=== PATIENT | female | born 2005 | race Caucasian/White ===

== ENCOUNTER 2024-07-09 12:12 | Outpatient (OUT) | payer OTHER, SELFPAY ==
--- NOTE | 2024-07-09 12:45 | XR_ITS ---
[address] [address] Patient Name: MAGDIEL ARAUJO MRN: [id number] date: 2005 Sex: F Assigned Patient Location: [facility] Current Patient Location: [facility] Accession/Order Number: [id number] Exam Date: 07/09/2024 13:35 Report Date: 07/09/2024 23:37 At the request of: ANITA SALAMANCA Procedure: XR chest 2V EXAM: XR chest 2V CLINICAL INDICATION: Preop exam COMPARISON: None TECHNIQUE: 2 views of chest performed. FINDINGS: Lungs: No convincing focal infiltrates. No pleural effusion or pneumothorax. Heart: Cardiac and mediastinal contours are unremarkable. No overt pulmonary vascular congestion. Osseous structures: No acute abnormalities. XR/XR chest 2V IMPRESSION: No acute cardiopulmonary process. Electronically authenticated by: NANCY MONTGOMERY Date: 07/09/2024 23:37
== END 2024-07-09 12:13 | disposition home or self-care (01) ==
LOC: PST 12:21
PROVIDERS: PCP Family Medicine; Visit Provider Obstetrics & Gynecology
DX: Z01.810 Encounter for preprocedural cardiovascular examination (principal); R10.2 Pelvic and perineal pain
CPT/HCPCS: 71046

== ENCOUNTER 2024-08-07 07:18 | Day surgery (SDC) | payer OTHER, SELFPAY ==
[2024-07-09 12:39] VITALS: BP 124/98; PULSE 75; TEMP 36.8; O2SAT 99; BMI 23.7
[2024-08-07] VITALS (11 sets, daily range): BP systolic 107–141; BP diastolic 70–96; PULSE 67–131; TEMP 36.3–36.4; O2SAT 98–100; BMI 23.9
--- OUTSIDE RECORDS SUMMARY | 2024-08-07 07:21 | XMS_ITS | CCD ---
Author Organization [facility] Care Team Providers Care Dye Colorist Dyer Name Role Phone KATHERIN VALENTIN Admitting Unavailable KATHERIN VALENTIN Attending Unavailable KATHERIN VALENTIN Consulting Unavailable Denae Turner Unavailable No, Physician Primary Care Provider Unavailabl e No, Physician Primary Care Provider Unavailabl e Balbo DO, Carmenza Morales Primary Care Provider ELIZABETH HODGES Attending Unavailable BALBO, CARMENZA MORALES Primary Care Unavailable BALBO, CARMENZA MORALES Primary Care Unavailable BALBO, CARMENZA MORALES Attending Unavailable BALBO, CARMENZA MORALES Primary Care Unavailable BALBO, CARMENZA MORALES Attending Unavailable BALBO, CARMENZA MORALES Primary Care Unavailable BALBO, CARMENZA MORALES Attending Unavailable NO, PHYSICIAN Primary Care Unavailable BALBO, CARMENZA MORALES Attending Unavailable ANCILLARY UPTOWN Admitting Unavailable BALBO, CARMENZA MORALES Primary Care Unavailable VALE GRIFFITH Attending Unavailable NO, PHYSICIAN Primary Care Unavailable NO, PHYSICIAN Primary Care Unavailable ELLIE LAYTON Attending Unavailabl e BALBO, CARMENZA MORALES Primary Care Unavailable ELLIE LAYTON Attending Unavailabl e BALBO, CARMENZA MORALES Primary Care Unavailable PAZ CHRISTY JR. Attending Unavail able BALBO, CARMENZA MORALES Primary Care Unavailable JANIS GONG Attending Unavailable BALBO, CARMENZA MORALES Primary Care Unavailable SHERRILL SAUCEDO Attending Unavailable BALBO, CARMENZA MORALES Primary Care Unavailable PAZ MITCHELL Attending Unavailable BALBO, CARMENZA MORALES Primary Care Unavailable ROSLYN HENNESSY Attending Unavailable ANITHA FREITAS Attending Unavailable CYNDY GILES Primary Care Unavailable RITA SANTANA Attending Unavailable RITA SANTANA Referring Unavailable RITA SANTANA Attending Unavailable MAXWELL RIOS Attending Unavailable ANITA SALAMANCA Attending Unavailable ANITA SALAMANCA Attending Unavailable MAXWELL RIOS Attending Unavailable ABBEY BROWN Attending Unavailable CARMENZA RUELAS Primary Care Unavailable Medications Current Medications Medication Drug Class(es) Dates Sig (Normalized) Sig (Original) dextromethorphan hydrobromide 15 mg / guaiFENesin 400 mg / pseudoephedrine hydrochloride 60 mg oral tablet (1 source) alpha-Adrenergic Agonist, Uncompetitive N-koqhgx-X-aspartat e Receptor Antagonist, Sigma-1 Agonist Start: 10-02-2022 End: 10-05-2022 take 1 tablet by mouth every six hours pseudoephedrine-DM -guaiFENesin 60-15-400 mg Tab Indications: Upper respiratory tract infection, unspecified type Take 1 (one) tablet by mouth every 6 (six) hours for 3 days . 12 tablet 0 10/02/2022 10/05/2022 Active erythromycin 0.005 mg/mg ophthalmic ointment (1 source) Macrolide, Macrolide Antimicrobial Start: 10-21-2023 End: 10-28-2023 apply 3.5 g into the eye(s) four times daily erythromycin 0.5% (ROMYCIN) ophthalmic ointment Administer to both eyes 4 (four) times a day for 7 days . 3.5 g 0 10/21/2023 10/28/2023 Active levonorgestrel 0.806952 mg/hr intrauterine system (12 sources) Progestin, Progestin-containin g Intrauterine Device levonorgestreL (MIRENA) 21 mcg/24 hours (8 yrs) 52 mg IUD 1 (one) each by Intrauterine route once . 0 Active nitrofurantoin, macrocrystals 25 mg / nitrofurantoin, monohydrate 75 mg oral capsule (2 sources) Nitrofuran Antibacterial Start: 09-19-2023 End: 09-24-2023 take 1 capsule by mouth twice daily nitrofurantoin, macrocrystal-monoh ydrate, (Macrobid) 100 MG capsule Indications: Acute cystitis with hematuria Take 1 (one) capsule (100 mg total) by mouth 2 (two) times a day for 5 days . 10 capsule 0 09/19/2023 09/23/2023 Discontinued sulfamethoxazole 800 mg / trimethoprim 160 mg oral tablet (2 sources) Dihydrofolate Reductase Inhibitor Antibacterial, Sulfonamide Antimicrobial Start: 09-23-2023 End: 09-30-2023 take 1 tablet by mouth twice daily sulfamethoxazole-t rimethoprim (BACTRIM DS,SEPTRA DS) 800-160 mg per tablet Indications: Acute cystitis with hematuria Take 1 (one) tablet by mouth 2 (two) times a day for 7 days . 14 tablet 0 09/23/2023 09/30/2023 Active venlafaxine 75 mg oral tablet (17 sources) Serotonin and Norepinephrine Reuptake Inhibitor Start: 11-26-2022 take 1 tablet by mouth once daily at mealtime venlafaxine (EFFEXOR) 75 MG tablet Take 1 (one) tablet (75 mg total) by mouth daily WITH FOOD . 0 11/26/2022 Active Completed/Discontinued Medications Medication Drug Class(es) Dates Sig (Normalized) Sig (Original) amoxicillin 250 mg chewable tablet (1 source) Penicillin-class Antibacterial Amoxicillin 250 MG Oral for 10 Not-Taking azithromycin 250 mg oral tablet (1 source) Macrolide Antimicrobial Start: 01-10-2016 Zithromax Z-Hugo 250 MG 2 tablets on the first day, then 1 tablet daily for 4 days Orally Once a day for 5 day(s) Dec, Not-Taking Brompheniramine / Pseudoephedrine (1 source) alpha-Adrenergic Agonist Start: 11-17-2017 take 5 mL by mouth every six hours as needed Bromfed DM 30-2-10 MG/5ML 5 ml as needed Orally every 6 hrs Oct, Not-Taking cefdinir (1 source) Cephalosporin Antibacterial Start: 06-16-2014 take 5 mL by mouth twice daily Omnicef 250 MG/5ML 5 ml By Mouth bid for 10 day(s) May, Not-Taking cetirizine hydrochloride 10 mg oral tablet (2 sources) Histamine-1 Receptor Antagonist Start: 10-02-2022 End: 12-24-2022 take 1 tablet by mouth once daily cetirizine (ZYRTEC) 10 MG tablet Indications: Upper respiratory tract infection, unspecified type Take 1 (one) tablet (10 mg total) by mouth daily . 30 tablet 0 10/02/2022 12/24/2022 Discontinued doxycycline monohydrate 100 mg oral capsule (2 sources) Tetracycline-class Drug Start: 03-11-2024 End: 03-11-2024 doxycycline monohydrate (MONODOX) capsule 100 mg Drug or medicament (substance) (7 sources) End: 08-08-2023 fluconazole 150 mg oral tablet (2 sources) Azole Antifungal Start: 07-25-2022 End: 10-02-2022 fluconazole (DIFLUCAN) 150 MG tablet Indications: Acute vaginitis Take 1 (one) tablet (150 mg total) by mouth every 72 hours . 2 tablet 0 07/25/2022 10/02/2022 Discontinued fluticasone propionate 0.05 mg/actuat metered dose nasal spray (3 sources) Corticosteroid Start: 10-02-2022 End: 12-24-2022 take 2 spray(s) nasal route once daily fluticasone propionate (FLONASE) 50 mcg/actuation nasal spray Indications: Upper respiratory tract infection, unspecified type Instill 2 (two) sprays into each nostril daily . 16 g 0 10/02/2022 12/24/2022 Discontinued Start: 11-17-2017 take 1 spray(s) nasa l route once daily Fluticasone Propionate 50 MCG/ACT 1 spray in each nostril Nasally Once a day for 21 days Oct, Not-Taking hydrocortisone 10 mg/ml / neomycin 3.5 mg/ml / polymyxin b [id number] unt/ml otic solution (1 source) Aminoglycoside Antibacterial, Polymyxin-class Antibacterial, Corticosteroid Kmenqjol-Hjoorxjye-K C 1 % Otic for 5 Not-Taking imiquimod 50 mg/ml topical cream (7 sources) Start: 09-27-20 End: 04-23-20 imiquimod (ALDARA) 5 % cream Indications: Genital warts Apply topically Saturday, Saturday, Saturday Wash hands prior to and following application. Leave on 6-10 hours. Use until spots gone OR max of 16 weeks Start: 09/27/23. 4 each 0 09/27/2023 04/23/2024 Discontinued metroNIDAZOLE 250 mg oral tablet (4 sources) Nitroimidazole Antimicrobial Start: 03-11-20 End: 03-11-20 metroNIDAZOLE (FLAGYL) table t 500 mg Start: 01-09-2024 End: 01-16-2024 take 1 tablet by mouth twice daily at mealtime metroNIDAZOLE (FlagyL) 500 MG tablet Indications: BV (bacterial vaginosis) Take 1 (one) tablet (500 mg total) by mouth 2 (two) times a day with meals for 7 days . 14 tablet 0 01/09/2024 01/16/2024 Active Start: 04-26-2023 take 1 tablet by eleonora th twice daily at mealtime metroNIDAZOLE (FLAGYL) 500 MG tablet Take 1 (one) tablet (500 mg total) by mouth 2 (two) times a day with meals . 14 tablet 0 04/26/2023 Active ondansetron 4 mg disintegrating oral tablet (20 sources) Serotonin-3 Receptor Antagonist Start: 04-26-2023 End: 04-23-2024 take 1 tablet by mouth every six hours as needed for nausea ondansetron (ZOFRAN-ODT) 4 MG disintegrating tablet Dissolve 1 (one) tablet (4 mg total) on top of tongue every 6 (six) hours as needed for nausea . 20 tablet 0 04/26/2023 07/31/2023 Discontinued phenazopyridine hydrochloride 200 mg oral tablet (2 sources) Start: 09-19-2023 End: 09-21-2023 take 1 tablet by mouth three times daily as needed for pain phenazopyridine (Pyridium) 200 MG tablet Indications: Acute cystitis with hematuria Take 1 (one) tablet (200 mg total) by mouth 3 (three) times a day as needed for pain . 6 tablet 0 09/19/2023 09/21/2023 tobramycin 3 mg/ml ophthalmic solution (1 source) Aminoglycoside Antibacterial Start: 01-10-2016 take 1 drop(s) into the eye(s) every four hours Tobramycin 0.3 % 1 drop into affected eye Ophthalmic every 4 hrs while awake for 7 days Dec, Not-Taking Problems Active Problems Problem Classification Problem Date Documented Date Episodic/Chronic Abdominal pain (2 sources) Pain in pelvis; Translations: [Pelvic and perineal pain] 08-08-2023 Episodic Alcohol-related disorders (16 sources) Alcohol intoxication; Translations: [Alcohol dependence with intoxication, uncomplicated] Onset: 02-26-2023 02-26-2023 Chronic Anxiety disorders (20 sources) Anxiety; Translations: [Anxiety disorder, unspecified] Onset: 06-06-2023 Chronic Bacterial infection; unspecified site (1 source) Chlamydial infection; Translations: [Chlamydial infection, unspecified] 03-11-2024 Episodic Genitourinary symptoms and ill-defined conditions (6 sources) Dysuria; Translations: [Dysuria] Onset: 04-23-2024 Episodic Headache; including migraine (12 sources) Migraine with aura; Translations: [Migraine with aura, not intractable, without status migrainosus] Onset: 06-06-2023 08-08-2023 Chronic Immunizations and screening for infectious disease (17 sources) Contact with and (suspected) exposure to other viral communicable diseases; Translations: [Patient encounter status] Onset: 06-06-2020 Resolved: 01-17-2022 Episodic Inflammatory diseases of female pelvic organs (3 sources) Acute vaginitis; Translations: [Acute vaginitis] Episodic Mood disorders (12 sources) Recurrent major depressive episodes, moderate ; Translations: [Major depressive disorder, recurrent, moderate] Onset: 06-06-2023 08-08-2023 Chronic Nausea and vomiting (1 source) Vomiting; Translations: [Vomiting, unspecified] Episodic Open wounds of extremities (3 sources) Laceration without foreign body of right index finger without damage to nail, initial encounter; Translations: [Laceration of finger] Onset: 04-26-2024 Episodic Other female genital disorders (3 sources) Vaginal bleeding; Translations: [Abnormal uterine and vaginal bleeding, unspecified] 07-31-2023 Chronic Other female genital disorders (1 source) Abnormal vaginal bleeding; Translations: [Abnormal uterine and vaginal bleeding, unspecified] 08-08-2023 Chronic Other female genital disorders (2 sources) Abnormal uterine and vaginal bleeding, unspecified; Translations: [Abnormal uterine and vaginal bleeding, unspecified] Onset: 07-31-2023 Chronic Other female genital disorders (2 sources) Vaginal discharge; Translations: [Other specified noninflammatory disorders of vagina] 07-04-2023 Episodic Other female genital disorders (1 source) Leukorrhea; Translations: [Other specified noninflammatory disorders of vagina] 01-08-2024 Episodic Other lower respiratory disease (2 sources) Shortness of breath; Translations: [Shortness of breath] Onset: 08-01-2024 Episodic Residual codes; unclassified (1 source) High risk sexual behavior; Translations: [High risk heterosexual behavior] 01-08-2024 Episodic Unclassified (2 sources) Procedure Onset: 08-15-2023 Viral infection (4 sources) Genital warts; Translations: [Anogenital (venereal) warts] Onset: 09-26-2023 08-08-2023 Episodic Past or Other Problems Problem Classification Problem Date Documented Date Episodic/Chronic Other female genital disorders (2 sources) Other specified noninflammatory disorders of vagina; Translations: [Other specified noninflammatory disorders of vagina] Onset: 07-04-2023 Episodic Other upper respiratory infections (5 sources) Acute upper respiratory infection, unspecified; Translations: [Upper respiratory infection] Onset: 01-17-2022 Resolved: 01-17-2022 Episodic Residual codes; unclassified (2 sources) High risk heterosexual behavior; Translations: [High risk heterosexual behavior] Onset: 01-08-2024 Episodic Urinary tract infections (4 sources) Acute cystitis; Translations: [Acute cystitis with hematuria] Onset: 09-19-2023 09-19-2023 Episodic Results Test Name Value Interpretation Reference Range Facility BASIC METABOLIC PANELon 07-19 Anion gap [Moles/Vol] 21 mmol/L High 10-20 [facility] Comment on above: Order Comment: [facility] has implemented the eGFR calculation approach that does not have a coefficient for race that conforms to the NKF-ASN Task Force Recommendations. Performed By: #### [id number] #### [address] [place], [place] [address] Frankie Kramer D.O. [id number] Calcium [Mass/Vol] 10.0 mg/dL Normal 8.4-10.2 [facility] Comment on above: Order Comment: [facility] has implemented the eGFR calculation approach that does not have a coefficient for race that conforms to the NKF-ASN Task Force Recommendations. Performed By: #### [id number] #### [address] [place], [place] [address] Frankie Kramer D.O. [id number] Chloride [Moles/Vol] 101 mmol/L Normal 98-108 [facility] Comment on above: Order Comment: [facility] has implemented the eGFR calculation approach that does not have a coefficient for race that conforms to the NKF-ASN Task Force Recommendations. Performed By: #### [id number] #### [address] [place], [place] [address] Frankie Kramer D.O. [id number] Creatinine [Mass/Vol] 0.70 mg/dL Normal 0.40-1.10 [facility] [place] Comment on above: Order Comment: [facility] has implemented the eGFR calculation approach that does not have a coefficient for race that conforms to the NKF-ASN Task Force Recommendations. Performed By: #### [id number] #### [address] [place] [id number] Frankie Kramer D.O. [id number] EGFR 127 mL/min/1.73 m2 Normal >=60 [facility] Comment on above: Order Comment: [facility] has implemented the eGFR calculation approach that does not have a coefficient for race that conforms to the NKF-ASN Task Force Recommendations. Result Comment: Whitney mated GFR was calculated using the 2020 CKD-EPI creatinine equation. Performed By: #### [id number] #### [address] [place] [id number] Frankie Kramer D.O. [id number] Glucose [Mass/Vol] 96 mg/dL Normal 65-99 [facility] Comment on above: Order Comment: [facility] has implemented the eGFR calculation approach that does not have a coefficient for race that conforms to the NKF-ASN Task Force Recommendations. Performed By: #### 4 [id number] #### [address] [place] [address] Frankie Kramer D.O. [id number] HCO3 (Bld) [Moles/Vol] 23 mmol/L Normal 21-32 ' [facility] Comment on above: Order Comment: [facility] has implemented the eGFR calculation approach that does not have a coefficient for race that conforms to the NKF-ASN Task Force Recommendations. Performed By: #### 4 [id number] #### [address] [place] [id number] Frankie Kramer D.O. [id number] Potassium [Moles/Vol] 3.7 mmol/L Normal 3.5-5.1 '[facility] Comment on above: Order Comment: [facility] has implemented the eGFR calculation approach that does not have a coefficient for race that conforms to the NKF-ASN Task Force Recommendations. Performed By: #### 4 [id number] #### [address] [place] [address] Frankie Kramer D.O. [id number] Sodium [Moles/Vol] 141 mmol/L Normal 135-145 '[facility] Comment on above: Order Comment: [facility] has implemented the eGFR calculation approach that does not have a coefficient for race that conforms to the NKF-ASN Task Force Recommendations. Performed By: #### 4 [id number] #### [address] [place] [id number] Frankie Kramer D.O. [id number] Urea nitrogen [Mass/Vol] 6 mg/dL Low 8-25 [facility] Comment on above: Order Comment: [facility] has implemented the eGFR calculation approach that does not have a coefficient for race that conforms to the NKF-ASN Task Force Recommendations. Performed By: #### 4 [id number] #### [address] [place] [address] Frankie Kramer D.O. [id number] Urea nitrogen/Creatinine [Mass ratio] 8.6 mg/mg Low 10.0-20.0 [facility] Comment on above: Order Comment: [facility] has implemented the eGFR calculation approach that does not have a coefficient for race that conforms to the NKF-ASN Task Force Recommendations. Performed By: #### 4 [id number] #### [address] [place] [id number] Frankie Kramer D.O. [id number] CBC WITH AUTO DIFFERENTIALon 08-01-2024 AUTO NRBC 0.0 % Normal [facility] Comment on above: Performed By: #### L [id number] #### [address] [place], [place] [address] Frankie Kramer D.O. [id number] AUTO NRBC ABS COUNT 0.00 K/mcL Normal 0.00-0.00 [facility] Comment on above: Performed By: #### L [id number] #### [address] [place] [address] Yue LukeOMaddison [id number] BASOPHILS ABSOLUTE COUNT 0.04 K/mcL Normal 0.00-0.30 [facility] Comment on above: Performed By: #### L [id number] #### [address] [place] [address] Yue LukeOMaddison [id number] Basophils/100 WBC (Bld) 0.6 % Normal [facility] Comment on above: Performed By: #### L [id number] #### [address] [place] [address] Yue LukeOMaddison [id number] Eosinophils (Bld) [#/Vol] 0.01 10*3/uL Normal 0.00-0.50 [facility] Comment on above: Performed By: #### L [id number] #### [address] [place] [address] Yue LukeOMaddison [id number] Eosinophils/100 WBC (Bld) 0.2 % Normal [facility] Comment on above: Performed By: #### L [id number] #### [address] [place] [address] Yue LukeOMaddison [id number] Erythrocyte distribution width (RBC) [Ratio] 11.8 % Normal 11.6-14.8 [facility] Comment on above: Performed By: #### L [id number] #### [address] [place] [address] Yue LukeOMaddison [id number] Hematocrit (Bld) [Volume fraction] 44.3 % Normal 36.0-46.0 [facility] Comment on above: Performed By: #### L [id number] #### [address] [place] [address] Yue LukeOMaddison [id number] Hemoglobin (Bld) [Mass/Vol] 15.1 g/dL Normal 12.0-16.0 [facility] Comment on above: Performed By: #### L [id number] #### [address] [place] [address] Frankie Kraemr D.O. [id number] IG ABSOLUTE 0.02 K/mcL Normal 0.00-0.30 [facility] Comment on above: Performed By: #### L [id number] #### [address] [place] [address] Frankie Kramer D.O. [id number] IG PERCENT 0.30 % Normal [facility] Comment on above: Result Comment: The IG parameter is the percentage of metamyelocytes, myelocytes and promyelocytes. An immature granulocyte count (IG) of 1% or more suggests the possibility of infection, an IG count of 3% is very likely related to an infection. Performed By: #### L [id number] #### [address] [place] [address] Frankie Kramer D.O. [id number] Lymphocytes (Bld) [#/Vol] 2.44 10*3/uL Normal 0.90-4.00 [facility] Comment on above: Performed By: #### L [id number] #### [address] [place] [address] Frankie Kramer D.O. [id number] Lymphocytes/100 WBC (Bld) 37.7 % Normal [facility] Comment on above: Performed By: #### L [id number] #### [address] [place] [address] Frankie Kramer D.O. [id number] MCH (RBC) [Entitic mass] 29.7 pg Normal 26.0-34.0 [facility] Comment on above: Performed By: #### L [id number] #### [address] [place] [address] Frankie Kramer D.O. [id number] MCV (RBC) [Entitic vol] 87.0 fL Normal 80.0-100.0 [facility] Comment on above: Performed By: #### L [id number] #### [address] [place] [address] Frankie Kramer D.O. [id number] MEAN CORPUSCULAR HEMOGLOBIN CONC 34.1 g/dL Normal 31.0-37.0 [facility] Comment on above: Performed By: #### L [id number] #### [address] [place] [address] Frankie Kramer D.O. [id number] Monocytes (Bld) [#/Vol] 0.47 10*3/uL Normal 0.30-0.90 [facility] Comment on above: Performed By: #### L [id number] #### [address] [place] [address] Frankie Kramer D.O. [id number] Monocytes/100 WBC (Bld) 7.3 % Normal [facility] Comment on above: Performed By: #### L [id number] #### [address] [place] [address] Frankie Kramer D.O. [id number] NEUTROPHILS ABSOLUTE COUNT 3.49 K/mcL Normal 1.70-7.00 [facility] Comment on above: Performed By: #### L [id number] #### [address] [place] [address] Frankie Kramer D.O. [id number] Neutrophils/100 WBC (Bld) 53.9 % Normal [facility] Comment on above: Performed By: #### L [id number] #### [address] [place] [address] Frankie Kramer D.O. [id number] Platelet mean volume (Bld) [Entitic vol] 9.5 fL Normal 9.4-12.4 [facility] Comment on above: Performed By: #### L [id number] #### [address] [place] [address] Frankie Kramer D.O. [id number] Platelets (Bld) [#/Vol] 418 10*3/uL High 150-400 [facility] Comment on above: Performed By: #### L [id number] #### [address] [place] [address] Frankie Kramer D.O. [id number] RBC (Bld) [#/Vol] 5.09 10*6/uL Normal 4.00-5.20 [facility] Comment on above: Performed By: #### L [id number] #### [address] [place] [address] Frankie Kramer D.O. [id number] WBC (Bld) [#/Vol] 6.47 10*3/uL Normal 4.50-11.00 [facility] Comment on above: Performed By: #### L [id number] #### [address] [place] [address] Frankie Kramer D.O. [id number] DRUGS OF ABUSE SCREEN, URINE on 08-01-2024 AMPHETAMINE SCREEN, URINE Positive Abnormal None Detected [facility] Comment on above: Order Comment: Scree n results should be used for treatment purposes only. Specimen will be kept for 2 weeks, if the sample is adequate. Confirmation testing can be initiated by calling the lab within 2 weeks. Result Comment: Urin e Amphetamine Cutoff: < 1000 ng/mL = None Detected Performed By: #### [id number] #### [address] [place] [address] Frankie Kramer D.O. [id number] BARBITURATE SCREEN URINE Not detected Normal None Detected [facility] Comment on above: Order Comment: Scree n results should be used for treatment purposes only. Specimen will be kept for 2 weeks, if the sample is adequate. Confirmation testing can be initiated by calling the lab within 2 weeks. Result Comment: Urin e Barbiturates Cutoff: < 200 ng/mL = None Detected Performed By: #### 4 [id number] #### [address] [place] [address] Frankie Kramer D.O. [id number] BENZODIAZEPINE SCREEN, URINE Not detected Normal None Detected [facility] Comment on above: Order Comment: Scree n results should be used for treatment purposes only. Specimen will be kept for 2 weeks, if the sample is adequate. Confirmation testing can be initiated by calling the lab within 2 weeks. Result Comment: Urin e Benzodiazepine Cutoff: < 200 ng/mL = None Detected Performed By: #### 4 [id number] #### [address] [place] [address] Yue LukeOMaddison [id number] BUPRENORPHINE, URINE Not detected Normal None Detected [facility] Comment on above: Order Comment: Scree n results should be used for treatment purposes only. Specimen will be kept for 2 weeks, if the sample is adequate. Confirmation testing can be initiated by calling the lab within 2 weeks. Result Comment: Urin e Buprenorphine Cutoff: < 5 ng/mL = None Detected Performed By: #### 4 [id number] #### [address] [place] [address] Meek Luke.OMaddison [id number] CANNABINOID SCREEN URINE Not detected Normal None Detected [facility] Comment on above: Order Comment: Scree n results should be used for treatment purposes only. Specimen will be kept for 2 weeks, if the sample is adequate. Confirmation testing can be initiated by calling the lab within 2 weeks. Result Comment: Urin e Cannabinoids Cutoff: < 50 ng/mL = None Detected Performed By: #### 4 [id number] #### [address] [place] [address] Yue LukeOMaddison [id number] COCAINE, SCREEN URINE Not detected Normal None Detecte d [facility] Comment on above: Order Comment: Scree n results should be used for treatment purposes only. Specimen will be kept for 2 weeks, if the sample is adequate. Confirmation testing can be initiated by calling the lab within 2 weeks. Result Comment: Urin e Cocaine Cutoff: < 300 ng/mL = None Detected Performed By: #### 4 [id number] #### [address] [place] [address] Meek Luke.O. [id number] FENTANYL, URINE Not detected Normal None Detected [facility] Comment on above: Order Comment: Scree n results should be used for treatment purposes only. Specimen will be kept for 2 weeks, if the sample is adequate. Confirmation testing can be initiated by calling the lab within 2 weeks. Result Comment: Urin e Fentanyl Cutoff: < 1 ng/mL = None Detected Performed By: #### 4 [id number] #### [address] [place] [address] Meek Luke.O. [id number] METHADONE SCREEN, URINE Not detected Normal None Detected [facility] Comment on above: Order Comment: Scree n results should be used for treatment purposes only. Specimen will be kept for 2 weeks, if the sample is adequate. Confirmation testing can be initiated by calling the lab within 2 weeks. Result Comment: Urin e Methadone Cutoff: < 300 ng/mL = None Detected Performed By: #### 4 [id number] #### [place] [address] Frankie Kramer D.O. [id number] OPIATE SCREEN URINE Not detected Normal None Detected [facility] Comment on above: Order Comment: Scree n results should be used for treatment purposes only. Specimen will be kept for 2 weeks, if the sample is adequate. Confirmation testing can be initiated by calling the lab within 2 weeks. Result Comment: Urin e Opiates Cutoff: < 300 ng/mL = None Detected Performed By: #### 4 [id number] #### [place] [address] Frankie Kramer D.O. [id number] OXYCODONE SCREEN, URINE Not detected Normal None Detected [facility] Comment on above: Order Comment: Scree n results should be used for treatment purposes only. Specimen will be kept for 2 weeks, if the sample is adequate. Confirmation testing can be initiated by calling the lab within 2 weeks. Result Comment: Urin e Oxycodone Cutoff: < 100 ng/mL = None Detected Performed By: #### 4 [id number] #### [place] [address] Frankie Kramer D.O. [id number] ED Procedureon 08-01-2024 ED Procedure EKG 12-lead Date/Time: 08/01/2024 7:57 PM Performed by: Abbey Brown MD Authorized by: Sophia Bal CNP Interpreted by ED attending physician Comparison: compared with previous ECG from 03/10/2023 Comparison to previous ECG: Significant changes have occurred Rhythm: sinus tachycardia Rhythm comments: sinus tachycardia BPM: 111 MI Interval: 128 QRS Interval: 76 QT Interval: 466 Other findings: prolonged QTc interval Clinical impression: abnormal ECG and sinus tachycardia Comments: Prolongd QTc AUTHENTICATED BY ABBEY BROWN, ON 08/01/2024 22:22:14 Normal [facility] ED Prov Noteon 08-01-2024 ED Prov Note ED PROVIDER NOTE [facility] EMERGENCY DEPARTMENT NAME: Gudelia Gallardo AGE: 19 y.o. : 2005 VISIT DATE: 08/01/2024 CSN: [id number] PCP: Carmenza Ruelas DO Chief Complaint Patient presents with Shortness of Breath HPI Patient presents for evaluation of shortness of breath. She states that she had experienced shortness of breath all day. Patient reports that she had URI symptoms last week and that her roommate recently had pneumonia. Patient reports that she felt lightheaded and that her extremities including her hands felt numb and tingling. Patient states that she did not have any chest pain. She does have history of anxiety. Patient states that about a year ago she stopped taking Effexor for her history of depression and anxiety but more recently has started on Adderall for ADHD. Past Medical History: Diagnosis Date Anxiety Arthritis Depression Migraines Past Surgical History: Procedure Laterality Date ADENOIDECTOMY TONSILLECTOMY WISDOM TOOTH EXTRACTION Family History Problem Relation Age of Onset Depression Mother No Known Problems Father Arthritis Maternal Grandfather Social History Socioeconomic History Marital status: Single Tobacco Use Smoking status: Never Smokeless tobacco: Never Vaping Use Vaping status: Every Day Substances: Nicotine Substance and Sexual Activity Alcohol use: Yes Alcohol/week: 5.0 standard drinks of alcohol Types: 5 Cans of beer per week Drug use: Never Sexual activity: Not Currently Partners: Female, Male control/protection: I.U.D., Condom Social Determinants of Health Financial Resource Strain: Medium Risk (10/09/2023) Received from [facility] [place], [facility] Overall Financial Resource Strain (CARDIA) Difficulty of Paying Living Expenses: Somewhat hard Food Insecurity: Patient Declined (04/26/2024) Received from [facility] Hunger Screening Within the past 12 months we worried whether our food would run out before we got money to buy more.: Patient Declined Within the past 12 months the food we bought just didn't last and we didn't have money to get more.: Patient Declined Transportation Needs: No Transportation Needs (10/09/2023) Received from [facility], [facility] PRAPARE - Transportation Lack of Transportation (Medical): No Lack of Transportation (Non-Medical): No Physical Activity: Insufficiently Active (10/09/2023) Received from [facility] Exercise Vital Sign Days of Exercise per Week: 3 days Minutes of Exercise per Session: 20 min Stress: No Stress Concern Present (10/09/2023) Received from [facility] [place] [facility] [employer] [facility] - Occupational Stress Questionnaire Feeling of Stress : Only a little Social Connections: Socially Isolated (10/09/2023) Received from [facility] Social Connection and Isolation Panel [NHANES] Frequency of Communication with Friends and Family: More than three times a week Frequency of Social Gatherings with Friends and Family: More than three times a week Attends Zoroastrianism Services: Never Active Member of Clubs or Organizations: No Attends Club or Organization Meetings: Never Marital Status: Never Housing Stability: Low Risk (10/09/2023) Received from [facility] Housing Stability Vital Sign Unable to Pay for Housing in the Last Year: No Number of Places Lived in the Last Year: 2 Unstable Housing in the Last Year: No Previous Medications Medication Sig levonorgestreL (MIRENA) 21 mcg/24 hours (8 yrs) 52 mg IUD 1 (one) each by Intrauterine route once . venlafaxine (EFFEXOR) 75 MG tablet Take 1 (one) tablet (75 mg total) by mouth daily WITH FOOD . No Known Allergies Review of Systems Constitutional: Negative for activity change, appetite change and fever. HENT: Negative for congestion, ear pain and sore throat. Eyes: Negative for discharge and redness. Respiratory: Positive for shortness of breath. Negative for cough. Cardiovascular: Negative for chest pain and leg swelling. Gastrointestinal: Negative for abdominal pain, diarrhea, nausea and vomiting. Genitourinary: Negative for dysuria, flank pain and hematuria. Musculoskeletal: Negative for arthralgias, back pain and neck pain. Skin: Negative for rash and wound. Neurological: Positive for numbness. Negative for dizziness, weakness and headaches. Psychiatric/Behavio ral: Negative for agitation. The patient is nervous/anxious. Patient Vitals for the past 24 hrs: BP Temp Temp src Pulse Resp SpO2 Height Weight 08/01/24 2317 122/87 -- -- 91 18 100 % -- -- 08/01/241920 -- -- -- (!) 112 18 -- 5' 7 69 kg (152 lb 1.6 oz) 08/01/24 185 (!) 146/91 98.2 degrees F (36.8 degrees C) Oral (!) 160 -- 100 % -- -- Physical Exam Vitals and nursing note reviewed. Constitutional: General: She is not in acu (more content not included)... Normal [facility] HCG, SERUM, QUALITATIVEon BETA-HCG QUAL BLOOD Negative Normal Negative [facility] Comment on above: Order Comment: Negat ewelina: The result is less than or equal to 5 mIU/mL of HCG. Performed By: #### 4 [id number] #### [address] [place] [address] Frankie Kramer D.O. [id number] HEPATIC FUNCTION PANELon Albumin [Mass/Vol] 4.8 g/dL Normal 3.2-5.2 [facility] Comment on above: Performed By: #### 4 [id number] #### [address] [place] [address] Frankie Kramer D.O. [id number] ALP [Catalytic activity/Vol] 78 U/L Normal 40-140 [facility] Comment on above: Performed By: #### 4 [id number] #### [address] [place] [address] Frankie Kramer D.O. [id number] ALT [Catalytic activity/Vol] 11 U/L Normal 0-35 U/L [facility] Comment on above: Performed By: #### 4 [id number] #### [address] [place] [address] Frankie Kramer D.O. [id number] AST [Catalytic activity/Vol] 19 U/L Normal 0-35 U/L [facility] Comment on above: Performed By: #### 4 [id number] #### [address] [place] [address] Frankie Kramer D.O. [id number] Bilirubin [Mass/Vol] 0.4 mg/dL Normal 0.0-1.3 [facility] Comment on above: Performed By: #### 4 [id number] #### [address] [place] [address] Frankie Kramer D.O. [id number] BILIRUBIN, DIRECT < Normal 0.0-0.4 [facility] Comment on above: Performed By: #### 4 [id number] #### [address] [place] [address] Frankie Kramer D.O. [id number] Protein [Mass/Vol] 7.4 g/dL Normal 6.0-8.0 [facility] Comment on above: Performed By: #### 4 [id number] #### [address] [place] [address] Frankie Kramer D.O. [id number] POC VENOUS BLOOD GAS PANEL-P [facility] 08-01-2024 BASE EXCESS, VENOUS 1.1 Normal -2.0-2.0 [facility] Comment on above: Performed By: #### 4 8717 #### [address] [place] [address] Frankie Kramer D.O. [id number] FIO2 21 Normal [facility] Comment on above: Performed By: #### 4 8717 #### [address] [place] [address] Frankie Kramer D.O. [id number] HCO3 (Bld) [Moles/Vol] 25.1 mmol/L Normal 24.0-28.0 [facility] Comment on above: Performed By: #### 4 [id number] #### [address] [place] [address] Frankie Kramer D.O. [id number] Hematocrit (Bld) [Volume fraction] 46.9 % High 36.0-46.0 [facility] Comment on above: Performed By: #### 4 [id number] #### [address] [place] [address] Frankie Kramer D.O. [id number] Hemoglobin (Bld) [Mass/Vol] 15.3 g/dL Normal 12.0-16.0 [facility] Comment on above: Performed By: #### 4 [id number] #### [address] [place] [address] Frankie Kramer D.O. [id number] Oxygen saturation in Blood 57.2 % Normal 40.0-70.0 [facility] Comment on above: Performed By: #### 4 [id number] #### [address] [place] [address] Frankie Kramer D.O. [id number] PCO2 VENOUS 37.3 mm Hg Low 41.0-51.0 [facility] Comment on above: Performed By: #### 4 [id number] #### [address] [place] [address] Frankie Kramer D.O. [id number] PH VENOUS 7.44 High 7.32-7.42 [facility] Comment on above: Performed By: #### 4 [id number] #### [address] [place] [address] Frankie Kramer D.O. [id number] PO2 VENOUS < Normal 25-40 [facility] Comment on above: Result Comment: Caut ion: pO2 reference ranges for some specimen types are lower than the measuring range of the instrument. Performed By: #### 4 [id number] #### [address] [place] [address] Frankie Kramer D.O. [id number] TSH WITH REFLEX FREE T4on TSH Qn 1.07 m[IU]/L Normal 0.27-4.20 [facility] Comment on above: Performed By: #### 4 6612 #### [address] [place] [address] Frankie Kramer D.O. [id number] URINALYSISon 08-01-2024 BACTERIA, URINE Rare Abnormal None Seen [facility] Comment on above: Order Comment: Micro scopic examination is performed on all urinalysis samples and only positive findings are reported. The test for blood on the chemical analytic portion of urinalysis may also be positive due to hemoglobinuria and myoglobinuria and if red blood cells are present they are quantified by microscopic examination. Performed By: #### 4 6625 #### [address] [place] [address] Frankie Kramer D.O. [id number] BILIRUBIN, URINE Negative Normal Negative [facility] Comment on above: Order Comment: Micro scopic examination is performed on all urinalysis samples and only positive findings are reported. The test for blood on the chemical analytic portion of urinalysis may also be positive due to hemoglobinuria and myoglobinuria and if red blood cells are present they are quantified by microscopic examination. Performed By: #### 4 [id number] #### [address] [place] [address] Frankie Kramer D.O. [id number] BLOOD, URINE Small Abnormal Negative [facility] Comment on above: Order Comment: Micro scopic examination is performed on all urinalysis samples and only positive findings are reported. The test for blood on the chemical analytic portion of urinalysis may also be positive due to hemoglobinuria and myoglobinuria and if red blood cells are present they are quantified by microscopic examination. Performed By: #### 4 6625 #### [address] [place] [address] Frankie Kramer D.O. [id number] Clarity (U) Clear Normal Clear [facility] Comment on above: Order Comment: Micro scopic examination is performed on all urinalysis samples and only positive findings are reported. The test for blood on the chemical analytic portion of urinalysis may also be positive due to hemoglobinuria and myoglobinuria and if red blood cells are present they are quantified by microscopic examination. Performed By: #### 4 [id number] #### [address] [place] [address] Frankie Kramer D.O. [id number] Color (U) Yellow Normal Colorless, Yellow [facility] Comment on above: Order Comment: Micro scopic examination is performed on all urinalysis samples and only positive findings are reported. The test for blood on the chemical analytic portion of urinalysis may also be positive due to hemoglobinuria and myoglobinuria and if red blood cells are present they are quantified by microscopic examination. Performed By: #### 4 6625 #### [address] [place] [address] Frankie Kramer D.O. [id number] Glucose Ql (U) Negative Normal Negative [facility] Comment on above: Order Comment: Micro scopic examination is performed on all urinalysis samples and only positive findings are reported. The test for blood on the chemical analytic portion of urinalysis may also be positive due to hemoglobinuria and myoglobinuria and if red blood cells are present they are quantified by microscopic examination. Performed By: #### 4 6625 #### [address] [place] [address] Frankie Kramer D.O. [id number] Ketones Ql (U) Negative Normal Negative [facility] Comment on above: Order Comment: Micro scopic examination is performed on all urinalysis samples and only positive findings are reported. The test for blood on the chemical analytic portion of urinalysis may also be positive due to hemoglobinuria and myoglobinuria and if red blood cells are present they are quantified by microscopic examination. Performed By: #### 4 6625 #### [address] [place] [address] Frankie Kramer D.O. [id number] Leukocyte esterase Test strip Ql (U) Negative Normal [facility] Comment on above: Order Comment: Micro scopic examination is performed on all urinalysis samples and only positive findings are reported. The test for blood on the chemical analytic portion of urinalysis may also be positive due to hemoglobinuria and myoglobinuria and if red blood cells are present they are quantified by microscopic examination. Performed By: #### 4 6625 #### [address] [place] [address] Frankie Kramer D.O. [id number] NITRITE, URINE Negative Normal [facility] Comment on above: Order Comment: Micro scopic examination is performed on all urinalysis samples and only positive findings are reported. The test for blood on the chemical analytic portion of urinalysis may also be positive due to hemoglobinuria and myoglobinuria and if red blood cells are present they are quantified by microscopic examination. Performed By: #### 4 6625 #### [address] [place] [address] Frankie Kramer D.O. [id number] pH (U) 7.0 [pH] Normal 5.0-7.0 [facility] Comment on above: Order Comment: Micro scopic examination is performed on all urinalysis samples and only positive findings are reported. The test for blood on the chemical analytic portion of urinalysis may also be positive due to hemoglobinuria and myoglobinuria and if red blood cells are present they are quantified by microscopic examination. Performed By: #### 4 6625 #### [address] [place] [address] Frankie Kramer D.O. [id number] PROTEIN, URINE Negative Normal Negative [facility] Comment on above: Order Comment: Micro scopic examination is performed on all urinalysis samples and only positive findings are reported. The test for blood on the chemical analytic portion of urinalysis may also be positive due to hemoglobinuria and myoglobinuria and if red blood cells are present they are quantified by microscopic examination. Performed By: #### 4 6625 #### [address] [place] [address] Frankie Kramer D.O. [id number] RBC LM.HPF (Urine sed) [#/Area] 1 /[HPF] Normal 0-3 [facility] Comment on above: Order Comment: Micro scopic examination is performed on all urinalysis samples and only positive findings are reported. The test for blood on the chemical analytic portion of urinalysis may also be positive due to hemoglobinuria and myoglobinuria and if red blood cells are present they are quantified by microscopic examination. Performed By: #### 4 [id number] #### [address] [place] [address] Frankie Kramer D.O. [id number] Specific gravity (U) [Rel density] 1.011 Normal 1.005-1.025 [facility] Comment on above: Order Comment: Micro scopic examination is performed on all urinalysis samples and only positive findings are reported. The test for blood on the chemical analytic portion of urinalysis may also be positive due to hemoglobinuria and myoglobinuria and if red blood cells are present they are quantified by microscopic examination. Performed By: #### 4 [id number] #### [address] [place] [address] Frankie Kramer D.O. [id number] SQUAMOUS EPITHELIAL 7 /hpf High 0-4 [facility] Comment on above: Order Comment: Micro scopic examination is performed on all urinalysis samples and only positive findings are reported. The test for blood on the chemical analytic portion of urinalysis may also be positive due to hemoglobinuria and myoglobinuria and if red blood cells are present they are quantified by microscopic examination. Performed By: #### 4 6625 #### [address] [place] [id number] Frankie Kramer D.O. [id number] UROBILINOGEN, URINE <2.0 Normal <2.0 [facility] Comment on above: Order Comment: Micro scopic examination is performed on all urinalysis samples and only positive findings are reported. The test for blood on the chemical analytic portion of urinalysis may also be positive due to hemoglobinuria and myoglobinuria and if red blood cells are present they are quantified by microscopic examination. Performed By: #### 4 [id number] #### [address] [place] [address] Frankie Kramer D.O. [id number] WBC LM.HPF (Urine sed) [#/Area] 4 /[HPF] Normal 0-5 [facility] Comment on above: Order Comment: Micro scopic examination is performed on all urinalysis samples and only positive findings are reported. The test for blood on the chemical analytic portion of urinalysis may also be positive due to hemoglobinuria and myoglobinuria and if red blood cells are present they are quantified by microscopic examination. Performed By: #### 4 [id number] #### [address] [place] [id number] Frankie Kramer D.O. [id number] XR CHEST PA/APon 08-01-2024 XR CHEST PA/AP EXAMINATION: XR CHEST PA/AP HISTORY: sob COMPARISON: Chest radiograph 07/09/2024t [facility] FINDINGS: Cardiomediastinal silhouette is normal. The lungs are clear of any congestion or infiltrate. No pleural effusion. No acute osseous abnormality. IMPRESSION: No acute abnormality. Workstation ID: [id number] Dictated by: KARLENE MOLINA on Sat Aug 01, 2024 9:44:31 PM EDT Transcribed by: KARLENE MOLINA on Sat Aug 01, 2024 9:44:31 PM EDT Finalized by: KARLENE MOLINA on Sat Aug 01, 2024 9:44:31 PM EDT Normal [facility] Comment on above: Order Comment: Injur y/Trauma or Illness?:Illness/Other How long have you had these symptoms (acute/chronic)?:Acute Reason for exam?:Shortness of Breath History of cancer?:none Surgeries, chemotherapy, or radiation?:none Type of Exam?:Initial Additional signs and symptoms?:pt states that they are having a hard time breathing and numbness in legs and arms. she said she also feels weak CHLAMYDIA/GONORRHOEAE AMPLIF IED RNAon 04-23-2024 CHLAMYDIA/GONORRHOEAE AMPLIFIED RNA CHLAMYDIA TRACHOMATIS AMPLIFIED RNA NEGATIVE NEISSERIA GONORRHOEAE AMPLIFIED RNA NEGATIVE Normal Negative [facility] Comment on above: Performed By: #### L [id number] #### [facility] [address] [place] [address] Luis Garcia M.D. [id number] POC Urinalysis Dipstick,Auto UCon 04-23-2024 Bilirubin Ql (U) Negative Negative [facility] th Clarity, UA Cloudy Abnormal Clear [place] Color (U) Yellow Yellow, Light Yellow, Dark Yellow [place] Glucose Ql (U) Negative Normal, Negative mg/dL [place] Hemoglobin Ql (U) Trace-intact Abnormal Negative [facility] Interpretation and review of laboratory results Abnormal [place] Ketones Ql (U) Negative Negative mg/dL [place] Leukocyte esterase Test strip Ql (U) Small Abnormal Negative [place] Nitrite Ql (U) Negative Negative [place] pH (U) 7.0 [pH] 5.0 - 7.0 [place] Protein Ql (U) Negative Negative mg/dL [place] Specific gravity (U) [Rel density] 1.025 1.005 - 1.025 [place] Urobilinogen Qn (U) 0.2 mg/dL <2.0, 0. 2, Normal, Negative, 1.0, 2.0, <1.0 [facility] TRICHOMONAS VAGINALIS AMPLIF IED RNAon 04-23-2024 TRICHOMONAS VAGINALIS AMPLIFIED RNA Negative Normal Negative [facility] Comment on above: Performed By: #### [id number] #### [facility] [address], [place] [address] Luis Garcia M.D. [id number] URINE AEROBIC CULTUREon 06-0 URINE AEROBIC CULTURE URINE CULTURE No Growth (<1,000 CFU/mL) Normal [facility] Urgent [facility] [place] Comment on above: Performed By: #### [id number] #### [facility], [place] [address] Luis Garcia M.D. [id number] CT ABDOMEN PELVIS W IV CONTR Kayce 11-28-2023 CT ABDOMEN PELVIS W IV CONTRAST Examination: CT ABDOMEN PELVIS W IV CONTRAST Indication: chronic lower abdomen and pelvic pain Technique: Multiple serial axial images was performed through the abdomen and pelvis utilizing 100cc of Isovue 300 and the oral administration of 450 cc of oral contrast.. Images were reconstructed in the axial and coronal and sagittal planes. Comparison: No comparison is available. Findings: The visualized basal lungs show no focal parenchymal abnormalities. The liver shows no focal parenchymal abnormality. No intrahepatic biliary dilatation. Gallbladder, spleen, pancreas, adrenals, kidneys are unremarkable. Bladder wall is not thickened. No bladder calculi. Large and small bowel show no sign of obstruction. The appendix is not visualized. No pericecal stranding. No diverticulitis. There are several clustered lymph nodes less than 5 mm in short axis diameter located along the small bowel mesentery especially anterior to the right psoas in the right lower quadrant. these changes are suggestive of primary mesenteric adenitis which is considered a benign self limiting illness An IUD is seen within the uterus. No free air. No free fluid. The visualized abdominal aorta is of normal size and caliber. No significant retroperitoneal adenopathy. Visualized osseous structures are grossly unremarkable. IMPRESSION: Impression: UNREMARKABLE CT SCAN OF THE ABDOMEN AND PELVIS DESCRIBED ABOVE All CT scans at this facility use dose modulation, iterative reconstruction, and/or weight based dosing when appropriate to reduce radiation dose to as low as reasonably achievable. ELECTRONICALLY SIGNED BY: Wily Fox MD Normal Not Available POC Rapid Strep AOrdered By: Margot Díaz on 10-21-2023 Interpretation and review of laboratory results Normal [place] S. pyogenes Ag Ql (Throat) Negative Negative [facility] Bacteria identified Aer cx N om (Unsp spec)Ordered By: Frankie Gerber on 09-21-2023 Interpretation and review of laboratory results Abnormal [facility] Urine cultureOrdered By: Milagro Gerber on 09-21-2023 Bacteria identified Aer cx Nom (Unsp spec) >100,000 CFU/mL Proteus mirabilis Abnormal [facility] - Chemistry and C hemistry - challengeOrdered By: Margot Díaz on 09-19-2023 Bilirubin Ql (U) Negative Negative [facility] Glucose Ql (U) Negative Normal, Negative mg/dL [place] Ketones Ql (U) Negative Negative mg/dL [place] pH (U) 7.0 [pH] 5.0 - 7.0 [place] Specific gravity (U) [Rel density] 1.020 1.005 - 1.025 [place] Urobilinogen Qn (U) 0.2 mg/dL <2.0, 0. 2, Normal, Negative, 1.0, 2.0, <1.0 [facility] - Hematology and Cell countsOrdered By: Margot Díaz on 09-19-2023 Hemoglobin Ql (U) Moderate Abnormal Negative [facility] [place] [facility] - Specimen inform ationOrdered By: Margot Díaz on 09-19-2023 Color (U) Yellow Yellow, Light Yellow, Dark Yellow [facility] - UrinalysisOrder ed By: Margot Díaz on 09-19-2023 Leukocyte esterase Test strip Ql (U) Small Abnormal Negative [place] Nitrite Ql (U) Negative Negative [facility] Protein Ql (U) Negative Negative mg/dL [place] No Panel InformationOrdered By: Margot Díaz on 09-19-2023 Clarity, UA Cloudy Abnormal Clear [place] Interpretation and review of laboratory results Abnormal [facility] Destruction of lesionon - Carmenza Ruelas DO 08/15/2023 10:22 AM Destruction of lesion Timeout: Verbal Consent obtained?: Yes Written Consent obtained?: Yes Date:: 08/15/2023 Time:: 09:47 EDT Consent given by:: Patient Procedure: Performed by: Physician Bleeding: None Hemostasis Achieved: N/A Procedural Pain:: 8 Post Procedural Pain:: 0 and 5 Additional Procedure details:: Discussed risks, benefits, alternative treatments. Informed of risk of scarring, infection, and failed therapy. Patient gave consent to proceed. 18 lesion(s) on the genital/inner thigh/buttock was/were treated using liquid nitrogen. Freeze ball with 2 mm margins were formed, thawed, and refrozen for a total of three freeze cycles. After care was discussed with the patient. Response to Treatment:: Procedure was tolerated well [facility] HCG ( test) Ql (U)o n 08-08-2023 Internal Control Pass [facility] Interpretation and review of laboratory results Normal [facility] POC , Urineon 08-08 HCG ( test) Ql (U) Negative Negative [place] POC Urinalysis Dipstick, Aut oOrdered By: Celia Claire on 08-08-2023 Bilirubin Ql (U) Negative Negative [facility] Glucose Ql (U) Negative Normal, Negative mg/dL [place] Hemoglobin Ql (U) Negative Negative [facility] [place] Interpretation and review of laboratory results Abnormal [place] Ketones Ql (U) Negative Negative mg/dL [place] Leukocyte esterase Test strip Ql (U) Negative Negative [facility] Nitrite Ql (U) Negative Negative [place] pH (U) 8.5 [pH] Abnormal 5.0 - 7.0 [facility] Protein Ql (U) Trace Abnormal Negative mg/dL [place] Specific gravity (U) [Rel density] 1.015 1.005 - 1.025 [place] Urobilinogen Qn (U) 0.2 mg/dL <2.0, 0. 2, Normal, Negative, 1.0, 2.0, <1.0 [facility] POC Urinalysis Dipstick,Auto UCOrdered By: Margot Díaz on 07-25-2022 Bilirubin Ql (U) Negative Negative [facility] Clarity, UA Cloudy Abnormal Clear [place] Color (U) Yellow Yellow, Light Yellow, Dark Yellow [place] Glucose Ql (U) Negative Normal, Negative mg/dL [place] Hemoglobin Ql (U) Negative Negative [facility] [place] Interpretation and review of laboratory results Abnormal [place] Ketones Ql (U) Negative Negative mg/dL [place] Leukocyte esterase Test strip Ql (U) Large Abnormal Negative [facility] Nitrite Ql (U) Negative Negative [place] pH (U) 6.5 [pH] 5 - 7 [facility] Protein Ql (U) Negative Negative mg/dL [place] Specific gravity (U) [Rel density] 1.020 1.005 - 1.025 [place] Urobilinogen Qn (U) 0.2 mg/dL <2.0, 0. 2, Normal, Negative, 1.0, 2.0, <1.0 [facility] COVID Quick Testingon 2021 Result Negative [employer] Other Quick Fluon 01-17-2022 FLUAV Ab CF (S) [Titer] Negative [employer] Other FLUBV Ab CF (S) [Titer] Negative [employer] Other Quick Strepon 01-17-2022 S. pyogenes Org specific cx Ql (Throat) Negative [employer] Other Quick Strep [employer] Other COVID-19 PCRon 06-08-2020 SARS-CoV-2, KELSEA Not Detected Normal Not Detected [facility] Comment on above: Result Comment: This test was developed and its performance characteristics determined by [employer]. This test has not been FDA cleared or approved. This test has been authorized by FDA under an Emergency Use Authorization (EUA). This test is only authorized for the duration of time the declaration that circumstances exist justifying the authorization of the emergency use of in vitro diagnostic tests for detection of SARS-CoV-2 virus and/or diagnosis of COVID-19 infection under section 564(b)(1) of the Act, 21 U.S.C. 360bbb-3(b)(1), unless the authorization is terminated or revoked sooner. When diagnostic testing is negative, the possibility of a false negative result should be considered in the context of a patient's recent exposures and the presence of clinical signs and symptoms consistent with COVID-19. An individual without symptoms of COVID-19 and who is not shedding SARS-CoV-2 virus would expect to have a negative (not detected) result in this assay. Performed By: #### C VDPCR #### [facility] [address] [place] [address] Gena Potter Vital Signs Date Time Vital Sign Value Performing Clinician Facility 04-23-2024 18:51-0400 Body temperature 97.59 [degF] Mel Novak DO Work Phone: [place] 04-23-2024 18:51-0400 Diastolic blood pressure 79 mm[Hg] Mel Novak DO Work Phone: [place] 04-23-2024 18:51-0400 Heart rate 78 /min Mel Novak DO Work Phone: [place] 04-23-2024 18:51-0400 Respiratory rate 16 /min Mel Novak DO Work Phone: [place] 04-23-2024 18:51-0400 SaO2% (BldA) [Mass fraction] 98 % Mel Novak DO Work Phone: [place] 04-23-2024 18:51-0400 Systolic blood pressure 122 mm[Hg] Mel Novak DO Work Phone: [place] 03-10-2024 08:56-0400 Body height 170.2 cm Sherrill Spurr [employer] Work Phone: [place] 03-10-2024 08:56-0400 Body mass index (BMI) [Ratio] 22.71 kg/m2 Sherrill [employer]r [employer] Work Phone: [place] 03-10-2024 08:56-0400 Body temperature 97.7 [degF] Sherrill Spurr [employer] Work Phone: [place] 03-10-2024 08:56-0400 Body weight 65.77 kg Sherrill Spurr [employer] Work Phone: [place] 03-10-2024 08:56-0400 Diastolic blood pressure 86 mm[Hg] Sherrill Spurr [employer] Work Phone: [place] 03-10-2024 08:56-0400 Heart rate 68 /min Sherrill Spurr [employer] Work Phone: [place] 03-10-2024 08:56-0400 SaO2% (BldA) [Mass fraction] 99 % Sherrill Saucedo [employer] Work Phone: [place] 03-10-2024 08:56-0400 Systolic blood pressure 122 mm[Hg] Sherrill Blankr [employer] Work Phone: [place] 01-08-2024 12:50-0500 Body temperature 98.29 [degF] Paz Mitchell PA-C Work Phone: [place] 01-08-2024 12:50-0500 Diastolic blood pressure 82 mm[Hg] Paz Mitchell PA-C Work Phone: [facility] 01-08-2024 12:50-0500 Heart rate 94 /min Paz Mitchell PA-C Work Phone: [place] 01-08-2024 12:50-0500 SaO2% (BldA) [Mass fraction] 98 % Paz Mitchell PA-C Work Phone: [place] 01-08-2024 12:50-0500 Systolic blood pressure 113 mm[Hg] Paz Mitchell PA-C Work Phone: [place] 10-21-2023 15:10-0500 Body temperature 98.29 [degF] Janis Gong DO Work Phone: [facility] 10-21-2023 15:10-0500 Diastolic blood pressure 77 mm[Hg] Janis Gong DO Work Phone: [facility] 10-21-2023 15:10-0500 Heart rate 72 /min Janis Gong DO Work Phone: [place] 10-21-2023 15:10-0500 SaO2% (BldA) [Mass fraction] 99 % Janis Gong DO Work Phone: [place] 10-21-2023 15:10-0500 Systolic blood pressure 115 mm[Hg] Janis Gong DO Work Phone: [facility] 09-24-2023 08:52-0500 Body temperature 98.4 [degF] CHARLES Montalvo Jr.C Work Phone: [facility] 09-24-2023 08:52-0500 Diastolic blood pressure 80 mm[Hg] Paz Christy Jr., PA-C Work Phone: [place] 09-24-2023 08:52-0500 Heart rate 108 /min Paz Christy Jr., PA-C Work Phone: [facility] 09-24-2023 08:52-0500 SaO2% (BldA) [Mass fraction] 96 % Paz Christy Jr., PA-C Work Phone: [facility] 09-24-2023 08:52-0500 Systolic blood pressure 116 mm[Hg] Paz Christy Jr., PA-C Work Phone: [facility] 09-19-2023 11:37-0400 Body temperature 98.6 [degF] Ellie Layton [employer] Work Phone: [place] 09-19-2023 11:37-0400 Diastolic blood pressure 86 mm[Hg] Ellie Layton [employer] Work Phone: [place] 09-19-2023 11:37-0400 Heart rate 78 /min Ellie Layton [employer] Work Phone: [place] 09-19-2023 11:37-0400 SaO2% (BldA) [Mass fraction] 97 % Ellie Layton [employer] Work Phone: [place] 09-19-2023 11:37-0400 Systolic blood pressure 126 mm[Hg] Ellie Layton [employer] Work Phone: [place] 08-15-2023 09:32-0400 Body height 167.6 cm Carmenza Ruelas DO Work Phone: [facility] 08-15-2023 09:32-0400 Body mass index (BMI) [Ratio] 23.86 kg/m2 Carmenza Magdalenoo DO Work Phone: [place] 08-15-2023 09:32-0400 Body temperature 98.29 [degF] Carmenza Balbo DO Work Phone: [place] 08-15-2023 09:32-0400 Body weight 67.04 kg Carmenza Balbo DO Work Phone: [facility] 08-15-2023 09:32-0400 Diastolic blood pressure 86 mm[Hg] Carmenza Balbo DO Work Phone: [facility] 08-15-2023 09:32-0400 Heart rate 114 /min Carmenza G.ho.sto DO Work Phone: [facility] 08-15-2023 09:32-0400 Systolic blood pressure 123 mm[Hg] Carmenza Balbo DO Work Phone: [place] 08-08-2023 14:08-0400 Body height 167.6 cm Carmenza G.ho.sto [employer] Work Phone: [place] 08-08-2023 14:08-0400 Body mass index (BMI) [Ratio] 24.5 kg/m2 Carmenza G.ho.sto DO Work Phone: [facility] 08-08-2023 14:08-0400 Body temperature 98.6 [degF] Carmenza Balbo DO Work Phone: [facility] 08-08-2023 14:08-0400 Body weight 68.86 kg Carmenza G.ho.sto DO Work Phone: [facility] 08-08-2023 14:08-0400 Diastolic blood pressure 78 mm[Hg] Carmenza Balbo DO Work Phone: [facility] 08-08-2023 14:08-0400 Heart rate 91 /min Carmenza G.ho.sto DO Work Phone: [facility] 08-08-2023 14:08-0400 SaO2% (BldA) [Mass fraction] 98 % Carmenza G.ho.sto DO Work Phone: [facility] 08-08-2023 14:08-0400 Systolic blood pressure 111 mm[Hg] Carmenza Balbo DO Work Phone: [place] 07-31-2023 14:09-0400 Body temperature 98.71 [degF] Ellie Layton [employer] Work Phone: [facility] 07-31-2023 14:09-0400 Diastolic blood pressure 81 mm[Hg] Ellie Layton [employer] Work Phone: [facility] 07-31-2023 14:09-0400 Heart rate 84 /min Ellie Layton [employer] Work Phone: [place] 07-31-2023 14:09-0400 SaO2% (BldA) [Mass fraction] 98 % Ellie Layton [employer] Work Phone: [place] 07-31-2023 14:09-0400 Systolic blood pressure 118 mm[Hg] Ellie Layton [employer] Work Phone: [place] 07-04-2023 18:54-0400 Body mass index (BMI) [Ratio] 20.53 kg/m2 Crystal Griffith DO Work Phone: [facility] 07-04-2023 18:54-0400 Body temperature 98.6 [degF] Crystal Griffith DO Work Phone: [facility] 07-04-2023 18:54-0400 Body weight 61.24 kg Crystal Griffith DO Work Phone: [facility] 07-04-2023 18:54-0400 Diastolic blood pressure 78 mm[Hg] Crystal Griffith DO Work Phone: [place] 07-04-2023 18:54-0400 Heart rate 71 /min Crystal Griffith DO Work Phone: [facility] 07-04-2023 18:54-0400 Respiratory rate 16 /min Crystal Griffith DO Work Phone: [place] 07-04-2023 18:54-0400 SaO2% (BldA) [Mass fraction] 98 % Crystal Griffith DO Work Phone: [place] 07-04-2023 18:54-0400 Systolic blood pressure 112 mm[Hg] Crystal Griffith DO Work Phone: [place] 12-24-2022 11:40-0500 Heart rate 95 /min Ellie Layton [employer] Work Phone: [place] 12-24-2022 11:23-0500 Diastolic blood pressure 87 mm[Hg] Ellie Layton [employer] Work Phone: [place] 12-24-2022 11:23-0500 Systolic blood pressure 137 mm[Hg] Ellie Layton [employer] Work Phone: [place] 12-24-2022 11:19-0500 Body height 172.7 cm Ellie Layton [employer] Work Phone: [facility] 12-24-2022 11:19-0500 Body mass index (BMI) [Percentile] Per age and sex 26.18 % Ellie Layton [employer] Work Phone: [place] 12-24-2022 11:19-0500 Body mass index (BMI) [Ratio] 19.77 kg/m2 Ellie Layton [employer] Work Phone: [facility] 12-24-2022 11:19-0500 Body temperature 98.29 [degF] Ellie Layton [employer] Work Phone: [place] 12-24-2022 11:19-0500 Body weight 58.97 kg Ellie Layton [employer] Work Phone: [place] 12-24-2022 11:19-0500 SaO2% (BldA) [Mass fraction] 99 % Ellie Layton [employer] Work Phone: [facility] 10-02-2022 14:54-0500 Body temperature 98.71 [degF] Ellie Layton [employer] Work Phone: [facility] 10-02-2022 14:54-0500 Diastolic blood pressure 77 mm[Hg] Ellie Layton [employer] Work Phone: [place] 10-02-2022 14:54-0500 Heart rate 99 /min Ellie Layton [employer] Work Phone: [place] 10-02-2022 14:54-0500 SaO2% (BldA) [Mass fraction] 98 % Ellie Layton [employer] Work Phone: [place] 10-02-2022 14:54-0500 Systolic blood pressure 114 mm[Hg] Ellie Layton [employer] Work Phone: [facility] 07-25-2022 11:30-0400 Body height 170.2 cm Hilda Bernens PA-C Work Phone: [facility] 07-25-2022 11:30-0400 Body mass index (BMI) [Percentile] Per age and sex 47.57 % Hilda Bernens PA-C Work Phone: [facility] 07-25-2022 11:30-0400 Body mass index (BMI) [Ratio] 21.24 kg/m2 Hilda Bernens PA-C Work Phone: [facility] 07-25-2022 11:30-0400 Body temperature 98.4 [degF] Hilda Bernens PA-C Work Phone: [facility] 07-25-2022 11:30-0400 Body weight 61.5 kg Hilda Bernens PA-C Work Phone: [facility] 07-25-2022 11:30-0400 Diastolic blood pressure 78 mm[Hg] Hilda Bernens PA-C Work Phone: [facility] 07-25-2022 11:30-0400 Heart rate 94 /min Hilda Bernens PA-C Work Phone: [place] 07-25-2022 11:30-0400 SaO2% (BldA) [Mass fraction] 99 % Hilda Bernens PA-C Work Phone: [place] 07-25-2022 11:30-0400 Systolic blood pressure 121 mm[Hg] Hilda Bernens PA-C Work Phone: [place] 01-17-2022 10:30-0500 Body height 172.72 cm Denae Turner Other [employer] Other 01-17-2022 10:30-0500 Body mass index (BMI) [Ratio] 19 kg/m2 Denae Johnny Other [employer] Other 01-17-2022 10:30-0500 Body temperature 97.8 [degF] Denae Turner Other [employer] Other 01-17-2022 10:30-0500 Body weight 56.7 kg Denae Turner Other [employer] Other 01-17-2022 10:30-0500 Respiratory rate 18 /min Denae Turner Other [employer] Other 01-17-2022 10:30-0500 SaO2% (BldA) [Mass fraction] 99 % Denae Turner Other [employer] Other Encounters Encounter Date Encounter Type Care Provider Facility Start: 08-01-2024 End: 08-01-2024 Emergency department patient visit [facility] Start: 07-24-2024 End: 07-24-2024 ambulatory MAXWELL RIOS Not Available Start: 07-09-2024 End: 07-09-2024 ambulatory ANITA JADYN Not Available Start: 06-29-2024 End: 06-29-2024 ambulatory ANITA JADYN Not Available Start: 06-10-2024 End: 06-10-2024 ambulatory RITA SANTANA Not Available Start: 06-09-2024 End: 06-09-2024 ambulatory MAXWELL RIOS Not Available Start: 04-26-2024 End: 04-26-2024 Emergency department patient visit [facility] Start: 04-23-2024 End: 04-23-2024 Office outpatient visit 15 minutes Mel Y. Novak DO Work Phone: [facility] Comment on above: Dysuria (Primary Dx) ; Possible exposure to STD Start: 04-23-2024 End: 04-23-2024 ambulatory CARMENZA NIELSEN [facility] Start: 03-11-2024 End: 03-11-2024 Orders Only Ellie Layton [employer] Work Phone: [facility] Comment on above: Chlamydia (Primary D x); BV (bacterial vaginosis) Start: 03-10-2024 ambulatory ANCILLARY [facility] Start: 03-10-2024 End: 03-10-2024 Office outpatient visit 15 minutes Sherrill Saucedo [employer] Work Phone: [facility] Comment on above: Vaginal discharge (P rimary Dx); Possible exposure to STD Start: 03-10-2024 End: 03-10-2024 ambulatory CARMENZA NIELSEN [facility] Start: 01-09-2024 Orders Only Ellie Layton [employer] Work Phone: [facility] Comment on above: BV (bacterial vagino sis) (Primary Dx) Start: 01-08-2024 End: 01-08-2024 ambulatory CARMENZA NIELSEN [facility] Start: 01-08-2024 End: 01-08-2024 Office outpatient visit 25 minutes Paz Mitchell PA-C Work Phone: [facility] Comment on above: Leukorrhea (Primary Dx); High risk sexual behavior, unspecified type Start: 11-28-2023 End: 11-28-2023 ambulatory RITA G MAX Not Available Start: 11-14-2023 End: 11-14-2023 ambulatory RITA G MAX Not Available Start: 10-21-2023 End: 10-21-2023 Office outpatient visit 15 minutes Janis Gong DO Work Phone: [facility] Comment on above: Sore throat (Primary Dx) Start: 10-21-2023 End: 10-21-2023 ambulatory CARMENZA RUELAS [facility] Start: 10-09-2023 End: 10-09-2023 ambulatory RITA SANTANA Not Available Start: 10-04-2023 End: 10-04-2023 ambulatory ELIZABETH HODGES [facility] Start: 09-26-2023 End: 09-26-2023 ambulatory CARMENZARita RUELAS [facility] Start: 09-24-2023 End: 09-24-2023 ambulatory CARMENZA RUELAS [facility] Start: 09-24-2023 End: 09-24-2023 Office outpatient visit 15 minutes Paz Christy PA-C Work Phone: [facility] Comment on above: Routine screening fo r STI (sexually transmitted infection) (Primary Dx) Start: 09-19-2023 End: 09-19-2023 Office outpatient visit 15 minutes Ellie Layton CNP Work Phone: [facility] Comment on above: Acute cystitis with hematuria (Primary Dx); Dysuria Start: 09-19-2023 End: 09-19-2023 ambulatory CARMENZA RUELAS [facility] Start: 09-05-2023 End: 09-05-2023 ambulatory CARMENZA RUELAS [facility] Start: 08-15-2023 End: 08-15-2023 ambulatory CARMENZARita RUELAS [facility] Start: 08-15-2023 End: 08-15-2023 Office outpatient visit 15 minutes Carmenza Ruelas DO Work Phone: [facility] Comment on above: Pelvic pain (Primary Dx); Genital warts Start: 08-08-2023 End: 08-08-2023 ambulatory PHYSICIAN NO [facility] Start: 08-08-2023 End: 08-08-2023 Office outpatient visit 25 minutes Carmenza Morales Magdalenoo DO Work Phone: [facility] Comment on above: Pelvic pain (Primary Dx); Abnormal vaginal bleeding; Genital warts Start: 07-31-2023 End: 07-31-2023 ambulatory PHYSICIAN CINDY [facility] Start: 07-31-2023 End: 07-31-2023 Office outpatient visit 15 minutes Ellie Layton CNP Work Phone: [facility] Comment on above: Vaginal bleeding (Pr imary Dx); Routine screening for STI (sexually transmitted infection) Start: 07-04-2023 End: 07-04-2023 Office outpatient visit 15 minutes Vale Griffith DO Work Phone: [facility] [place] [facility] Comment on above: Vaginal discharge (P rimary Dx) Start: 07-04-2023 End: 07-04-2023 ambulatory VALE GRIFFITH [facility] Start: 12-24-2022 End: 12-24-2022 Office outpatient visit 15 minutes Ellie Layton CNP Work Phone: [facility] Comment on above: Vomiting, unspecifie d vomiting type, unspecified whether nausea present (Primary Dx); Anxiety Start: 10-02-2022 End: 10-02-2022 Office outpatient visit 15 minutes Ellie Layton CNP Work Phone: [facility] Comment on above: Upper respiratory tr act infection, unspecified type (Primary Dx) Start: 07-25-2022 End: 07-25-2022 Office outpatient new 30 minutes Hilda Nelson PA-C Work Phone: [facility] Comment on above: Acute vaginitis (Milagros cyndy Dx); Dysuria Start: 01-17-2022 End: 01-17-2022 ambulatory Denae Turner Other [employer] Other Start: 01-17-2022 Office outpatient vi sit 15 minutes Denae Turner [facility] Start: 06-06-2020 End: 06-07-2020 Patient encounter procedure KATHERIN VALENTIN Facility:H1 Procedures Date Procedure Procedure Detail Performing Clinician Start: 04-23-2024 Urnls dip stick/tabl et rgnt auto w/o microscopy Mel Novak DO Work Phone: Start: 03-10-2024 SCAN OTHER ORDERS Sherrill Saucedo [employer] Work Phone: Start: 10-21-2023 Iaadiadoo streptococ cus group a Janis Gong DO Work Phone: Start: 09-19-2023 Culture bacterial quanttative colony count urine Ellie Layton [employer] Work Phone: Start: 09-19-2023 Urnls dip stick/tabl et rgnt auto w/o microscopy Ellie Layton [employer] Work Phone: Start: 08-15-2023 Destruction of lesion J bob Magdalenoo DO Work Phone: Start: 08-08-2023 End: 08-08-2023 Urine test visual color cmprsn meths Carmenza Morales Balbo DO Work Phone: Start: 02-26-2023 Adult depression scr eening assessment Crystal Nacho DO Work Phone: Start: 07-25-2022 Urnls dip stick/tabl et rgnt auto w/o microscopy Hilda Nelson PA-C Work Phone: Plan of Treatment Date Care Activity Detail Author Start: 05-16-2026 Tetanus vaccination Tetanus: Every 1 0yrs [place] Start: 03-10-2025 Screening for Chlamy didi trachomatis Chlamydia Screening [place] Start: 01-08-2025 Screening for Chlamy iddi trachomatis Chlamydia Screening [place] Start: 09-24-2024 Screening for Chlamy didi trachomatis Chlamydia Screening [place] Start: 07-31-2024 Screening for Chlamy didi trachomatis Chlamydia Screening [place] Start: 07-19-2024 Influenza vaccination Influenz a Vaccine (Season Ended) [place] Start: 02-27-2024 Depression screening using PHQ-9 (Patient Health Questionnaire 9) score Depression Screening (PHQ-2/9) [place] Start: 02-02-2024 Vaccination for cheko n papillomavirus HPV Vaccines (3 - 3-dose series) [place] Start: 01-08-2024 End: 01-08-2025 Chlamydia trachomatis rRNA assay [place] Comment on above: Expected: 01/08/2024 , Expires: 01/08/2025 Start: 12-27-2023 Vaccination for cheko n papillomavirus HPV Vaccines (3 - 3-dose series) [place] Start: 09-26-2023 End: 09-26-2023 Patient encounter procedure 09/26/2023 9:00 AM EST Office Visit [facility] at [address] [id number] Carmenza Ruelas [address] [place] [address] [facility] at [facility] Start: 09-24-2023 End: 09-24-2024 Chlamydia trachomatis rRNA assay [place] Work Phone: Comment on above: Expected: 09/24/2023 , Expires: 09/24/2024 Start: 09-05-2023 End: 09-05-2023 Patient encounter procedure 09/05/2023 9:00 AM EDT Procedure visit [facility] at [address] [phone] Carmenza Ruelas [address] [place] [address] [facility] Primary [facility] [place] Start: 08-15-2023 End: 08-15-2023 Patient encounter procedure 08/15/2023 9:30 AM EDT Procedure visit [facility] at [address] [phone] Carmenza Ruelas [address] [place] [address] [facility] at [facility] Primary [facility] [place] Start: 08-08-2023 End: 08-08-2023 Patient encounter procedure 08/08/2023 2:00 PM EDT Office Visit [facility] at [address] [place] [address] Carmenza Ruelas, [address] [place] [address] [facility] at [facility] Primary [facility] [place] Start: 07-31-2023 End: 07-31-2024 Chlamydia trachomatis rRNA assay [place] Work Phone: Comment on above: Expected: 07/31/2023 , Expires: 07/31/2024 Start: 07-25-2023 Screening for Chlamy didi trachomatis Chlamydia Screening [place] Start: 07-19-2023 COVID-19 Vaccine ( season) COVID-19 Vaccine ( season) [place] Start: 07-19-2023 Influenza vaccination Sequenti al Influenza Vaccine (#1) [place] Start: 05-17-2023 Influenza vaccination Sequenti al Influenza Vaccine (#1) [place] Comment on above: Postponed from 07/19 (Patient Refused) Start: 01-01-2023 End: 01-01-2023 Patient encounter procedure 01/01/2023 Office Visit Primary [facility] Shellie Price, [address] [place] [address] [facility] Start: 03-20-2022 COVID-19 Vaccine (4 - Booster for Pfizer series) COVID-19 Vaccine (4 - Booster for Pfizer series) [place] Start: 03-20-2022 COVID-19 Vaccine (4 - Pfizer series) COVID-19 Vaccine (4 - Pfizer series) [place] Start: 2022 Hepatitis C screening Hepatitis C Sc reening [place] Start: 08-01-2021 Vaccination for cheko n papillomavirus HPV Vaccines (2 - 3-dose series) [place] Start: 2019 HIV screening HIV Screening [facility] Start: 2016 Depression screening using PHQ-9 (Patient Health Questionnaire 9) score Depression Screening (PHQ-2/9) [place] Start: 2010 Pneumococcal Vaccine : Ped or At-Risk (1 - PCV) Pneumococcal Vaccine: Ped or At-Risk (1 - PCV) [place] Start: 2010 Pneumococcal Vaccine : Ped or At-Risk (1 of 2 - PCV) Pneumococcal Vaccine: Ped or At-Risk (1 of 2 - PCV) [place] Start: 2007 History and physical examination, annual for health maintenance Wellness Visit [place] Start: 2004 Screening for Chlamy didi trachomatis Chlamydia Screening [place] Bacteria identified in Unspecified specimen by Aerobe culture Urine culture Microbiology Routine Acute cystitis with hematuria 09/19/2023 11:56 AM EDT [place] Work Phone: Bacteria identified in Unspecified specimen by Aerobe culture Urine Aerobic Culture Microbiology Routine Dysuria 04/23/2024 7:02 PM EDT [place] End: 03-10-2025 Chlamydia trachomatis rRNA assay Chlamydia/GC/Trichomon as Amplified RNA Microbiology Routine Vaginal discharge Possible exposure to STD 1 Occurrences starting 03/10/2024 until 03/10/2025 [place] Comment on above: 1 Occurrences starti ng 03/10/2024 until 03/10/2025 Chlamydia trachomati s rRNA assay Chlamydia/GC/Trichomon as Amplified RNA Microbiology Routine Vaginal discharge Possible exposure to STD 03/10/2024 9:14 AM EDT [place] End: 04-23-2025 Chlamydia trachomatis rRNA assay Chlamydia/GC/Trichomon as Amplified RNA Microbiology Routine Possible exposure to STD 1 Occurrences starting 04/23/2024 until 04/23/2025 [place] Work Phone: Comment on above: 1 Occurrences starti ng 04/23/2024 until 04/23/2025 Chlamydia trachomati s rRNA assay Chlamydia/GC/Trichomon as Amplified RNA Microbiology Routine Possible exposure to STD 04/23/2024 6:54 PM EDT [place] End: 07-25-2023 Gardnerella vaginalis rRNA assay Vaginitis DNA Probes Microbiology Routine Acute vaginitis 1 Occurrences starting 07/25/2022 until 07/25/2023 [place] Work Phone: Comment on above: 1 Occurrences starti ng 07/25/2022 until 07/25/2023 Gardnerella vaginali s rRNA assay Vaginitis DNA Probes Microbiology Routine Acute vaginitis 07/25/2022 12:05 PM EDT [place] End: 07-04-2024 Gardnerella vaginalis rRNA assay Vaginitis DNA Probes Microbiology Routine Vaginal discharge 1 Occurrences starting 07/04/2023 until 07/04/2024 [place] Work Phone: Comment on above: 1 Occurrences starti ng 07/04/2023 until 07/04/2024 End: 01-08-2025 Gardnerella vaginalis rRNA assay Vaginitis DNA Probes Microbiology Routine Leukorrhea High risk sexual behavior, unspecified type 1 Occurrences starting 01/08/2024 until 01/08/2025 [place] Work Phone: Comment on above: 1 Occurrences starti ng 01/08/2024 until 01/08/2025 Gardnerella vaginali s rRNA assay Vaginitis DNA Probes Microbiology Routine Leukorrhea High risk sexual behavior, unspecified type 01/08/2024 1:12 PM EST [place] End: 03-10-2025 Gardnerella vaginalis rRNA assay Vaginitis DNA Probes Microbiology Routine Vaginal discharge 1 Occurrences starting 03/10/2024 until 03/10/2025 [place] Work Phone: Comment on above: 1 Occurrences starti ng 03/10/2024 until 03/10/2025 Gardnerella vaginali s rRNA assay Vaginitis DNA Probes Microbiology Routine Vaginal discharge 03/10/2024 9:14 AM EDT [place] End: 07-25-2023 Neisseria gonorrhoeae nucleic acid detection Chlamydia/Gonorrhoeae Amplified RNA Microbiology Routine Dysuria Acute vaginitis 1 Occurrences starting 07/25/2022 until 07/25/2023 [place] Comment on above: 1 Occurrences starti ng 07/25/2022 until 07/25/2023 Neisseria gonorrhoea e nucleic acid detection Chlamydia/Gonorrhoeae Amplified RNA Microbiology Routine Dysuria Acute vaginitis 07/25/2022 12:05 PM EDT [place] Neisseria gonorrhoea e nucleic acid detection [place] Comment on above: Ordered: 07/31/2023 Neisseria gonorrhoea e nucleic acid detection Chlamydia/Gonorrhoeae Amplified RNA Microbiology Routine Routine screening for STI (sexually transmitted infection) 09/24/2023 9:06 AM EST [place] Neisseria gonorrhoea e nucleic acid detection Chlamydia/Gonorrhoeae Amplified RNA Microbiology Routine Leukorrhea High risk sexual behavior, unspecified type 01/08/2024 1:12 PM EST [place] Neisseria gonorrhoea e nucleic acid detection Chlamydia/Gonorrhoeae Amplified RNA Microbiology Routine Vaginal discharge Possible exposure to STD 03/10/2024 9:14 AM EDT [place] Neisseria gonorrhoea e nucleic acid detection Chlamydia/Gonorrhoeae Amplified RNA Microbiology Routine Possible exposure to STD 04/23/2024 6:54 PM EDT [place] End: 08-08-2024 Transvaginal ultrasonography of pelvis US Transvaginal Imaging Routine Pelvic pain 1 Occurrences starting 08/08/2023 until 08/08/2024 [place] Work Phone: Comment on above: 1 Occurrences starti ng 08/08/2023 until 08/08/2024 Trichomonas vaginali s Amplified RNA [place] Comment on above: Ordered: 07/31/2023 Trichomonas vaginali s Amplified RNA Trichomonas vaginalis Amplified RNA Microbiology Routine Routine screening for STI (sexually transmitted infection) 09/24/2023 9:06 AM EST [place] Trichomonas vaginali s Amplified RNA Trichomonas vaginalis Amplified RNA Microbiology Routine Leukorrhea High risk sexual behavior, unspecified type 01/08/2024 1:12 PM EST [place] Trichomonas vaginali s Amplified RNA Trichomonas vaginalis Amplified RNA Microbiology Routine Vaginal discharge Possible exposure to STD 03/10/2024 9:14 AM EDT [place] Trichomonas vaginali s Amplified RNA Trichomonas vaginalis Amplified RNA Microbiology Routine Possible exposure to STD 04/23/2024 6:54 PM EDT [place] Immunizations Immunization Date Immunization Notes Care Provider Fa [facility] 10-04-2023 Human Papillomavirus 9-valent vaccine Janis Gong DO Work Phone: [place] 10-04-2023 HPV, unspecified formulation Janis Gong DO Work Phone: [place] 11-26-2022 influenza, injectabl e, quadrivalent, preservative free Carmenza Ruelas DO Work Phone: [place] 11-26-2022 influenza virus vacc ine, unspecified formulation Sherrill Saucedo [employer] Work Phone: [place] 08-22-2021 influenza, injectabl e, quadrivalent, contains preservative [facility] [place] 07-04-2021 human papilloma viru s vaccine, quadrivalent [facility] DO Work Phone: [place] 07-04-2021 meningococcal B vacc ine, recombinant, OMV, adjuvanted [facility] DO Work Phone: [place] 07-04-2021 HPV, unspecified formulation Crystal Griffith DO Work Phone: [place] 08-10-2020 meningococcal polysa ccharide (groups A, C, Y and W-135) diphtheria toxoid conjugate vaccine (MCV4P) [facility] DO Work Phone: [place] 05-16-2016 meningococcal oligos accharide (groups A, C, Y and W-135) diphtheria toxoid conjugate vaccine (MCV4O) [facility] DO Work Phone: [place] 05-16-2016 tetanus toxoid, redu robbin diphtheria toxoid, and acellular pertussis vaccine, adsorbed [facility] DO Work Phone: [place] 04-28-2009 Diphtheria, tetanus toxoids and acellular pertussis vaccine, and poliovirus vaccine, inactivated [facility] DO Work Phone: [place] 04-28-2009 measles, mumps and r ubella virus vaccine [facility] DO Work Phone: [place] 04-28-2009 varicella virus vaccine [facility] DO Work Phone: [place] 04-23-2005 diphtheria, tetanus toxoids and acellular pertussis vaccine [facility] DO Work Phone: [place] 04-23-2005 pneumococcal conjuga te vaccine, 7 valent [facility] DO Work Phone: [place] 04-23-2005 varicella virus vaccine Carmenza Balbo DO Work Phone: [place] 01-10-2005 haemophilus influenz ae type b vaccine, PRP-T conjugate Carmenza Magdalenoo DO Work Phone: [place] 01-10-2005 measles, mumps and r ubella virus vaccine Carmenza Balbo DO Work Phone: [place] 2004 DTaP-hepatitis B and poliovirus vaccine Carmenza Sharlao DO Work Phone: [place] 2004 haemophilus influenz ae type b vaccine, PRP-T conjugate Carmenza Sharlao DO Work Phone: [place] 2004 pneumococcal conjuga te vaccine, 7 valent Carmenza Sharlao DO Work Phone: [place] 2004 DTaP-hepatitis B and poliovirus vaccine Carmenza Sharlao DO Work Phone: [place] 2004 haemophilus influenz ae type b vaccine, PRP-T conjugate Carmenza Magdalenoo DO Work Phone: [place] 2004 pneumococcal conjuga te vaccine, 7 valent Carmenza Sharlao DO Work Phone: [place] 2004 DTaP-hepatitis B and poliovirus vaccine Carmenza Sharlao DO Work Phone: [place] 2004 haemophilus influenz ae type b vaccine, PRP-T conjugate Carmenza Magdalenoo DO Work Phone: [place] 2004 pneumococcal conjuga te vaccine, 7 valent Carmenza Sharlao DO Work Phone: [place] 2004 hepatitis B vaccine, pediatric or pediatric/adolescent dosage Carmenzarita Magdalenoo DO Work Phone: [place] Payers Date Payer Category Payer Unknown [id number] 2024 Unknown [id number] 2024 Worker's Compensation [id number] 2023 Unknown [id number] 2018 Unknown [id number] 2004 Unknown [id number] 2.16. 840.1.393380.3.579.2.903 2004 Unknown [id number] 2.16. 840.1.729345.3.579.2.903 2004 Unknown [id number] 2.16. 840.1.666186.3.579.2.903 2004 Unknown [id number] 2.16. 840.1.606578.3.579.2.903 2004 Unknown [id number] 2.16. 840.1.579380.3.579.2.903 2004 Unknown [id number] 2.16.8 40.1.963801.3.579.2.516 2004 Unknown [id number] 2.16. 840.1.691019.3.579.2.903 2004 Unknown [id number] 2.16. 840.1.374080.3.579.2.903 2004 Unknown [id number] 2.16. 840.1.814872.3.579.2.903 2004 Unknown [id number] 2.16. 840.1.796094.3.579.2.903 2004 Unknown [id number] 2.16. 840.1.889704.3.579.2.903 2004 Unknown [id number] 2.16. 840.1.111198.3.579.2.903 2004 Unknown [id number] 2.16. 840.1.002134.3.579.2.903 2004 Unknown [id number] 2.16. 840.1.443050.3.579.2.903 2004 Unknown [id number] 2.16. 840.1.395452.3.579.2.903 2004 Unknown [id number] 2.16.8 40.1.553496.3.579.2.1286 2004 Unknown [id number] 2.16.84 0.1.364210.3.579.2.1259 2004 Unknown [id number] 2.16.84 0.1.944554.3.579.2.1259 2004 Unknown [id number] 2.16.84 0.1.644729.3.579.2.9 2004 Unknown [id number] 2.16.84 0.1.409809.3.579.2.1259 2004 Unknown [id number] 2.16.84 0.1.548198.3.579.2.1259 2004 Unknown [id number] 2.16.84 0.1.981910.3.579.2.9 2004 Unknown [id number] 2.16.840 .1.265495.3.579.2.1259 2004 Unknown [id number] 2.16.840 .1.163351.3.579.2.1259 2004 Unknown [id number] 2.16. 840.1.854175.3.579.2.903 1972 Unknown [id number] 2.16.84 0.1.016734.3.579.2.593 1959 Unknown [id number] Self-pay Unknown [id number] 2.1 [id number] Social History Date Type Detail Facility Unknown if ever smoked [employer] Other Start: 02-26-2023 End: 04-26-2023 Sex Assigned At [place] Start: 07-25-2022 Tobacco smoking stat [facility] Never smoked tobacco [place] Start: 07-25-2022 Tobacco use and exposure Smokeless tobacco non-user [place] Start: 07-25-2022 End: 07-31-2023 Alcohol intake Lifetime non-drinker (finding) [place] Start: 2004 Sex Assigned At Not on file [facility] Start: 09-22-2022 End: 10-02-2022 Exposure to SARS-CoV-2 (event) Not sure [place] Start: 02-26-2023 End: 04-26-2023 History of Social function [place] Adult Depression Screening Assessment 0 [place] Start: 07-25-2022 Gender identity Identifies as female gender (finding) [place] Start: 08-08-2023 End: 04-23-2024 Alcohol intake Current drinker of alcohol (finding) [place] Clinical Notes 06-18-2013 to 04-23-2024 Mel Novak, DO - 04/23/2024 8:39 PM Roslyn Sweet LPN - 03/11/2024 3:33 PM Sherrill Feldman, AMANDA - 03/10/2024 8:59 AM Paz Hammond PA-C - 01/08/2024 12:59 PM EST Note Date & Type Note Facility 04-23-2024 Note Subjective: Patient ID: Gudelia Gallardo is a 19 y.o. female. Chief Complaint: She presents for buring with urination for 2 days. She is concerned that she has STI as she was treated last month with the same symptoms - no new sexual partners. She denies any hematuria or frequency, she does have suprapubic pain which she reports having for over a year, she has IUD for contraception. No fevers or chills, no flank pain Past Medical History: Diagnosis Date Anxiety Arthritis Depression Migraines Past Surgical History: Procedure Laterality Date ADENOIDECTOMY TONSILLECTOMY WISDOM TOOTH EXTRACTION Family History Problem Relation Age of Onset Depression Mother No Known Problems Father Arthritis Maternal Grandfather Review of Systems Constitutional: Negative. Gastrointestinal: Negative. Genitourinary: Positive for dysuria and pelvic pain. Negative for decreased urine volume, difficulty urinating, dyspareunia, flank pain, frequency, hematuria, menstrual problem, urgency and vaginal discharge. Objective: BP 122/79 Pulse 78 Temp 97.6 degrees F (36.4 degrees C) (Oral) Resp 16 SpO2 98% Physical Exam Constitutional: Appearance: Normal appearance. Skin: General: Skin is warm and dry. Neurological: General: No focal deficit present. Mental Status: She is alert. Assessment: Diagnoses and all orders for this visit: Dysuria - POC Urinalysis Dipstick,Auto UC - Urine Aerobic Culture Possible exposure to STD - Chlamydia/GC/Trichomonas Amplified RNA; Future - Chlamydia/GC/Trichomonas Amplified RNA Plan: No treatment at this time - will send cultures today. Recommend probiotics and no sex until results. Recommend that she see PCP to discuss full STI panel in the near future AUTHENTICATED BY MEL NOVAK, ON 04/23/2024 20:42:34 [facility] 04-23-2024 History of Presen t illness Narrative Subjective: Patient ID: Gudelia Gallardo is a 19 y.o. female. Chief Complaint: She presents for buring with urination for 2 days. She is concerned that she has STI as she was treated last month with the same symptoms - no new sexual partners. She denies any hematuria or frequency, she does have suprapubic pain which she reports having for over a year, she has IUD for contraception. No fevers or chills, no flank pain Past Medical History: Diagnosis Date Anxiety Arthritis Depression Migraines Past Surgical History: Procedure Laterality Date ADENOIDECTOMY TONSILLECTOMY WISDOM TOOTH EXTRACTION Family History Problem Relation Age of Onset Depression Mother No Known Problems Father Arthritis Maternal Grandfather Review of Systems Constitutional: Negative. Gastrointestinal: Negative. Genitourinary: Positive for dysuria and pelvic pain. Negative for decreased urine volume, difficulty urinating, dyspareunia, flank pain, frequency, hematuria, menstrual problem, urgency and vaginal discharge. Objective: BP 122/79 Pulse 78 Temp 97.6 F (36.4 C) (Oral) Resp 16 SpO2 98% Physical Exam Constitutional: Appearance: Normal appearance. Skin: General: Skin is warm and dry. Neurological: General: No focal deficit present. Mental Status: She is alert. Assessment: Diagnoses and all orders for this visit: Dysuria - POC Urinalysis Dipstick,Auto UC - Urine Aerobic Culture Possible exposure to STD - Chlamydia/GC/Trichomonas Amplified RNA; Future - Chlamydia/GC/Trichomonas Amplified RNA Plan: No treatment at this time - will send cultures today. Recommend probiotics and no sex until results. Recommend that she see PCP to discuss full STI panel in the near future documented in this encounter [place] 03-11-2024 History of Presen t illness Narrative [facility] med given, no charge. Provider Viet Layton explained medication and sti packet with condoms given. documented in this encounter [place] 03-10-2024 History of Presen t illness Narrative PATIENT NAME: Gudelia Gallardo [facility] [address] [place] [id number] : 2005 DATE OF VISIT: 03/10/2024 #: [id number] PROVIDER: Sherrill Saucedo CNP Chief Complaint Patient presents with Vaginal Discharge Pt c/o clear vaginal discharge and odor since about 03/07. Notes she gets BV frequently. SUBJECTIVE 19 y.o. female presents Vaginal Discharge (Pt c/o clear vaginal discharge and odor since about 03/07. Notes she gets BV frequently.) Vaginal Discharge The patient's primary symptoms include a genital odor and vaginal discharge. The patient's pertinent negatives include no pelvic pain. This is a new problem. The current episode started in the past 7 days (3 days). The problem has been unchanged. The patient is experiencing no pain. She is not . Pertinent negatives include no abdominal pain, anorexia, back pain, chills, diarrhea, discolored urine, fever, flank pain, nausea, rash or vomiting. The vaginal discharge was clear. There has been no bleeding. Nothing aggravates the symptoms. She has tried nothing for the symptoms. She is sexually active. It is unknown whether or not her partner has an STD. She uses an IUD for contraception. Her menstrual history has been irregular (no periods at this time due to IUD). Her past medical history is significant for vaginosis. Does report 2 new sexual partners, 1 female, 1 male, reports mostly consistent condom use but occasionally not. Neither partner has symptoms known to patient. MEDICAL ISSUES Past Medical History: Diagnosis Date Anxiety Arthritis Depression Migraines Patient Active Problem List Diagnosis Alcohol intoxication in active alcoholic, uncomplicated (HCC) Anxiety, generalized Panic disorder Migraine with aura and without status migrainosus, not intractable Moderate episode of recurrent major depressive disorder (HCC) SOCIAL HISTORY Social History Socioeconomic History Marital status: Single Tobacco Use Smoking status: Never Smokeless tobacco: Never Vaping Use Vaping Use: Every day Substances: Nicotine Substance and Sexual Activity Alcohol use: Yes Alcohol/week: 5.0 standard drinks of alcohol Types: 5 Cans of beer per week Drug use: Never Sexual activity: Not Currently Partners: Female, Male control/protection: I.U.D., Condom FAMILY HISTORY Family History Problem Relation Age of Onset Depression Mother No Known Problems Father Arthritis Maternal Grandfather REVIEW OF SYSTEMS Review of Systems Constitutional: Negative for activity change, appetite change, chills, fatigue and fever. Cardiovascular: Negative for chest pain. Gastrointestinal: Negative for abdominal pain, anorexia, diarrhea, nausea and vomiting. Genitourinary: Positive for vaginal discharge. Negative for flank pain, genital sores, menstrual problem, pelvic pain, vaginal bleeding and vaginal pain. Musculoskeletal: Negative for back pain and myalgias. Skin: Negative for rash. Hematological: Negative for adenopathy. MEDICATIONS PRIOR TO VISIT Current Outpatient Medications on File Prior to Visit Medication Sig Dispense Refill levonorgestreL (MIRENA) 21 mcg/24 hours (8 yrs) 52 mg IUD 1 (one) each by Intrauterine route once . imiquimod (ALDARA) 5 % cream Apply topically Saturday, Saturday, Saturday Wash hands prior to and following application. Leave on 6-10 hours. Use until spots gone OR max of 16 weeks Start: 09/27/23. (Patient not taking: Reported on 03/10/2024 .) 4 each 0 ondansetron (ZOFRAN-ODT) 4 MG disintegrating tablet Dissolve 1 (one) tablet (4 mg total) on top of tongue every 6 to 8 hours as needed for nausea . venlafaxine (EFFEXOR) 75 MG tablet Take 1 (one) tablet (75 mg total) by mouth daily WITH FOOD . No current facility-administered medications on file prior to visit. ALLERGIES/INTOLERANCES No Known Allergies OBJECTIVE BP 122/86 (BP Location: Left arm, Patient Position: Sitting, BP Cuff Size: Adult) Pulse 68 Temp 97.7 F (36.5 C) (Infrared) Ht 5' 7 Wt 65.8 kg (145 lb) SpO2 99% BMI 22.71 kg/m Physical Exam Vitals reviewed. Constitutional: General: She is not in acute distress. Appearance: Normal appearance. Cardiovascular: Rate and Rhythm: Normal rate and regular rhythm. Heart sounds: Normal heart sounds. No murmur heard. No gallop. Pulmonary: Effort: Pulmonary effort is normal. No respiratory distress. Breath sounds: Normal breath sounds. Abdominal: Palpations: Abdomen is soft. Tenderness: There is no abdominal tenderness. There is no right CVA tenderness or left CVA tenderness. Genitourinary: Comments: Deferred, patient to self-swab Skin: General: Skin is warm and dry. Findings: No rash. Neurological: Mental Status: She is alert. PROCEDURE Procedures Results No results found for this or any previous visit (from the past 168 hour(s)). ASSESSMENT/PLAN (expressed as patient instructions): No diagnosis found. No follow-ups on file. MDM Section Vaginitis/STI testing-await results. If tx is indicated will be provided. Suspect BV due to history of recurrent infections. Follow up with PCP, [facility] as needed. Education provided with AVS. Patient verbalizes agreement to treatment plan with no further questions. ORDERS PLACED THIS VISIT No orders of the defined types were placed in this encounter. MEDICATION LIST AT END OF VISIT Current Outpatient Medications Medication Sig Dispense Refill levonorgestreL (MIRENA) 21 mcg/24 hours (8 yrs) 52 mg IUD 1 (one) each by Intrauterine route once . imiquimod (ALDARA) 5 % cream Apply topically Saturday, Saturday, Saturday Wash hands prior to and following application. Leave on 6-10 hours. Use until spots gone OR max of 16 weeks Start: 09/27/23. (Patient not taking: Reported on 03/10/2024 .) 4 each 0 ondansetron (ZOFRAN-ODT) 4 MG disintegrating tablet Dissolve 1 (one) tablet (4 mg total) on top of tongue every 6 to 8 hours as needed for nausea . venlafaxine (EFFEXOR) 75 MG tablet Take 1 (one) tablet (75 mg total) by mouth daily WITH FOOD . No current facility-administered medications for this visit. documented in this encounter [place] 01-08-2024 History of Presen t illness Narrative PATIENT NAME: Gudelia Gallardo [facility] [address] [place] [address] [facility] [id number] : 2005 DATE OF VISIT: 01/08/2024 #: [id number] PROVIDER: Paz Mitchell PA-C Chief Complaint Patient presents with Vaginal Discharge Pt having vaginal discharge for the last wk and wants tested for BV and sti. She has a pcp here for [facility]. SUBJECTIVE 19 y.o. female presents Vaginal Discharge (Pt having vaginal discharge for the last wk and wants tested for BV and sti. She has a pcp here for [facility].) Pt 19 year old female that presents with 7 days of vaginal discharge. Worried about BV and STIs. Had new sexual partner. Did not use protection. Male partner. IUD in place. Watery discharge. LMP - doesn't have them normally, but is spot bleeding now for the last several days. Hx of BV in the last 1.5 years. Has OBGYN, but not here. Spoke with this provider and they discussed suppositories. Denies erythema, rashes, masses in region, hematuria, back pain, n/v/d, dysuria, urinary urgency/frequency. Hx of digestive issues. Chronic abdominal pain. Vaginal Discharge The patient's primary symptoms include vaginal discharge. MEDICAL ISSUES Past Medical History: Diagnosis Date Anxiety Arthritis Depression Migraines Patient Active Problem List Diagnosis Alcohol intoxication in active alcoholic, uncomplicated (HCC) Anxiety, generalized Panic disorder Migraine with aura and without status migrainosus, not intractable Moderate episode of recurrent major depressive disorder (HCC) SOCIAL HISTORY Social History Socioeconomic History Marital status: Single Tobacco Use Smoking status: Never Smokeless tobacco: Never Vaping Use Vaping Use: Every day Substances: Nicotine Substance and Sexual Activity Alcohol use: Yes Alcohol/week: 5.0 standard drinks of alcohol Types: 5 Cans of beer per week Drug use: Never Sexual activity: Not Currently Partners: Female, Male control/protection: I.U.D. FAMILY HISTORY Family History Problem Relation Age of Onset Depression Mother No Known Problems Father Arthritis Maternal Grandfather REVIEW OF SYSTEMS Review of Systems Genitourinary: Positive for vaginal discharge. MEDICATIONS PRIOR TO VISIT Current Outpatient Medications on File Prior to Visit Medication Sig Dispense Refill levonorgestreL (MIRENA) 21 mcg/24 hours (8 yrs) 52 mg IUD 1 (one) each by Intrauterine route once . venlafaxine (EFFEXOR) 75 MG tablet Take 1 (one) tablet (75 mg total) by mouth daily WITH FOOD . imiquimod (ALDARA) 5 % cream Apply topically Saturday, Saturday, Saturday Wash hands prior to and following application. Leave on 6-10 hours. Use until spots gone OR max of 16 weeks Start: 09/27/23. 4 each 0 ondansetron (ZOFRAN-ODT) 4 MG disintegrating tablet Dissolve 1 (one) tablet (4 mg total) on top of tongue every 6 to 8 hours as needed for nausea . No current facility-administered medications on file prior to visit. ALLERGIES/INTOLERANCES No Known Allergies OBJECTIVE BP 113/82 (BP Location: Right arm, Patient Position: Sitting, BP Cuff Size: Adult) Pulse 94 Temp 98.3 F (36.8 C) (Infrared) SpO2 98% Physical Exam Constitutional: Appearance: Normal appearance. She is well-developed. HENT: Head: Normocephalic and atraumatic. Eyes: Conjunctiva/sclera: Conjunctivae normal. Cardiovascular: Rate and Rhythm: Normal rate and regular rhythm. Pulmonary: Effort: Pulmonary effort is normal. Breath sounds: Normal breath sounds. Abdominal: Tenderness: There is abdominal tenderness. There is no right CVA tenderness, left CVA tenderness or guarding. Skin: General: Skin is warm and dry. Neurological: Mental Status: She is alert. Psychiatric: Mood and Affect: Mood normal. Behavior: Behavior normal. PROCEDURE Procedures Results No results found for this or any previous visit (from the past 168 hour(s)). ASSESSMENT/PLAN (expressed as patient instructions): No diagnosis found. No follow-ups on file. MDM Section New sexual partner without protection New discharge Concern for STI -- limited concern for PID, but patient understands no examination and no concurrent treatment increases her risk for complications (spread infection, infertility) -- Patient also understands that any worsening of her symptoms means she needs further evaluation (fevers, abd pain, back pain) Gc/chlam/trich BV and yeast infection testing Defer treatment until the results return Use condoms ORDERS PLACED THIS VISIT No orders of the defined types were placed in this encounter. MEDICATION LIST AT END OF VISIT Current Outpatient Medications Medication Sig Dispense Refill levonorgestreL (MIRENA) 21 mcg/24 hours (8 yrs) 52 mg IUD 1 (one) each by Intrauterine route once . venlafaxine (EFFEXOR) 75 MG tablet Take 1 (one) tablet (75 mg total) by mouth daily WITH FOOD . imiquimod (ALDARA) 5 % cream Apply topically Saturday, Saturday, Saturday Wash hands prior to and following application. Leave on 6-10 hours. Use until spots gone OR max of 16 weeks Start: 09/27/23. 4 each 0 ondansetron (ZOFRAN-ODT) 4 MG disintegrating tablet Dissolve 1 (one) tablet (4 mg total) on top of tongue every 6 to 8 hours as needed for nausea . No current facility-administered medications for this visit. documented in this encounter [place] 10-21-2023 Instructions Janis Gong DO - 10/21/2023 3:41 PM EST Artificial tears (refresh or systane) What is a URI? An upper respiratory infection (URI) is a term used to describe an acute infection of the head and chest. Generally, it affects the nose, throat, airways, sinuses and/or ears. URIs are among the most common diagnoses seen at [facility] How long will it last? Probably longer than you d like. Symptoms usually worsen during the first 3-5 days, followed by gradual improvement. Most URIs resolve within 10-14 days, even without treatment. Treatment Antibiotics only work on bacterial infections. Because URIs usually are caused by viruses, antibiotics are not an effective treatment. Fortunately, there are many options that help alleviate symptoms when used as directed. Nasal congestion, post nasal dripping, or sinus pressure: Use an oral decongestant, such as pseudoephedrine or Mucinex D to reduce nasal and sinus congestion. Decongestants are available at pharmacies, including [facility], [facility] and [facility] . Decongestants should not be used by individuals with certain medical conditions. Nasal sprays, such as oxymetazoline (Afrin), can help relieve nasal discomfort, congestion, and/or pressure. Decongestant sprays should not be used longer than three consecutive days. Nasal rinsing with saline nasal spray or salt water (e.g., neti pot) can help relieve nasal dryness. Use a warm mist humidifier or take a steamy shower to increase moisture in the air and soothe oral and nasal tissues that become irritated with dry air. Sore throat: Use a pain reliever, such as acetaminophen (Tylenol) or ibuprofen (Advil). Gargle with salt water (1/4 tsp of salt dissolved in 8 oz of warm water). Salt water can be used as often as you like. Throat lozenges or throat sprays (Cepacol lozenges or Chloroseptic spray) may bring some relief by increasing saliva production and lubricating your throat. Drink plenty of fluids (e.g., water, diluted juice, tea) to soothe your throat and to stay well hydrated. Coughing: Coughing often occurs during the later stages of a URI. It may be dry or produce phlegm or mucus. Medications that contain dextromethorphan (e.g., Robitussin DM, Mucinex DM, Delsym) may help to suppress a cough. Tea with honey, when taken regularly, can soothe a sore throat and help suppress a cough. Take care with medications Be familiar with the individual ingredients in every medication you take, so you treat your symptoms appropriately. Watch for ingredient overlap between products (e.g., acetaminophen, ibuprofen, pseudoephedrine). Don t accidentally take too much of any ingredient. Don t take medications longer than recommended. Follow any specific instructions given by your health care provider. This is especially important if you have an underlying health condition. If you have questions or concerns, ask a pharmacist for assistance or consult with your health care provider. Note: generic medications contain the same active ingredients as name brands. Strengthen your immune system: Make sure you eat well (e.g., a healthy, balanced variety of foods). Avoid alcohol as it can directly suppress various immune responses. Stay away from cigarettes, and second hand smoke. Rest as much as possible and get plenty of sleep (at least 8 hours). When to seek help? Sometimes upper respiratory infections become worse instead of better. Secondary bacterial infections can develop that require further treatment (e.g., antibiotics). Don t delay seeking help if you experience any of the following symptoms: A fever greater than 101 F for longer than two days Breathing problems like feeling short of breath, having pain or tightness in your chest or wheezing (high pitched whistling sounds when you breath in) A cough that is painful, worsening or lasting longer than two weeks A bad sore throat that lasts longer than three days, or worsens. Very swollen glands in your neck that aren t going away Pain in your face or teeth that is not improving after a 7-10 days of decongestant use A headache that lasts longer than a few days or is very severe A rash Persistent abdominal pain Significant drowsiness or confusion Reduce risk of spreading URI to others URI infections are contagious; help reduce the spread. Wash your hands frequently and/or use a hand body rolling machine tender after touching your face. Cover your mouth when coughing or sneezing. Avoid sharing items like cups and lip balm. documented in this encounter [place] 10-21-2023 History of Presen t illness Narrative PATIENT NAME: Gudelia Gallardo [facility] [address] [place] [id number] : 2005 DATE OF VISIT: 10/23/2023 #: [id number] PROVIDER: Janis Gong DO Chief Complaint Patient presents with Nasal Congestion Congestion for about a week, then 2 days ago eyes became red and throat is sore, took cold medicine and eye drops SUBJECTIVE 18 y.o. female presents Nasal Congestion (Congestion for about a week, then 2 days ago eyes became red and throat is sore, took cold medicine and eye drops) Denies positive covid in last 90 days. Sinus Problem This is a new problem. The current episode started in the past 7 days. The problem is unchanged. There has been no fever. Associated symptoms include congestion, headaches, sinus pressure and a sore throat. Pertinent negatives include no chills, coughing, diaphoresis, ear pain, hoarse voice, neck pain, shortness of breath, sneezing or swollen glands. Conjunctivitis The current episode started 2 days ago. The onset was gradual. The problem occurs rarely. The problem has been unchanged. The problem is severe. Nothing relieves the symptoms. Nothing aggravates the symptoms. Associated symptoms include eye itching, congestion, headaches, sore throat, eye discharge and eye redness. Pertinent negatives include no decreased vision, no double vision, no photophobia, no ear discharge, no ear pain, no hearing loss, no mouth sores, no rhinorrhea, no stridor, no swollen glands, no neck pain, no cough and no eye pain. MEDICAL ISSUES Past Medical History: Diagnosis Date Anxiety Arthritis Depression Migraines Patient Active Problem List Diagnosis Alcohol intoxication in active alcoholic, uncomplicated (HCC) Anxiety, generalized Panic disorder Migraine with aura and without status migrainosus, not intractable Moderate episode of recurrent major depressive disorder (HCC) SOCIAL HISTORY Social History Socioeconomic History Marital status: Single Tobacco Use Smoking status: Never Smokeless tobacco: Never Vaping Use Vaping Use: Every day Substances: Nicotine Substance and Sexual Activity Alcohol use: Yes Alcohol/week: 5.0 standard drinks of alcohol Types: 5 Cans of beer per week Drug use: Never Sexual activity: Not Currently Partners: Female, Male control/protection: I.U.D. FAMILY HISTORY Family History Problem Relation Age of Onset Depression Mother No Known Problems Father Arthritis Maternal Grandfather REVIEW OF SYSTEMS Review of Systems Constitutional: Negative for chills and diaphoresis. HENT: Positive for congestion, sinus pressure and sore throat. Negative for ear discharge, ear pain, hearing loss, hoarse voice, mouth sores, rhinorrhea and sneezing. Eyes: Positive for discharge, redness and itching. Negative for double vision, photophobia and pain. Respiratory: Negative for cough, shortness of breath and stridor. Musculoskeletal: Negative for neck pain. Neurological: Positive for headaches. MEDICATIONS PRIOR TO VISIT Current Outpatient Medications on File Prior to Visit Medication Sig Dispense Refill imiquimod (ALDARA) 5 % cream Apply topically Saturday, Saturday, Saturday Wash hands prior to and following application. Leave on 6-10 hours. Use until spots gone OR max of 16 weeks Start: 09/27/23. 4 each 0 levonorgestreL (MIRENA) 21 mcg/24 hours (8 yrs) 52 mg IUD 1 (one) each by Intrauterine route once . ondansetron (ZOFRAN-ODT) 4 MG disintegrating tablet Dissolve 1 (one) tablet (4 mg total) on top of tongue every 6 to 8 hours as needed for nausea . venlafaxine (EFFEXOR) 75 MG tablet Take 1 (one) tablet (75 mg total) by mouth daily WITH FOOD . No current facility-administered medications on file prior to visit. ALLERGIES/INTOLERANCES No Known Allergies OBJECTIVE BP 115/77 (BP Location: Right arm, BP Cuff Size: Adult) Pulse 72 Temp 98.3 F (36.8 C) (Temporal) SpO2 99% Physical Exam Vitals reviewed. Constitutional: General: She is not in acute distress. Appearance: Normal appearance. She is not ill-appearing, toxic-appearing or diaphoretic. HENT: Right Ear: Tympanic membrane, ear canal and external ear normal. There is no impacted cerumen. Left Ear: Tympanic membrane, ear canal and external ear normal. There is no impacted cerumen. Mouth/Throat: Mouth: Mucous membranes are moist. Pharynx: Oropharynx is clear. No oropharyngeal exudate or posterior oropharyngeal erythema. Cardiovascular: Rate and Rhythm: Normal rate. Heart sounds: No murmur heard. No friction rub. No gallop. Pulmonary: Effort: Pulmonary effort is normal. No respiratory distress. Breath sounds: No stridor. No wheezing, rhonchi or rales. Neurological: Mental Status: She is alert. PROCEDURE Procedures Results Recent Results (from the past 168 hour(s)) POC Rapid Strep A Collection Time: 10/21/23 3:53 PM Result Value Ref Range Strep A Screen Negative Negative ASSESSMENT/PLAN (expressed as patient instructions): 1. Sore throat POC Rapid Strep A No follow-ups on file. MDM Section Viral illness Negative strep Declined covid Supportive care Discussed OTC medications with patient and provided AVS with OTC medications Discussed return and red flag criteria with patient who verbalized understanding. ORDERS PLACED THIS VISIT Orders Placed This Encounter Procedures POC Rapid Strep A MEDICATION LIST AT END OF VISIT Current Outpatient Medications Medication Sig Dispense Refill imiquimod (ALDARA) 5 % cream Apply topically Saturday, Saturday, Saturday Wash hands prior to and following application. Leave on 6-10 hours. Use until spots gone OR max of 16 weeks Start: 09/27/23. 4 each 0 levonorgestreL (MIRENA) 21 mcg/24 hours (8 yrs) 52 mg IUD 1 (one) each by Intrauterine route once . ondansetron (ZOFRAN-ODT) 4 MG disintegrating tablet Dissolve 1 (one) tablet (4 mg total) on top of tongue every 6 to 8 hours as needed for nausea . venlafaxine (EFFEXOR) 75 MG tablet Take 1 (one) tablet (75 mg total) by mouth daily WITH FOOD . erythromycin 0.5% (ROMYCIN) ophthalmic ointment Administer to both eyes 4 (four) times a day for 7 days . 3.5 g 0 No current facility-administered medications for this visit. documented in this encounter [place] 09-24-2023 History of Presen t illness Narrative PATIENT NAME: Gudelia Gallardo [facility] [address] [place] [id number] : 2005 DATE OF VISIT: 09/24/2023 SS#: [id number] PROVIDER: Paz Christy Jr., GEORGE Chief Complaint Patient presents with Exposure to STD Pt states a partner she had sex with 10 days ago told her he tested pos for chlamydia. She denies s/s. She is on bactrim now for a uti. SUBJECTIVE 18 y.o. female presents Exposure to STD (Pt states a partner she had sex with 10 days ago told her he tested pos for chlamydia. She denies s/s. She is on bactrim now for a uti.) Exposure to STD The patient's primary symptoms include dysuria. The patient's pertinent negatives include no discharge, genital itching or genital rash. The current episode started yesterday. The problem has been unchanged. The vaginal discharge was normal. Pertinent negatives include no abdominal pain, fever, genital odor, sore throat or urinary frequency. She has tried nothing for the symptoms. Risk factors include history of STDs. MEDICAL ISSUES Past Medical History: Diagnosis Date Anxiety Arthritis Depression Migraines Patient Active Problem List Diagnosis Alcohol intoxication in active alcoholic, uncomplicated (HCC) Anxiety, generalized Panic disorder Migraine with aura and without status migrainosus, not intractable Moderate episode of recurrent major depressive disorder (HCC) SOCIAL HISTORY Social History Socioeconomic History Marital status: Single Tobacco Use Smoking status: Never Smokeless tobacco: Never Vaping Use Vaping Use: Every day Substances: Nicotine Substance and Sexual Activity Alcohol use: Yes Alcohol/week: 5.0 standard drinks of alcohol Types: 5 Cans of beer per week Drug use: Never Sexual activity: Not Currently Partners: Female, Male control/protection: I.U.D. FAMILY HISTORY Family History Problem Relation Age of Onset Depression Mother No Known Problems Father Arthritis Maternal Grandfather REVIEW OF SYSTEMS Review of Systems Constitutional: Negative for fever. HENT: Negative for sore throat. Gastrointestinal: Negative for abdominal pain. Genitourinary: Positive for dysuria. Negative for frequency. MEDICATIONS PRIOR TO VISIT Current Outpatient Medications on File Prior to Visit Medication Sig Dispense Refill levonorgestreL (MIRENA) 21 mcg/24 hours (8 yrs) 52 mg IUD 1 (one) each by Intrauterine route once . sulfamethoxazole-trimethoprim (BACTRIM DS,SEPTRA DS) 800-160 mg per tablet Take 1 (one) tablet by mouth 2 (two) times a day for 7 days . 14 tablet 0 venlafaxine (EFFEXOR) 75 MG tablet Take 1 (one) tablet (75 mg total) by mouth daily WITH FOOD . ondansetron (ZOFRAN-ODT) 4 MG disintegrating tablet Dissolve 1 (one) tablet (4 mg total) on top of tongue every 6 to 8 hours as needed for nausea . No current facility-administered medications on file prior to visit. ALLERGIES/INTOLERANCES No Known Allergies OBJECTIVE BP 116/80 (BP Location: Left arm, Patient Position: Sitting, BP Cuff Size: Adult) Pulse (!) 108 Temp 98.4 F (36.9 C) (Infrared) SpO2 96% Physical Exam Vitals and nursing note reviewed. Constitutional: General: She is not in acute distress. Appearance: Normal appearance. She is not ill-appearing. HENT: Head: Normocephalic and atraumatic. Right Ear: Tympanic membrane, ear canal and external ear normal. There is no impacted cerumen. Left Ear: Tympanic membrane, ear canal and external ear normal. There is no impacted cerumen. Nose: Nose normal. Mouth/Throat: Mouth: Mucous membranes are moist. Pharynx: Oropharynx is clear. No oropharyngeal exudate or posterior oropharyngeal erythema. Eyes: General: No scleral icterus. Right eye: No discharge. Left eye: No discharge. Extraocular Movements: Extraocular movements intact. Conjunctiva/sclera: Conjunctivae normal. Pupils: Pupils are equal, round, and reactive to light. Cardiovascular: Rate and Rhythm: Normal rate and regular rhythm. Heart sounds: Normal heart sounds. No murmur heard. No friction rub. No gallop. Pulmonary: Effort: Pulmonary effort is normal. No respiratory distress. Breath sounds: Normal breath sounds. No stridor. No wheezing, rhonchi or rales. Musculoskeletal: Cervical back: Normal range of motion. No rigidity. Lymphadenopathy: Cervical: No cervical adenopathy. Skin: General: Skin is warm and dry. Findings: No rash. Neurological: Mental Status: She is alert and oriented to person, place, and time. Psychiatric: Mood and Affect: Mood normal. PROCEDURE Procedures Results Recent Results (from the past 168 hour(s)) POC Urinalysis Dipstick,Auto UC Collection Time: 09/19/23 11:52 AM Result Value Ref Range POC Color, Urine Yellow Yellow, Light Yellow, Dark Yellow Clarity, UA Cloudy (A) Clear Glucose, UA Negative Normal, Negative mg/dL Bilirubin, UA Negative Negative Ketones, UA Negative Negative mg/dL Spec Grav, UA 1.020 1.005 - 1.025 Blood, UA Moderate (A) Negative pH, UA 7.0 5.0 - 7.0 Protein, UA Negative Negative mg/dL Urobilinogen, UA 0.2 <2.0, 0.2, Normal, Negative, 1.0, 2.0, <1.0 mg/dL Nitrite, UA Negative Negative Leukocyte Esterase, UA Small (A) Negative Urine culture Collection Time: 09/19/23 11:56 AM Specimen: Urine, Clean Catch Result Value Ref Range Culture >100,000 CFU/mL Proteus mirabilis (A) Susceptibility Proteus mirabilis - ASHOK Amikacin <=2 Susceptible mcg/mL Ampicillin + Sulbactam <=2 Susceptible mcg/mL Ampicillin <=2 Susceptible mcg/mL Aztreonam <=1 Susceptible mcg/mL Cefazolin* <=4 Susceptible mcg/mL * Breakpoints for cefazolin interpretations are based on treatment of uncomplicated UTI. If cefazolin is considered for other infections please contact the Microbiology laboratory for further testing. Cefepime <=1 Susceptible mcg/mL Ciprofloxacin* <=0.25 Susceptible mcg/mL * AVOID fluoroquinolone treatment whenever possible. Risk of serious side effects may outweigh benefit. Gentamicin <=1 Susceptible mcg/mL Nitrofurantoin 128 Resistant mcg/mL Piperacillin + Tazobactam <=4 Susceptible mcg/mL Tobramycin <=1 Susceptible mcg/mL Trimethoprim + Sulfamethoxazole <=20 Susceptible mcg/mL ASSESSMENT/PLAN (expressed as patient instructions): 1. Routine screening for STI (sexually transmitted infection) Chlamydia/GC/Trichomonas Amplified RNA Chlamydia/GC/Trichomonas Amplified RNA No follow-ups on file. MDM Section Is a 18-year-old female presents with urinary symptoms that she is being treated for at this time states that she had sex with a partner a couple days ago and he told her that he tested positive for chlamydia. Patient wishes to have an STD D panel completed and we will send this out and treat as needed. ORDERS PLACED THIS VISIT Orders Placed This Encounter Procedures Chlamydia/GC/Trichomonas Amplified RNA Chlamydia/Gonorrhoeae Amplified RNA Trichomonas vaginalis Amplified RNA MEDICATION LIST AT END OF VISIT Current Outpatient Medications Medication Sig Dispense Refill levonorgestreL (MIRENA) 21 mcg/24 hours (8 yrs) 52 mg IUD 1 (one) each by Intrauterine route once . sulfamethoxazole-trimethoprim (BACTRIM DS,SEPTRA DS) 800-160 mg per tablet Take 1 (one) tablet by mouth 2 (two) times a day for 7 days . 14 tablet 0 venlafaxine (EFFEXOR) 75 MG tablet Take 1 (one) tablet (75 mg total) by mouth daily WITH FOOD . ondansetron (ZOFRAN-ODT) 4 MG disintegrating tablet Dissolve 1 (one) tablet (4 mg total) on top of tongue every 6 to 8 hours as needed for nausea . No current facility-administered medications for this visit. documented in this encounter [facility] 09-23-2023 Note Addended by: RADHA LAYTON on: 09/23/2023 08:03 AM Modules accepted: Orders [facility] 09-23-2023 Miscellaneous Notes Addended by: RADHA LAYTON on: 09/23/2023 08:03 AM Modules accepted: Orders documented in this encounter [facility] 09-19-2023 Instructions Ellie Layton CNP - 09/19/2023 11:59 AM EDT Images from the original note were not included. Urinary Tract Infection (UTI) in Women: Care Instructions Overview A urinary tract infection, or UTI, is a general term for an infection anywhere between the kidneys and the urethra (where urine comes out). Most UTIs are bladder infections. They often cause pain or burning when you urinate. UTIs are caused by bacteria and can be cured with antibiotics. Be sure to complete your treatment so that the infection does not get worse. Follow-up care is a bishop part of your treatment and safety. Be sure to make and go to all appointments, and call your doctor if you are having problems. It's also a good idea to know your test results and keep a list of the medicines you take. How can you care for yourself at home? Take your antibiotics as directed. Do not stop taking them just because you feel better. You need to take the full course of antibiotics. Drink extra water and other fluids for the next day or two. This will help make the urine less concentrated and help wash out the bacteria that are causing the infection. (If you have kidney, heart, or liver disease and have to limit fluids, talk with your doctor before you increase the amount of fluids you drink.) Avoid drinks that are carbonated or have caffeine. They can irritate the bladder. Urinate often. Try to empty your bladder each time. To relieve pain, take a hot bath or lay a heating pad set on low over your lower belly or genital area. Never go to sleep with a heating pad in place. To prevent UTIs Drink plenty of water each day. This helps you urinate often, which clears bacteria from your system. (If you have kidney, heart, or liver disease and have to limit fluids, talk with your doctor before you increase the amount of fluids you drink.) Urinate when you need to. If you are sexually active, urinate right after you have sex. Change sanitary pads often. Avoid douches, bubble baths, feminine hygiene sprays, and other feminine hygiene products that have deodorants. After going to the bathroom, wipe from front to back. When should you call for help? Call your doctor now or seek immediate medical care if: Symptoms such as fever, chills, nausea, or vomiting get worse or appear for the first time. You have new pain in your back just below your rib cage. This is called flank pain. There is new blood or pus in your urine. You have any problems with your antibiotic medicine. Watch closely for changes in your health, and be sure to contact your doctor if: You are not getting better after taking an antibiotic for 2 days. Your symptoms go away but then come back. Where can you learn more? Log into your personal health record on [email or web address]://[email or web address] and enter K848 in the Education box to learn more about Urinary Tract Infection (UTI) in Women: Care Instructions. Current as of: January 15, 2023 Content Version: 13.8 [employer]. Care instructions adapted under license by your healthcare professional. If you have questions about a medical condition or this instruction, always ask your healthcare professional. [employer] disclaims any warranty or liability for your use of this information. documented in this encounter [facility] 09-19-2023 Instructions Ellie Layton CNP - 09/19/2023 11:59 AM EDT Images from the original note were not included. Urinary Tract Infection (UTI) in Women: Care Instructions Overview A urinary tract infection, or UTI, is a general term for an infection anywhere between the kidneys and the urethra (where urine comes out). Most UTIs are bladder infections. They often cause pain or burning when you urinate. UTIs are caused by bacteria and can be cured with antibiotics. Be sure to complete your treatment so that the infection does not get worse. Follow-up care is a bishop part of your treatment and safety. Be sure to make and go to all appointments, and call your doctor if you are having problems. It's also a good idea to know your test results and keep a list of the medicines you take. How can you care for yourself at home? Take your antibiotics as directed. Do not stop taking them just because you feel better. You need to take the full course of antibiotics. Drink extra water and other fluids for the next day or two. This will help make the urine less concentrated and help wash out the bacteria that are causing the infection. (If you have kidney, heart, or liver disease and have to limit fluids, talk with your doctor before you increase the amount of fluids you drink.) Avoid drinks that are carbonated or have caffeine. They can irritate the bladder. Urinate often. Try to empty your bladder each time. To relieve pain, take a hot bath or lay a heating pad set on low over your lower belly or genital area. Never go to sleep with a heating pad in place. To prevent UTIs Drink plenty of water each day. This helps you urinate often, which clears bacteria from your system. (If you have kidney, heart, or liver disease and have to limit fluids, talk with your doctor before you increase the amount of fluids you drink.) Urinate when you need to. If you are sexually active, urinate right after you have sex. Change sanitary pads often. Avoid douches, bubble baths, feminine hygiene sprays, and other feminine hygiene products that have deodorants. After going to the bathroom, wipe from front to back. When should you call for help? Call your doctor now or seek immediate medical care if: Symptoms such as fever, chills, nausea, or vomiting get worse or appear for the first time. You have new pain in your back just below your rib cage. This is called flank pain. There is new blood or pus in your urine. You have any problems with your antibiotic medicine. Watch closely for changes in your health, and be sure to contact your doctor if: You are not getting better after taking an antibiotic for 2 days. Your symptoms go away but then come back. Where can you learn more? Log into your personal health record on [email or web address]://[employer] and enter K848 in the Education box to learn more about Urinary Tract Infection (UTI) in Women: Care Instructions. Current as of: January 15, 2023 Content Version: 13.8 [employer]. Care instructions adapted under license by your healthcare professional. If you have questions about a medical condition or this instruction, always ask your healthcare professional. [employer] disclaims any warranty or liability for your use of this information. documented in this encounter [facility] 09-19-2023 History of Presen t illness Narrative PATIENT NAME: Gudelia Gallardo [facility] [address] [place] [id number] : 2005 DATE OF VISIT: 09/19/2023 #: [id number] PROVIDER: Ellie Layton CNP Chief Complaint Patient presents with Urinary Urgency Painful urination, lower back pain, urinary urgency for 2 days, has not taken anything for it SUBJECTIVE 18 y.o. female presents Urinary Urgency (Painful urination, lower back pain, urinary urgency for 2 days, has not taken anything for it) Has IUD- no menses Feels similar to previous uti Denies concern for sti Denies diarrhea/constipation Denies carbonated/caffeine drinks Dysuria This is a new problem. The current episode started in the past 7 days. The problem occurs every urination. The problem has been unchanged. The quality of the pain is described as burning. The pain is at a severity of 8/10. There has been no fever. She is Not sexually active. There is No history of pyelonephritis. Associated symptoms include flank pain, frequency and urgency. Pertinent negatives include no chills, discharge, hematuria, hesitancy, nausea, possible , sweats or vomiting. She has tried nothing for the symptoms. There is no history of catheterization, kidney stones, recurrent UTIs, a single kidney, urinary stasis or a urological procedure. MEDICAL ISSUES Past Medical History: Diagnosis Date Anxiety Arthritis Depression Migraines Patient Active Problem List Diagnosis Alcohol intoxication in active alcoholic, uncomplicated (HCC) Anxiety, generalized Panic disorder Migraine with aura and without status migrainosus, not intractable Moderate episode of recurrent major depressive disorder (HCC) SOCIAL HISTORY Social History Socioeconomic History Marital status: Single Tobacco Use Smoking status: Never Smokeless tobacco: Never Vaping Use Vaping Use: Every day Substances: Nicotine Substance and Sexual Activity Alcohol use: Yes Alcohol/week: 5.0 standard drinks of alcohol Types: 5 Cans of beer per week Drug use: Never Sexual activity: Not Currently Partners: Female, Male control/protection: I.U.D. FAMILY HISTORY Family History Problem Relation Age of Onset Depression Mother No Known Problems Father Arthritis Maternal Grandfather REVIEW OF SYSTEMS Review of Systems Constitutional: Negative for chills, fatigue and fever. HENT: Negative for congestion and sinus pain. Respiratory: Negative for cough and shortness of breath. Cardiovascular: Negative for chest pain and palpitations. Gastrointestinal: Negative for abdominal pain, constipation, diarrhea, nausea and vomiting. Genitourinary: Positive for dysuria, flank pain, frequency and urgency. Negative for decreased urine volume, difficulty urinating, dyspareunia, enuresis, genital sores, hematuria, hesitancy, menstrual problem, pelvic pain, vaginal bleeding, vaginal discharge and vaginal pain. Musculoskeletal: Negative for arthralgias and myalgias. Skin: Negative for rash. Neurological: Negative for dizziness and headaches. Psychiatric/Behavioral: Negative for confusion. MEDICATIONS PRIOR TO VISIT Current Outpatient Medications on File Prior to Visit Medication Sig Dispense Refill levonorgestreL (MIRENA) 21 mcg/24 hours (8 yrs) 52 mg IUD 1 (one) each by Intrauterine route once . ondansetron (ZOFRAN-ODT) 4 MG disintegrating tablet Dissolve 1 (one) tablet (4 mg total) on top of tongue every 6 to 8 hours as needed for nausea . venlafaxine (EFFEXOR) 75 MG tablet Take 1 (one) tablet (75 mg total) by mouth daily WITH FOOD . No current facility-administered medications on file prior to visit. ALLERGIES/INTOLERANCES No Known Allergies OBJECTIVE BP 126/86 (BP Location: Left arm, BP Cuff Size: Adult) Pulse 78 Temp 98.6 F (37 C) (Temporal) SpO2 97% Physical Exam Vitals and nursing note reviewed. Constitutional: Appearance: She is well-developed. HENT: Head: Normocephalic and atraumatic. Cardiovascular: Rate and Rhythm: Normal rate and regular rhythm. Pulses: Normal pulses. Heart sounds: Normal heart sounds. Pulmonary: Effort: Pulmonary effort is normal. Breath sounds: Normal breath sounds. Abdominal: General: Bowel sounds are normal. Palpations: Abdomen is soft. Tenderness: There is generalized abdominal tenderness. There is right CVA tenderness. There is no left CVA tenderness. Musculoskeletal: General: Normal range of motion. Cervical back: Normal range of motion. Skin: General: Skin is warm. Capillary Refill: Capillary refill takes less than 2 seconds. Findings: No rash. Neurological: Mental Status: She is alert and oriented to person, place, and time. Psychiatric: Mood and Affect: Mood normal. PROCEDURE Procedures Results Recent Results (from the past 168 hour(s)) POC Urinalysis Dipstick,Auto UC Collection Time: 09/19/23 11:52 AM Result Value Ref Range POC Color, Urine Yellow Yellow, Light Yellow, Dark Yellow Clarity, UA Cloudy (A) Clear Glucose, UA Negative Normal, Negative mg/dL Bilirubin, UA Negative Negative Ketones, UA Negative Negative mg/dL Spec Grav, UA 1.020 1.005 - 1.025 Blood, UA Moderate (A) Negative pH, UA 7.0 5.0 - 7.0 Protein, UA Negative Negative mg/dL Urobilinogen, UA 0.2 <2.0, 0.2, Normal, Negative, 1.0, 2.0, <1.0 mg/dL Nitrite, UA Negative Negative Leukocyte Esterase, UA Small (A) Negative ASSESSMENT/PLAN (expressed as patient instructions): 1. Acute cystitis with hematuria Urine culture nitrofurantoin, macrocrystal-monohydrate, (Macrobid) 100 MG capsule phenazopyridine (Pyridium) 200 MG tablet 2. Dysuria POC Urinalysis Dipstick,Auto UC Return if symptoms worsen or fail to improve. MDM Section Declined sti testing Will call with culture results Mychart active Instructed to drink plenty of water, limiting sugary drinks, finish full course of antibiotics and take probiotics with antibiotics. Always wipe front to back, wear cotton underwear, avoid thongs, always urinate after intercourse. RTC if symptoms worsen. ORDERS PLACED THIS VISIT Orders Placed This Encounter Procedures Urine culture POC Urinalysis Dipstick,Auto UC MEDICATION LIST AT END OF VISIT Current Outpatient Medications Medication Sig Dispense Refill levonorgestreL (MIRENA) 21 mcg/24 hours (8 yrs) 52 mg IUD 1 (one) each by Intrauterine route once . ondansetron (ZOFRAN-ODT) 4 MG disintegrating tablet Dissolve 1 (one) tablet (4 mg total) on top of tongue every 6 to 8 hours as needed for nausea . venlafaxine (EFFEXOR) 75 MG tablet Take 1 (one) tablet (75 mg total) by mouth daily WITH FOOD . nitrofurantoin, macrocrystal-monohydrate, (Macrobid) 100 MG capsule Take 1 (one) capsule (100 mg total) by mouth 2 (two) times a day for 5 days . 10 capsule 0 phenazopyridine (Pyridium) 200 MG tablet Take 1 (one) tablet (200 mg total) by mouth 3 (three) times a day as needed for pain . 6 tablet 0 No current facility-administered medications for this visit. documented in this encounter [facility] 09-19-2023 History of Presen t illness Narrative PATIENT NAME: Gudelia Gallardo [facility] [address] [place] [id number] : 2005 DATE OF VISIT: 09/19/2023 #: [id number] PROVIDER: Ellie Layton CNP Chief Complaint Patient presents with Urinary Urgency Painful urination, lower back pain, urinary urgency for 2 days, has not taken anything for it SUBJECTIVE 18 y.o. female presents Urinary Urgency (Painful urination, lower back pain, urinary urgency for 2 days, has not taken anything for it) Has IUD- no menses Feels similar to previous uti Denies concern for sti Denies diarrhea/constipation Denies carbonated/caffeine drinks Dysuria This is a new problem. The current episode started in the past 7 days. The problem occurs every urination. The problem has been unchanged. The quality of the pain is described as burning. The pain is at a severity of 8/10. There has been no fever. She is Not sexually active. There is No history of pyelonephritis. Associated symptoms include flank pain, frequency and urgency. Pertinent negatives include no chills, discharge, hematuria, hesitancy, nausea, possible , sweats or vomiting. She has tried nothing for the symptoms. There is no history of catheterization, kidney stones, recurrent UTIs, a single kidney, urinary stasis or a urological procedure. MEDICAL ISSUES Past Medical History: Diagnosis Date Anxiety Arthritis Depression Migraines Patient Active Problem List Diagnosis Alcohol intoxication in active alcoholic, uncomplicated (HCC) Anxiety, generalized Panic disorder Migraine with aura and without status migrainosus, not intractable Moderate episode of recurrent major depressive disorder (HCC) SOCIAL HISTORY Social History Socioeconomic History Marital status: Single Tobacco Use Smoking status: Never Smokeless tobacco: Never Vaping Use Vaping Use: Every day Substances: Nicotine Substance and Sexual Activity Alcohol use: Yes Alcohol/week: 5.0 standard drinks of alcohol Types: 5 Cans of beer per week Drug use: Never Sexual activity: Not Currently Partners: Female, Male control/protection: I.U.D. FAMILY HISTORY Family History Problem Relation Age of Onset Depression Mother No Known Problems Father Arthritis Maternal Grandfather REVIEW OF SYSTEMS Review of Systems Constitutional: Negative for chills, fatigue and fever. HENT: Negative for congestion and sinus pain. Respiratory: Negative for cough and shortness of breath. Cardiovascular: Negative for chest pain and palpitations. Gastrointestinal: Negative for abdominal pain, constipation, diarrhea, nausea and vomiting. Genitourinary: Positive for dysuria, flank pain, frequency and urgency. Negative for decreased urine volume, difficulty urinating, dyspareunia, enuresis, genital sores, hematuria, hesitancy, menstrual problem, pelvic pain, vaginal bleeding, vaginal discharge and vaginal pain. Musculoskeletal: Negative for arthralgias and myalgias. Skin: Negative for rash. Neurological: Negative for dizziness and headaches. Psychiatric/Behavioral: Negative for confusion. MEDICATIONS PRIOR TO VISIT Current Outpatient Medications on File Prior to Visit Medication Sig Dispense Refill levonorgestreL (MIRENA) 21 mcg/24 hours (8 yrs) 52 mg IUD 1 (one) each by Intrauterine route once . ondansetron (ZOFRAN-ODT) 4 MG disintegrating tablet Dissolve 1 (one) tablet (4 mg total) on top of tongue every 6 to 8 hours as needed for nausea . venlafaxine (EFFEXOR) 75 MG tablet Take 1 (one) tablet (75 mg total) by mouth daily WITH FOOD . No current facility-administered medications on file prior to visit. ALLERGIES/INTOLERANCES No Known Allergies OBJECTIVE BP 126/86 (BP Location: Left arm, BP Cuff Size: Adult) Pulse 78 Temp 98.6 F (37 C) (Temporal) SpO2 97% Physical Exam Vitals and nursing note reviewed. Constitutional: Appearance: She is well-developed. HENT: Head: Normocephalic and atraumatic. Cardiovascular: Rate and Rhythm: Normal rate and regular rhythm. Pulses: Normal pulses. Heart sounds: Normal heart sounds. Pulmonary: Effort: Pulmonary effort is normal. Breath sounds: Normal breath sounds. Abdominal: General: Bowel sounds are normal. Palpations: Abdomen is soft. Tenderness: There is generalized abdominal tenderness. There is right CVA tenderness. There is no left CVA tenderness. Musculoskeletal: General: Normal range of motion. Cervical back: Normal range of motion. Skin: General: Skin is warm. Capillary Refill: Capillary refill takes less than 2 seconds. Findings: No rash. Neurological: Mental Status: She is alert and oriented to person, place, and time. Psychiatric: Mood and Affect: Mood normal. PROCEDURE Procedures Results Recent Results (from the past 168 hour(s)) POC Urinalysis Dipstick,Auto UC Collection Time: 09/19/23 11:52 AM Result Value Ref Range POC Color, Urine Yellow Yellow, Light Yellow, Dark Yellow Clarity, UA Cloudy (A) Clear Glucose, UA Negative Normal, Negative mg/dL Bilirubin, UA Negative Negative Ketones, UA Negative Negative mg/dL Spec Grav, UA 1.020 1.005 - 1.025 Blood, UA Moderate (A) Negative pH, UA 7.0 5.0 - 7.0 Protein, UA Negative Negative mg/dL Urobilinogen, UA 0.2 <2.0, 0.2, Normal, Negative, 1.0, 2.0, <1.0 mg/dL Nitrite, UA Negative Negative Leukocyte Esterase, UA Small (A) Negative ASSESSMENT/PLAN (expressed as patient instructions): 1. Acute cystitis with hematuria Urine culture nitrofurantoin, macrocrystal-monohydrate, (Macrobid) 100 MG capsule phenazopyridine (Pyridium) 200 MG tablet 2. Dysuria POC Urinalysis Dipstick,Auto UC Return if symptoms worsen or fail to improve. MDM Section Declined sti testing Will call with culture results Mychart active Instructed to drink plenty of water, limiting sugary drinks, finish full course of antibiotics and take probiotics with antibiotics. Always wipe front to back, wear cotton underwear, avoid thongs, always urinate after intercourse. RTC if symptoms worsen. ORDERS PLACED THIS VISIT Orders Placed This Encounter Procedures Urine culture POC Urinalysis Dipstick,Auto UC MEDICATION LIST AT END OF VISIT Current Outpatient Medications Medication Sig Dispense Refill levonorgestreL (MIRENA) 21 mcg/24 hours (8 yrs) 52 mg IUD 1 (one) each by Intrauterine route once . ondansetron (ZOFRAN-ODT) 4 MG disintegrating tablet Dissolve 1 (one) tablet (4 mg total) on top of tongue every 6 to 8 hours as needed for nausea . venlafaxine (EFFEXOR) 75 MG tablet Take 1 (one) tablet (75 mg total) by mouth daily WITH FOOD . nitrofurantoin, macrocrystal-monohydrate, (Macrobid) 100 MG capsule Take 1 (one) capsule (100 mg total) by mouth 2 (two) times a day for 5 days . 10 capsule 0 phenazopyridine (Pyridium) 200 MG tablet Take 1 (one) tablet (200 mg total) by mouth 3 (three) times a day as needed for pain . 6 tablet 0 No current facility-administered medications for this visit. documented in this encounter [facility] 08-15-2023 History of Presen t illness Narrative Associated Order(s): Destruction of lesion Post-Procedure Diagnose(s): Genital warts Destruction of lesion Timeout: Verbal Consent obtained?: Yes Written Consent obtained?: Yes Date:: 08/15/2023 Time:: 09:47 EDT Consent given by:: Patient Procedure: Performed by: Physician Bleeding: None Hemostasis Achieved: N/A Procedural Pain:: 8 Post Procedural Pain:: 0 and 5 Additional Procedure details:: Discussed risks, benefits, alternative treatments. Informed of risk of scarring, infection, and failed therapy. Patient gave consent to proceed. 18 lesion(s) on the genital/inner thigh/buttock was/were treated using liquid nitrogen. Freeze ball with 2 mm margins were formed, thawed, and refrozen for a total of three freeze cycles. After care was discussed with the patient. Response to Treatment:: Procedure was tolerated well [address] [facility] AT [address] [id number] Date: 08/15/23 Patient ID: Gudelia Gallardo is a 18 y.o.. Chief Complaint: The patient presents for Procedure (Here for cyrotherapy for genital warts, today is pt's first treatment.) HPI: Patient presents for cryo tx of genital warts. Also her insurance isn't accepted at [facility] and she continues to have the pelvic pain so she is seeing her golf club head inspector at home in 2 weeks. Reviewed and updated/reconciled meds, allergies, past medical history, surgical history, social history and family history. ROS: As in HPI. Objective: BP 123/86 (BP Location: Right arm, Patient Position: Sitting, BP Cuff Size: Adult) Pulse (!) 114 Temp 98.3 F (36.8 C) (Infrared) Ht 5' 6 Wt 67 kg (147 lb 12.8 oz) LMP (LMP Unknown) BMI 23.86 kg/m Physical Exam Exam conducted with a examiner rating clerk present (Aleida West DO, PGY3). Constitutional: Appearance: Normal appearance. Comments: Alert and in no distress HENT: Head: Normocephalic and atraumatic. Right Ear: External ear normal. Left Ear: External ear normal. Eyes: General: No scleral icterus. Right eye: No discharge. Left eye: No discharge. Conjunctiva/sclera: Conjunctivae normal. Pulmonary: Effort: Pulmonary effort is normal. No accessory muscle usage. Genitourinary: Pubic Area: Rash present. Comments: Left inner thigh/buttock crease/labia majora 6 fleshy verrucuous lesions ranging from 1-2mm each; right inner thigh/buttock crease/labia majora 12 fleshy verrucuous lesions ranging from 1-3mm each Skin: General: Skin is warm and dry. Neurological: Motor: No tremor. Gait: Gait normal. Psychiatric: Attention and Perception: Attention and perception normal. Mood and Affect: Mood and affect normal. Speech: Speech normal. Behavior: Behavior normal. Behavior is cooperative. Thought Content: Thought content normal. Judgment: Judgment normal. Assessment/Plan: 1. Pelvic pain 2. Genital warts Patient Instructions Return every 3 weeks for cryo treatment. Also offered Aldara 3x/week until cleared OR for max of 16 weeks. Patient to have US ordered by home ROAD SUPERVISOR and f/u with me as needed. Return in about 3 weeks (around 09/05/2023) for Re-check. Carmenza Ruelas DO documented in this encounter [facility] 08-15-2023 Instructions Carmenza Ruelas DO - 08/15/2023 10:12 AM EDT Return every 3 weeks for cryo treatment. Also offered Aldara 3x/week until cleared OR for max of 16 weeks. Patient to have US ordered by home ROAD SUPERVISOR and f/u with me as needed. documented in this encounter [facility] 08-08-2023 Instructions Carmenza Ruelas DO - 08/08/2023 3:23 PM EDT Will get US to check for IUD position and rule out perforation. Discussed nature of genital warts, options for treating with cryo vs topical at home and patient opts for cryo. Will schedule q 3 weeks x 3 sessions. Discussed quitting vaping and increasing fruit/veg intake of dark yellow, dark orange and green f/v to help iimmune clearance of virus. Discussed using latex barriers to cover area to reduce transmission. Discussed importance of STOPPING shaving during recovery/treatment until warts have resolved. documented in this encounter [facility] 08-08-2023 History of Presen t illness Narrative [address] [facility] AT [address] [id number] Date: 08/08/23 Patient ID: Gudelia Gallardo is a 18 y.o.. Chief Complaint: The patient presents for Establish Care (New patient. Reports lower abdominal cramping daily x 1 month or more. Irregular bleeding x 1 month. Has a mirena IUD that was placed 11/07 and does not typically have periods. ) HPI: Gudelia presents with lower abd pain/cramping for past 1+ month. Before getting IUD, she had really bad pain with periods. On OCP first, also tried DMPA. Flow was not heavy, just really painful. This pain is a couple of hours after waking that it begins, gets worse and worse throughout the day, pretty constant. It is present right now. Can't take pain medication right now b/c she is getting prolotherapy in her jaw starting 4 weeks ago. She is getting the injections every 2 weeks and her last one is in 2 weeks. Discharge has been clear. Hasn't used tampons in ~2 years. The bleeding over the past month is occasional, not daily. For few days heavy, then spotting, then hasn't bled in about a week. Last had sex July 17 and was not painful. Denies vaginal odors or sores. Denies fever/chills. When asked about genital warts seen on exam, patient says she was told they were skin tags when at ER in March. Reviewed and updated/reconciled meds, allergies, past medical history, surgical history, social history and family history. ROS: As in HPI. Objective: BP 111/78 (BP Location: Right arm, Patient Position: Sitting, BP Cuff Size: Adult) Pulse 91 Temp 98.6 F (37 C) (Infrared) Ht 5' 6 Wt 68.9 kg (151 lb 12.8 oz) SpO2 98% BMI 24.50 kg/m Physical Exam Exam conducted with a examiner rating clerk present (KT Uribe). Constitutional: Appearance: Normal appearance. Comments: Alert and in no distress HENT: Head: Normocephalic and atraumatic. Chest: Breasts: Breasts are symmetrical. Genitourinary: River stage (genital): 5. Labia: Right: No rash, tenderness or lesion. Left: No rash or lesion. Urethra: No prolapse or urethral lesion. Vagina: No foreign body. No vaginal discharge, bleeding or lesions. Cervix: No cervical motion tenderness, discharge, friability, lesion or erythema. Uterus: Normal. Not deviated, not enlarged, not fixed and not tender. Adnexa: Right adnexa normal and left adnexa normal. Right: No mass, tenderness or fullness. Left: No mass, tenderness or fullness. Comments: IUD strings noted coming from os, strings are 1cm and 2cm long respectively, no device visible Multiple papillary/verrucuous papules on inner thighs and labia majora bilaterally Musculoskeletal: General: No swelling. Lymphadenopathy: Lower Body: No right inguinal adenopathy. No left inguinal adenopathy. Skin: General: Skin is warm and dry. Capillary Refill: Capillary refill takes less than 2 seconds. Coloration: Skin is not jaundiced. Neurological: Gait: Gait normal. Psychiatric: Mood and Affect: Mood normal. Thought Content: Thought content normal. Assessment/Plan: 1. Pelvic pain - POC , Urine - POC Urinalysis Dipstick, Auto - US Transvaginal; Future 2. Abnormal vaginal bleeding - POC , Urine 3. Genital warts Patient Instructions Will get US to check for IUD position and rule out perforation. Discussed nature of genital warts, options for treating with cryo vs topical at home and patient opts for cryo. Will schedule q 3 weeks x 3 sessions. Discussed quitting vaping and increasing fruit/veg intake of dark yellow, dark orange and green f/v to help iimmune clearance of virus. Discussed using latex barriers to cover area to reduce transmission. Discussed importance of STOPPING shaving during recovery/treatment until warts have resolved. Return in about 1 week (around 08/15/2023) for Follow Up. Carmenza Ruelas DO documented in this encounter [facility] 07-31-2023 Instructions Ellie Layton CNP - 07/31/2023 2:49 PM EDT Safer Sex: Care Instructions Overview Safer sex is a way to reduce your risk of getting a sexually transmitted infection (STI). It can also help prevent . Several products can help you practice safer sex and reduce your chance of STIs. One of the best is a condom. There are internal and external condoms. You can use a special rubber sheet (dental dam) for protection during oral sex. Disposable gloves can keep your hands from touching blood, semen, or other body fluids that can carry infections. Remember that control methods such as diaphragms, IUDs, foams, and control pills do not stop you from getting STIs. Follow-up care is a bishop part of your treatment and safety. Be sure to make and go to all appointments, and call your doctor if you are having problems. It's also a good idea to know your test results and keep a list of the medicines you take. How can you care for yourself at home? Think about getting vaccinated to help prevent hepatitis A, hepatitis B, and human papillomavirus (HPV). They can be spread through sex. Use a condom every time you have sex. Use an external condom, which goes on the penis. Or use an internal condom, which goes into the vagina or anus. Make sure you use the right size external condom. A condom that's too small can break easily. A condom that's too big can slip off during sex. Use a new condom each time you have sex. Be careful not to poke a hole in the condom when you open the wrapper. Don't use an internal condom and an external condom at the same time. Never use petroleum jelly (such as Vaseline), grease, hand lotion, baby oil, or anything with oil in it. These products can make holes in the condom. After intercourse, hold the edge of the condom as you remove it. This will help keep semen from spilling out of the condom. Do not have sex with anyone who has symptoms of an STI, such as sores on the genitals or mouth. Do not drink a lot of alcohol or use drugs before sex. Limit your sex partners. Sex with one partner who has sex only with you can reduce your risk of getting an STI. Don't share sex toys. But if you do share them, use a condom and clean the sex toys between each use. Talk to your partner(s) before you have sex. Talk about what you feel comfortable with and whether you have any boundaries with sex. And find out if your partner(s) may be at risk for any STI. Keep in mind that a person may be able to spread an STI even if they do not have symptoms. You and your partner(s) may want to get tested for STIs. Where can you learn more? Log into your personal health record on https://[employer] and enter B608 in the Education box to learn more about Safer Sex: Care Instructions. Current as of: March 06, 2023 Content Version: 13.8 [employer]. Care instructions adapted under license by your healthcare professional. If you have questions about a medical condition or this instruction, always ask your healthcare professional. [employer] disclaims any warranty or liability for your use of this information. documented in this encounter [facility] 07-31-2023 History of Presen t illness Narrative PATIENT NAME: Gudelia Gallardo [facility] [address] [place] [id number] : 2005 DATE OF VISIT: 07/31/2023 SS#: [id number] PROVIDER: Ellie Layton CNP Chief Complaint Patient presents with Vaginal Bleeding Pt having a lot of vaginal bleeding for the last month and she has an IUD. 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 SUBJECTIVE 18 y.o. female presents Vaginal Bleeding (Pt having a lot of vaginal bleeding for the last month and she has an IUD. 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 The patient's pertinent negatives include no genital itching, genital lesions, genital odor, genital rash, missed menses, pelvic pain or vaginal discharge. This is a new problem. The current episode started 1 to 4 weeks ago. The problem occurs intermittently. The problem has been waxing and waning. She is not . Pertinent negatives include no abdominal pain, anorexia, back pain, chills, constipation, diarrhea, discolored urine, dysuria, fever, flank pain, frequency, headaches, hematuria, joint pain, joint swelling, nausea, painful intercourse, rash, sore throat, urgency or vomiting. The vaginal discharge was normal. 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 She has not been passing clots. She has not been passing tissue. Nothing aggravates the symptoms. She has tried nothing for the symptoms. She is sexually active. She uses an IUD for contraception. Her menstrual history has been irregular. Her past medical history is significant for vaginosis. There is no history of an abdominal surgery, a section, an ectopic , endometriosis, a gynecological surgery, herpes simplex, menorrhagia, metrorrhagia, miscarriage, ovarian cysts, perineal abscess, PID, an STD or a terminated . MEDICAL ISSUES Past Medical History: Diagnosis Date Anxiety Depression Patient Active Problem List Diagnosis Alcohol intoxication in active alcoholic, uncomplicated (HCC) SOCIAL HISTORY Social History Socioeconomic History Marital status: Single Tobacco Use Smoking status: Never Smokeless tobacco: Never Vaping Use Vaping Use: Never used Substance and Sexual Activity Alcohol use: Never Drug use: Never Sexual activity: Not Currently Partners: Female, Male control/protection: I.U.D. FAMILY HISTORY Family History Problem Relation Age of Onset No Known Problems Mother No Known Problems Father REVIEW OF SYSTEMS Review of Systems Constitutional: Negative for chills, fatigue and fever. HENT: Negative for congestion, sinus pain and sore throat. Respiratory: Negative for cough and shortness of breath. Cardiovascular: Negative for chest pain and palpitations. Gastrointestinal: Negative for abdominal pain, anorexia, constipation, diarrhea, nausea and vomiting. Genitourinary: Positive for vaginal bleeding. Negative for decreased urine volume, difficulty urinating, dyspareunia, dysuria, enuresis, flank pain, frequency, genital sores, hematuria, menorrhagia, menstrual problem, missed menses, pelvic pain, urgency, vaginal discharge and vaginal pain. Musculoskeletal: Negative for arthralgias, back pain, joint pain and myalgias. Skin: Negative for rash. Neurological: Negative for dizziness and headaches. Psychiatric/Behavioral: Negative for confusion. MEDICATIONS PRIOR TO VISIT Current Outpatient Medications on File Prior to Visit Medication Sig Dispense Refill UNKNOWN IUD- is unsure of the name . venlafaxine (EFFEXOR) 75 MG tablet Take 1 (one) tablet (75 mg total) by mouth daily WITH FOOD . [DISCONTINUED] ondansetron (ZOFRAN-ODT) 4 MG disintegrating tablet Dissolve 1 (one) tablet (4 mg total) on top of tongue every 6 (six) hours as needed for nausea . 20 tablet 0 [DISCONTINUED] ondansetron (ZOFRAN-ODT) 4 MG disintegrating tablet Dissolve 1 (one) tablet (4 mg total) on top of tongue every 6 (six) hours as needed for nausea . 20 tablet 0 [DISCONTINUED] ondansetron (ZOFRAN-ODT) 4 MG disintegrating tablet Dissolve 1 (one) tablet (4 mg total) on top of tongue every 6 (six) hours as needed for nausea . 12 tablet 0 No current facility-administered medications on file prior to visit. ALLERGIES/INTOLERANCES No Known Allergies OBJECTIVE BP 118/81 Pulse 84 Temp 98.7 F (37.1 C) (Infrared) SpO2 98% Physical Exam Vitals and nursing note reviewed. Constitutional: Appearance: She is well-developed. HENT: Head: Normocephalic and atraumatic. Cardiovascular: Rate and Rhythm: Normal rate and regular rhythm. Pulses: Normal pulses. Heart sounds: Normal heart sounds. Pulmonary: Effort: Pulmonary effort is normal. Breath sounds: Normal breath sounds. Abdominal: General: Bowel sounds are normal. Palpations: Abdomen is soft. Tenderness: There is generalized abdominal tenderness. Genitourinary: Comments: Deferred by patient Musculoskeletal: General: Normal range of motion. Cervical back: Normal range of motion. Skin: General: Skin is warm. Capillary Refill: Capillary refill takes less than 2 seconds. Findings: No rash. Neurological: Mental Status: She is alert and oriented to person, place, and time. Psychiatric: Mood and Affect: Mood normal. PROCEDURE Procedures Results No results found for this or any previous visit (from the past 168 hour(s)). ASSESSMENT/PLAN (expressed as patient instructions): 1. Vaginal bleeding Chlamydia/GC/Trichomonas Amplified RNA 2. Routine screening for STI (sexually transmitted infection) Chlamydia/GC/Trichomonas Amplified RNA Return if symptoms worsen or fail to improve. MDM Section Offered additional sti testing, declined at this time Educated on safer sex practices Declined vaginal exam at this time Reports no local PCP will establish here for follow-up next week Educated on use of heating pads to help with discomfort as she reports unable to take NSAIDs as she gets injections in her jaw RTC criteria and red flag symptoms reviewed, voiced understanding. ORDERS PLACED THIS VISIT Orders Placed This Encounter Procedures Chlamydia/GC/Trichomonas Amplified RNA MEDICATION LIST AT END OF VISIT Current Outpatient Medications Medication Sig Dispense Refill UNKNOWN IUD- is unsure of the name . venlafaxine (EFFEXOR) 75 MG tablet Take 1 (one) tablet (75 mg total) by mouth daily WITH FOOD . No current facility-administered medications for this visit. documented in this encounter [facility] 07-04-2023 History of Presen t illness Narrative Gudelia Gallardo 2005 Chief Complaint: Chief Complaint Patient presents with Vaginitis HPI: Here for vaginal discharge and odor x 1 week. Denies any dysuria, hematuria, urinary frequency, urgency, fever, chills, flank pain, abdominal pain, n/v, diarrhea. Denies any concern for STI. Denies any vaginal itching, enlarged inguinal lymph nodes, genital lesions, rash, oral lesions. Denies any chance of . Denies any PMH of kidney stone, pyelo, solo kidney, urological procedure or recent catheterization. ROS: Pertinent Items noted in HPI. PACU Vitals 07/04/23 1854 BP: 112/78 Pulse: 71 Resp: 16 Temp: 98.6 F (37 C) SpO2: 98% Physical Exam: Physical Exam Vitals reviewed. Constitutional: General: She is awake. She is not in acute distress. Appearance: Normal appearance. She is well-developed. She is not ill-appearing, toxic-appearing or diaphoretic. HENT: Head: Normocephalic and atraumatic. Comments: No difficulty with hearing or comprehending conversation during the encounter. Eyes: General: Lids are normal. No scleral icterus. Extraocular Movements: Extraocular movements intact. Conjunctiva/sclera: Conjunctivae normal. Pulmonary: Effort: Pulmonary effort is normal. No accessory muscle usage or respiratory distress. Musculoskeletal: General: Normal range of motion. Comments: Motor functions grossly intact. No paralysis. Skin: General: Skin is warm and dry. Coloration: Skin is not pale. Findings: No erythema or rash. Neurological: Mental Status: She is alert and oriented to person, place, and time. Gait: Gait is intact. Psychiatric: Mood and Affect: Mood and affect normal. Speech: Speech normal. Assessment & Plan: 1. Vaginal discharge Vaginitis DNA Probes Vaginitis DNA Probes Gudelia was seen today for vaginitis. Diagnoses and all orders for this visit: Vaginal discharge - Vaginitis DNA Probes; Future - Vaginitis DNA Probes Vaginal Discharge Vaginal self-swab obtained and sent for BV+vaginitis panel. Patient to be notified of results. Pt has used metronidazole pill in the past for BV and it resolved her symptoms at that time. Pt requests metronidazole pill if positive for BV. Pt states she gets BV frequently, advised her to f/u with her golf club head inspector about it, may be candidate for boric acid suppositories. Return to office, FU with PCP, or report to ED for concerning symptoms, including symptoms refractory to above management in 48hr or worsening symptoms such as fever, mental status change, feeling unwell, gross hematuria, intractable nausea/vomiting/diarrhea, unable to tolerate PO intake fluids, intractable pain, worsening flank or abdominal pain, etc. Patient verbalized understanding. RTC or F/u with PCP/ROAD SUPERVISOR in 3-4 days if still symptomatic. Patient verbalized understanding of assessment and plan and denies any concerns stating all questions were answered at this time. There are no Patient Instructions on file for this visit. No follow-ups on file. Vale Griffith DO documented in this encounter [facility] 12-24-2022 History of Presen t illness Narrative PATIENT NAME: Gudelia Gallardo [facility] [address] [place] [id number] : 2005 DATE OF VISIT: 12/24/2022 #: [id number] PROVIDER: Ellie Layton CNP Chief Complaint Patient presents with Emesis States woke up this AM vomiting. States missed anatomy exam and had a panic attack and now cannot calm down. States roommate is sick as well, both ate dinner at the same place ([employer], hibachi bowl). SUBJECTIVE 17 y.o. female presents Emesis (States woke up this AM vomiting. States missed anatomy exam and had a panic attack and now cannot calm down. States roommate is sick as well, both ate dinner at the same place ([employer], [employer]ibachi bowl). ) Reports history of anxiety Has been taking effexor for anxiety for the past 2 months PCP in [place]- has not followed up with since starting effexor Thinks effexor is helping some Reports 1 episode of emesis this morning, stomach contents Has been drinking water this morning and is able to keep it down Emesis This is a new problem. The current episode started today. The problem occurs less than 2 times per day. The problem has been resolved. The emesis has an appearance of stomach contents. There has been no fever. Pertinent negatives include no abdominal pain, arthralgias, chest pain, chills, coughing, diarrhea, dizziness, fever, headaches, myalgias, sweats, URI or weight loss. Risk factors include suspect food intake and ill contacts. She has tried nothing for the symptoms. MEDICAL ISSUES Past Medical History: Diagnosis Date Anxiety Depression There is no problem list on file for this patient. SOCIAL HISTORY Social History Socioeconomic History Marital status: Single Tobacco Use Smoking status: Never Smokeless tobacco: Never Vaping Use Vaping Use: Never used Substance and Sexual Activity Alcohol use: Never Drug use: Never FAMILY HISTORY Family History Problem Relation Age of Onset No Known Problems Mother No Known Problems Father REVIEW OF SYSTEMS Review of Systems Constitutional: Negative for chills, fatigue, fever and weight loss. HENT: Negative for congestion and sinus pain. Respiratory: Negative for cough and shortness of breath. Cardiovascular: Negative for chest pain and palpitations. Gastrointestinal: Positive for vomiting. Negative for abdominal pain, constipation, diarrhea and nausea. Musculoskeletal: Negative for arthralgias and myalgias. Skin: Negative for rash. Neurological: Negative for dizziness and headaches. Psychiatric/Behavioral: Negative for confusion. The patient is nervous/anxious. MEDICATIONS PRIOR TO VISIT Current Outpatient Medications on File Prior to Visit Medication Sig Dispense Refill UNKNOWN IUD- is unsure of the name . venlafaxine (EFFEXOR) 75 MG tablet Take 1 (one) tablet (75 mg total) by mouth daily WITH FOOD . [DISCONTINUED] cetirizine (ZYRTEC) 10 MG tablet Take 1 (one) tablet (10 mg total) by mouth daily . 30 tablet 0 [DISCONTINUED] fluticasone propionate (FLONASE) 50 mcg/actuation nasal spray Instill 2 (two) sprays into each nostril daily . 16 g 0 No current facility-administered medications on file prior to visit. ALLERGIES/INTOLERANCES No Known Allergies OBJECTIVE BP 137/87 (BP Location: Right arm, Patient Position: Sitting, BP Cuff Size: Adult) Pulse 95 Temp 98.3 F (36.8 C) (Infrared) Ht 5' 8 Wt 59 kg (130 lb) SpO2 99% BMI 19.77 kg/m Physical Exam Vitals and nursing note reviewed. Constitutional: Appearance: She is well-developed. HENT: Head: Normocephalic and atraumatic. Cardiovascular: Rate and Rhythm: Normal rate and regular rhythm. Pulses: Normal pulses. Heart sounds: Normal heart sounds. Pulmonary: Effort: Pulmonary effort is normal. Breath sounds: Normal breath sounds. Abdominal: General: Bowel sounds are normal. Palpations: Abdomen is soft. Musculoskeletal: General: Normal range of motion. Cervical back: Normal range of motion. Skin: General: Skin is warm. Capillary Refill: Capillary refill takes less than 2 seconds. Findings: No rash. Neurological: Mental Status: She is alert and oriented to person, place, and time. Psychiatric: Mood and Affect: Mood is anxious. PROCEDURE Procedures Results No results found for this or any previous visit (from the past 168 hour(s)). ASSESSMENT/PLAN (expressed as patient instructions): 1. Vomiting, unspecified vomiting type, unspecified whether nausea present 2. Anxiety Return if symptoms worsen or fail to improve. MDM Section Declined flu/covid testing School note provided Declined need or want for anti nausea medication Will schedule PCP follow-up [facility] at [facility]- needs local pcp for anxiety Educated on stress relieving activities RTC criteria and red flag symptoms reviewed, voiced understanding. ORDERS PLACED THIS VISIT No orders of the defined types were placed in this encounter. MEDICATION LIST AT END OF VISIT Current Outpatient Medications Medication Sig Dispense Refill UNKNOWN IUD- is unsure of the name . venlafaxine (EFFEXOR) 75 MG tablet Take 1 (one) tablet (75 mg total) by mouth daily WITH FOOD . No current facility-administered medications for this visit. documented in this encounter [facility] 10-02-2022 Instructions Ellie Layton CNP - 10/02/2022 3:28 PM EST Images from the original note were not included. Viral Respiratory Infection: Care Instructions Overview A viral respiratory infection is an infection of the nose, sinuses, or throat caused by a virus. Colds and the flu are common types of viral respiratory infections. The symptoms of a viral respiratory infection often start quickly. They include a fever, sore throat, and runny nose. You may also just not feel well. Or you may not want to eat much. Most viral infections can be treated with home care. This may include drinking lots of fluids and taking [id number] pain medicine. You will probably feel better in 4 to 10 days. Antibiotics are not used to treat a viral infection. Antibiotics don't kill viruses, so they won't help cure a viral illness. In some cases, a doctor may prescribe antiviral medicine to help your body fight a serious viral infection. Follow-up care is a bishop part of your treatment and safety. Be sure to make and go to all appointments, and call your doctor if you are having problems. It's also a good idea to know your test results and keep a list of the medicines you take. How can you care for yourself at home? To prevent dehydration, drink plenty of fluids. Choose water and other clear liquids until you feel better. If you have kidney, heart, or liver disease and have to limit fluids, talk with your doctor before you increase the amount of fluids you drink. Ask your doctor if you can take an sqze-xsa-gpxjpmy pain medicine, such as acetaminophen (Tylenol), ibuprofen (Advil, Motrin), or naproxen (Aleve). Be safe with medicines. Read and follow all instructions on the label. No one younger than 20 should take aspirin. It has been linked to Zechariah syndrome, a serious illness. Be careful when taking gvyn-hoj-hoonduo cold or flu medicines and Tylenol at the same time. Many of these medicines have acetaminophen, which is Tylenol. Read the labels to make sure that you are not taking more than the recommended dose. Too much acetaminophen (Tylenol) can be harmful. Get plenty of rest. Use saline (saltwater) nasal washes to help keep your nasal passages open and wash out mucus and allergens. You can buy saline nose sprays at a grocery store or drugstore. Follow the instructions on the package. Or you can make your own at home. Add 1 teaspoon of non-iodized salt and 1 teaspoon of baking soda to 2 cups of distilled or boiled and cooled water. Fill a squeeze bottle or neti pot with the nasal wash. Then put the tip into your nostril, and lean over the sink. With your mouth open, gently squirt the liquid. Repeat on the other side. Use a vaporizer or humidifier to add moisture to your bedroom. Follow the instructions for cleaning the machine. Do not smoke or allow others to smoke around you. If you need help quitting, talk to your doctor about stop-smoking programs and medicines. These can increase your chances of quitting for good. When should you call for help? Call 911 anytime you think you may need emergency care. For example, call if: You have severe trouble breathing. Call your doctor now or seek immediate medical care if: You have a new or higher fever. Your fever lasts more than 48 hours. You have trouble breathing. You have a fever with a stiff neck or a severe headache. You are sensitive to light. You feel very sleepy or confused. Watch closely for changes in your health, and be sure to contact your doctor if: You do not get better as expected. Where can you learn more? Log into your personal health record on [email or web address] and enter Q795 in the Education box to learn more about Viral Respiratory Infection: Care Instructions. Current as of: December 27, 2021 Content Version: 13.4 Leeo. Care instructions adapted under license by your healthcare professional. If you have questions about a medical condition or this instruction, always ask your healthcare professional. [employer] disclaims any warranty or liability for your use of this information. documented in this encounter [facility] 10-02-2022 History of Presen t illness Narrative PATIENT NAME: Gudelia Gallardo [facility] [address] [place] [id number] : 2005 DATE OF VISIT: 10/02/2022 #: [id number] PROVIDER: Ellie Layton CNP Chief Complaint Patient presents with Fever States fever yesterday, 101.0. Took tylenol last night and fever did subside. Has not taken any medication today. Headache Nasal Congestion Fatigue Generalized Body Aches Chills SUBJECTIVE 17 y.o. female presents Fever (States fever yesterday, 101.0. Took tylenol last night and fever did subside. Has not taken any medication today.), Headache, Nasal Congestion, Fatigue, Generalized Body Aches, and Chills Denies any known covid exposures Did not obtain flu vaccination Fully vaccination for covid with booster Denies history of covid in the past 90 days Lives in [facility] Home covid test last night was negative URI This is a new problem. The current episode started yesterday. The problem has been gradually improving. The maximum temperature recorded prior to her arrival was 101 - 101.9 F. The fever has been present for Less than 1 day. Associated symptoms include congestion, headaches and rhinorrhea. Pertinent negatives include no abdominal pain, chest pain, coughing, diarrhea, dysuria, ear pain, joint pain, joint swelling, nausea, neck pain, plugged ear sensation, rash, sinus pain, sneezing, sore throat, swollen glands, vomiting or wheezing. She has tried acetaminophen and decongestant for the symptoms. The treatment provided mild relief. MEDICAL ISSUES Past Medical History: Diagnosis Date Depression There is no problem list on file for this patient. SOCIAL HISTORY Social History Socioeconomic History Marital status: Single Tobacco Use Smoking status: Never Smokeless tobacco: Never Vaping Use Vaping Use: Never used Substance and Sexual Activity Alcohol use: Never Drug use: Never FAMILY HISTORY Family History Problem Relation Age of Onset No Known Problems Mother No Known Problems Father REVIEW OF SYSTEMS Review of Systems Constitutional: Negative for chills, fatigue and fever. HENT: Positive for congestion and rhinorrhea. Negative for ear pain, sinus pain, sneezing and sore throat. Respiratory: Negative for cough, shortness of breath and wheezing. Cardiovascular: Negative for chest pain and palpitations. Gastrointestinal: Negative for abdominal pain, constipation, diarrhea, nausea and vomiting. Genitourinary: Negative for dysuria. Musculoskeletal: Negative for arthralgias, joint pain, myalgias and neck pain. Skin: Negative for rash. Neurological: Positive for headaches. Negative for dizziness. Psychiatric/Behavioral: Negative for confusion. MEDICATIONS PRIOR TO VISIT Current Outpatient Medications on File Prior to Visit Medication Sig Dispense Refill UNKNOWN IUD- is unsure of the name . [DISCONTINUED] fluconazole (DIFLUCAN) 150 MG tablet Take 1 (one) tablet (150 mg total) by mouth every 72 hours . (Patient not taking: Reported on 10/02/2022 .) 2 tablet 0 No current facility-administered medications on file prior to visit. ALLERGIES/INTOLERANCES No Known Allergies OBJECTIVE BP 114/77 (BP Location: Left arm, Patient Position: Sitting, BP Cuff Size: Adult) Pulse 99 Temp 98.7 F (37.1 C) (Infrared) LMP (LMP Unknown) Comment: IUD SpO2 98% Physical Exam Constitutional: Appearance: She is well-developed. HENT: Head: Normocephalic and atraumatic. Right Ear: Tympanic membrane normal. Left Ear: Tympanic membrane normal. Nose: Congestion present. Mouth/Throat: Mouth: Mucous membranes are moist. Pharynx: Oropharynx is clear. Comments: Clear PND Eyes: Conjunctiva/sclera: Conjunctivae normal. Pupils: Pupils are equal, round, and reactive to light. Cardiovascular: Rate and Rhythm: Normal rate and regular rhythm. Pulses: Normal pulses. Heart sounds: Normal heart sounds. Pulmonary: Effort: Pulmonary effort is normal. Breath sounds: Normal breath sounds. Musculoskeletal: General: Normal range of motion. Cervical back: Normal range of motion. Skin: General: Skin is warm. Capillary Refill: Capillary refill takes less than 2 seconds. Findings: No rash. Neurological: Mental Status: She is alert and oriented to person, place, and time. Psychiatric: Mood and Affect: Mood normal. PROCEDURE Procedures Results No results found for this or any previous visit (from the past 168 hour(s)). ASSESSMENT/PLAN (expressed as patient instructions): 1. Upper respiratory tract infection, unspecified type fposulftmvxdgqo-QE-dgfcUAAfydd 60-15-400 mg Tab fluticasone propionate (FLONASE) 50 mcg/actuation nasal spray cetirizine (ZYRTEC) 10 MG tablet Return if symptoms worsen or fail to improve. MDM Section Declined covid/flu testing Viruses are very small organisms. They grow in number after they enter your body. There are many types that cause different illnesses, such as colds and the mumps. The symptoms of a viral respiratory infection often start quickly. They include a fever, sore throat, and runny nose. You may also just not feel well. Or you may not want to eat much. Most viral respiratory infections are not serious. They usually get better with time and self-care. Antibiotics are not used to treat a viral infection. That's because antibiotics will not help cure a viral illness. In some cases, antiviral medicine can help your body fight a serious viral infection. Rest as much as possible until you feel better. Be safe with medicines. Take your medicine exactly as prescribed. Call your doctor if you think you are having a problem with your medicine. You will get more details on the specific medicine your doctor prescribes. Take an gkbx-wvv-pgrbgbt pain medicine, such as acetaminophen (Tylenol), ibuprofen (Advil, Motrin), or naproxen (Aleve), as needed for pain and fever. Read and follow all instructions on the label. Do not give aspirin to anyone younger than 20. It has been linked to Zechariah syndrome, a serious illness. Drink plenty of fluids. Hot fluids, such as tea or soup, may help relieve congestion in your nose and throat. If you have kidney, heart, or liver disease and have to limit fluids, talk with your doctor before you increase the amount of fluids you drink. Try to clear mucus from your lungs by breathing deeply and coughing. Gargle with warm salt water once an hour. This can help reduce swelling and throat pain. Use 1 teaspoon of salt mixed in 1 cup of warm water. Do not smoke or allow others to smoke around you. If you need help quitting, talk to your doctor about stop-smoking programs and medicines. These can increase your chances of quitting for good. RTC criteria and red flag symptoms reviewed, voiced understanding. ORDERS PLACED THIS VISIT No orders of the defined types were placed in this encounter. MEDICATION LIST AT END OF VISIT Current Outpatient Medications Medication Sig Dispense Refill UNKNOWN IUD- is unsure of the name . cetirizine (ZYRTEC) 10 MG tablet Take 1 (one) tablet (10 mg total) by mouth daily . 30 tablet 0 fluticasone propionate (FLONASE) 50 mcg/actuation nasal spray Instill 2 (two) sprays into each nostril daily . 16 g 0 owkeiqydvgwnwou-SL-spsgROCivit 60-15-400 mg Tab Take 1 (one) tablet by mouth every 6 (six) hours for 3 days . 12 tablet 0 No current facility-administered medications for this visit. documented in this encounter [facility] 07-25-2022 Instructions Hilda Nelson PA-C - 07/25/2022 12:42 PM EDT Images from the original note were not included. Vaginal Yeast Infection: Care Instructions Overview A vaginal yeast infection is the growth of too many yeast cells in the vagina. This is a common problem. Itching, vaginal discharge and irritation, and other symptoms can bother you. But yeast infections don't often cause other health problems. Some medicines can increase your risk of getting a yeast infection. These include antibiotics, hormones, and steroids. You may also be more likely to get a yeast infection if you are , have diabetes, douche, or wear tight clothes. With treatment, most yeast infections get better in a few days. Follow-up care is a bishop part of your treatment and safety. Be sure to make and go to all appointments, and call your doctor if you are having problems. It's also a good idea to know your test results and keep a list of the medicines you take. How can you care for yourself at home? Take your medicines exactly as prescribed. Call your doctor if you think you are having a problem with your medicine. Ask your doctor about gibw-flt-irxyiec (OTC) medicines for yeast infections. If you use an OTC treatment, read and follow all instructions on the label. Don't use tampons while using a vaginal cream or suppository. The tampons can absorb the medicine. Use pads instead. Wear loose cotton clothing. Don't wear nylon or other fabric that holds body heat and moisture close to the skin. Try sleeping without underwear. Don't scratch. Relieve itching with a cold pack or a cool bath. Don't wash your vulva more than once a day. Use plain water or a mild, unscented soap. Air-dry the vulva. Change out of wet or damp clothes as soon as possible. If you are using a vaginal medicine, don't have sex until you have finished your treatment. But if you do have sex, don't depend on a condom or diaphragm for control. The oil in some vaginal medicines weakens latex. Don't douche or use powders, sprays, or perfumes in your vagina or on your vulva. These items can change the normal balance of organisms in your vagina. When should you call for help? Call your doctor now or seek immediate medical care if: You have new or increased pain in your vagina or pelvis. Watch closely for changes in your health, and be sure to contact your doctor if: You have unexpected vaginal bleeding. You have a fever. You are not getting better after 2 days. Your symptoms come back after you finish your medicines. Where can you learn more? Log into your personal health record on [email or web address] and enter F639 in the Education box to learn more about Vaginal Yeast Infection: Care Instructions. Current as of: October 09, 2021 Content Version: 13.4 Leeo. Care instructions adapted under license by your healthcare professional. If you have questions about a medical condition or this instruction, always ask your healthcare professional. [employer] disclaims any warranty or liability for your use of this information. documented in this encounter [facility] 07-25-2022 History of Presen t illness Narrative PATIENT NAME: Gudelia Gallardo [facility] [address] [place] [id number] : 2005 DATE OF VISIT: 07/25/2022 #: [id number] PROVIDER: Hilda Nelson PA-C Chief Complaint Patient presents with Vaginal Discharge Burning with urination. States took Azo and then started to have vaginal discharge, itching, and odor. States no longer having burning with urination SUBJECTIVE 17 y.o. female presents Vaginal Discharge (Burning with urination. States took Azo and then started to have vaginal discharge, itching, and odor. States no longer having burning with urination ) Vaginal Discharge The patient's primary symptoms include vaginal discharge. Pertinent negatives include no abdominal pain, chills, dysuria, fever, flank pain, frequency, hematuria, nausea, rash, urgency or vomiting. Vaginal itching started last week. Reports cloudy, copious and foul smelling discharge. Denies abd pain, back pain, fever, chills or malaise. Denies OTC meds. MEDICAL ISSUES History reviewed. No pertinent past medical history. There is no problem list on file for this patient. SOCIAL HISTORY Social History Socioeconomic History Marital status: Single Tobacco Use Smoking status: Never Smokeless tobacco: Never Vaping Use Vaping Use: Never used Substance and Sexual Activity Alcohol use: Never Drug use: Never FAMILY HISTORY Family History Problem Relation Age of Onset No Known Problems Mother No Known Problems Father REVIEW OF SYSTEMS Review of Systems Constitutional: Negative for chills and fever. Respiratory: Negative for shortness of breath. Cardiovascular: Negative for chest pain. Gastrointestinal: Negative for abdominal pain, nausea and vomiting. Genitourinary: Positive for vaginal discharge. Negative for dysuria, flank pain, frequency, hematuria and urgency. Skin: Negative for rash. MEDICATIONS PRIOR TO VISIT No current outpatient medications on file prior to visit. No current facility-administered medications on file prior to visit. ALLERGIES/INTOLERANCES No Known Allergies OBJECTIVE BP 121/78 (BP Location: Right arm, Patient Position: Sitting, BP Cuff Size: Adult) Pulse 94 Temp 98.4 F (36.9 C) (Infrared) Ht 5' 7 Wt 61.5 kg (135 lb 9.3 oz) SpO2 99% BMI 21.24 kg/m Physical Exam Vitals and nursing note reviewed. Constitutional: Appearance: She is well-developed. HENT: Head: Normocephalic and atraumatic. Eyes: Conjunctiva/sclera: Conjunctivae normal. Pupils: Pupils are equal, round, and reactive to light. Cardiovascular: Rate and Rhythm: Normal rate and regular rhythm. Pulmonary: Effort: Pulmonary effort is normal. Breath sounds: Normal breath sounds. Abdominal: Palpations: Abdomen is soft. Musculoskeletal: General: Normal range of motion. Cervical back: Normal range of motion. Skin: General: Skin is warm and dry. Neurological: Mental Status: She is alert and oriented to person, place, and time. Psychiatric: Behavior: Behavior normal. PROCEDURE Procedures Results Recent Results (from the past 168 hour(s)) POC Urinalysis Dipstick,Auto UC Collection Time: 07/25/22 11:52 AM Result Value Ref Range POC Color, Urine Yellow Yellow, Light Yellow, Dark Yellow Clarity, UA Cloudy (A) Clear Glucose, UA Negative Normal, Negative mg/dL Bilirubin, UA Negative Negative Ketones, UA Negative Negative mg/dL Spec Grav, UA 1.020 1.005 - 1.025 Blood, UA Negative Negative pH, UA 6.5 5.0 - 7.0 Protein, UA Negative Negative mg/dL Urobilinogen, UA 0.2 <2.0, 0.2, Normal, Negative, 1.0, 2.0, <1.0 mg/dL Nitrite, UA Negative Negative Leukocyte Esterase, UA Large (A) Negative ASSESSMENT/PLAN (expressed as patient instructions): 1. Acute vaginitis Vaginitis DNA Probes Chlamydia/Gonorrhoeae Amplified RNA fluconazole (DIFLUCAN) 150 MG tablet Chlamydia/Gonorrhoeae Amplified RNA Vaginitis DNA Probes 2. Dysuria POC Urinalysis Dipstick,Auto UC Chlamydia/Gonorrhoeae Amplified RNA Chlamydia/Gonorrhoeae Amplified RNA No follow-ups on file. MDM Section ORDERS PLACED THIS VISIT Orders Placed This Encounter Procedures Vaginitis DNA Probes Chlamydia/Gonorrhoeae Amplified RNA POC Urinalysis Dipstick,Auto UC MEDICATION LIST AT END OF VISIT Current Outpatient Medications Medication Sig Dispense Refill fluconazole (DIFLUCAN) 150 MG tablet Take 1 (one) tablet (150 mg total) by mouth every 72 hours . 2 tablet 0 No current facility-administered medications for this visit. documented in this encounter [facility] 01-17-2022 Evaluation note Encounter Date Diagnosis Assessment Notes Jan, Contact with and (suspected) exposure to other viral communicable diseases (ICD-10 - Z20.828) Jan, Viral URI (ICD-10 - J06.9) Advised patient and mother that rapid COVID antigen test, Strep test, and Influenza A/B test was negative today in office. Advised patient that we will treat as viral URI. Rx of Bromfed as directed. Supportive care as directed, increase fluids and rest, Tylenol/Motrin as directed, cool mist humidifier, throat lozenges. Discussed infection control practices such as good hand washing and mask wearing. Patient to follow up with PCP if sx persist or worsen despite treatment. Immediate eval for SOB, difficulty, chest pain, fevers that do not break with antipyretic or any other concerning symptoms as reviewed on patient education handout. Patient and mother verbalizes understanding and is agreeable to treatment plan. Patient left in stable condition Jan, Other Additional time spent conducting pre-visit phone call, screening for symptoms, instructions on social distancing, application and removal of PPE, and cleaning of examination room, equipment and supplies was preformed. Patient education given for testing methodology and results. Patient care instructions given in writting by [facility] Care At Home document [employer] Other 08-01-2013 History general Narrative - Reported* Type Description Date Medical History Migraines Medical History Passing out when in pain Surgical History tonsillectomy and adenoidectomy Jun 2013 [employer] Other Evaluation note* Diagnosis Acute vaginitis- Primary Unspecified vaginitis and vulvovaginitis Dys[facility] Upper respiratory tract infection, unspecified type- Primary [facility] Diagnosis Vomiting, unspecified vomiting type, unspecified whether nausea present- Primary Anxiety Anxiety state, unspecified [facility] Diagnosis Vaginal discharge- Primary Leukorrhea, not specified as infective [facility] Diagnosis Vaginal bleeding- Primary Other specified noninflammatory disorder of vagina Routine screening for STI (sexually transmitted infection) Screening examination for venereal disease [facility] Diagnosis Vaginal bleeding- Primary Other specified noninflammatory disorder of vagina Routine screening for STI (sexually transmitted infection) Screening examination for venereal disease [facility] Diagnosis Vaginal bleeding- Primary Other specified noninflammatory disorder of vagina Routine screening for STI (sexually transmitted infection) Screening examination for venereal disease [facility] Diagnosis Pelvic pain- Primary Abnormal vaginal bleeding Other specified noninflammatory disorder of vagina Genital warts Condyloma acuminatum [facility] Diagnosis Pelvic pain- Primary Genital warts Condyloma acuminatum [facility]* Diagnosis Acute cystitis with hematuria- Primary Dysuria [facility]* Diagnosis Acute cystitis with hematuria- Primary Dysuria [facility] Diagnosis Routine screening for STI (sexually transmitted infection)- Primary Screening examination for venereal disease [facility]* Diagnosis Sore throat- Primary Acute pharyngitis [facility]* Diagnosis Leukorrhea- Primary Leukorrhea, not specified as infective High risk sexual behavior, unspecified type [facility]* Diagnosis BV (bacterial vaginosis)- Primary Unspecified vaginitis and vulvovaginitis [facility]* Diagnosis Vaginal discharge- Primary Leukorrhea, not specified as infective Possible exposure to STD [facility]* Diagnosis Chlamydia- Primary Other specified chlamydial infection, in conditions classified elsewhere and of unspecified site BV (bacterial vaginosis) Unspecified vaginitis and vulvovaginitis [facility] Dysuria- Primary Possible exposure to STD [facility] Attachments The following attachments cannot be sent through Care Everywhere. * Stress: Progressive Muscle Relaxation: General Info (Wolof) [facility]* Attachments The following attachments cannot be sent through Care Everywhere. * STI (Wolof) [facility] Purpose Family History No Family History Records FoundNo Family History Records FoundNo Family History Records FoundNo Family History Records FoundNo Family History Records FoundNo Family History Records FoundNo Family History Records Found Advance Directives No Advanced Directives Records FoundLatest Code Status on File Code Status Date Activated Date Inactivated Comments Full Code - Unverified 02/26/2023 2:20 AM 02/26/2023 2:3 0 PM Latest Code Status on File Code Status Date Activated Date Inactivated Comments Full Code - Unverified 02/26/2023 2:20 AM 02/26/2023 2:3 0 PM Date Activated Date Inactivated Comments 02/26/2023 2:20 AM 02/26/2023 2:30 PM Reason for Referral Specialty Diagnoses / Procedures Referred By Reshma barrera Referred To Contact Obstetrics and Gynecology Diagnoses Pelvic pain Procedures US Transvaginal Carmenza Ruelas, [facility] [facility] [address] Referral ID Status Reason Start Date Expiration Date V isits Requested Visits Authorized [id number] Authorized 08/08/2023 08/07/2024 1 1 Additional Source Comments INFORMATION SOURCE (unrecogn ized section and content) DATE CREATED AUTHOR 06/11/2020 [facility] DATE CREATED AUTHOR AUTHOR'S ORGANIZ ATION 10/06/2023 [facility] DATE CREATED AUTHOR AUTHOR'S ORGANIZ ATION 03/11/2024 [facility] ([place]) DATE CREATED AUTHOR AUTHOR'S ORGANIZ ATION 04/25/2024 [facility] Urge nt Care DATE CREATED AUTHOR AUTHOR'S ORGANIZ ATION 04/26/2024 [facility] DATE CREATED AUTHOR AUTHOR'S ORGANIZ ATION 07/26/2024 [facility] EPIC DATE CREATED AUTHOR AUTHOR'S ORGANIZ ATION 08/03/2024 [facility] REASON FOR VISIT (unrecogniz ed section and content) Reason Comments Vaginal Discharge Burning with urinati on. States took Azo and then started to have vaginal discharge, itching, and odor. States no longer having burning with urination Reason Comments Fever States fever yesterd ay, 101.0. Took tylenol last night and fever did subside. Has not taken any medication today. Headache Nasal Congestion Fatigue Generalized Body Aches Chills Reason Comments Emesis States woke up this AM vomiting. States missed anatomy exam and had a panic attack and now cannot calm down. States roommate is sick as well, both ate dinner at the same place ([facility] kitchen, [facility]). Reason Comments Vaginitis Reason Comments Vaginal Bleeding Pt having a lot of v aginal bleeding for the last month and she has an IUD. 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 Reason Comments Establish Care New patient. Reports lower abdominal cramping daily x 1 month or more. Irregular bleeding x 1 month. Has a mirena IUD that was placed 11/07 and does not typically have periods. Reason Comments Procedure Here for cyrotherapy for genital warts, today is pt's first treatment. Reason Comments Urinary Urgency Painful urination, l ower back pain, urinary urgency for 2 days, has not taken anything for it Reason Comments Exposure to STD Pt states a partner she had sex with 10 days ago told her he tested pos for chlamydia. She denies s/s. She is on bactrim now for a uti. Reason Comments Nasal Congestion Congestion for about a week, then 2 days ago eyes became red and throat is sore, took cold medicine and eye drops Reason Comments Vaginal Discharge Pt having vaginal di scharge for the last wk and wants tested for BV and sti. She has a pcp here for womens [facility]. Reason Comments Vaginal Discharge Pt c/o clear vaginal discharge and odor since about 03/07. Notes she gets BV frequently. Reason Comments Urinary Tract Infection Exposure to STD Care Teams (unrecognized sec tion and content) Dye Colorist Dyer Relationship Specialty Start Date End Date No, Physician [place] PCP - General 07/25/22 Dye Colorist Dyer Relationship Specialty Start Date End Date No, Physician [place] PCP - General 07/25/22 Dye Colorist Dyer Relationship Specialty Start Date End Date No, Physician [place] PCP - General 07/25/22 Dye Colorist Dyer Relationship Specialty Start Date End Date No, Physician [place] PCP - General 07/25/22 Dye Colorist Dyer Relationship Specialty Start Date End Date No, Physician [place] PCP - General 07/25/22 Dye Colorist Dyer Relationship Specialty Start Date End Date No, Physician [place] PCP - General 07/25/22 Dye Colorist Dyer Relationship Specialty Start Date End Date No, Physician [place] PCP - General 07/25/22 Dye Colorist Dyer Relationship Specialty Start Date End Date Carmenza Ruelas DO [address] [place] [address] [place] [address] PCP - General Family Medicine 08/08/23 Dye Colorist Dyer Relationship Specialty Start Date End Date Carmenza Ruelas DO [address] [place] [address] [place] [address] PCP - General Family Medicine 08/08/23 Dye Colorist Dyer Relationship Specialty Start Date End Date Carmenza Ruelas DO [address] [place] [address] [place] [address] PCP - General Family Medicine 08/08/23 Dye Colorist Dyer Relationship Specialty Start Date End Date Carmenza Ruelas DO [address] [place] [address] [place] [address] PCP - General Family Medicine 08/08/23 Dye Colorist Dyer Relationship Specialty Start Date End Date Carmenza Ruelasse [address] [place] [address] [place] [address] PCP - General Family Medicine 08/08/23 Dye Colorist Dyer Relationship Specialty Start Date End Date Carmenza RuelasDO summer [address] [place] [address] [place] [address] PCP - General Family Medicine 08/08/23 Dye Colorist Dyer Relationship Specialty Start Date End Date Carmenza RuelasDO summer [address] [place] [address] [place] [address] PCP - General Family Medicine 08/08/23 Dye Colorist Dyer Relationship Specialty Start Date End Date Carmenza RuelasDO summer [address] [place] [address] [place] [address] PCP - General Family Medicine 08/08/23 Dye Colorist Dyer Relationship Specialty Start Date End Date Carmenza RuelasDO [address] [place] [address] [place] [address] PCP - General Family Medicine 08/08/23 Dye Colorist Dyer Relationship Specialty Start Date End Date Carmenza RuelasDO summer [address] [place] [address] [place] [address] PCP - General Family Medicine 08/08/23 FOR RECORDS PERTAINING TO PATIENTS WHO ARE OR HAVE BEEN ENROLLED IN A CHEMICAL DEPENDENCY/SUBSTANCEABUSE PROGRAM, SOME INFORMATION MAY BE OMITTED. This clinical summary was aggregated from multiple sources. Caution should be exercised in using it in the provision of clinical care. This summary normalizes information from multiple sources, and as a consequence, information in this document may materially change the coding, format and clinical context of patient data. In addition, data may be omitted in some cases. CLINICAL DECISIONS SHOULD BE BASED ON THE PRIMARY CLINICAL RECORDS. [facility]. provides no warranty or guarantee of the accuracy or completeness of information in this document.
[2024-08-07 07:27] LABS: Basophils Percent Auto 0.4 % (0.2-2.0); Eosinophils Absolute Auto 0.1 10^3/uL (0.0-0.7); Eosinophils Percent Auto 1.5 % (0.9-7.0); Hematocrit 41.7 % (36.0-48.0); Hemoglobin 14.1 g/dL (12.0-16.0); Immature Granulocytes Abs Auto 0.01 10^3/uL (0.00-0.03); Immature Granulocytes Pct Auto 0.1 % (0.0-0.5); Lymphocytes Absolute Auto 2.4 10^3/uL (1.2-3.8); Lymphocytes Percent Auto 35.6 % (20.5-60.0); Mean Corpuscular HGB Conc 33.8 g/dL (29.9-35.2); Mean Corpuscular Volume 88.7 fL (81.0-99.0); Monocytes Absolute Auto 0.6 10^3/uL (0.3-0.8); Monocytes Percent Auto 8.2 % (1.7-12.0); Neutrophils Absolute Auto 3.7 10^3/uL (1.4-6.5); Neutrophils Percent Auto 54.2 % (43.0-75.0); Platelet Count 257 10^3/uL (150-450); Red Cell Distribution Width 11.6 % (11.0-15.0); White Blood Count 6.9 10^3/uL (4.0-11.0)
[2024-08-07] MEDS: LACTATED RINGER'S SOLUTION 1,000 ML 50 ML IV (07:42)
[2024-08-07 08:01] LABS: HCG Quantitative <1 mIU/mL
--- NOTE | 2024-08-07 10:25 | PM.ONB ---
Brief Operative Note Date of procedure: 08/07/24 Pre-op diagnosis general: pelvic pain Post-op diagnosis: same as pre-op Procedure: NAME OF PROCEDURE: [diagnostic laparoscopy ] PROCEDURE: The patient was taken back to the Operating Room where she was placed in dorsal lithotomy position after given general anesthesia. The patient was prepped and draped in normal sterile fashion. A sponge stick was placed into the patient's vagina. Attention was turned to the patient's abdomen, where a small umbilical incision was made. The fascia was tented using Annabelle clamps and the fascia was entered sharply. Confirmation of intraabdominal placement of the 10 mm port was confirmed under direct visualization using a laparoscope. The patient's abdomen was then insufflated using CO2 gas with approximately 4 liters. A second port was placed left laterally, this was done under direct visualization with a 5 mm port. Survey of the patient's abdomen demonstrated normal liver and gallbladder. Survey of the patient's pelvic anatomy demonstrated normal appearing rt and lt ovary and tubes as well as normal appearing uterus. No endometrial implants could be noted, no evidence of any pelvic disease was seen, normal appearing pelvic cavity. All instruments were removed from the patient's abdomen. The patient's abdomen was deinsufflated of CO2 gas. The patient tolerated the procedure well. Sponge stick was removed from the patient's vagina. The patient's infraumbilical fascia was closed using #0 Vicryl on a GI needle. The patient's skin was closed laterally and infraumbilically using 4-0 Vicryl. The patient tolerated the procedure well. Sponge, lap and needle counts were correct x 2. The patient was taken to Recovery Room in stable condition. Anesthesia: EJ Surgeon: Garfield Johnson [employer] Account[employer] Supervisor: Domonique Nails Estimated blood loss (mL): 5 Pathology: none sent Condition: stable Disposition: PACU
[2024-08-07] MEDS: HYDROMORPHONE HCL 0.5 MG/0.5 ML SYRINGE IV (10:54)
== END 2024-08-07 12:00 | disposition home or self-care (01) ==
PROVIDERS: PCP Family Medicine; Visit Provider Obstetrics & Gynecology
PROC: (CPT 840; principal; 2024-08-07 08:40)
DX: R10.2 Pelvic and perineal pain (principal); F17.290 Nicotine dependence, other tobacco product, uncomplicated; F41.9 Anxiety disorder, unspecified
CPT/HCPCS: 49320; 36415; 84702; 85025; J1100; J1170; J1885; J2250; J2405; J2704; J3010

== ENCOUNTER 2025-06-30 12:23 | Outpatient (REF) | payer BC, SELFPAY ==
--- OUTSIDE RECORDS SUMMARY | 2025-06-30 11:00 | XMS_ITS | Encounter Summary ---
Author Organization [facility] Address [address] [place] [address] Care Team Providers Care Felling Bucking Supervisor Name Role Phone Lana Green MD Primary Care Provider [phone] Brionna Galindo LOCOMOTIVE DRIVER Unavailable [phone] Brionna Galindo LOCOMOTIVE DRIVER Unavailable [phone] Reason for Visit * Reason Comments Gynecologic Exam Encounter Details Date Type Department Care Team (Late st Contact Info) Description 06/30/2025 11:00 AM EDT Office Visit [facility] [address] [place] [address] Pam Swanson PA [address] [place], [place] [id number] Well woman exam with routine gynecological exam; Exposure to STD Social History Tobacco Use Types Packs/Day Years Used Date Smoking Tobacco: Never Smokeless Tobacco: Never Alcohol Use Standard Drinks/Week Comments Yes 0 (1 standard drink = 0.6 oz pure alcohol) caffeine: occasional energy drink B1300 Health Literacy Answer Date Recor ded How often do you need to hav e someone help you when you read instructions, pamphlets, or other written material from your doctor or pharmacy? Never 12/18/2024 Humiliation, Afraid, Rape, and Kick questionnair e Answer Date Recorded Within the last year, have y ou been afraid of your partner or ex-partner? No 10/09/2023 Within the last year, have y ou been humiliated or emotionally abused in other ways by your partner or ex-partner? No Within the last year, have y ou been kicked, hit, slapped, or otherwise physically hurt by your partner or ex-partner? No 10/09/2023 Within the last year, have y ou been raped or forced to have any kind of sexual activity by your partner or ex-partner? No 10/09/2023 Social Connection and Isolat ion Panel [NHANES] Answer Date Recorded In a typical week, how many times do you talk on the phone with family, friends, or neighbors? More than three times a week 12/18/2024 How often do you get togethe r with friends or relatives? More than three times a week 12/18/2024 How often do you attend chur ch or mormonism services? 1 to 4 times per year 12/18/2024 Do you belong to any clubs o r organizations such as restorationist groups, unions, fraternal or athletic groups, or school groups? No 12/18/2024 How often do you attend meet ings of the clubs or organizations you belong to? Patient declined 12/18/2024 Are you , , di vorced, , never , or living with a partner? Never 12/18/2024 AUDIT-C Answer Date Recorded Q1: How often do you have a drink containing alc ohol? 2-3 times a week 05/19/2025 Q2: How many drinks containi ng alcohol do you have on a typical day when you are drinking? 3 or 4 05/19/2025 Q3: How often do you have si x or more drinks on one occasion? Less than monthly 05/19/2025 Overall Financial Resource Strain (CARDIA) Answe r Date Recorded How hard is it for you to pa y for the very basics like food, housing, medical care, and heating? Somewhat hard 12/18/2024 PHQ-2 Answer Date Recorded Patient Health Questionnaire-2 Score 3 06/09/2024 [facility] [place] of Occupat ional Health - Occupational Stress Questionnaire Answer Date Recorded Do you feel stress - tense, restless, nervous, or anxious, or unable to sleep at night because your mind is troubled all the time - these days? Rather much 12/18/2024 Exercise Vital Sign Answer Date Recorde d On average, how many days pe r week do you engage in moderate to strenuous exercise (like a brisk walk)? 6 days 12/18/2024 On average, how many minutes do you engage in exercise at this level? 30 min 12/18/2024 Hunger Vital Sign Answer Date Recorded Within the past 12 months, y ou worried that your food would run out before you got the money to buy more. Never true 12/18/19 25 Within the past 12 months, t he food you bought just didn't last and you didn't have money to get more. Never true 12/18/2024 PRAPARE - Transportation Answer Date Re corded In the past 12 months, has l ack of transportation kept you from medical appointments or from getting medications? No 11/20 In the past 12 months, has l ack of transportation kept you from meetings, work, or from getting things needed for daily living? No 12/18/2024 Housing Stability Vital Sign Answer [place] e Recorded In the last 12 months, was t here a time when you were not able to pay the mortgage or rent on time? No 10/09/2023 In the last 12 months, how many places have you lived? 2 10/09/2023 In the last 12 months, was t here a time when you did not have a steady place to sleep or slept in a intermediate (including now)? No 10/09/2023 Housing Stability Vital Sign Answer [place] Recorded In the last 12 months, was t here a time when you were not able to pay the mortgage or rent on time? No 12/18/2024 In the past 12 months, how m any times have you moved where you were living? 1 12/18/2024 At any time in the past 12 m [facility], were you homeless or living in a intermediate (including now)? No 12/18/2024 Comments No Sex and Gender Information Value Date Recorded Sex Assigned at Not on file Legal Sex Female 7:03 PM EDT Gender Identity Not on file Sexual Orientation Not on file documented as of this encounter Last Filed Vital Signs Vital Sign Reading Time Taken Comments Blood Pressure 110/68 06/30/2025 11:18 AM EDT Pulse - - Temperature - - Respiratory Rate - - Oxygen Saturation - - Inhaled Oxygen Concentration - - Weight 59.9 kg (132 lb) 06/30/2025 11:18 AM EDT Height 172.7 cm (5' 8 ) 06/30/2025 11:18 AM EDT Body Mass Index 20.07 06/30/2025 11:18 AM EDT documented in this encounter Progress Notes * ELIO Monreal - 06/30/2025 11:00 AM EDT Reason for Appointment: Patient ID: Gudelia Gallardo is a 20 y.o. female who presents for Gynecologic Exam Patient presents today for Annual Exam. and STD Check. MEDICATIONS Current Outpatient Medications Medication Instructions amphetamine-dextroamphetamine XR (Adderall XR) 20 MG 24 hr capsule 20 mg, Oral, Every morning, Do not crush or chew. hydrOXYzine HCl (ATARAX) 25 mg, Oral, Every 6 hours PRN Levonorgestrel (Liletta, 52 MG,) 20.1 MCG/DAY intrauterine device by Intrauterine route. ALLERGIES No Known Allergies PROBLEMS Active Ambulatory Problems Diagnosis Date Noted Anxiety, generalized 06/06/2023 Panic disorder 06/06/2023 Breakthrough bleeding 06/06/2023 Migraine with aura and without status migrainosus, not intractable 06/06/2023 Moderate episode of recurrent major depressive disorder (HCC) 06/06/2023 Uterine cramping 06/06/2023 BRBPR (bright red blood per rectum) 06/09/2024 Chronic UTI 06/09/2024 Passage of loose stools 06/09/2024 Unspecified temporomandibular joint disorder, unspecified side 06/09/2024 Attention deficit hyperactivity disorder (ADHD), predominantly inattentive type 07/24/2024 Dysuria 12/01/2024 Screen for STD (sexually transmitted disease) 12/01/2024 Resolved Ambulatory Problems Diagnosis Date Noted Acne vulgaris 06/06/2023 Alcohol intoxication in active alcoholic, uncomplicated (HCC) 02/26/2023 Heavy periods 06/06/2023 Abnormal findings on diagnostic imaging of other abdominal regions, including retroperitoneum 06/09/2024 Candidiasis, unspecified 06/09/2024 Other specified diseases of intestine 04/29/2024 Past Medical History: Diagnosis Date Acute left otitis media Anxiety Arthritis Bacterial vaginosis Depression Epigastric abdominal pain History of migraine with aura Irregular menses MPDS (myofascial pain dysfunction syndrome) Periumbilical abdominal pain Pharyngitis Strep throat Swimmer's ear Syncope Tonsillitis HISTORY PAST MEDICAL HISTORY SOCIAL HISTORY Past Medical History: Diagnosis Date Acute left otitis media Anxiety Arthritis Bacterial vaginosis Depression Epigastric abdominal pain History of migraine with aura Irregular menses MPDS (myofascial pain dysfunction syndrome) violin posture Panic disorder Periumbilical abdominal pain Pharyngitis recurrent Strep throat recurrent Swimmer's ear recurrent Syncope Tonsillitis Social History Tobacco Use Smoking status: Never Smokeless tobacco: Never Vaping Use Vaping status: Every Day Substances: Nicotine, Flavoring Devices: RefFinsphereble tank Substance Use Topics Alcohol use: Yes Comment: caffeine: occasional energy drink Drug use: Never FAMILY HISTORY Family History Problem Relation Name Age of Onset Anxiety disorder Mother mom Fibromyalgia Mother mom CATINA disease Mother mom Scoliosis Mother mom Depression Mother mom Panic attack Mother mom Alcohol abuse Mother mom maternal side of family Diabetes Father dad Depression Maternal Grandmother enrique Diabetes Maternal Grandfather papa Stroke Maternal Grandfather papa Depression Paternal Grandmother grandma Other (phlebitis) Other grandparent Coronary artery disease Other grandparent Other (knee OA) Other grandparent Migraines Mother's Sister pam Anxiety disorder Mother's Sister pam Depression Mother's Sister pam SURGICAL HISTORY Past Surgical History: Procedure Laterality Date ADENOIDECTOMY LAPAROSCOPY DIAGNOSTIC / BIOPSY / ASPIRATION / LYSIS 08/07/2024 LYMPH NODE DISSECTION 02/02/2025 groin TONSILLECTOMY 06/30/2013 WISDOM TOOTH EXTRACTION 04/2022 REVIEW OF SYSTEMS Review of Systems: Review of Systems Constitutional: Negative. HENT: Negative. Eyes: Negative. Respiratory: Negative. Cardiovascular: Negative. Gastrointestinal: Negative. Genitourinary: Negative. Musculoskeletal: Negative. Skin: Negative. Neurological: Negative. All other systems reviewed and are negative. Hematological: Negative. Endocrine: Negative. Allergic/Immunologic: Negative. OBJECTIVE Objective: Physical Exam Constitutional: Appearance: Normal appearance. She is well-developed. Genitourinary: Vulva normal. Right Adnexa: not tender and no mass present. Left Adnexa: not tender and no mass present. No cervical discharge. IUD strings visualized. Breasts: Breasts are soft. Right: Normal. Left: Normal. HENT: Head: Normocephalic. Nose: Nose normal. Mouth/Throat: Mouth: Mucous membranes are moist. Cardiovascular: Rate and Rhythm: Normal rate and regular rhythm. Pulmonary: Effort: Pulmonary effort is normal. Breath sounds: Normal breath sounds. Abdominal: General: Bowel sounds are normal. There is no distension. Palpations: Abdomen is soft. Tenderness: There is no abdominal tenderness. There is no guarding or rebound. Musculoskeletal: General: No swelling. Normal range of motion. Cervical back: Normal range of motion. Right lower leg: No edema. Left lower leg: No edema. Neurological: General: No focal deficit present. Mental Status: She is alert and oriented to person, place, and time. Skin: General: Skin is warm and dry. Psychiatric: Mood and Affect: Mood normal. Behavior: Behavior normal. Vitals and nursing note reviewed. Exam conducted with a vice president of talent acquisition present. Vitals: Estimated body mass index is 19.98 kg/m?? as calculated from the following: Height as of 07/09/24: 5' 8 . Weight as of 05/19/25: 131 lb 6.4 oz. BP: No LMP recorded. Patient has had an implant. ASSESSMENT & PLAN ICD-10-CM 1. Well woman exam with routine gynecological exam Z01.419 2. Exposure to STD Z20.2 Annual Exam: Patient presents today for an annual exam/STD. Patient states she is doing well and has no complaints. Pap was obtained without difficulty. No orders of the defined types were placed in this encounter. Follow Up: Patient is to return in one year for annual unless needed otherwise. Documented by Mela Smith MA on behalf of: ELIO Monreal documented in this encounter Miscellaneous Notes * Addendum Note - Mela Smith MA - 06/30/2025 11:00 AM EDTAddended by: MELA SMITH on: 06/30/2025 11:31 AM Modules accepted: Orders documented in this encounter Plan of Treatment Scheduled Orders Name Type Priority Associated Diagnoses Orde r Schedule SURESWAB(R) ADVANCED VAGINITIS PLUS, TMA Pathology and Cytology Routine Exposure to STD Ordered: 06/30/2025 CHLAMYDIA TRACHOMATIS (GENITO/STI) Lab Routine Exposure to STD Ordered: 06/30/2025 Neisseria gonorrhea DNA probe, direct Lab Routine Exposure to STD Ordered: 06/30/2025 Pap Smear Pathology and Cytology Routine Well woman exam with routine gynecological exam Ordered: 06/30/2025 documented as of this encounter Visit Diagnoses Diagnosis Well woman exam with routine gynecological exam Routine gynecological examination Exposure to STD documented in this encounter Additional Health Concerns Assessment Noted Time PHQ-9 Depression Total Score: 7 06/09/20 24 10:00 AM EDT documented as of this encounter Care Teams Felling Bucking Supervisor Relationship Specialty Start Date End Date Lana Green MD PCP - General Family Medicine 06/17/24 Brionna Galindo NP [address] [facility] [place] [address] PCP - [facility] 04/18/25 Brionna Galindo NP [address] [place] [address] Nurse Practitioner Family Medicine 06/17/24 documented as of this encounter
--- OUTSIDE RECORDS SUMMARY | 2025-06-30 12:27 | XMS_ITS | Encounter Summary ---
Author Organization [facility] Address [address] [place] [address] Care Team Providers Care Grain Operator Name Role Phone Lana Green MD Primary Care Provider [phone] Brionna Galindo COATING TECHNICIAN Unavailable [phone] Brionna Galindo COATING TECHNICIAN Unavailable [phone] Encounter Details Date Type Department Care Team (Late st Contact Info) Description 06/30/2025 Bamboo flowsheet [facility] [address] [address] Pam Swanson PA [address] [place], [facility] Social History Tobacco Use Types Packs/Day Years [...] 12/18/2024 How often do you attend chur or orthodox services? 1 to 4 times per year 12/18/2024 Do you belong to any clubs o r organizations such as baptism groups, unions, fraternal or athletic groups, or [...] Recorded Patient Health Questionnaire-2 Score 3 06/09/2024 [facility] of Occupat ional Health - Occupational Stress [...] place to sleep or slept in a residential (including now)? No 10/09/2023 Housing Stability Vital [...] time in the past 12 m [facility], were you homeless or living in a residential (including now)? No 12/18/2024 Comments No Sex and Gender Information Value Date Recorded Sex Assigned at Not on file Legal Sex Female 7:03 PM EDT Gender Identity Not on file Sexual Orientation Not on file documented as of this encounter Plan of Treatment Not on file documented as of this encounter Visit Diagnoses Not on filedocumented in this encounter Additional Health Concerns Assessment Noted Time PHQ-9 Depression Total Score: 7 06/09/20 24 10:00 AM EDT documented as of this encounter Care Teams Grain Operator Relationship Specialty Start Date End Date Wonderly, Lana Griffin MD PCP - General Family Medicine 06/17/24 Brionna Galindo NP [address] [place], [place] [id number] PCP - [facility] 04/18/25 Brionna Galindo NP [address] [place], [place] [id number] Nurse Practitioner Family Medicine 06/17/24 documented as of this encounter
--- OUTSIDE RECORDS SUMMARY | 2025-06-30 12:28 | XMS_ITS | Encounter Summary ---
Author Organization [facility] Address [address] [place] [address] Care Team Providers Care Aerospace Manager Name Role Phone Lana Green MD Primary Care Provider [phone] Brionna Galindo NP Unavailable [phone] Brionna Galindo NP Unavailable [phone] Encounter Details Date Type Department Care Team (Late st Contact Info) Description 06/17/2024 Telephone [facility] [address] [place] [address] Brionna Galindo NP [address] [place], [place] [id number] Social History Tobacco Use Types Packs/Day Years Used Date Smoking Tobacco: Never Smokeless Tobacco: Never Alcohol Use Standard Drinks/Week Comments Yes 0 (1 standard drink = 0.6 oz pure alcohol) caffeine: occasional energy drink Humiliation, Afraid, Rape, and Kick questionnair e [...] neighbors? More than three times a week 10/09/2023 How often do you get togethe r with friends or relatives? More than three times a week 10/09/2023 How often do you attend chur or taoist services? Never 10/09/2023 Do you belong to any clubs o r organizations such as caodaism groups, unions, fraternal or athletic groups, or school groups? No 10/09/2023 How often do you attend meet ings of the clubs or organizations you belong to? Never 10/09/2023 Are you , , di vorced, , never , or living with a partner? Never 10/09/2023 AUDIT-C Answer Date Recorded Q1: How often do you have a drink containing alc ohol? 2-3 times a week 10/09/2023 Q2: How many drinks containi ng alcohol do you have on a typical day when you are drinking? 3 or 4 10/09/2023 Q3: How often do you have si x or more drinks on one occasion? Monthly 10/09/2023 Overall Financial Resource Strain (CARDIA) Answe r Date Recorded How hard is it for you to pa y for the very basics like food, housing, medical care, and heating? Somewhat hard 10/09/2023 PHQ-2 Answer Date Recorded Patient Health Questionnaire-2 Score 3 06/09/2024 [facility] - Occupational Stress Questionnaire Answer Date Recorded Do you feel stress - tense, restless, nervous, or anxious, or unable to sleep at night because your mind is troubled all the time - these days? Only a little 10/09/2023 Exercise Vital Sign Answer Date Recorde d On average, how many days pe r week do you engage in moderate to strenuous exercise (like a brisk walk)? 3 days 10/09/2023 On average, how many minutes do you engage in exercise at this level? 20 min 10/09/2023 Hunger Vital Sign Answer Date Recorded Within the past 12 months, y ou worried that your food would run out before you got the money to buy more. Never true 10/09/20 23 Within the past 12 months, t he food you bought just didn't last and you didn't have money to get more. Never true 10/09/2023 PRAPARE - Transportation Answer Date Re corded In the past 12 months, has l ack of transportation kept you from medical appointments or from getting medications? No 09/19 In the past 12 months, has l ack of transportation kept you from meetings, work, or from getting things needed for daily living? No 10/09/2023 Housing Stability Vital Sign Answer [...] place to sleep or slept in a half-way (including now)? No 10/09/2023 Comments No Sex and Gender Information Value Date Recorded Sex Assigned at Not on file Legal Sex Female 7:03 PM EDT Gender Identity Not on file Sexual Orientation Not on file documented as of this encounter Miscellaneous Notes * Telephone Encounter - MIKY LUCIO - 06/17/2024 11:39 AM EDT I placed call to patient earlier and l/m notifying her the physical form was ready to be picked. I placed call to patient again and spoke with patient and notified her of above. * Telephone Encounter - Flora Melendez - 06/17/2024 10:09 AM EDT Did anyone call pt? She said she had a missed call from us and thought it could possibly be about paperwork she dropped off last week for Damon. I didn't see any notes in here to give her. documented in this encounter Plan of Treatment Not on file documented as of this encounter Visit Diagnoses Not on filedocumented in this encounter Additional Health Concerns Assessment Noted Time PHQ-9 Depression Total Score: 7 06/09/20 24 10:00 AM EDT documented as of this encounter Care Teams Aerospace Manager Relationship Specialty Start Date End Date Lana Green MD PCP - General Family Medicine 06/17/24 Brionna Galindo NP [address], [place] [id number] PCP - [facility] 04/18/25 Brionna Galindo NP [address], [place] [id number] Nurse Practitioner Family Medicine 06/17/24 documented as of this encounter
--- OUTSIDE RECORDS SUMMARY | 2025-06-30 12:28 | XMS_ITS | Encounter Summary ---
Author Organization [facility] Address [address] [place] [address] Care Team Providers Care Lead Generation Specialist Name Role Phone Lana Green MD Primary Care Provider [phone] Brionna Galindo TRANSFER STATION ATTENDANT Unavailable [phone] Brionna Galindo TRANSFER STATION ATTENDANT Unavailable [phone] Encounter Details Date Type Department Care Team (Late st Contact Info) Description 08/06/2024 [facility] [address] [place] [address] Unallocated, Nomvanessa ProviderMD [address] [place] [address] Social History Tobacco Use Types Packs/Day Years [...] How often do you attend chur or pentecostal services? Never 10/09/2023 Do you belong to any clubs o r organizations such as hoahaoism groups, unions, fraternal or athletic groups, or [...] Recorded Patient Health Questionnaire-2 Score 3 06/09/2024 [facility] - Occupational Stress [...] money to buy more. Never true 10/09/20 Within the past 12 months, t he [...] place to sleep or slept in a snf (including now)? No 10/09/2023 Comments No Sex and Gender Information Value Date Recorded Sex Assigned at Not on file Legal Sex Female 7:03 PM EDT Gender Identity Not on file Sexual Orientation Not on file documented as of this encounter Plan of Treatment Not on file documented as of this encounter Procedures Procedure Name Priority Date/Time Associated Diagnosis Comments ECG 12-LEAD Routine 08/01/2024 12:27 PM EDT documented in this encounter Results * ECG 12 lead (08/01/2024 12:27 PM EDT) us [facility] Provider Unallocated ECG ORDERABLES Fin al Result documented in this encounter Visit Diagnoses Not on filedocumented in this encounter Additional Health Concerns Assessment Noted Time PHQ-9 Depression Total Score: 7 06/09/20 24 10:00 AM EDT documented as of this encounter Care Teams Lead Generation Specialist Relationship Specialty Start Date End Date Lana Green MD PCP - General Family Medicine 06/17/24 Brionna Galindo NP [address], [place] [id number] PCP - [facility] 04/18/25 Brionna Galindo NP [address] [place] [address] Nurse Practitioner Family Medicine 06/17/24 documented as of this encounter
--- OUTSIDE RECORDS SUMMARY | 2025-06-30 12:28 | XMS_ITS | Clinical Summary ---
Author Organization [facility] Address [facility] [place] [address] Care Team Providers Care Forming Fixer Name Role Phone Unavailable Primary Care Provider Unavailabl e Allergies No known active allergies Medications venlafaxine (EFFEXOR) 75 MG tablet Take 1 (one) tablet (75 mg total) by mouth daily WITH FOOD . 3 Active levonorgestreL (MIRENA) 21 mcg/24 hours (8 yrs) 52 mg IUD 1 (one) each by Intrauterine route once . Active dextroamphetami ne-amphetamine (ADDERALL XR) 20 MG 24 hr capsule Take 1 (one) capsule (20 mg total) by mouth every morning . 5 Active predniSONE (DELTASONE) 20 MG tabletIndicatio ns:Upper respiratory tract infection, unspecified type 2 po daily for 3 days then 1 po daily for 3 days then 0.5 po daily for 3 days . 11 tablet 5 Active Active Problems Problem Noted Date Diagnosed Date Dysuria 12/01/2024 Assessment & Plan (12/01/2024 5:56 PM EST): -POC UA in the UC identified blood and leukocyte esterase -Ruled out pyelonephritis -Counseled on appropriate NSAID use -Provided information on urinary tract infection -Will plan to send bactrim as treatment Screen for STD (sexually transmitted disease) Assessment & Plan (12/01/2024 5:56 PM EST): -Patient currently declines all symptoms but would like screening -Obtained GCCT and vaginitis probe per patients request in the office today, will send out -Will message patient based on results of testing -Counseled on protection -Provided information Anxiety, generalized 06/06/2023 08/08/2023 Panic disorder 06/06/2023 08/08/2023 Migraine with aura and witho ut status migrainosus, not intractable 06/06/2023 08/08/2023 Moderate episode of recurrent major depressive d isorder 06/06/2023 08/08/2023 Alcohol intoxication in active alcoholic, uncomp licated 02/26/2023 Immunizations Immunization Administration Dates Next Due DTaP 04/23/2005 DTaP / Hep B / IPV 2004,2004, 004 DTaP / IPV 04/28/2009 HPV 9 Valent (GARDASIL 9) 10/04/2023 HPV Quadrivalent (Gardasil) 07/04/2021 Hepatitis B 2004 Hib (PRP-T) 01/10/2005, 4,2004,03/27 Influenza, Injectable, Quadrivalent 08/22/2021 Influenza, Injectable, Quadr ivalent, Preservative Free 11/26/2022 MMR 04/28/2009,01/10/2005 Meningococcal B (Bexsero) 07/04/2021 Meningococcal C Conjugate (MENVEO) 05/16/2016 Meningococcal Conjugate (MENACTRA) 08/10/2020 Pneumococcal Conjugate (Prevnar 7) 04/23,2004,2004,03/27 Tdap 05/16/2016 Varicella (Varivax) 04/28/2009,04/23/2005 Family History Medical History Relation Comments No Known Problems Father Arthritis Maternal Grandfather Depression Mother Relation Status Comments Father Maternal Grandfather Mother Social History Tobacco Use Types Packs/Day Years Used Date Smoking Tobacco: Never Smokeless Tobacco: Never Tobacco Cessation:Counseling Given: Not Answered Alcohol Use Standard Drinks/Week Comments Yes 5 (1 standard drink = 0.6 oz pur e alcohol) PHQ-2 Answer Date Recorded PHQ-2 Total Score 0 02/26/2023 Comments Unknown Sex and Gender Information Value Date Recorded Sex Assigned at Not on file Legal Sex Female 8:58 AM EDT Gender Identity Female 07/25/2022 11:01 AM EDT Sexual Orientation Not on file Last Filed Vital Signs Vital Sign Reading Time Taken Comments Blood Pressure 114/76 03/02/2025 12:05 PM EDT Pulse 96 03/02/2025 12:05 PM EDT Temperature 37 C (98.6 F) 03/02/2025 12:05 PM EDT Respiratory Rate 18 03/02/2025 12:05 PM EDT Oxygen Saturation 96% 03/02/2025 12:05 PM EDT Inhaled Oxygen Concentration - - Weight 63.6 kg (140 lb 3.2 oz) 02/08/2025 7:02 P M EDT Height 172.7 cm (5' 8 ) 02/08/2025 7:02 PM EDT Body Mass Index 21.32 02/08/2025 7:02 PM EDT Plan of Treatment Health Maintenance Due Date Last Done Comments HIV Screening 2019 Hepatitis C Screening 2022 Pneumococcal Vaccine: Ped or At-Risk (1 of 2 - PCV) 2023 04/23/2005, 2004, 2004, Additional history exists HPV Vaccines (3 - Risk 3-dos e series) 02/02/2024 10/04/2023, 07/04/2021 Depression Screening/Follow- Up (PHQ-2/9) 02/27/2024 02/26/2023 COVID-19 Vaccine ( - 2023-2 5 season) 2024 01/23/2022, 01/02/2021, 12/12/2020 Pap Smear 2025 Chlamydia Screening 04/23/2025 04/23/2024, 03/10/2024, 01/08/2024, Additional history exists Wellness Visit 06/09/2025 06/09/2024, 06/09/2024 Influenza Vaccine (#1) 2025 , 11/26/2022, 08/22/2021 Tetanus: Every 10yrs 05/16/2026 05/16/2016 Procedures Procedure Name Priority Date/Time Associated Diagnosis Comments CHLAMYDIA/GONORRHOE AE AMPLIFIED RNA Routine 04/23/2024 6:54 PM EDT Possible exposure to STD from Last 3 Months or Most Recently Relevant to Health Maintenance Results * Chlamydia/Gonorrhoeae Amplified RNA (04/23/2024 6:54 PM EDT) Chlamydia trachomatis Amplified RNA NEGATIVE Negative 04/24/2024 1:03 PM EDT [facility] Neisseria gonorrhoeae Amplfied RNA NEGATIVE Negative 04/24/2024 1:03 PM EDT [facility] Urine URINE SPECIMEN / Unknown Collection / Unknown 04/23/2024 6:54 PM EDT 04/23/2024 7:57 PM EDT Mel Landry DO MICROBIOLOGY - GENERAL ORDERABLE S Final Result [facility] [address] [place] [address] from Last 3 Months or Most Recently Relevant to Health Maintenance [place] [facility] [place] For more information, please contact: [phone] * Full Code - Unverified (Latest Code Status on File) Date Activated Date Inactivated Comments 02/26/2023 2:20 AM 02/26/2023 2:30 PM
--- OUTSIDE RECORDS SUMMARY | 2025-06-30 12:28 | XMS_ITS | Encounter Summary ---
Author Organization [facility] Address [address] [place] [address] Care Team Providers Care Burn Out Tender Lace Name Role Phone Africa Giles MD Primary Care Provider [phone] Brionna Galindo OPERATIONS TEAM LEADER Unavailable [phone] Brionna Galindo OPERATIONS TEAM LEADER Unavailable [phone] Encounter Details Date Type Department Care Team (Late st Contact Info) Description 07/09/2024 Clinisync Result Encounter [facility] External Department Unsolicited Garfield Johnson, DO [address] [place] [address] Social History Tobacco Use Types Packs/Day Years [...] How often do you attend chur or jewish services? Never 10/09/2023 Do you belong to any clubs o r organizations such as worship groups, unions, fraternal or athletic groups, or [...] Recorded Patient Health Questionnaire-2 Score 3 06/09/2024 [facility] Questionnaire Answer Date [...] place to sleep or slept in a care home (including now)? No 10/09/2023 Comments No Sex and Gender Information Value Date Recorded Sex Assigned at Not on file Legal Sex Female 7:03 PM EDT Gender Identity Not on file Sexual Orientation Not on file documented as of this encounter Plan of Treatment Not on file documented as of this encounter Procedures Procedure Name Priority Date/Time Associated Diagnosis Comments XR CHEST 2V 07/09/2024 11:37 PM EDT documented in this encounter Results * XR CHEST 2V (07/09/2024 11:37 PM EDT) Anatomical Region Laterality Modality Other 07/09/2024 11:3 7 PM EDT Narrative 07/09/2024 11:40 [place] [address] XRay Report Signed Patient: GUDELIA ARAUJO MR#: [id number] : 2005 Acct:[id number] Age/Sex: 19 / F ADM Date: 07/09/24 Loc: PST Attending Dr: Garfield Johnson D.O. Ordering Physician: Garfield Johnson D.O. Date of Service: 07/09/24 Procedure(s): XR chest 2V Accession Number(s): [id number] cc: Garfield Johnson D.O.; AFRICA GILES [address] [address] Patient Name: GUDELIA ARAUJO MRN: [id number] date: 2005 Sex: F [facility] Accession/Order Number: [id number] Exam Date: 07/09/2024 13:35 Report Date: 07/09/2024 23:37 At the request of: GARFIELD JOHNSON Procedure: XR chest 2V EXAM: XR chest 2V CLINICAL INDICATION: Preop exam COMPARISON: None TECHNIQUE: 2 views of chest performed. FINDINGS: Lungs: No convincing focal infiltrates. No pleural effusion or pneumothorax. Heart: Cardiac and mediastinal contours are unremarkable. No overt pulmonary vascular congestion. Osseous structures: No acute abnormalities. XR/XR chest 2V IMPRESSION: No acute cardiopulmonary process. Electronically authenticated by: TANNER MONTGOMERY Date: 07/09/2024 23:37 Dictated By: Tanner Montgomery M.D. Signed By: 07/09/24 2340 DD/ [id number] TD/TT: District Manager Postal Service: Procedure Note Radiology, Radiologist, MD - 07/09/2024 [place] [address] XRay Report Signed Patient: GUDELIA ARAUJOMR#: [id number] : 2005Acct:[id number] Age/Sex: 19 / FADM Date: 07/09/24 [facility] Attending Dr: Garfield Johnson D.O. Ordering Physician: Garfield Johnson D.O. Date of Service: 07/09/24 Procedure(s): XR chest 2V Accession Number(s): [id number] cc: Garfield Johnson D.O.; AFRICA GILES [address] [address] Patient Name: GUDELIA ARAUJO MRN: [id number] date: 2005 Sex: F Assigned [facility] Accession/Order Number: [id number] Exam Date: 07/09/2024 13:35 Report Date: 07/09/2024 23:37 At the request of: GARFIELD JOHNSON Procedure: XR chest 2V EXAM: XR chest 2V CLINICAL INDICATION: Preop exam COMPARISON: None TECHNIQUE: 2 views of chest performed. FINDINGS: Lungs: No convincing focal infiltrates. No pleural effusion orpneumothorax. Heart: Cardiac and mediastinal contours are unremarkable. No overtpulmonary vascular congestion. Osseous structures: No acute abnormalities. XR/XR chest 2V IMPRESSION: No acute cardiopulmonary process. Electronically authenticated by: TANNER MONTGOMERY Date: 07/09/2024 23:37 Dictated By: Tanner Montgomery M.D. Signed By:07/09/24 2340 DD/ 706 TD/TT: District Manager Postal Service: us Garfield Johnson DO [facility] Final Result documented in this encounter Visit Diagnoses Not on filedocumented in this encounter Additional Health Concerns Assessment Noted Time PHQ-9 Depression Total Score: 7 06/09/20 24 10:00 AM EDT documented as of this encounter Care Teams Burn Out Tender Lace Relationship Specialty Start Date End Date Africa Giles MD PCP - General Family Medicine 06/17/24 Brionna Galindo NP [address] [place] [address] [facility] Brionna Galindo NP [address] [place] [address] Nurse Practitioner Family Medicine 06/17/24 documented as of this encounter
--- OUTSIDE RECORDS SUMMARY | 2025-06-30 12:28 | XMS_ITS | Clinical Summary ---
Author Organization [facility] [facility] Address [id number] [address] [place] [address] Care Team Providers Care Freight Breaker Name Role Phone Lana Green MD Primary Care Provider [phone] Allergies No known active allergies Medications hydrOXYzine (ATARAX) 25 mg tablet Take 1 tablet (25 mg total) by mouth every 6 (six) hours as needed. 4 Active levonorgestreL (LILETTA) 20.4 mcg/24 hr (8 yrs) 52 mg intrauterine device IUD 1 each by intrauterine route. Active amphetamine-dext roamphetamine XR (ADDERALL XR) 20 mg 24 hr capsule Take 1 capsule (20 mg total) by mouth every morning. Active ibuprofen (MOTRIN) 800 mg tablet Take 1 tablet (800 mg total) by mouth every 8 (eight) hours as needed for pain. 30 tablet 5 Active Active Problems No known active problems Family History Medical History Relation Name Comments Diabetes Father Dad No Known Problems Mother Relation Name Status Comments Father Dad Alive Mother Alive Social History Tobacco Use Types Packs/Day Years Used Date Smoking Tobacco: Never Smokeless Tobacco: Never Tobacco Cessation:Counseling Given: Not Answered Alcohol Use Standard Drinks/Week Comments Yes 4 (1 standard drink = 0.6 oz pur e alcohol) ocassional AUDIT-C Answer Date Recorded Q1: How often do you have a drink containing alc ohol? Never 05/13/2020 Average Number of Drinks Not on file 020 Frequency of Binge Drinking Not on file 04/19 Childcare Answer Date Recorded Childcare Unknown 04/29/2019 Employment Answer Date Recorded Employment Unknown 04/29/2019 Hunger Screening Answer Date Recorded Within the past 12 months we worried whether our food would run out before we got money to buy more. Never True 01/13/2025 Within the past 12 months th e food we bought just didn't last and we didn't have money to get more. Never True 01/13/2025 Purpose - Life Answer Date Recorded Purpose and direction in life Unknown Comments No Sex and Gender Information Value Date Recorded Sex Assigned at Not on file Legal Sex Female 12:01 PM EDT Gender Identity Not on file Sexual Orientation Not on file Last Filed Vital Signs Vital Sign Reading Time Taken Comments Blood Pressure 119/78 02/02/2025 9:56 AM EDT Pulse 83 02/02/2025 9:56 AM EDT Temperature 36.7 C (98 F) 02/02/2025 7:40 AM EDT Respiratory Rate 14 02/02/2025 9:56 AM EDT Oxygen Saturation 100% 02/02/2025 9:56 AM EDT Inhaled Oxygen Concentration - - Weight 63.5 kg (140 lb) 02/02/2025 7:40 AM EDT Height 172.7 cm (5' 8 ) 02/02/2025 7:40 AM EDT Body Mass Index 21.29 02/02/2025 7:40 AM EDT Plan of Treatment Health Maintenance Due Date Last Done Comments Depression Screening 2016 COVID-19 Vaccine (2023-2 5 season) 2024 01/23/2022, 01/02/2021, 12/12/2020 Pap Smear 2025 Chlamydia Screening 04/23/2025 04/23/2024, Influenza Vaccine 07/19/2025 09/16/2024, , 08/22/2021 Adult BMI Screening 02/02/2026 02/02/2025 Tobacco Screening 02/19/2026 02/19/2025 DTaP,Tdap and Td Vaccines (7 - Td or Tdap) 05/16/2026 05/16/2016, 04/28/2009, 04/23/2005, Additional history exists Medical Devices Not on file Insurance [employer] COMPENSATION [facility] [place] [address] Care Teams Freight Breaker Relationship Specialty Start Date End Date Lana Green MD [address] [place] [address] PCP - General Family Medicine 04/26/24
--- OUTSIDE RECORDS SUMMARY | 2025-06-30 12:28 | XMS_ITS | Clinical Summary ---
Author Organization [facility] Address [address] [place] [address] Care Team Providers Care Phys Assistant Name Role Phone Lana Green MD Primary Care Provider [phone] Brionna Galindo INSTRUCTIONAL PARAPROFESSIONAL Unavailable [phone] Brionna Galindo INSTRUCTIONAL PARAPROFESSIONAL Unavailable [phone] Allergies No known active allergies Medications Levonorgestrel (Liletta, 52 MG,) 20.1 MCG/DAY intrauterine device by Intrauterine route. Active hydrOXYzine HCl (Atarax) 25 MG tabletIndications :Anxiety, generalized,Panic disorder Take 1 tablet (25 mg) by mouth every 6 (six) hours if needed for anxiety (panic) 30 tablet 1 11/10/20 24 Active amphetamine-dextr oamphetamine XR (Adderall XR) 20 MG 24 hr capsuleIndication s:Attention deficit hyperactivity disorder (ADHD), predominantly inattentive type Take 1 capsule (20 mg) by mouth in the morning. Do not crush or chew. 30 capsule 06/08/20 25 025 Active amphetamine-dextr oamphetamine XR (Adderall XR) 20 MG 24 hr capsuleIndication s:Attention deficit hyperactivity disorder (ADHD), predominantly inattentive type Take 1 capsule (20 mg) by mouth in the morning. Do not crush or chew. 30 capsule 04/26/20 25 025 Discontin ued(Reord er) Active Problems Problem Noted Date Diagnosed Date Dysuria 12/01/2024 Screen for STD (sexually transmitted disease) Attention deficit hyperactiv ity disorder (ADHD), predominantly inattentive type 07/24/2024 BRBPR (bright red blood per rectum) 06/09/2024 Chronic UTI 06/09/2024 Passage of loose stools 06/09/2024 Unspecified temporomandibula r joint disorder, unspecified side 06/09/2024 Anxiety, generalized 06/06/2023 Panic disorder 06/06/2023 Breakthrough bleeding 06/06/2023 Migraine with aura and witho ut status migrainosus, not intractable 06/06/2023 Moderate episode of recurrent major depressive d isorder 06/06/2023 Uterine cramping 06/06/2023 Resolved Problems Problem Noted Date Diagnosed Date Resolved Date Abnormal findings on diagnos tic imaging of other abdominal regions, including retroperitoneum 06/09/2024 06/09/2024 Candidiasis, unspecified 06/09/2024 Other specified diseases of intestine 04/29/2024 06/09/2024 Acne vulgaris 06/06/2023 06/09/2024 Heavy periods 06/06/2023 06/09/2024 Alcohol intoxication in acti ve alcoholic, uncomplicated 02/26/2023 06/09/2024 Encounters Date Type Department Care Team Description 06/30/2025 11:00 AM EDT Office Visit [facility] [address] [place] [address] [place] [address] Pam Swanson PA Well woman exam with routine gynecological exam; Exposure to STD 06/30/2025 Bamboo flowsheet [facility] [address] [place] [address] [place] [phone] Pam Swanson PA 06/10/2025 1:00 PM EDT Clinical Support [facility] [place] [phone] Screening-pulmonary TB 06/10/2025 Travel 06/09/2025 Travel 06/08/2025 9:15 AM EDT Clinical Support [facility] [place] [phone] Screening-pulmonary TB 06/08/2025 Refill [facility] [address] [place] [phone] Lana Green MD Attention deficit hyperactivity disorder (ADHD), predominantly inattentive type 06/08/2025 Travel 05/19/2025 11:00 AM EDT Office Visit [facility] [address] [facility] [place] [phone] [employer], INSTRUCTIONAL PARAPROFESSIONAL Attention deficit hyperactivity disorder (ADHD), predominantly inattentive type (Primary Dx); Moderate episode of recurrent major depressive disorder (HCC); Anxiety, generalized ; Panic disorder 05/19/2025 Bamboo flowsheet [facility] [address] [facility] [place] [facility] [place] [phone] [employer], INSTRUCTIONAL PARAPROFESSIONAL 05/19/2025 Travel 04/26/2025 Refill [facility] [address] [place] [phone] Lana Green MD Attention deficit hyperactivity disorder (ADHD), predominantly inattentive type from Last 3 Months Immunizations Immunization Administration Dates Next Due DTaP 04/23/2005 DTaP / Hep B / IPV 2004,2004, 004 DTaP / IPV 04/28/2009 HPV 9-Valent 10/04/2023 HPV, Quadrivalent 07/04/2021 Hep B, Adolescent or Pediatric 2004 Hib (PRP-T) 01/10/2005, 4,2004,03/27 Influenza, injectable, quadrivalent 08/22/2021 Influenza, injectable, quadr ivalent, preservative free 11/26/2022 Influenza, seasonal, injecta ble, preservative free 09/16/2024 MMR 04/28/2009,01/10/2005 Meningococcal B, Omv 07/04/2021 Meningococcal MCV4O 05/16/2016 Meningococcal MCV4P 08/10/2020 PPD Test 06/08/2025,06/10/2024 Pneumococcal Conjugate PCV 7 04/23/2005, 2004,2004,03/27 Tdap 05/16/2016 Varicella 04/28/2009,04/23/2005 Family History Medical History Relation Name Comments Diabetes Father dad Diabetes Maternal Grandfather papa Stroke Maternal Grandfather papa Depression Maternal Grandmother enrique Alcohol abuse Mother mom maternal side of family Anxiety disorder Mother mom Depression Mother mom Fibromyalgia Mother mom CATINA disease Mother mom Panic attack Mother mom Scoliosis Mother mom Anxiety disorder Mother's Sister pam Depression Mother's Sister pam Migraines Mother's Sister pam Coronary artery disease Other grandparent knee OA Other grandparent phlebitis Other grandparent Depression Paternal Grandmother grandma Relation Name Status Comments Father dad Alive Maternal Grandfather papa Alive Maternal Grandmother enrique Alive Mother mom Alive Mother's Sister pam Other grandparent Paternal Grandfather Paternal Grandmother grandma Social History Tobacco Use Types Packs/Day Years Used Date Smoking Tobacco: Never Smokeless Tobacco: Never Tobacco Cessation:Counseling Given: Not Answered Alcohol Use Standard Drinks/Week Comments Yes 0 [...] often do you attend chur ch or voodoo services? 1 to 4 times per year 12/18/2024 Do you belong to any clubs o r organizations such as congregation groups, unions, fraternal or athletic groups, or [...] Recorded Patient Health Questionnaire-2 Score 3 06/09/2024 [facility] - Occupational Stress [...] place to sleep or slept in a skilled nursing (including now)? No 10/09/2023 Housing Stability Vital [...] time in the past 12 m [facility], were you homeless or living in a skilled nursing (including now)? No 12/18/2024 Comments No Sex and Gender Information Value Date Recorded Sex Assigned at Not on file Legal Sex Female 7:03 PM EDT Gender Identity Not on file Sexual Orientation Not on file Last Filed Vital Signs Vital Sign Reading Time Taken Comments Blood Pressure 110/68 06/30/2025 11:18 AM EDT Pulse 76 05/19/2025 11:13 AM EDT Temperature 35.8 C (96.4 F) 10/09/2023 10:07 AM EST Respiratory Rate 20 06/09/2024 9:59 AM EDT Oxygen Saturation 99% 06/09/2024 9:59 AM EDT Inhaled Oxygen Concentration - - Weight 59.9 kg (132 lb) 06/30/2025 11:18 AM EDT Height 172.7 cm (5' 8 ) 06/30/2025 11:18 AM EDT Body Mass Index 20.07 06/30/2025 11:18 AM EDT Plan of Treatment Health Maintenance Due Date Last Done Comments Influenza Vaccine (#1) 2025 09/16/2024, 2022, 08/22/2021 Procedures Procedure Name Priority Date/Time Associated Diagnosis Comments TB SKIN TEST Routine 06/10/2025 11:43 AM EDT Screening-pulmonary TB from Last 3 Months Results * TB Skin Test (06/10/2025 11:43 AM EDT) TB Skin Test Negative Negative Induration 0 mm Other 06/10/2025 11:4 3 AM EDT Twyla Daniel MD POINT OF CARE TEST ENTER/EDIT ORDERABLES Final Result from Last 3 Months Insurance [employer] Care Teams Phys Assistant Relationship Specialty Start Date End Date Lana Green MD PCP - General Family Medicine 06/17/24 Brionna Galindo INSTRUCTIONAL PARAPROFESSIONAL [address] [place] [address] PCP - [place] [employer] 04/18/25 Brionna Galindo NP [address] [place] [address] Nurse Practitioner Family Medicine 06/17/24
--- OUTSIDE RECORDS SUMMARY | 2025-06-30 12:31 | XMS_ITS | CCD ---
Author Organization [facility] Care Team Providers Care Publication Manager Name Role Phone KATHERIN VALENTIN Admitting Unavailable [...] Care Unavailable BALBO, CARMENZA MORALES Attending Unavailable Cyndy Giles MD Primary Care Provider Brionna Rios NP Unavailable [phone] Cyndy Giles MD Primary Care Provider Balbo DO, Carmenza Morales Primary Care Provider Cyndy Giles MD Primary Care Provider ANITHA FREITAS Attending Unavailable WONDERLY, CYNDY B Primary Care Unavailable WONDERLY, CYNDY B Referring Unavailable WONDERLY, CYNDY B Primary Care Unavailable JANIS MORRISON Referring Unavailable WONDERLY, CYNDY B Primary Care Unavailable JANIS MORRISON Admitting Unavailable YAELSJANIS Attending Unavailable YAELSJANIS Referring Unavailable WONDERLY, CYNDY B Primary Care Unavailable PAZ HILL Attending Unavailable WONDERLY, CYNDY B Primary Care Unavailable JANIS MORRISON Attending Unavailable WONDERLY, CYNDY B Referring Unavailable WONDERLY, CYNDY B Primary Care Unavailable JANIS MORRISON Attending Unavailable CYNDY GILES B Referring Unavailable CYNDY GILES B Primary Care Unavailable FLORESITA PEREZ Attending Unavailable CYNDY GILES Referring Unavailable CYNDY GILES Primary Care Unavailable ABBEY HANNAH Attending Unavailable BALBO, CARMENZA MORALES Primary Care Unavailable ABBEY HANNAH Attending Unavailable BALBO, CARMENZA MORALES Primary Care Unavailable TARAN AGUILLON Attending Unavailabl e BALBO, CARMENZA MORALES Primary Care Unavailable RANDELL MCKENNA Attending Unavailable BALBO, CARMENZA MORALES Primary Care Unavailable BALBO, CARMENZA MORALES Primary Care Unavailable ROSLYN HENNESSY Attending Unavailable BALBO, CARMENZA MORALES Primary Care Unavailable SHERRILL SAUCEDO Attending Unavailable BALBO, CARMENZA MORALES Primary Care Unavailable BALBO, CARMENZA MORALES Primary Care Unavailable TARAN AGUILLON Attending Unavailabl e BALBO, CARMENZA MORALES Primary Care Unavailable TARAN AGUILLON Attending Unavailabl e ANCILLARY UPTOWN Admitting Unavailable Cyndy Giles MD Primary Care Provider Brionna Rios NP Unavailable Jeane Jang APRN Attending Provider Cyndy Giles MD Primary Care Provider BRIONNA RIOS Attending Unavailable BRIONNA RIOS Attending Unavailable BRIONNA RIOS Referring Unavailable PUMP, DENAE Attending Unavailable GARFIELD JOHNSON Attending Unavailable GARFIELD JOHNSON Attending Unavailable BRIONNA RIOS Attending Unavailable CYNDY GILES Attending Unavailable TARAN SWANSON Attending Unavailable BRIONNA RIOS Attending Unavailable BRIONNA RIOS Attending Unavailable Jeane Jang Admitting Unavailable Jeane Jang Attending Unavailable NON STAFF Primary Care Unavailable Medications Current Medications Medication Drug Class(es) Dates Sig (Normalized) Sig (Original) amoxicillin 875 mg / clavulanate 125 mg oral tablet (1 source) Penicillin-class Antibacterial Start: 12-30-2024 End: 01-09-2025 take 1 tablet by mouth once in the morning amoxicillin-pot clavulanate (AUGMENTIN) 875-125 mg per tablet Take 1 tablet by mouth in the morning and 1 tablet before bedtime. Do all this for 10 days. 20 tablet 12/30/2024 01/09/2025 Active 24 hr amphetamine aspartate 5 mg / amphetamine sulfate 5 mg / dextroamphetamine saccharate 5 mg / dextroamphetamine sulfate 5 mg extended release oral capsule (20 sources) Central Nervous System Stimulant Start: 06-10-2025 Start: 02-16-2025 End: 03-18-2025 take 1 capsule by mouth once daily in the morning dextroamphetamine-amphetamine (ADDERALL XR) 20 MG 24 hr capsule Take 1 (one) capsule (20 mg total) by mouth every morning . 02/16/2025 03/18/2025 Active Start: 12-18-2024 End: 07-08-2025 take 1 capsule by mouth every twenty-four hours in the morning amphetamine-dextroamphetamine XR (Addera ll XR) 20 MG 24 hr capsule Indications: Attention deficit hyperactivity disorder (ADHD), predominantly inattentive type Take 1 capsule (20 mg) by mouth in the morning. Do not crush or chew. 30 capsule 06/08/2025 07/08/2025 Active Start: 12-18-2024 End: 01-17-2025 take 1 capsule by mouth once daily in the morning amphetamine-dextroamphetamine XR (ADDERA LL XR) 20 mg 24 hr capsule Take 1 capsule (20 mg total) by mouth every morning. 12/18/2024 01/17/2025 Active Start: 11-16-2024 End: 12-18-2024 take 1 capsule by mouth once daily amphetamine-dextroamphetamine XR (Addera ll XR) 15 MG 24 hr capsule Indications: Attention deficit hyperactivity disorder (ADHD), predominantly inattentive type (CMS/HCC) Take 1 capsule (15 mg) by mouth Daily Do not crush or chew. 30 capsule 11/16/2024 12/18/2024 Discontinued (Ineffective) Start: 08-20-2024 End: 11-12-2024 take 1 capsule by mouth once daily amphetamine-dextroamphetamine XR (Addera ll XR) 15 MG 24 hr capsule Indications: Attention deficit hyperactivity disorder (ADHD), predominantly inattentive type (CMS/HCC) Take 1 capsule (15 mg) by mouth Daily Do not crush or chew. 30 capsule 09/22/2024 11/12/2024 Discontinued (Reorder) Start: 07-24-2024 End: 08-23-2024 take 1 capsule by mouth once daily amphetamine-dextroamphetamine XR (Addera ll XR) 10 MG 24 hr capsule Indications: Fidgeting , Unable to concentrate , Attention deficit hyperactivity disorder (ADHD), predominantly inattentive type (CMS/HCC) Take 1 capsule (10 mg) by mouth Daily Do not crush or chew. 30 capsule 07/24/2024 08/23/2024 Active azithromycin 500 mg oral tablet (4 sources) Macrolide Antimicrobial Start: 07-09-2024 take 1 tablet by mouth once daily azithromycin (Zithromax) 500 MG tablet Indications: Bacterial infection due to mycoplasma Day 1: Take 2 tablets PO onetime dose; Day 2,3,4: Take 1 tablet daily 5 tablet 07/09/2024 Active Start: 01-10-2016 Zithromax Z-Pa k 250 MG 2 tablets on the first day, then 1 tablet daily for 4 days Orally Once a day for 5 day(s) Dec, Not-Taking dextromethorphan hydrobromide 15 mg / guaiFENesin 400 mg / pseudoephedrine hydrochloride 60 mg oral tablet (1 source) alpha-Adrenergic Agonist, Uncompetitive Z-mjazig-E-aspartate Receptor Antagonist, Sigma-1 Agonist Start: 10-02-2022 End: 10-05-2022 take 1 tablet by mouth every six hours midjmtdcmayxzyv-KM-gdjxAQRsypr 60-15-400 mg Tab Indications: Upper respiratory tract infection, unspecified type Take 1 (one) tablet by mouth every 6 (six) hours for 3 days . 12 tablet 0 10/02/2022 10/05/2022 Active doxycycline hyclate 100 mg oral capsule (7 sources) Tetracycline-class Drug Start: 06-29-2024 End: 07-29-2024 doxycycline (Vibramycin) 100 MG capsule Indications: Pelvic pain in female , Pain in female genitalia on intercourse Take 1 capsule (100 mg) by mouth in the morning and 1 capsule (100 mg) before bedtime. Take with at least 8 ounces (large glass) of water, do not lie down for 30 minutes after. 60 capsule 06/29/2024 07/29/2024 Active Start: 03-11-2024 End: 03-11-2024 doxycycline monohydrate (MON ODOX) capsule 100 mg erythromycin 0.005 mg/mg ophthalmic ointment (1 source) Macrolide, Macrolide Antimicrobial Start: 10-21-2023 End: 10-28-2023 apply 3.5 g into the eye(s) four times daily erythromycin 0.5% (ROMYCIN) ophthalmic ointment Administer to both eyes 4 (four) times a day for 7 days . 3.5 g 0 10/21/2023 10/28/2023 Active hydrOXYzine hydrochloride 25 mg oral tablet (20 sources) Antihistamine Start: 08-05-2024 take 1 tablet by mouth every six hours for anxiety hydrOXYzine HCl (Atarax) 25 MG tablet Indications: Anxiety, generalized , Panic disorder Take 1 tablet (25 mg) by mouth every 6 (six) hours if needed for anxiety (panic) 30 tablet 1 11/10/2024 Active ibuprofen 600 mg oral tablet (20 sources) Nonsteroidal Anti-inflammatory Drug Start: 02-08-2025 End: 02-18-2025 take 1 tablet by mouth every eight hours as needed for pain ibuprofen (ADVIL,MOTRIN) 600 MG tablet Indications: Back pain Take 1 (one) tablet (600 mg total) by mouth every 8 (eight) hours as needed for pain . 30 tablet 02/08/2025 02/18/2025 Active Start: 08-07-2024 End: 05-19-2025 ibuprofen 800 MG tablet 07/2005/19/2025 Discontinued (Therapy completed) levonorgestrel 0.953119 mg/hr intrauterine system (20 sources) Progestin, Progestin-containing Intrauterine Device Levonorgestrel (Wade tta, 52 MG,) 20.1 MCG/DAY intrauterine device by Intrauterine route. Active levonorgestreL ( MIRENA) 21 mcg/24 hours (8 yrs) 52 mg IUD 1 (one) each by Intrauterine route once . Active levonorgestreL ( LILETTA) 20.4 mcg/24 hr (8 yrs) 52 mg intrauterine device IUD 1 each by intrauterine route. Active metroNIDAZOLE 500 mg oral tablet (11 sources) Nitroimidazole Antimicrobial Start: 06-10-2025 take 1 tablet by mouth every twelve hours Start: 01-11-2025 End: 01-18-2025 take 1 tablet by mouth at bedtime metroNIDAZOLE (FLAGYL) 500 mg tablet Take 1 tablet (500 mg total) by mouth in the morning and at bedtime. 01/11/2025 01/18/2025 Active Start: 12-03-2024 End: 12-10-2024 take 1 tablet by mouth twice daily at mealtime metroNIDAZOLE (FLAGYL) 500 MG tablet Indications: BV (bacterial vaginosis) Take 1 (one) tablet (500 mg total) by mouth 2 (two) times a day with meals for 7 days . 14 tablet 12/03/2024 12/10/2024 Active Start: 07-02-2024 End: 07-09-2024 take 1 tablet by mouth in the morning metroNIDAZOLE (Flagyl) 500 MG tablet Indications: BV (bacterial vaginosis) Take 1 tablet (500 mg) by mouth in the morning and 1 tablet (500 mg) before bedtime. Do all this for 7 days. Do not drink alcohol while taking this medication. 14 tablet 07/02/2024 07/09/2024 Start: 03-11-2024 End: 03-11-2024 metroNIDAZOLE (FLAGYL) table t 500 mg Start: [...] meals . 14 tablet 0 04/26/2023 Active moxifloxacin 400 mg oral tablet (1 source) Quinolone Antimicrobial Start: 07-09-2024 End: 07-16-2024 take 1 tablet by mouth once daily moxifloxacin (Avelox) 400 MG tablet Indications: Bacterial infection due to mycoplasma Take 1 tablet (400 mg) by mouth Daily for 7 days start medication AFTER completing course of Doxycycline & Azithromycin. 7 tablet 07/09/2024 07/16/2024 Active nitrofurantoin, macrocrystals 25 mg / nitrofurantoin, monohydrate 75 mg oral capsule (2 sources) Nitrofuran Antibacterial Start: 09-19-2023 End: 09-24-2023 take 1 capsule by mouth twice daily nitrofurantoin, macrocrystal-monohy drate, (Macrobid) 100 MG capsule Indications: Acute cystitis with hematuria Take 1 (one) capsule (100 mg total) by mouth 2 (two) times a day for 5 days . 10 capsule 0 09/19/2023 09/23/2023 Discontinued polymyxin b 89415 unt/ml / trimethoprim 1 mg/ml ophthalmic solution (1 source) Dihydrofolate Reductase Inhibitor Antibacterial, Polymyxin-class Antibacterial Start: 03-02-2025 End: 03-09-2025 take 1 drop(s) into the eye(s) every four hours trimethoprim-polymy mekhi b (POLYTRIM) 10,000 unit- 1 mg/mL Drop ophthalmic solution Indications: Acute bacterial conjunctivitis of left eye Administer 1 (one) drop to both eyes every 4 (four) hours for 7 days . 10 mL 03/02/2025 03/09/2025 Active predniSONE 20 mg oral tablet (1 source) Start: 03-02-2025 take 2 tablets by mouth once daily, then take 1 tablet by mouth once daily, then take 0.5 tablet by mouth once daily predniSONE (DELTASONE) 20 MG tablet Indications: Upper respiratory tract infection, unspecified type 2 po daily for 3 days then 1 po daily for 3 days then 0.5 po daily for 3 days . 11 tablet 03/02/2025 Active sertraline 50 mg oral tablet (1 source) Serotonin Reuptake Inhibitor End: 12-30-2024 take 1 tablet by mouth once daily sertraline (ZOLOFT) 50 mg tablet Take 50 mg by mouth daily. 12/30/2024 Discontinued tiZANidine 4 mg oral capsule (1 source) Central alpha-2 Adrenergic Agonist Start: 02-08-2025 End: 02-23-2025 take 1 capsule by mouth three times daily tiZANidine (ZANAFLEX) 4 MG capsule Indications: Back pain Take 1 (one) capsule (4 mg total) by mouth 3 (three) times a day for 15 days . 45 capsule 02/08/2025 02/23/2025 Active venlafaxine 75 mg oral tablet (20 sources) Serotonin and Norepinephrine Reuptake Inhibitor Start: 11-26-2022 take 1 tablet by mouth once daily at mealtime venlafaxine (EFFEXOR) 75 MG tablet Take 1 (one) tablet (75 mg total) by mouth daily WITH FOOD . 11/26/2022 Active Completed/Discontinued Medications Medication Drug Class(es) Dates Sig (Normalized) Sig (Original) amoxicillin 250 mg chewable tablet (1 source) Penicillin-class Antibacterial Amoxicillin 250 MG Oral for 10 Not-Taking Brompheniramine / Pseudoephedrine (1 source) alpha-Adrenergic [...] . 30 tablet 0 10/02/2022 12/24/2022 Discontinued Drug or medicament (substance) (7 sources) End: [...] / neomycin 3.5 mg/ml / polymyxin b 86178 unt/ml otic solution (1 source) Aminoglycoside Antibacterial, Polymyxin-class Antibacterial, Corticosteroid Hbhhdgjj-Sccsumfzy-P C 1 % Otic for 5 Not-Taking imiquimod 50 mg/ml topical cream (7 sources) Start : 09-27 End: 04-23 imiquimod (ALDARA) 5 % cream Indications: Genital warts Apply topically Saturday, Saturday, Saturday Wash hands prior to and following application. Leave on 6-10 hours. Use until spots gone OR max of 16 weeks Start: 09/27/23. 4 each 0 09/27/2023 04/23/2024 Discontinued ondansetron 4 mg disintegrating oral tablet (20 sources) Serotonin-3 Receptor Antagonist Start : 04-26 End: 04-23 take 1 tablet by mouth every six hours as needed for nausea ondansetron (ZOFRAN-ODT) 4 MG disintegrating tablet Dissolve 1 (one) tablet (4 mg total) on top of tongue every 6 (six) hours as needed for nausea . 20 tablet 0 04/26/2023 07/31/2023 Discontinued phenazopyridine hydrochloride 200 mg oral tablet (2 sources) Start : 09-19 End: 09-21 take 1 tablet by mouth three times daily as needed for pain phenazopyridine (Pyridium) 200 MG tablet Indications: Acute cystitis with hematuria Take 1 (one) tablet (200 mg total) by mouth 3 (three) times a day as needed for pain . 6 tablet 0 09/19/2023 09/21/2023 sulfamethoxazole 800 mg / trimethoprim 160 mg oral tablet (5 sources) Dihydrofolate Reductase Inhibitor Antibacterial, Sulfonamide Antimicrobial Start : 12-01 End: 12-06 take 1 tablet by mouth twice daily sulfamethoxazole-trimethop rim (BACTRIM DS,SEPTRA DS) 800-160 mg per tablet Indications: Dysuria Take 1 (one) tablet by mouth 2 (two) times a day for 5 days . 10 tablet 12/01/2024 12/06/2024 Start: 09-23-2023 End: 09-30-2023 take 1 tablet by mouth twice daily sulfamethoxazole-trimethoprim (BACTRIM DS,SEPTRA DS) 800-160 mg per tablet Indications: Acute cystitis with hematuria Take 1 (one) tablet by mouth 2 (two) times a day for 7 days . 14 tablet 0 09/23/2023 09/30/2023 Active tobramycin 3 mg/ml ophthalmic solution (1 source) Aminoglycoside Antibacterial Start: 01-10-2016 take 1 drop(s) into the eye(s) every four hours Tobramycin 0.3 % 1 drop into affected eye Ophthalmic every 4 hrs while awake for 7 days Dec, Not-Taking Problems Active Problems Problem Classification Problem Date Documented Da te Episodic/Chronic Anxiety disorders (20 sources) Anxiety; Translations: [Anxiety disorder, unspecified] Onset: 06-06-2023 Chronic Attention-deficit, conduct, and disruptive behavior disorders (20 sources) Attention deficit hyperactivity disorder, predominantly inattentive type; Translations: [Attention-deficit hyperactivity disorder, predominantly inattentive type] Onset: 07-24-2024 07-24-2024 Chronic Attention-deficit, conduct, and disruptive behavior disorders (2 sources) Attention deficit hyperactivity disorder; Translations: [Attention-deficit hyperactivity disorder, unspecified type] 06-10-2025 Chronic Bacterial infection; unspecified site (4 sources) Chlamydial infection; Translations: [Chlamydial infection, unspecified] Onset: 01-11-2025 03-11-2024 Episodic Headache; including migraine (20 sources) Migraine with aura; Translations: [Migraine with aura, not intractable, without status migrainosus] Onset: 06-06-2023 08-08-2023 Chronic Immunizations and screening for infectious disease (20 sources) Contact with and (suspected) exposure to other viral communicable diseases; Translations: [Patient encounter status] Onset: 06-06-2020 Resolved: 01-17-2022 Episodic Inflammation; infection of eye (except that caused by tuberculosis or sexually transmitteddisease) (3 sources) Acute infectious conjunctivitis; Translations: [Unspecified acute conjunctivitis, left eye] Onset: 03-02-2025 03-02-2025 Episodic Inflammatory diseases of female pelvic organs (7 sources) Acute vaginitis; Translations: [Acute vaginitis] Onset: 01-11-2025 Episodic Lymphadenitis (8 sources) Lymphadenopathy; Translations: [Enlarged lymph nodes, unspecified] Onset: 12-30-2024 12-25-2024 Episodic Menstrual disorders (20 sources) Break-through bleeding; Translations: [Excessive and frequent menstruation with irregular cycle] Onset: 06-06-2023 Resolved: 06-09-2024 06-06-2023 Chronic Mood disorders (20 sources) Recurrent major depressive episodes, moderate ; Translations: [Major depressive disorder, recurrent, moderate] Onset: 06-06-2023 08-08-2023 Chronic Nausea and vomiting (1 source) Vomiting; Translations: [Vomiting, unspecified] Episodic Other aftercare (2 sources) Postoperative visit; Translations: [Encounter for other specified surgical aftercare] 08-20-2024 Episodic Other female genital disorders (3 sources) Vaginal bleeding; Translations: [Abnormal uterine and vaginal bleeding, unspecified] 07-31-2023 Chronic Other female genital disorders (1 source) Abnormal vaginal bleeding; Translations: [Abnormal uterine and vaginal bleeding, unspecified] 08-08-2023 Chronic Other female genital disorders (5 sources) Vaginal discharge; Translations: [Other specified noninflammatory disorders of vagina] 07-04-2023 Episodic Other female genital disorders (1 source) Leukorrhea; Translations: [Other specified noninflammatory disorders of vagina] 01-08-2024 Episodic Other female genital disorders (2 sources) Other specified noninflammatory disorders of vagina; Translations: [Other specified noninflammatory disorders of vagina] Onset: 01-11-2025 Episodic Other gastrointestinal disorders (2 sources) Groin mass; Translations: [Other intra-abdominal and pelvic swelling, mass and lump] 12-25-2024 Episodic Other upper respiratory infections (6 sources) Acute upper respiratory infection, unspecified; Translations: [Upper respiratory infection] Onset: 01-17-2022 Resolved: 01-17-2022 Episodic Residual codes; unclassified (1 source) High risk sexual behavior; Translations: [High risk heterosexual behavior] 01-08-2024 Episodic Residual codes; unclassified (2 sources) History of laparoscopy; Translations: [Other specified postprocedural states] 08-20-2024 Episodic Residual codes; unclassified (1 source) High risk heterosexual behavior; Translations: [High risk heterosexual behavior] Onset: 06-10-2025 Episodic Spondylosis; intervertebral disc disorders; other back problems (3 sources) Backache; Translations: [Dorsalgia, unspecified] Onset: 02-08-2025 02-08-2025 Episodic Unclassified (2 sources) Procedure Onset: 08-15-2023 Unclassified (1 source) Enlarged Lymph Node Onset: 12-30-2024 Unclassified (1 source) Low back pain, unspecified; Translations: [Low back pain, unspecified] Onset: 02-08-2025 Viral infection (4 sources) Genital warts; Translations: [Anogenital (venereal) warts] Onset: 09-26-2023 08-08-2023 Episodic Past or Other Problems Problem Classification Problem Date Documented Da te Episodic/Chronic Abdominal pain (3 sources) Pain in pelvis; Translations: [Pelvic and perineal pain] 08-08-2023 Episodic Alcohol-related disorders (20 sources) Alcohol intoxication; Translations: [Alcohol dependence with intoxication, uncomplicated] Onset: 3 Resolved: 4 02-26-2023 Chronic Disorders of teeth and jaw (20 sources) Temporomandibular joint disorder; Translations: [Unspecified temporomandibular joint disorder, unspecified side] Onset: 4 06-09-2024 Episodic Gastrointestinal hemorrhage (20 sources) Gastrointestinal hemorrhage; Translations: [Hemorrhage of anus and rectum] Onset: 4 06-09-2024 Episodic Genitourinary symptoms and ill-defined conditions (20 sources) Dysuria; Translations: [Dysuria] Onset: 5 Episodic Mood disorders (20 sources) Mood disorders Onset: 3 Resolved: 4 06-09-2024 Mycoses (20 sources) Candidiasis; Translations: [Candidiasis, unspecified] Onset: 4 Resolved: 4 06-09-2024 Episodic Open wounds of extremities (3 sources) Laceration without foreign body of right index finger without damage to nail, initial encounter; Translations: [Laceration of finger] Onset: 4 Episodic Other female genital disorders (20 sources) Uterine contractions present; Translations: [Other specified conditions associated with female genital organs and menstrual cycle] Onset: 3 06-06-2023 Episodic Other gastrointestinal disorders (20 sources) Loose stool; Translations: [Other fecal abnormalities] Onset: 4 06-09-2024 Episodic Other gastrointestinal disorders (20 sources) Disorder of intestine; Translations: [Other specified diseases of intestine] Onset: 4 Resolved: 4 06-09-2024 Episodic Other lower respiratory disease (2 sources) Shortness of breath; Translations: [Shortness of breath] Onset: 4 Episodic Other screening for suspected conditions (not mental disorders or infectious disease) (20 sources) Radiology result abnormal; Translations: [Abnormal findings on diagnostic imaging of other abdominal regions, including retroperitoneum] Onset: 4 Resolved: 4 06-09-2024 Episodic Other skin disorders (20 sources) Acne vulgaris; Translations: [Acne vulgaris] Onset: 3 Resolved: 4 06-09-2024 Episodic Unclassified (1 source) Low back pain, unspecified; Translations: [Low back pain, unspecified] Onset: 5 Urinary tract infections (20 sources) Acute cystitis; Translations: [Acute cystitis with hematuria] Onset: 4 09-19-2023 Episodic Results Test Name Value Interpretation Reference Range Facility Vaginitis Plus (VG+)on 06-10 Atopobium Vaginae High - 2 Critically abnormal . [facility] Comment on above: Result Comment: This test was developed and its performance characteristics determined by [facility]. It has not been cleared or approved by the Food and Drug Administration. Performed By: #### V AGINITIS+ #### [facility] , BVAB2 High - 2 Critically abnormal . [facility] Comment on above: Result Comment: This test was developed and its performance characteristics determined by [facility]. It has not been cleared or approved by the Food and Drug Administration. Performed By: #### V AGINITIS+ #### [facility] , Savanna Albicans, KELSEA Negative Normal Negative [facility] Comment on above: Result Comment: This test was developed and its performance characteristics determined by [facility]. It has not been cleared or approved by the Food and Drug Administration. Performed By: #### V AGINITIS+ #### [facility] , Savanna Glabrata, KELSEA Negative Normal Negative [facility] Comment on above: Result Comment: This test was developed and its performance characteristics determined by [facility]. It has not been cleared or approved by the Food and Drug Administration. PERFORMED BY: [place] [id number] [place] [address] PATHOLOGIST WEB [employer] PROJECT MANAGER COURTNEY PITT M.D. Performed By: #### V AGINITIS+ #### [facility] , Chlamydia Trachomotis, KELSEA Positive Critically abnormal Negative [facility] Comment on above: Performed By: #### V AGINITIS+ #### [facility] , Megasphaera High - 2 Critically abnormal . [facility] Comment on above: Result Comment: This test was developed and its performance characteristics determined by [facility]. It has not been cleared or approved by the Food and Drug Administration. Calculate total score by adding the 3 individual bacterial vaginosis (BV) marker scores together. Total score is interpreted as follows: Total score 0-1: Indicates the absence of BV. Total score 2: Indeterminate for BV. Additional clinical data should be evaluated to establish a diagnosis. Total score 3-6: Indicates the presence of BV. Performed By: #### V AGINITIS+ #### [facility] , Neisseria Gonorrhoeae, KELSEA Negative Normal Negative [facility] Comment on above: Result Comment: Perf ormed at: =G - [facility] [address] [id number] Core Loader: Barbara Alvarez MD, Phone: [phone] Performed By: #### V AGINITIS+ #### [facility] , Tric Vag KELSEA Negative Normal Negative [facility] Comment on above: Performed By: #### V AGINITIS+ #### [facility] , CULTURE, URINE, ROUTINEon CULTURE, URINE, ROUTINE SEE NOTE Normal [facility] Comment on above: Result Comment: CULTURE, URINE, ROUTINE Micro Number: [id number] Test Status: Final Specimen Source: Urine Specimen Quality: Adequate Result: Mixed genital wil isolated. These superficial bacteria are not indicative of a urinary tract infection. No further organism identification is warranted on this specimen. If clinically indicated, recollect clean-catch, mid-stream urine and transfer immediately to Urine Culture Transport Tube. Performed By: #### 3 95 #### [facility] [address], [address] [place] [address] Glass Mechanic: Evan Romero MD BASIC METABOLIC PANELon 01-17 Anion gap [Moles/Vol] 13 mmol/L Normal 10-20 [facility] Comment on above: Order Comment: Negat ewelina: The result is less than or equal to 5 mIU/mL of HCG. Performed By: #### 4 5826 #### [address] [place] [address] Frankie Kramer D.O. [id number] Calcium [Mass/Vol] 9.7 mg/dL Normal 8.4-10.2 [facility] Comment on above: Order Comment: Negat ewelina: The result is less than or equal to 5 mIU/mL of HCG. Performed By: #### 4 5826 #### [address] [place] [address] Frankie Kramer D.O. [id number] Chloride [Moles/Vol] 104 mmol/L Normal 98-108 [facility] Comment on above: Order Comment: Negat ewelina: The result is less than or equal to 5 mIU/mL of HCG. Performed By: #### 4 5826 #### [address] [place] [address] Frankie Kramer D.O. [id number] Creatinine [Mass/Vol] 0.62 mg/dL Normal 0.40-1.10 [facility] Comment on above: Order Comment: Negat ewelina: The result is less than or equal to 5 mIU/mL of HCG. Performed By: #### 4 5826 #### [address] [place] [address] Frankie Kramer D.O. [id number] EGFR 130 mL/min/1.73 m2 Normal >=60 [facility] Comment on above: Order Comment: Negat ewelina: The result is less than or equal to 5 mIU/mL of HCG. Result Comment: Hwitney mated GFR was calculated using the 2020 CKD-EPI creatinine equation. Performed By: #### 4 5826 #### [address] [place] [address] Frankie Kramer D.O. [id number] Glucose [Mass/Vol] 103 mg/dL High 65-99 [facility] Comment on above: Order Comment: Negat ewelina: The result is less than or equal to 5 mIU/mL of HCG. Performed By: #### 4 5826 #### [address] [place] [address] Frankie Kramer D.O. [id number] HCO3 (Bld) [Moles/Vol] 23 mmol/L Normal 21-32 [facility] Comment on above: Order Comment: Negat ewelina: The result is less than or equal to 5 mIU/mL of HCG. Performed By: #### 4 5826 #### [address] [place] [address] Frankie Kramer D.O. [id number] Potassium [Moles/Vol] 3.4 mmol/L Low 3.5-5.1 [facility] Comment on above: Order Comment: Negat ewelina: The result is less than or equal to 5 mIU/mL of HCG. Performed By: #### 4 5826 #### [address] [place] [address] Frankie Kramer D.O. [id number] Sodium [Moles/Vol] 137 mmol/L Normal 135-145 [facility] Comment on above: Order Comment: Negat ewelina: The result is less than or equal to 5 mIU/mL of HCG. Performed By: #### 4 5826 #### [address] [place] [address] Frankie Kramer D.O. [id number] Urea nitrogen [Mass/Vol] 9 mg/dL Normal 8-25 [facility] Comment on above: Order Comment: Negat ewelina: The result is less than or equal to 5 mIU/mL of HCG. Performed By: #### 4 5826 #### [address] [place] [address] Meek Luke.OMaddison [id number] Urea nitrogen/Creatinine [Mass ratio] 14.5 mg/mg Normal 10.0-20.0 [facility] Comment on above: Order Comment: Negat ewelina: The result is less than or equal to 5 mIU/mL of HCG. Performed By: #### 4 5826 #### [address] [place] [address] Meek Luke.OMaddison [id number] CBC WITH AUTO DIFFERENTIALon 02-08-2025 AUTO NRBC 0.0 % [facility] Comment on above: Performed By: #### L [id number] #### [address] [place] [address] Meek Luke.OMaddison [id number] AUTO NRBC ABS COUNT 0.00 K/mcL Normal 0.00-0.00 [facility] Comment on above: Performed By: #### L [id number] #### [address] [place] [address] Meek Luke.O. [id number] BASOPHILS ABSOLUTE COUNT 0.03 K/mcL Normal 0.00-0.30 [facility] Comment on above: Performed By: #### L [id number] #### [address] [place] [address] Meek Luke.OMaddison [id number] Basophils/100 WBC (Bld) 0.3 % [facility] Comment on above: Performed By: #### L [id number] #### [address] [place] [address] Meek Luke.OMaddison [id number] Eosinophils (Bld) [#/Vol] 0.06 10*3/uL Normal 0.00-0.50 [facility] Comment on above: Performed By: #### L [id number] #### [address] [place] [address] Yue LukeOMaddison [id number] Eosinophils/100 WBC (Bld) 0.7 % Normal [facility] Comment on above: Performed By: #### L [id number] #### [address] [place] [address] Yue LukeOMaddison [id number] Erythrocyte distribution width (RBC) [Ratio] 12.4 % Normal 11.6-14.8 [facility] Comment on above: Performed By: #### L [id number] #### [address] [place] [address] Frankie Kramer D.O. [id number] Hematocrit (Bld) [Volume fraction] 43.3 % Normal 36.0-46.0 [facility] Comment on above: Performed By: #### L [id number] #### [address] [place] [address] Yue LukeOMaddison [id number] Hemoglobin (Bld) [Mass/Vol] 14.6 g/dL Normal 12.0-16.0 [facility] Comment on above: Performed By: #### L [id number] #### [address] [place] [address] Yue LukeOMaddison [id number] IG ABSOLUTE 0.03 K/mcL Normal 0.00-0.30 [facility] Comment on above: Performed By: #### L [id number] #### [address] [place] [address] Frankie Kramer D.O. [id number] IG PERCENT 0.30 % Normal [facility] Comment on above: Result Comment: The IG parameter is the percentage of metamyelocytes, myelocytes and promyelocytes. An immature granulocyte count (IG) of 1% or more suggests the possibility of infection, an IG count of 3% is very likely related to an infection. Performed By: #### L [id number] #### [address] [place] [address] Yue LukeOMaddison [id number] Lymphocytes (Bld) [#/Vol] 2.07 10*3/uL Normal 0.90-4.00 [facility] Comment on above: Performed By: #### L [id number] #### [address] [place] [address] Frankie Kramer D.O. [id number] Lymphocytes/100 WBC (Bld) 23.8 % Normal [facility] Comment on above: Performed By: #### L [id number] #### [address] [place] [address] Frankie Kramer D.O. [id number] MCH (RBC) [Entitic mass] 30.5 pg Normal 26.0-34.0 [facility] Comment on above: Performed By: #### L [id number] #### [address] [place] [address] Frankie Kramer D.O. [id number] MCV (RBC) [Entitic vol] 90.4 fL Normal 80.0-100.0 [facility] Comment on above: Performed By: #### L [id number] #### [address] [place] [address] Frankie Kramer D.O. [id number] MEAN CORPUSCULAR HEMOGLOBIN CONC 33.7 g/dL Normal 31.0-37.0 [facility] Comment on above: Performed By: #### L [id number] #### [address] [place] [address] Frankie Kramer D.O. [id number] Monocytes (Bld) [#/Vol] 1.03 10*3/uL High 0.30-0.90 [facility] Comment on above: Performed By: #### L [id number] #### [address] [place] [address] Frankie Kramer D.O. [id number] Monocytes/100 WBC (Bld) 11.9 % Normal [facility] Comment on above: Performed By: #### L [id number] #### [address] [place] [address] Frankie Kramer D.O. [id number] NEUTROPHILS ABSOLUTE COUNT 5.47 K/mcL Normal 1.70-7.00 [facility] Comment on above: Performed By: #### L [id number] #### [address] [place] [address] Frankie Kramer D.O. [id number] Neutrophils/100 WBC (Bld) 63.0 % Normal [facility] Comment on above: Performed By: #### L [id number] #### [address] [place] [address] Frankie Kramer D.O. [id number] Platelet mean volume (Bld) [Entitic vol] 9.6 fL Normal 9.4-12.4 [facility] Comment on above: Performed By: #### L [id number] #### [address] [place] [address] Frankie Kramer D.O. [id number] Platelets (Bld) [#/Vol] 319 10*3/uL Normal 150-400 [facility] Comment on above: Performed By: #### L [id number] #### [address] [place] [address] Frankie Kramer D.O. [id number] RBC (Bld) [#/Vol] 4.79 10*6/uL Normal 4.00-5.20 [facility] Comment on above: Performed By: #### L [id number] #### [address] [place] [address] Frankie Kramer D.O. [id number] WBC (Bld) [#/Vol] 8.69 10*3/uL Normal 4.50-11.00 [facility] Comment on above: Performed By: #### L [id number] #### [address] [place] [address] Frankie Kramer D.O. [id number] CT KIDNEY STONEon 02-08-2025 CT KIDNEY STONE EXAMINATION: CT KIDNEY STONE HISTORY: Abdominal/flank pain, stone suspected COMPARISON: None. TECHNIQUE: CT scan of the abdomen and pelvis was performed without IV contrast. Oral contrast was not administered prior to the examination. Sagittal and coronal reformats were created and saved to PACS. Dose reduction techniques were achieved by using automated exposure control and/or adjustment of mA and/or kV according to patient size and/or use of iterative reconstruction technique. FINDINGS: Limited evaluation of the lung bases demonstrates no acute findings. Limited noncontrast evaluation of the abdomen and pelvis. The liver is normal in size and contour. Normal gallbladder. Negative for acute splenic or adrenal abnormality. Negative for acute pancreatic abnormality. Metric size of the kidneys. Negative for visualized urinary tract calculi or hydronephrosis. Decompressed urinary bladder. The uterus is present with an intrauterine device seen. Normal appendix. No bowel obstruction or bowel thickening. No free intra-abdominal air or fluid. Negative for suspicious lymphadenopathy. Some fluid seen in the left groin measuring up to 2.4 x 1.7 cm favored postprocedural. Negative for acute osseous abnormality. IMPRESSION: 1. Negative for visualized urinary tract calculi or hydronephrosis. 2. Negative for additional acute intra-abdominal or pelvic abnormality on this noncontrast exam. 3. Apparent postprocedural changes of the left groin, with an associated ill-defined gas and fluid containing region seen measuring up to 2.4 cm. Workstation ID: [id number] Dictated by: MT MUNIZ on SatFeb 08, 2025 9:27:44 PM EDT Transcribed by: MT MUNIZ on SatFeb 08, 2025 9:27:44 PM EDT Finalized by: MT MUNIZ on SatFeb 08, 2025 9:27:44 PM EDT Normal [facility] Comment on above: Order Comment: Injur y/Trauma or Illness?:Illness/Other How long have you had these symptoms (acute/chronic)?:Unknown Reason for exam?:Abdominal/flank pain, stone suspected Type of Exam?:Initial Additional signs and symptoms?:Reports today she got out of shower and bent over to pick her towel up and felt a pain in her left lower back. Pain has gotten worse through out the day. Denies any pain with urination or blood in her urine. Her PC advised to come to ER to rule out kidney stone. ED Prov Noteon 02-08-2025 ED Prov Note ED PROVIDER NOTE [facility] NAME: Gudelia Araujo AGE: 20 y.o. : 2005 VISIT DATE: 02/08/2025 CSN: [id number] PCP: Carmenza Ruelas DO Chief Complaint Patient presents with Flank Pain Back Pain This is a 20-year-old female patient that reports to the emergency department with left flank pain into her left lower back. She reports that she bent over to filler picker her towel when she developed this intense pain. She denies any numbness or tingling in her extremities. She is concerned for possible kidney stone. Patient did have a urinalysis at urgent care. Flank Pain Back Pain Past Medical History: Diagnosis Date Anxiety Arthritis Depression Migraines Past Surgical History: Procedure Laterality Date ADENOIDECTOMY TONSILLECTOMY WISDOM TOOTH EXTRACTION Family History Problem Relation Age of Onset Depression Mother No Known Problems Father Arthritis Maternal Grandfather Social History [1] Previous Medications Medication Sig ibuprofen (ADVIL,MOTRIN) 600 MG tablet Take 1 (one) tablet (600 mg total) by mouth every 8 (eight) hours as needed for pain . levonorgestreL (MIRENA) 21 mcg/24 hours (8 yrs) 52 mg IUD 1 (one) each by Intrauterine route once . tiZANidine (ZANAFLEX) 4 MG capsule Take 1 (one) capsule (4 mg total) by mouth 3 (three) times a day for 15 days . venlafaxine (EFFEXOR) 75 MG tablet Take 1 (one) tablet (75 mg total) by mouth daily WITH FOOD . Allergies[2] Review of Systems Genitourinary: Positive for flank pain. Musculoskeletal: Positive for back pain. Patient Vitals for the past 24 hrs: BP Temp Temp src Pulse Resp SpO2 Height Weight 02/08/25 2140 (!) 138/90 -- -- 62 -- 100 % -- -- 02/08/252003 136/80 -- -- 84 -- 100 % -- -- 02/08/25 1902 -- -- -- -- 16 -- 5' 8 63.6 kg (140 lb 3.2 oz) 02/08/25 1842 (!) 141/93 98 degrees F (36.7 degrees C) Oral (!) 106 -- 100 % -- -- Physical Exam Vitals reviewed. Constitutional: Appearance: Normal appearance. HENT: Head: Normocephalic. Nose: Nose normal. Mouth/Throat: Mouth: Mucous membranes are moist. Eyes: Pupils: Pupils are equal, round, and reactive to light. Musculoskeletal: General: Tenderness present. Arms: Pulmonary: Effort: Pulmonary effort is normal. Abdominal: General: Abdomen is flat. Bowel sounds are normal. Palpations: Abdomen is soft. Tenderness: There is left CVA tenderness. Skin: General: Skin is warm. Capillary Refill: Capillary refill takes less than 2 seconds. Neurological: General: No focal deficit present. Mental Status: She is alert and oriented to person, place, and time. Psychiatric: Mood and Affect: Mood normal. Behavior: Behavior normal. Laboratory & Radiographic Imaging (if done): Results for orders placed or performed during the hospital encounter of 02/08/25 BMP Result Value Ref Range Sodium 137 135 - 145 mmol/L Potassium 3.4 (L) 3.5 - 5.1 mmol/L Chloride 104 98 - 108 mmol/L Bicarbonate 23 21 - 32 mmol/L Anion Gap 13 10 - 20 mmol/L Glucose 103 (H) 65 - 99 mg/dL BUN 9 8 - 25 mg/dL Creatinine 0.62 0.40 - 1.10 mg/dL eGFR 130 >=60 mL/min/1.73 m2 BUN/Creatinine Ratio 14.5 10.0 - 20.0 Calcium 9.7 8.4 - 10.2 mg/dL Urinalysis Result Value Ref Range Color, Urine Denae (A) Colorless, Yellow Clarity, Urine Cloudy (A) Clear Specific [place] 1.021 1.005 - 1.025 pH, Urine 7.5 (H) 5.0 - 7.0 Protein, Urine Negative Negative mg/dL Glucose, Urine Negative Negative mg/dL Ketones, Urine Negative Negative mg/dL Bilirubin, Urine Negative Negative Urobilinogen, Urine <2.0 <2.0 mg/dL Blood, Urine Negative Negative Nitrite, Urine Negative Negative Leukocyte Esterase, Urine Trace (A) Negative WBCs, Urine 13 (H) 0 - 5 /hpf RBCs, Urine 2 0 - 3 /hpf Bacteria, Urine None Seen None Seen /hpf Squamous Epithelial 8 (H) 0 - 4 /hpf Amorphous Crystals Rare None Seen, Rare /hpf Mucus, Urine Rare None Seen, Rare /lpf hCG, Serum, QUALITATIVE Result Value Ref Range Beta-hCG Qual Negative Negative Light Blue Top Result Value Ref Range Extra Tube Hold for add-ons. Awan Top Result Value Ref Range Extra Tube Hold for add-ons. CBC Auto Differential Result Value Ref Range WBC 8.69 4.50 - 11.00 K/mcL RBC 4.79 4.00 - 5.20 M/mcL Hemoglobin 14.6 12.0 - 16.0 g/dL Hematocrit 43.3 36.0 - 46.0 % MCV 90.4 80.0 - 100.0 fL MCH 30.5 26.0 - 34.0 pg MCHC 33.7 31.0 - 37.0 g/dL Platelets 319 150 - 400 K/mcL RDW - CV 12.4 11.6 - 14.8 % MPV 9.6 9.4 - 12.4 fL Neutrophils 63.0 % Lymphocytes 23.8 % Monocytes 11.9 % Eosinophils 0.7 % Basophils 0.3 % IG Percent 0.30 % Neutrophils Abs 5.47 1.70 - 7.00 K/mcL Lymphocytes Abs 2.07 0.90 - 4.00 K/mcL Monocytes Abs 1.03 (H) 0.30 - 0.90 K/mcL Eosinophils Abs 0.06 0.00 - 0.50 K/mcL Basophils Abs 0.03 0.00 - 0.30 K/mcL IG Absolute 0.03 0.00 - 0.30 K/mcL Nucleated RBC 0.0 % Nucleated RBC Abs 0.00 0.00 - 0.00 K/mcL CT (more content not included)... Normal [facility] HCG, SERUM, QUALITATIVEon BETA-HCG QUAL BLOOD Negative Normal Negative [facility] Comment on above: Order Comment: Negat ewelina: The result is less than or equal to 5 mIU/mL of HCG. Performed By: #### 4 5826 #### [address] [place], [place] [address] Frankie Kramer D.O. [id number] POC Urinalysis Dipstick,Auto [place] 02-08-2025 Bilirubin Ql (U) Negative Negative [facility] Clarity, UA Slightly Cloudy Abnormal Clear [facility] Color (U) Yellow Yellow, Light Yellow, Dark Yellow [facility] Glucose Ql (U) Negative Normal, Negative mg/dL [facility] Hemoglobin Ql (U) Negative Negative [facility] Interpretation and review of laboratory results Abnormal [facility] Ketones Ql (U) Negative Negative mg/dL [facility] Leukocyte esterase Test strip Ql (U) Negative Negative [facility] Nitrite Ql (U) Negative Negative [facility] pH (U) 9 [pH] Abnormal 5.0 - 7.[address] [facility] Protein Ql (U) 30 mg/dL Abnormal Negative [facility] Specific gravity (U) [Rel density] 1.015 Abnormal 1.005 - 1.[address] [facility] Urobilinogen Qn (U) 0.2 mg/dL <2.0, 0. 2, Normal, Negative, 1.0, 2.0, <1.0 [facility] URINALYSISon 02-08-2025 AMORPHOUS CRYSTALS Rare Normal None Seen , Rare [facility] Comment on above: Order Comment: Negat ewelina: The result is less than or equal to 5 mIU/mL of HCG. Performed By: #### 4 5826 #### [address] [place] [address] Frankie Kramer D.O. [id number] BACTERIA, URINE None Seen Normal None Seen [facility] Comment on above: Order Comment: Negat ewelina: The result is less than or equal to 5 mIU/mL of HCG. Performed By: #### 4 5826 #### [address] [place] [address] Frankie Kramer D.O. [id number] BILIRUBIN, URINE Negative Normal Negative [facility] Comment on above: Order Comment: Negat ewelina: The result is less than or equal to 5 mIU/mL of HCG. Performed By: #### 4 5826 #### [address] [place] [address] Frankie Kramer D.O. [id number] BLOOD, URINE Negative Normal Negative [facility] Comment on above: Order Comment: Negat ewelina: The result is less than or equal to 5 mIU/mL of HCG. Performed By: #### 4 5826 #### [address] [place] [address] Frankie Kramer D.O. [id number] Clarity (U) Cloudy Abnormal Clear [facility] Comment on above: Order Comment: Negat ewelina: The result is less than or equal to 5 mIU/mL of HCG. Performed By: #### 4 5826 #### [address] [place] [address] Yue LukeOMaddison [id number] Color (U) Denae Abnormal Colorless, Yellow [facility] Comment on above: Order Comment: Negat ewelina: The result is less than or equal to 5 mIU/mL of HCG. Performed By: #### 4 5826 #### [address] [place] [address] Meek Luke.O. [id number] Glucose Ql (U) Negative Normal Negative [facility] Comment on above: Order Comment: Negat ewelina: The result is less than or equal to 5 mIU/mL of HCG. Performed By: #### 4 5826 #### [place] [address] Yue LukeOMaddison [id number] Ketones Ql (U) Negative Normal Negative [facility] Comment on above: Order Comment: Negat ewelina: The result is less than or equal to 5 mIU/mL of HCG. Performed By: #### 4 5826 #### [place] [address] Yue LukeOMaddison [id number] Leukocyte esterase Test strip Ql (U) Trace Abnormal Negative [facility] Comment on above: Order Comment: Negat ewelina: The result is less than or equal to 5 mIU/mL of HCG. Performed By: #### 4 5826 #### [address] [place] [address] Yue LukeOMaddison [id number] MUCUS, URINE Rare Normal None Seen, Rare [facility] Comment on above: Order Comment: Negat ewelina: The result is less than or equal to 5 mIU/mL of HCG. Performed By: #### 4 5826 #### [address] [place] [address] Yue LukeOMaddison [id number] NITRITE, URINE Negative Normal [facility] Comment on above: Order Comment: Negat ewelina: The result is less than or equal to 5 mIU/mL of HCG. Performed By: #### 4 5826 #### [address] [place] [address] Frankie Kramer D.O. [id number] pH (U) 7.5 [pH] High 5.0-7.0 [facility] Comment on above: Order Comment: Negat ewelina: The result is less than or equal to 5 mIU/mL of HCG. Performed By: #### 4 5826 #### [address] [place] [address] Frankie Kramer D.O. [id number] PROTEIN, URINE Negative Normal Negative [facility] Comment on above: Order Comment: Negat ewelina: The result is less than or equal to 5 mIU/mL of HCG. Performed By: #### 4 5826 #### [address] [place] [address] Frankie Kramer D.O. [id number] RBC LM.HPF (Urine sed) [#/Area] 2 /[HPF] Normal 0-3 [facility] Comment on above: Order Comment: Negat ewelina: The result is less than or equal to 5 mIU/mL of HCG. Performed By: #### 4 5826 #### [address] [place] [address] Frankie Kramer D.O. [id number] Specific gravity (U) [Rel density] 1.021 Normal 1.005-1.025 [facility] Comment on above: Order Comment: Negat ewelina: The result is less than or equal to 5 mIU/mL of HCG. Performed By: #### 4 5826 #### [address] [place] [address] Frankie Kramer D.O. [id number] SQUAMOUS EPITHELIAL 8 /hpf High 0-4 [facility] Comment on above: Order Comment: Negat ewelina: The result is less than or equal to 5 mIU/mL of HCG. Performed By: #### 4 5826 #### [address] [place] [address] Frankie Kramer D.O. [id number] UROBILINOGEN, URINE <2.0 Normal <2.0 [facility] Comment on above: Order Comment: Negat ewelina: The result is less than or equal to 5 mIU/mL of HCG. Performed By: #### 4 5826 #### [address] [place], [place] [address] Frankie Kramer D.O. [id number] WBC LM.HPF (Urine sed) [#/Area] 13 /[HPF] High 0-5 [facility] Comment on above: Order Comment: Negat ewelina: The result is less than or equal to 5 mIU/mL of HCG. Performed By: #### 4 5826 #### [address] [place], [place] [address] Frankie Kramer D.O. [id number] URINE AEROBIC CULTUREon 01-17 URINE AEROBIC CULTURE EXT MAURO - CULTURE, URINE, ROUTINE SEE NOTE CULTURE, URINE, ROUTINE Micro Number: [id number] Test Status: Final Specimen Source: Urine Specimen Quality: Adequate Result: Mixed genital wil isolated. These superficial bacteria are not indicative of a urinary tract infection. No further organism identification is warranted on this specimen. If clinically indicated, recollect clean-catch, mid-stream urine and transfer immediately to Urine Culture Transport Tube. Normal [facility] Flow cytometry specialist re view Graeme (Unsp spec) [Interp]on 02-02-2025 FLOW CYTOMETRY TISSUE/FLUID, NON CSF/NON BAL SEE SEPARATE REPORT, REVIEWED BY PATHOLOGIST Normal [facility] Comment on above: Performed By: #### 6 9052-9 #### [facility] ([id number]) [address] [place] [address], [address] [place] [address] HCG ( test) Ql (U)o n 02-02-2025 Beta HCG ( test) Ql (U) Negative Normal NEG [facility] Comment on above: Performed By: #### 2 106-3 #### [facility] ([id number]) [address] [facility] [place] [address] Surgical Pathologyon 025 Surgical Pathology Normal [facility] Comment on above: Result Comment: [facility] [address] [place] [id number] Surgical Pathology Consultation Patient Name:GUDELIA ARAUJO:2005 (Age: 20)Gender:FTaken:02/02/2025Reported:02/09/2025Physician(s):Rebecca Morrison D.O. ([phone])Copy To: Rec. #:[id number]: #[id number] Final Pathologic Diagnosis Left inguinal lymph node, excisional biopsy: Benign reactive lymphoid hyperplasia with nonnecrotizing epithelioid granulomas. No malignancy identified. Comment: Special stains for acid-fast bacilli and fungi are performed with appropriate controls and are negative for microorganisms. Report Electronically Signed Out anabelak/02/09/2025Je Middleton MD Flow Cytometry-Surg/BM/NG Date Reported: 02/14/2025 No flow cytometric abnormalities. Immunophenotypic analysis of the lymphoid cells demonstrates a mixed population of phenotypically unremarkable T-cells and polyclonal B-cells. No monoclonal lymphoid population is detected. Immunophenotyping antibodies tested: CD3, CD5, CD7, CD10, CD19, CD20, CD23, CD45, [place], and [place]. Immunophenotyping Comment: Immunophenotyping has been used in this diagnostic evaluation. This test was developed and its performance characteristics determined by the [facility] Department. It has not been cleared or approved by the U.S. Food and Drug Administration. The FDA has determined that such clearance or approval is not necessary. This test is used for clinical purposes. It should not be regarded as investigational or for research. This laboratory is certified under the Clinical Laboratory Improvement Amendments of 1988 ( CLIA ) as qualified to perform high-complexity clinical testing. Interpretation performed at [facility], [address] [place] [address], License number: [id number]. Electronically Signed Out Sav Barger MD Interpretation performed at [address] [address], License number: [id number]. Clinical History Left inguinal lymphadenopathy Gross Description Received fresh labeled WEIKER, left inguinal lymph node is a pink-galindo lymph node, 2.5 x 1.7 x 1.0 cm. A event marketing representative portion is submitted in RPMI media for flow cytometric studies, and a event marketing representative section is submitted in a sterile container for microbiology. Two H&E touch preps and two Giemsa touch preps are prepared. The remainder of the tissue is submitted in cassettes A-C (cassette A is submitted following B+ fixation). (3,ns,[id number], m6.1) [facility]02/02/2025GR Specimen(s) Received Left inguinal lymph node Fee Codes(s): 1; 31497, 55850, 88739, 36425(2) TISSUE CULTUREon 02-02-2025 Bacteria identified Aer cx Nom (Tiss) SPECIMEN NOTES SPECIMEN 1 GRAM STAIN 10 to 24 WHITE BLOOD CELLS/LPF 0 SQUAMOUS EPITHELIAL CELLS/LPF NO ORGANISMS SEEN CULTURE RESULTS RARE STAPHYLOCOCCUS, COAGULASE NEGATIVE NOT S.LUGDUNENSIS CALL MICROBIOLOGY IF FURTHER WORK DESIRED. ISOLATES HELD FOR 7 DAYS PAST FINAL DATE. Normal [facility] Comment on above: Performed By: #### 6 27-0 #### [facility] ([id number]) [address] [place] [address] COMPLETE BLOOD COUNTon 01-22 Erythrocyte distribution width (RBC) [Ratio] 13.4 % Normal 11.5-15.0 [facility] Comment on above: Performed By: #### C BC #### [facility] ([id number]) [address] [place] [address] Hematocrit (Bld) [Volume fraction] 41.7 % Normal 35-47 [facility] Comment on above: Performed By: #### C BC #### [facility] ([id number]) [address] [place] [address], [address] [place] [address] Hemoglobin (Bld) [Mass/Vol] 14.1 g/dL Normal 11.7-15.5 [facility] Comment on above: Performed By: #### C BC #### [facility] ([id number]) [address], [address] [place] [address] MCH (RBC) [Entitic mass] 30.5 pg Normal 27-34 [facility] Comment on above: Performed By: #### C BC #### [facility] ([id number]) [address], [address] [place] [address] MCHC (RBC) [Mass/Vol] 33.8 g/dL Normal 32-36 [facility] Comment on above: Performed By: #### C BC #### [facility] ([id number]) [address], [address] [place] [address] MCV (RBC) [Entitic vol] 90 fL Normal 80-100 [facility] Comment on above: Performed By: #### C BC #### [facility] ([id number]) [address], [address] [place] [address] Platelet mean volume (Bld) [Entitic vol] 8.8 fL Normal 7-12 [facility] Comment on above: Performed By: #### C BC #### [facility] ([id number]) [address], [address] [place] [address] Platelets (Bld) [#/Vol] 289 10*3/uL Normal 150-450 [facility] Comment on above: Performed By: #### C BC #### [facility] ([id number]) [address] [address] [place] [address] RBC COUNT 4.63 X10E12/L Normal 3.80-5.20 [facility] Comment on above: Performed By: #### C BC #### [facility] ([id number]) [address], [address] [place] [address] WBC (Bld) [#/Vol] 5.2 10*3/uL Normal 4.0-11.0 [facility] Comment on above: Performed By: #### C BC #### [facility] ([id number]) [address], [address] [place] [address] BV/VAGINITIS PANEL DNA PROBE on 01-12-2025 SAVANNA: Not detected Normal NOT DETECTED [facility] Comment on above: Performed By: #### 1 4577 #### [facility] [address], [address] [place] [address] Glass Mechanic: Evan Romero MD GARDNERELLA: Detected Abnormal NOT DETECTED [facility] Comment on above: Result Comment: Incr eased levels of G. vaginalis may not be significant in the absence of signs and symptoms of bacterial vaginosis. Performed By: #### 1 4577 #### [facility] [address], [address] [place] [address] Glass Mechanic: Evan Romero MD TRICHOMONAS: Not detected Normal NOT DETECTED [facility] Comment on above: Performed By: #### 1 4577 #### [facility] [address], [address] [place] [address] Glass Mechanic: Evan Romero MD VAGINITIS DNA PROBESon 01-11 VAGINITIS DNA PROBES EXT MAURO - TRICHOMONAS: NOT DETECTED EXT MAURO - GARDNERELLA: DETECTED Increased levels of G. vaginalis may not be significant in the absence of signs and symptoms of bacterial vaginosis. EXT MAURO - SAVANNA: NOT DETECTED Abnormal NOT DETECTED [facility] CBC W Auto Differential pane l (Bld)on 12-26-2024 Basophils (Bld) [#/Vol] 28 10*3/uL [facility] Basophils/100 WBC (Bld) 0.3 % [facility] Eosinophils (Bld) [#/Vol] 140 10*3/uL [facility] Eosinophils/100 WBC (Bld) 1.5 % [facility] Erythrocyte distribution width (RBC) [Ratio] 12.7 % 11.0 - 15.0 % [facility] Hematocrit (Bld) [Volume fraction] 43.8 % 35.0 - 45.0 % [facility] Hemoglobin (Bld) [Mass/Vol] 14.9 g/dL 11.7 - 15.5 g/dL [facility] Lymphocytes (Bld) [#/Vol] 1479 10*3/uL [facility] Lymphocytes/100 WBC (Bld) 15.9 % [facility] MCH (RBC) [Entitic mass] 30.7 pg 27.0 - 33.0 pg [facility] MCHC (RBC) [Mass/Vol] 34 g/dL 32.0 - 36.0 g/dL [facility] Comment on above: For adults, a slight decrease in the calculated MCHC value (in the range of 30 to 32 g/dL) is most likely not clinically significant; however, it should be interpreted with caution in correlation with other red cell parameters and the patient's clinical condition. MCV (RBC) [Entitic vol] 90.1 fL 80.0 - 100.0 fL [facility] Monocytes (Bld) [#/Vol] 837 10*3/uL [facility] Monocytes/100 WBC (Bld) 9 % [facility] Neutrophils (Bld) [#/Vol] 6817 10*3/uL [facility] Neutrophils/100 WBC (Bld) 73.3 % [facility] Platelet mean volume (Bld) [Entitic vol] 10.7 fL 7.5 - 12.5 fL [facility] Platelets (Bld) [#/Vol] 315 10*3/uL [facility] RBC (Bld) [#/Vol] 4.86 10*6/uL [facility] WBC (Bld) [#/Vol] 9.3 10*3/uL [facility] - Chemistry and C hemistry - challengeon 12-26-2024 Albumin [Mass/Vol] 4.6 g/dL 3.6 - 5.1 g/dL [facility] Albumin/Globulin [Mass ratio] 2 {ratio} [facility] ALP [Catalytic activity/Vol] 61 U/L 31 - 125 U/L [facility] ALT [Catalytic activity/Vol] 10 U/L 6 - 29 U/L [facility] AST [Catalytic activity/Vol] 15 U/L 10 - 30 U/L [facility] Bilirubin [Mass/Vol] 1 mg/dL 0.2 - 1 .2 mg/dL [facility] Calcium [Mass/Vol] 9.5 mg/dL 8.6 - 10. 2 mg/dL [facility] Chloride [Moles/Vol] 102 mmol/L 98 - 11 0 mmol/L [facility] CO2 [Moles/Vol] 26 mmol/L 20 - 32 mmol/L [facility] Creatinine [Mass/Vol] 0.62 mg/dL 0.50 - 0.96 mg/dL [facility] GFR/1.73 sq M.predicted among non-blacks MDRD (S/P/Bld) [Vol rate/Area] 131 mL/min/{1.73_m2} > OR = 60 mL/min/1.73m 2 [facility] Globulin (S) [Mass/Vol] 2.3 g/dL [facility] Glucose [Mass/Vol] 83 mg/dL 65 - 99 mg/dL [facility] Comment on above: Fasting reference interval Potassium [Moles/Vol] 3.8 mmol/L 3.5 - 5.3 mmol/L [facility] Protein [Mass/Vol] 6.9 g/dL 6.1 - 8.1 g/dL [facility] Sodium [Moles/Vol] 137 mmol/L 135 - 146 mmol/L [facility] Urea nitrogen [Mass/Vol] 8 mg/dL 7 - 25 mg/dL [facility] Urea nitrogen/Creatinine [Mass ratio] SEE NOTE: [facility] Comment on above: Not Reported: BUN an d Creatinine are within reference range. Lipid 1996 panelon 5 Cholesterol [Mass/Vol] 161 mg/dL NINF - 200 mg/dL [facility] Cholesterol in HDL [Mass/Vol] 58 mg/dL > OR = 50 [facility] Cholesterol in LDL [Mass/Vol] 88 mg/dL mg/dL (calc) [facility] Comment on above: Reference range: <10 0 Desirable range <100 mg/dL for primary prevention; <70 mg/dL for patients with CHD or diabetic patients with > or = 2 CHD risk factors. LDL-C is now calculated using the Reid calculation, which is a validated novel method providing better accuracy than the Friedewald equation in the estimation of LDL-C. Beltran LAURA et al. CRISPIN. 2013;310(19): 5580-3130 (http://education.Brndstr.TC Website Promotions/faq/ABL845) Cholesterol non HDL [Mass/Vol] 103 mg/dL [facility] [place] Comment on above: For patients with di abetes plus 1 major ASCVD risk factor, treating to a non-HDL-C goal of <100 mg/dL (LDL-C of <70 mg/dL) is considered a therapeutic option. Cholesterol.total/Chol esterol in HDL [Mass ratio] 2.8 {ratio} [facility] [place] Triglyceride [Mass/Vol] 67 mg/dL [facility] 150 mg/dL [facility] No Panel Informationon 12-26 Performing Organization Information Site ID: QPT Name: [facility] Address: [address] [place] [address], [address] [place] [id number] Director: Evan Romero MD [facility] No Panel Informationon 12-25 US SOFT TISSUE PALPABLE MASS Reason for exam: Baseball sized lump in groin Prior comparative studies: None Findings: High resolution ultrasound is performed at an area of palpable concern in the left groin. There is an enlarged lymph node measuring 3.2 x 1.3 cm. There is cortical thickening at 8 mm. However, overall architecture remains intact. No shadowing or distortion is apparent. No eccentric vascular supply is apparent. IMPRESSION: 1. Mildly enlarged left inguinal lymph node with some cortical thickening. This could be reactive. Recommend correlation for inflammatory process in the left lower extremity. A trial of clinical monitoring may be appropriate. However, if this finding persists or progresses, repeat ultrasound or ultrasound-guided FNA should be considered. IMAGING Bienvenido Parsons MD - 12/25/2024 US SOFT TISSUE PALPABLE MASS Reason for exam: Baseball sized lump in groin Prior comparative studies: None Findings: High resolution ultrasound is performed at an area of palpable concern in the left groin. There is an enlarged lymph node measuring 3.2 x 1.3 cm. There is cortical thickening at 8 mm. However, overall architecture remains intact. No shadowing or distortion is apparent. No eccentric vascular supply is apparent. IMPRESSION: 1. Mildly enlarged left inguinal lymph node with some cortical thickening. This could be reactive. Recommend correlation for inflammatory process in the left lower extremity. A trial of clinical monitoring may be appropriate. However, if this finding persists or progresses, repeat ultrasound or ultrasound-guided FNA should be considered. [facility] Study observation (narrative) [facility] No Panel InformationOrdered By: Bienvenido Parsons on 12-25-2024 [facility] Work Phone: US SOFT TISSUE PALPABLE MASS on 12-25-2024 US SOFT TISSUE PALPABLE MASS US SOFT TISSUE PALPABLE MASS Reason for exam: Baseball sized lump in groin Prior comparative studies: None Findings: High resolution ultrasound is performed at an area of palpable concern in the left groin. There is an enlarged lymph node measuring 3.2 x 1.3 cm. There is cortical thickening at 8 mm. However, overall architecture remains intact. No shadowing or distortion is apparent. No eccentric vascular supply is apparent. IMPRESSION: 1. Mildly enlarged left inguinal lymph node with some cortical thickening. This could be reactive. Recommend correlation for inflammatory process in the left lower extremity. A trial of clinical monitoring may be appropriate. However, if this finding persists or progresses, repeat ultrasound or ultrasound-guided FNA should be considered. Normal Not Available BV/VAGINITIS PANEL DNA PROBE on 12-02-2024 SAVANNA: Not detected Normal NOT DETECTED [facility] Comment on above: Performed By: #### 1 [id number] #### [facility] [address], [address] [place] [address] Glass Mechanic: Evan Romero MD GARDNERELLA: Detected Abnormal NOT DETECTED [facility] Comment on above: Result Comment: Incr eased levels of G. vaginalis may not be significant in the absence of signs and symptoms of bacterial vaginosis. Performed By: #### 1 7407 #### [facility] [address], [address] [place] [address] Glass Mechanic: Evan Romero MD TRICHOMONAS: Not detected Normal NOT DETECTED [facility] Comment on above: Performed By: #### 1 3207 #### [facility] [address], [address] [place] [address] Glass Mechanic: Evan Romero MD Vaginitis DNA Probeson 12-02 [place] sp rRNA Probe Ql (Vag fld) Not detected NOT DETECTED [facility] G. vaginalis rRNA Probe Ql (Genital specimen) Detected Abnormal NOT DETECTED [facility] Comment on above: Increased levels of G. vaginalis may not be significant in the absence of signs and symptoms of bacterial vaginosis. Interpretation and review of laboratory results Abnormal [facility] T. vaginalis rRNA Probe Ql (Genital specimen) Not detected NOT DETECTED [facility] Laboratory - Chemistry and C hemistry - challengeon 12-01-2024 Bilirubin Ql (U) Negative Negative [facility] Glucose Ql (U) Negative Normal, Negative mg/dL [facility] Ketones Ql (U) Negative Negative mg/dL [facility] pH (U) 6.5 [pH] 5.0 - 7.[address] [facility] Specific gravity (U) [Rel density] 1.02 1.005 - 1.[address] [facility] Urobilinogen Qn (U) 0.2 mg/dL <2.0, 0. 2, Normal, Negative, 1.0, 2.0, <1.[address] [facility] Laboratory - Hematology and Cell countson 12-01-2024 Hemoglobin Ql (U) Trace-intact Abnormal Negative [facility] Laboratory - Specimen inform ationon 12-01-2024 Color (U) Yellow Yellow, Light Yellow, Dark Yellow [facility] Laboratory - Urinalysison Leukocyte esterase Test strip Ql (U) Trace Abnormal Negative [facility] Nitrite Ql (U) Negative Negative [facility] Protein Ql (U) Negative Negative mg/dL [facility] No Panel Informationon 12-01 Clarity, UA Slightly Cloudy Abnormal Clear [facility] Interpretation and review of laboratory results Abnormal [facility] VAGINITIS DNA PROBESon 12-01 VAGINITIS DNA PROBES EXT MAURO - TRICHOMONAS: NOT DETECTED EXT MAURO - GARDNERELLA: DETECTED Increased levels of G. vaginalis may not be significant in the absence of signs and symptoms of bacterial vaginosis. EXT MAURO - SAVANNA: NOT DETECTED Abnormal NOT DETECTED [facility] ALL CBC WITH AUTO DIFFon BASOPHILS ABSOLUTE AUTO 0.0 [facility] Basophils/100 WBC (Bld) 0.4 % 0.2 - 2.0 % [facility] Eosinophils/100 WBC (Bld) 1.5 % 0.9 - 7.0 % [facility] Erythrocyte distribution width (RBC) [Ratio] 11.6 % 11.0 - 15.0 % [facility] Hematocrit (Bld) [Volume fraction] 41.7 % 36.0 - 48.0 % [facility] Hemoglobin (Bld) [Mass/Vol] 14.1 g/dL 12.0 - 16.0 g/dL [facility] IMMATURE GRANULOCYTES ABS AUTO 0.01 [facility] Immature granulocytes/100 WBC (Bld) 0.1 % 0.0 - 0.5 % [facility] LYMPHOCYTES ABSOLUTE AUTO 2.4 [facility] Lymphocytes/100 WBC (Bld) 35.6 % 20.5 - 60.0 % [facility] MCH (RBC) [Entitic mass] 30.0 pg 26.7 - 34.0 pg [facility] MCHC (RBC) [Mass/Vol] 33.8 g/dL 29.9 - 35.2 g/dL [facility] MCV (RBC) [Entitic vol] 88.7 fL 81.0 - 99.0 fL [facility] MONOCYTES ABSOLUTE AUTO 0.6 [facility] Monocytes/100 WBC (Bld) 8.2 % 1.7 - 12.0 % [facility] NEUTROPHILS ABSOLUTE AUTO 3.7 [facility] Neutrophils/100 WBC (Bld) 54.2 % 43.0 - 75.0 % [facility] Platelet mean volume (Bld) [Entitic vol] 10.0 fL 9.5 - 13.5 fL [facility]H EO # 0.1 [facility] Health[facility] TB PLT 257 [facility] e TB RBC 4.70 [facility]H WBC 6.9 [facility] e [facility] e BASIC METABOLIC PANELon 07-19 Anion gap [Moles/Vol] 21 mmol/L High 10-20 [facility] Comment on above: Order Comment: Negat ewelina: The result is less than or equal to 5 mIU/mL of HCG. Performed By: #### 4 5826 #### [facility] [address] [place] [address] [place], [place] [address] Frankie Kramer D.O. [id number] Calcium [Mass/Vol] 10.0 mg/dL Normal 8.4-10.[address] [facility] Comment on above: Order Comment: Negat ewelina: The result is less than or equal to 5 mIU/mL of HCG. Performed By: #### 4 5826 #### [address] [place] [address] Frankie Kramer D.O. [id number] Chloride [Moles/Vol] 101 mmol/L Normal 98-108 [facility] Comment on above: Order Comment: Negat ewelina: The result is less than or equal to 5 mIU/mL of HCG. Performed By: #### 4 5826 #### [address] [place] [address] Frankie Kramer D.O. [id number] Creatinine [Mass/Vol] 0.70 mg/dL Normal 0.40-1.10 [facility] Comment on above: Order Comment: Negat ewelina: The result is less than or equal to 5 mIU/mL of HCG. Performed By: #### 4 5826 #### [address] [place] [address] Frankie Kramer D.O. [id number] EGFR 127 mL/min/1.73 m2 Normal >=60 [facility] Comment on above: Order Comment: Negat ewelina: The result is less than or equal to 5 mIU/mL of HCG. Result Comment: Whitney mated GFR was calculated using the 2020 CKD-EPI creatinine equation. Performed By: #### 4 5826 #### [address] [place] [address] Frankie Kramer D.O. [id number] Glucose [Mass/Vol] 96 mg/dL Normal 65-99 [facility] Comment on above: Order Comment: Negat ewelina: The result is less than or equal to 5 mIU/mL of HCG. Performed By: #### 4 5826 #### [address] [place] [address] Frankie Kramer D.O. [id number] HCO3 (Bld) [Moles/Vol] 23 mmol/L Normal 21-32 [facility] Comment on above: Order Comment: Negat ewelina: The result is less than or equal to 5 mIU/mL of HCG. Performed By: #### 4 [id number] #### [address] [place] [address] Frankie Kramer D.O. [id number] Potassium [Moles/Vol] 3.7 mmol/L Normal 3.5-5.1 [facility] Comment on above: Order Comment: Negat ewelina: The result is less than or equal to 5 mIU/mL of HCG. Performed By: #### 4 5826 #### [address] [place] [address] Frankie Kramer D.O. [id number] Sodium [Moles/Vol] 141 mmol/L Normal 135-145 [facility] Comment on above: Order Comment: Negat ewelina: The result is less than or equal to 5 mIU/mL of HCG. Performed By: #### 4 5826 #### [address] [place] [address] Frankie Kramer D.O. [id number] Urea nitrogen [Mass/Vol] 6 mg/dL Low 8-25 [facility] Comment on above: Order Comment: Negat ewelina: The result is less than or equal to 5 mIU/mL of HCG. Performed By: #### 4 5826 #### [address] [place] [address] Frankie Kramer D.O. [id number] Urea nitrogen/Creatinine [Mass ratio] 8.6 mg/mg Low 10.0-20.0 [facility] Comment on above: Order Comment: Negat ewelina: The result is less than or equal to 5 mIU/mL of HCG. Performed By: #### 4 5826 #### [address] [place] [address] Frankie Kramer D.O. [id number] CBC WITH AUTO DIFFERENTIALon 08-01-2024 AUTO NRBC 0.0 % Normal [facility] Comment on above: Performed By: #### L [id number] #### [address] [place] [address] Frankie Kramer D.O. [id number] AUTO NRBC ABS COUNT 0.00 K/mcL Normal 0.00-0.00 [facility] Comment on above: Performed By: #### L [id number] #### [address] [place] [address] Frankie Kramer D.O. [id number] BASOPHILS ABSOLUTE COUNT 0.04 K/mcL Normal 0.00-0.30 [facility] Comment on above: Performed By: #### L [id number] #### [address] [place] [address] Frankie Kramer D.O. [id number] Basophils/100 WBC (Bld) 0.6 % Normal [facility] Comment on above: Performed By: #### L [id number] #### [address] [place] [address] Frankie Kramer D.O. [id number] Eosinophils (Bld) [#/Vol] 0.01 10*3/uL Normal 0.00-0.50 [facility] Comment on above: Performed By: #### L [id number] #### [address] [place] [address] Frankie Kramer D.O. [id number] Eosinophils/100 WBC (Bld) 0.2 % Normal [facility] Comment on above: Performed By: #### L [id number] #### [address] [place] [address] Frankie Kramer D.O. [id number] Erythrocyte distribution width (RBC) [Ratio] 11.8 % Normal 11.6-14.8 [facility] Comment on above: Performed By: #### L [id number] #### [address] [place] [address] Frankie Kramer D.O. [id number] Hematocrit (Bld) [Volume fraction] 44.3 % Normal 36.0-46.0 [facility] Comment on above: Performed By: #### L [id number] #### [address] [place] [address] Frankie Kramer D.O. [id number] Hemoglobin (Bld) [Mass/Vol] 15.1 g/dL Normal 12.0-16.0 [facility] Comment on above: Performed By: #### L [id number] #### [address] [place] [address] Frankie Kramer D.O. [id number] IG ABSOLUTE 0.02 K/mcL Normal 0.00-0.30 [facility] Comment on above: Performed By: #### L [id number] #### [address] [place] [address] Frankie Kramer D.O. [id number] IG PERCENT 0.30 % Normal [facility] Comment on above: Result Comment: The IG parameter is the percentage of metamyelocytes, myelocytes and promyelocytes. An immature granulocyte count (IG) of 1% or more suggests the possibility of infection, an IG count of 3% is very likely related to an infection. Performed By: #### L [id number] #### [address] [place] [address] Frankie Kramer D.O. [id number] Lymphocytes (Bld) [#/Vol] 2.44 10*3/uL Normal 0.90-4.00 [facility] Comment on above: Performed By: #### L [id number] #### [address] [place] [address] Frankie Kramer D.O. [id number] Lymphocytes/100 WBC (Bld) 37.7 % Normal [facility] Comment on above: Performed By: #### L [id number] #### [address] [place] [address] Frankie Kramer D.O. [id number] MCH (RBC) [Entitic mass] 29.7 pg Normal 26.0-34.0 [facility] Comment on above: Performed By: #### L [id number] #### [address] [place] [address] Frankie Kramer D.O. [id number] MCV (RBC) [Entitic vol] 87.0 fL Normal 80.0-100.0 [facility] Comment on above: Performed By: #### L [id number] #### [address] [place] [address] Frankie Kramer D.O. [id number] MEAN CORPUSCULAR HEMOGLOBIN CONC 34.1 g/dL Normal 31.0-37.0 [facility] Comment on above: Performed By: #### L [id number] #### [address] [place] [address] Frankie Kramer D.O. [id number] Monocytes (Bld) [#/Vol] 0.47 10*3/uL Normal 0.30-0.90 [facility] Comment on above: Performed By: #### L [id number] #### [address] [place] [address] Frankie Kramer D.O. [id number] Monocytes/100 WBC (Bld) 7.3 % Normal [facility] Comment on above: Performed By: #### L [id number] #### [address] [place] [address] Frankie Kramer D.O. [id number] NEUTROPHILS ABSOLUTE COUNT 3.49 K/mcL Normal 1.70-7.00 [facility] Comment on above: Performed By: #### L [id number] #### [address] [place] [address] Frankie Kramer D.O. [id number] Neutrophils/100 WBC (Bld) 53.9 % Normal [facility] Comment on above: Performed By: #### L [id number] #### [address] [place] [address] Yue LukeOMaddison [id number] Platelet mean volume (Bld) [Entitic vol] 9.5 fL Normal 9.4-12.4 [facility] Comment on above: Performed By: #### L [id number] #### [address] [place] [address] Yue LukeOMaddison [id number] Platelets (Bld) [#/Vol] 418 10*3/uL High 150-400 [facility] Comment on above: Performed By: #### L [id number] #### [address] [place] [address] Frankie Kramer D.O. [id number] RBC (Bld) [#/Vol] 5.09 10*6/uL Normal 4.00-5.20 [facility] Comment on above: Performed By: #### L [id number] #### [address] [place] [address] Frankie Kramer D.O. [id number] WBC (Bld) [#/Vol] 6.47 10*3/uL Normal 4.50-11.00 [facility] Comment on above: Performed By: #### L [id number] #### [address] [place] [address] Frankie Kramer D.O. [id number] DRUGS OF ABUSE SCREEN, URINE on 08-01-2024 AMPHETAMINE SCREEN, URINE Positive Abnormal None Detected [facility] Comment on above: Order Comment: Scree n results should be used for treatment purposes only. Specimen will be kept for 2 weeks, if the sample is adequate. Confirmation testing can be initiated by calling the lab within 2 weeks. Result Comment: Urin e Amphetamine Cutoff: < 1000 ng/mL = None Detected Performed By: #### 4 6965 #### [address] [place] [address] Yue LukeOMaddison [id number] BARBITURATE SCREEN URINE Not detected Normal None Detected [facility] Comment on above: Order Comment: Scree n results should be used for treatment purposes only. Specimen will be kept for 2 weeks, if the sample is adequate. Confirmation testing can be initiated by calling the lab within 2 weeks. Result Comment: Urin e Barbiturates Cutoff: < 200 ng/mL = None Detected Performed By: #### 4 6965 #### [address] [place] [address] Frankie Kramer D.O. [id number] BENZODIAZEPINE SCREEN, URINE Not detected Normal None Detected [facility] Comment on above: Order Comment: Scree n results should be used for treatment purposes only. Specimen will be kept for 2 weeks, if the sample is adequate. Confirmation testing can be initiated by calling the lab within 2 weeks. Result Comment: Urin e Benzodiazepine Cutoff: < 200 ng/mL = None Detected Performed By: #### 4 6965 #### [address] [place] [address] Meek Luke.O. [id number] BUPRENORPHINE, URINE Not detected Normal None Detected [facility] Comment on above: Order Comment: Scree n results should be used for treatment purposes only. Specimen will be kept for 2 weeks, if the sample is adequate. Confirmation testing can be initiated by calling the lab within 2 weeks. Result Comment: Urin e Buprenorphine Cutoff: < 5 ng/mL = None Detected Performed By: #### 4 [id number] #### [address] [place] [address] Meek Luke.OMaddison [id number] CANNABINOID SCREEN URINE Not detected Normal None Detected [facility] Comment on above: Order Comment: Scree n results should be used for treatment purposes only. Specimen will be kept for 2 weeks, if the sample is adequate. Confirmation testing can be initiated by calling the lab within 2 weeks. Result Comment: Urin e Cannabinoids Cutoff: < 50 ng/mL = None Detected Performed By: #### 4 [id number] #### [address] [place] [address] Yue LukeOMaddison [id number] COCAINE, SCREEN URINE Not detected Normal None Detected [facility] Comment on above: Order Comment: Scree n results should be used for treatment purposes only. Specimen will be kept for 2 weeks, if the sample is adequate. Confirmation testing can be initiated by calling the lab within 2 weeks. Result Comment: Urin e Cocaine Cutoff: < 300 ng/mL = None Detected Performed By: #### 4 6965 #### [address] [place] [address] Yue LukeOMaddison [id number] FENTANYL, URINE Not detected Normal None Detected [facility] Comment on above: Order Comment: Scree n results should be used for treatment purposes only. Specimen will be kept for 2 weeks, if the sample is adequate. Confirmation testing can be initiated by calling the lab within 2 weeks. Result Comment: Urin e Fentanyl Cutoff: < 1 ng/mL = None Detected Performed By: #### 4 [id number] #### [address] [place] [address] Meek Luke.OMaddison [id number] METHADONE SCREEN, URINE Not detected Normal None Detected [facility] Comment on above: Order Comment: Scree n results should be used for treatment purposes only. Specimen will be kept for 2 weeks, if the sample is adequate. Confirmation testing can be initiated by calling the lab within 2 weeks. Result Comment: Urin e Methadone Cutoff: < 300 ng/mL = None Detected Performed By: #### 4 6965 #### [address] [place], [place] [address] Frankie Kramer, D.O. [id number] OPIATE SCREEN URINE Not detected Normal None Detected [facility] Comment on above: Order Comment: Scree n results should be used for treatment purposes only. Specimen will be kept for 2 weeks, if the sample is adequate. Confirmation testing can be initiated by calling the lab within 2 weeks. Result Comment: Urin e Opiates Cutoff: < 300 ng/mL = None Detected Performed By: #### 4 [id number] #### [address] [place] [address] Meek Luke.O. [id number] OXYCODONE SCREEN, URINE Not detected Normal None Detected [facility] Comment on above: Order Comment: Scree n results should be used for treatment purposes only. Specimen will be kept for 2 weeks, if the sample is adequate. Confirmation testing can be initiated by calling the lab within 2 weeks. Result Comment: Urin e Oxycodone Cutoff: < 100 ng/mL = None Detected Performed By: #### 4 [id number] #### [address] [place], [place] [address] Frankie Kramer, D.O. [id number] ED Procedureon 08-01-2024 ED Procedure EKG 12-lead Date/Time: 08/01/2024 7:57 PM Performed by: Abbey Hannah MD Authorized by: Sophia Bal CNP Interpreted by ED attending physician Comparison: compared with previous ECG from 03/10/2023 Comparison to previous ECG: Significant changes have occurred Rhythm: sinus tachycardia Rhythm comments: sinus tachycardia BPM: 111 [place] Interval: 128 QRS Interval: 76 QT Interval: 466 Other findings: prolonged QTc interval Clinical impression: abnormal ECG and sinus tachycardia Comments: Prolongd QTc AUTHENTICATED BY ABBEY HANNAH, ON 08/01/2024 22:22:14 Normal [facility] ED Prov Noteon 08-01-2024 ED Prov Note ED PROVIDER NOTE [facility] NAME: Gudelia Araujo AGE: 19 y.o. : 2005 VISIT DATE: 08/01/2024 CSN: [id number] PCP: Carmenza Ruelas DO Chief Complaint Patient [...] Resource Strain: Medium Risk (10/09/2023) [facility] Financial Resource Strain (CARDIA) Difficulty of Paying Living Expenses: Somewhat hard Food Insecurity: Patient Declined (04/26/2024) Received from [facility] Hunger Screening Within the past 12 months we worried whether our food would run out before we got money to buy more.: Patient Declined Within the past 12 months the food we bought just didn't last and we didn't have money to get more.: Patient Declined Transportation Needs: No Transportation Needs (10/09/2023) [facility] PRAPARE - Transportation Lack of Transportation (Medical): No Lack of Transportation (Non-Medical): No Physical Activity: Insufficiently Active (10/09/2023) [facility] Exercise Vital Sign Days of Exercise per Week: 3 days Minutes of Exercise per Session: 20 min Stress: No Stress Concern Present (10/09/2023) Received from [facility] [place] [facility] - Occupational Stress Questionnaire Feeling of Stress : Only a little Social Connections: Socially Isolated (10/09/2023) [facility] Social Connection and Isolation Panel [NHANES] Frequency of Communication with Friends and Family: More than three times a week Frequency of Social Gatherings with Friends and Family: More than three times a week Attends [employer] Services: Never Active Member of Clubs or Organizations: No Attends Club or Organization Meetings: Never Marital Status: Never Housing Stability: Low Risk (10/09/2023) [facility] Housing Stability Vital Sign Unable to Pay [...] -- 91 18 100 % -- -- 08/01/24 1921 -- -- -- (!) 112 18 -- 5' 7 69 kg (152 lb 1.6 oz) 08/01/24 1854 (!) 146/91 98.2 degrees F (36.8 degrees C) Oral (!) 160 -- 100 % -- -- Physical Exam Vitals and nursing note reviewed. Constitutional: General: She is not in acu (more content not included)... Normal [facility] HCG, SERUM, QUALITATIVEon BETA-HCG QUAL BLOOD Negative Normal Negative [facility] Comment on above: Order Comment: Negat ewelina: The result is less than or equal to 5 mIU/mL of HCG. Performed By: #### 4 [id number] #### [address] [place] [address] Frankie Kramer D.O. [id number] HEPATIC FUNCTION PANELon Albumin [Mass/Vol] 4.8 g/dL Normal 3.2-5.2 [facility] Comment on above: Performed By: #### 4 [id number] #### [address] [place] [address] Frankie Kramer D.O. [id number] ALP [Catalytic activity/Vol] 78 U/L Normal 40-140 [facility] Comment on above: Performed By: #### 4 5826 #### [address] [place] [address] Frankie Kramer D.O. [id number] ALT [Catalytic activity/Vol] 11 U/L Normal 0-35 U/L [facility] Comment on above: Performed By: #### 4 [id number] #### [address] [place] [address] Frankie Kramer D.O. [id number] AST [Catalytic activity/Vol] 19 U/L Normal 0-35 U/L [facility] Comment on above: Performed By: #### 4 [id number] #### [address] [place] [address] Frankie Kramer D.O. [id number] Bilirubin [Mass/Vol] 0.4 mg/dL Normal 0.0-1.3 [facility] Comment on above: Performed By: #### 4 5826 #### [address] [place] [address] Frankie Kramer D.O. [id number] BILIRUBIN, DIRECT < Normal 0.0-0.4 [facility] Comment on above: Performed By: #### 4 5826 #### [address] [place] [address] Frankie Kramer D.O. [id number] Protein [Mass/Vol] 7.4 g/dL Normal 6.0-8.[address] [facility] Comment on above: Performed By: #### 4 5826 #### [address] [place] [address] Frankie Kramer D.O. [id number] POC VENOUS BLOOD GAS PANEL-Yue Levy 08-01-2024 BASE EXCESS, VENOUS 1.1 Normal -2.0-2.0 [facility] Comment on above: Performed By: #### 4 5826 #### [address] [place] [address] Frankie Kramer D.O. [id number] FIO2 21 Normal [facility] Comment on above: Performed By: #### 4 5826 #### [address] [place] [address] Frankie Kramer D.O. [id number] HCO3 (Bld) [Moles/Vol] 25.1 mmol/L Normal 24.0-28.0 [facility] Comment on above: Performed By: #### 4 5826 #### [address] [place] [address] Frankie Kramer D.O. [id number] Hematocrit (Bld) [Volume fraction] 46.9 % High 36.0-46.0 [facility] Comment on above: Performed By: #### 4 [id number] #### [address] [place] [address] Frankie Kramer D.O. [id number] Hemoglobin (Bld) [Mass/Vol] 15.3 g/dL Normal 12.0-16.0 [facility] Comment on above: Performed By: #### 4 [id number] #### [address] [place] [address] Frankie Kramer D.O. [id number] Oxygen saturation in Blood 57.2 % Normal 40.0-70.0 [facility] Comment on above: Performed By: #### 4 5826 #### [address] [place] [address] Frankie Kramer D.O. [id number] PCO2 VENOUS 37.3 mm Hg Low 41.0-51.0 [facility] Comment on above: Performed By: #### 4 5826 #### [address] [place] [address] Frankie Kramer D.O. [id number] PH VENOUS 7.44 High 7.32-7.42 [facility] Comment on above: Performed By: #### 4 5826 #### [address] [place] [address] Frankie Kramer D.O. [id number] PO2 VENOUS < Normal 25-40 [facility] Comment on above: Result Comment: Caut ion: pO2 reference ranges for some specimen types are lower than the measuring range of the instrument. Performed By: #### 4 5826 #### [address] [place] [address] Frankie Kramer D.O. [id number] TSH WITH REFLEX FREE T4on TSH Qn 1.07 m[IU]/L Normal 0.27-4.20 [facility] Comment on above: Performed By: #### 4 5826 #### [address] [place] [address] Frankie Kramer D.O. [id number] URINALYSISon 08-01-2024 BACTERIA, URINE Rare Abnormal None Seen [facility] Comment on above: Order Comment: Negat ewelina: The result is less than or equal to 5 mIU/mL of HCG. Performed By: #### 4 5826 #### [address] [place] [address] Frankie Kramer D.O. [id number] BILIRUBIN, URINE Negative Normal Negative [facility] Comment on above: Order Comment: Negat ewelina: The result is less than or equal to 5 mIU/mL of HCG. Performed By: #### 4 5826 #### [address] [place] [address] Yue LukeO. [id number] BLOOD, URINE Small Abnormal Negative [facility] Comment on above: Order Comment: Negat ewelina: The result is less than or equal to 5 mIU/mL of HCG. Performed By: #### 4 5826 #### [address] [place] [address] Meek Luke.O. [id number] Clarity (U) Clear Normal Clear [facility] Comment on above: Order Comment: Negat ewelina: The result is less than or equal to 5 mIU/mL of HCG. Performed By: #### 4 5826 #### [place] [address] Meek Luke.OMaddison [id number] Color (U) Yellow Normal Colorless, Yellow [facility] Comment on above: Order Comment: Negat ewelina: The result is less than or equal to 5 mIU/mL of HCG. Performed By: #### 4 5826 #### [place] [address] Meek Luke.O. [id number] Glucose Ql (U) Negative Normal Negative [facility] Comment on above: Order Comment: Negat ewelina: The result is less than or equal to 5 mIU/mL of HCG. Performed By: #### 4 5826 #### [address] [place] [address] Meek Luke.OMaddison [id number] Ketones Ql (U) Negative Normal [facility] Comment on above: Order Comment: Negat ewelina: The result is less than or equal to 5 mIU/mL of HCG. Performed By: #### 4 5881 #### [place] [address] Yue LukeO. [id number] Leukocyte esterase Test strip Ql (U) Negative Normal [facility] Comment on above: Order Comment: Negat ewelina: The result is less than or equal to 5 mIU/mL of HCG. Performed By: #### 4 5826 #### [address] [place] [address] Frankie Kramer D.O. [id number] NITRITE, URINE Negative Normal Negative [facility] Comment on above: Order Comment: Negat ewelina: The result is less than or equal to 5 mIU/mL of HCG. Performed By: #### 4 5826 #### [address] [place] [address] Frankie Kramer D.O. [id number] pH (U) 7.0 [pH] Normal 5.0-7.0 [facility] Comment on above: Order Comment: Negat ewelina: The result is less than or equal to 5 mIU/mL of HCG. Performed By: #### 4 5826 #### [address] [place] [address] Frankie Kramer D.O. [id number] PROTEIN, URINE Negative Normal Negative [facility] Comment on above: Order Comment: Negat ewelina: The result is less than or equal to 5 mIU/mL of HCG. Performed By: #### 4 5826 #### [address] [place] [address] Frankie Kramer D.O. [id number] RBC LM.HPF (Urine sed) [#/Area] 1 /[HPF] Normal 0-3 [facility] Comment on above: Order Comment: Negat ewelina: The result is less than or equal to 5 mIU/mL of HCG. Performed By: #### 4 5826 #### [address] [place] [address] Frankie Kramer D.O. [id number] Specific gravity (U) [Rel density] 1.011 Normal 1.005-1.025 [facility] Comment on above: Order Comment: Negat ewelina: The result is less than or equal to 5 mIU/mL of HCG. Performed By: #### 4 5826 #### [address] [place] [address] Frankie Kramer D.O. [id number] SQUAMOUS EPITHELIAL 7 /hpf High 0-4 [facility] Comment on above: Order Comment: Negat ewelina: The result is less than or equal to 5 mIU/mL of HCG. Performed By: #### 4 5826 #### [address] [place] [id number] Frankie Kramer D.O. [id number] UROBILINOGEN, URINE <2.0 Normal <2.0 [facility] Comment on above: Order Comment: Negat ewelina: The result is less than or equal to 5 mIU/mL of HCG. Performed By: #### 4 5826 #### [address] [place] [address] Frankie Kramer D.O. [id number] WBC LM.HPF (Urine sed) [#/Area] 4 /[HPF] Normal 0-5 [facility] Comment on above: Order Comment: Negat ewelina: The result is less than or equal to 5 mIU/mL of HCG. Performed By: #### 4 5826 #### [address] [place] [address] Frankie Kramer D.O. [id number] XR CHEST PA/APon 08-01-2024 XR CHEST PA/AP EXAMINATION: XR CHEST PA/AP HISTORY: sob COMPARISON: Chest radiograph 07/09/2024t [facility] FINDINGS: Cardiomediastinal silhouette is normal. The lungs are clear of any congestion or infiltrate. No pleural effusion. No acute osseous abnormality. IMPRESSION: No acute abnormality. Workstation ID: [id number] Dictated by: KARLENE MOLINA on [facility] Aug 01, 2024 9:44:31 PM EDT Transcribed by: KARLENE MOLINA on [facility] Aug 01, 2024 9:44:31 PM EDT Finalized by: KARLENE MOLINA on [facility] Aug 01, 2024 9:44:31 PM EDT Normal [facility] Comment on above: Order Comment: Injur y/Trauma [...] NEISSERIA GONORRHOEAE AMPLIFIED RNA NEGATIVE Normal Negative [facility] Urgent [facility] Comment on above: Performed By: #### 4 [id number] #### [facility] [address] [place] [id number] Luis Garcia M.D. [id number] POC Urinalysis Dipstick,Auto UCon 04-23-2024 Bilirubin Ql (U) Negative Negative [facility] th Clarity, UA Cloudy Abnormal Clear [facility] Color (U) Yellow Yellow, Light Yellow, Dark Yellow [facility] Glucose Ql (U) Negative Normal, Negative mg/dL [facility] Hemoglobin Ql (U) Trace-intact Abnormal Negative [facility] Interpretation and review of laboratory results Abnormal [facility] Ketones Ql (U) Negative Negative mg/dL [facility] Leukocyte esterase Test strip Ql (U) Small Abnormal Negative [facility] Nitrite Ql (U) Negative Negative [facility] pH (U) 7.0 [pH] 5.0 - 7.[address] [facility] Protein Ql (U) Negative Negative mg/dL [facility] Specific gravity (U) [Rel density] 1.025 1.005 - 1.[address] [facility] Urobilinogen Qn (U) 0.2 mg/dL <2.0, 0. 2, Normal, Negative, 1.0, 2.0, <1.0 [facility] TRICHOMONAS VAGINALIS AMPLIF IED RNAon 04-23-2024 TRICHOMONAS VAGINALIS AMPLIFIED RNA Negative Normal Negative [facility] Comment on above: Performed By: #### L [id number] #### [facility] [address] [place] [id number] Luis Garcia M.D. [id number] URINE AEROBIC CULTUREon URINE AEROBIC CULTURE URINE CULTURE No Growth (<1,000 CFU/mL) Normal [facility] Comment on above: Performed By: #### 4 4053 #### [facility] [address] [place] [address] Luis Garcia M.D. [id number] POC Rapid Strep AOrdered By: Margot Díaz on 10-21-2023 Interpretation and review of laboratory results Normal [facility] S. pyogenes Ag Ql (Throat) Negative Negative [facility] Bacteria identified Aer cx N om (Unsp spec)Ordered By: Frankie Gerber on 09-21-2023 Interpretation and review of laboratory results Abnormal [facility] Urine cultureOrdered By: Milagro Gerber on 09-21-2023 Bacteria identified Aer cx Nom (Unsp spec) >100,000 CFU/mL Proteus mirabilis Abnormal [facility] Laboratory - Chemistry and C hemistry - challengeOrdered By: Margot Díaz on 09-19-2023 Bilirubin Ql (U) Negative Negative [facility] Glucose Ql (U) Negative Normal, Negative mg/dL [facility] Ketones Ql (U) Negative Negative mg/dL [facility] pH (U) 7.0 [pH] 5.0 - 7.[address] [facility] Specific gravity (U) [Rel density] 1.020 1.005 - 1.[address] [facility] Urobilinogen Qn (U) 0.2 mg/dL <2.0, 0. 2, Normal, Negative, 1.0, 2.0, <1.[address] [facility] - Hematology and Cell countsOrdered By: Margot Díaz on 09-19-2023 Hemoglobin Ql (U) Moderate Abnormal Negative [facility] - Specimen inform ationOrdered By: Margot Díaz on 09-19-2023 Color (U) Yellow Yellow, Light Yellow, Dark Yellow [facility] - UrinalysisOrder ed By: Margot Díaz on 09-19-2023 Leukocyte esterase Test strip Ql (U) Small Abnormal Negative [facility] Nitrite Ql (U) Negative Negative [facility] Protein Ql (U) Negative Negative mg/dL [facility] No Panel InformationOrdered By: Margot Díaz on 09-19-2023 Clarity, UA Cloudy Abnormal Clear [facility] Interpretation and review of laboratory results Abnormal [facility] Destruction of lesionon 07-20 Carmenza Ruelas DO 08/15/2023 10:22 AM Destruction [...] Response to Treatment:: Procedure was tolerated well [facility] HCG ( test) Ql (U)o n 08-08-2023 Internal Control Pass [facility] Interpretation and review of laboratory results Normal [facility] POC , Urineon 08-08 HCG ( test) Ql (U) Negative Negative [facility] Urinalysis Dipstick, Aut oOrdered By: Celia Claire on 08-08-2023 Bilirubin Ql (U) Negative Negative [facility] Glucose Ql (U) Negative Normal, Negative mg/dL [facility] Hemoglobin Ql (U) Negative Negative [facility] Interpretation and review of laboratory results Abnormal [facility] Ketones Ql (U) Negative Negative mg/dL [facility] Leukocyte esterase Test strip Ql (U) Negative Negative [facility] Nitrite Ql (U) Negative Negative [facility] pH (U) 8.5 [pH] Abnormal 5.0 - 7.[address] [facility] Protein Ql (U) Trace Abnormal Negative mg/dL [facility] Specific gravity (U) [Rel density] 1.015 1.005 - 1.[address] [facility] Urobilinogen Qn (U) 0.2 mg/dL <2.0, 0. 2, Normal, Negative, 1.0, 2.0, <1.0 [facility] POC Urinalysis Dipstick,Auto UCOrdered By: Margot Díaz on 07-25-2022 Bilirubin Ql (U) Negative Negative [facility] Clarity, UA Cloudy Abnormal Clear [facility] Color (U) Yellow Yellow, Light Yellow, Dark Yellow [facility] Glucose Ql (U) Negative Normal, Negative mg/dL [facility] [facility] Hemoglobin Ql (U) Negative Negative [facility] Interpretation and review of laboratory results Abnormal [facility] Ketones Ql (U) Negative Negative mg/dL [facility] Leukocyte esterase Test strip Ql (U) Large Abnormal Negative [facility] Nitrite Ql (U) Negative Negative [facility] pH (U) 6.5 [pH] 5 - [address] [facility] Protein Ql (U) Negative Negative mg/dL [facility] Specific gravity (U) [Rel density] 1.020 1.005 - 1.[address] [facility] Urobilinogen Qn (U) 0.2 mg/dL <2.0, 0. 2, Normal, Negative, 1.0, 2.0, <1.0 [facility] COVID Quick Testingon 2021 Result Negative [facility] Other Quick Fluon 01-17-2022 FLUAV Ab CF (S) [Titer] Negative [facility] Other FLUBV Ab CF (S) [Titer] Negative [facility] Other Quick Strepon 01-17-2022 S. pyogenes Org specific cx Ql (Throat) Negative [facility] Other Quick Strep [facility] Other COVID-19 PCRon 06-08-2020 SARS-CoV-2, KELSEA Not Detected Normal Not Detected [facility] Comment on above: Result Comment: This test was developed and its performance characteristics determined by [employer]. This test has not been FDA cleared [...] in this assay. Performed By: #### [facility] #### [facility] [address] [id number] Gena Potter Vital Signs Date Time Vital Sign Value Performing Clinician Facility 06-30-2025 11:18-0400 Body height 172.7 cm Taran BALLARD Work Phone: [facility] 06-30-2025 11:18-0400 Body mass index (BMI) [Ratio] 20.07 kg/m2 Taran BALLARD Work Phone: [facility] 06-30-2025 11:18-0400 Body weight 59.88 kg Taran BALLARD Work Phone: [facility] 06-30-2025 11:18-0400 Diastolic blood pressure 68 mm[Hg] Taran BALLARD Work Phone: [facility] 06-30-2025 11:18-0400 Systolic blood pressure 110 mm[Hg] Taran BALLARD Work Phone: [facility] 06-10-2025 13:02-0400 Body height 170.18 cm Cyndy Giles MD Work Phone: [facility] 06-10-2025 13:02-0400 Body mass index (BMI) [Ratio] 20.7 kg/m2 Cyndy Giles MD Work Phone: [facility] 06-10-2025 13:02-0400 Body temperature 98.1 [degF] Cyndy Giles MD Work Phone: [facility] 06-10-2025 13:02-0400 Body weight 60.1 kg Cyndy Giles MD Work Phone: [facility] 06-10-2025 13:02-0400 Diastolic blood pressure 85 mm[Hg] Cyndy Giles MD Work Phone: [facility] 06-10-2025 13:02-0400 Heart rate 91 /min Cyndy Giles MD Work Phone: [facility] 06-10-2025 13:02-0400 Respiratory rate 14 /min Cyndy Giles MD Work Phone: [facility] 06-10-2025 13:02-0400 SaO2% (BldA) [Mass fraction] 98 % Cyndy Giles MD Work Phone: [facility] 06-10-2025 13:02-0400 Systolic blood pressure 123 mm[Hg] Cyndy Giles MD Work Phone: [facility] 05-19-2025 11:13-0400 Body mass index (BMI) [Ratio] 19.98 kg/m2 Denae Pump DRY PAN OPERATOR Work Phone: [facility] 05-19-2025 11:13-0400 Body weight 59.6 kg Denae Pump DRY PAN OPERATOR Work Phone: [facility] 05-19-2025 11:13-0400 Diastolic blood pressure 68 mm[Hg] Denae Pump DRY PAN OPERATOR Work Phone: [facility] 05-19-2025 11:13-0400 Heart rate 76 /min Denae Pump DRY PAN OPERATOR Work Phone: [facility] 05-19-2025 11:13-0400 Systolic blood pressure 90 mm[Hg] Denae Pump DRY PAN OPERATOR Work Phone: [facility] 03-02-2025 12:05-0400 Body temperature 98.6 [degF] Taran Aguillon RESEARCH AND DEVELOPMENT TESTER Work Phone: [facility] 03-02-2025 12:05-0400 Diastolic blood pressure 76 mm[Hg] Taran Aguillon RESEARCH AND DEVELOPMENT TESTER Work Phone: [facility] 03-02-2025 12:05-0400 Heart rate 96 /min Taran Aguillon RESEARCH AND DEVELOPMENT TESTER Work Phone: [facility] 03-02-2025 12:05-0400 Respiratory rate 18 /min Taran Aguillon RESEARCH AND DEVELOPMENT TESTER Work Phone: [facility] 03-02-2025 12:05-0400 SaO2% (BldA) [Mass fraction] 96 % Taran Aguillon RESEARCH AND DEVELOPMENT TESTER Work Phone: [facility] 03-02-2025 12:05-0400 Systolic blood pressure 114 mm[Hg] Taran Aguillon CNP Work Phone: [facility] 02-08-2025 12:41-0400 Diastolic blood pressure 86 mm[Hg] Taran Aguillon CNP Work Phone: [facility] 02-08-2025 12:41-0400 Systolic blood pressure 126 mm[Hg] Taran Aguillon CNP Work Phone: [facility] 02-08-2025 12:40-0400 Body temperature 97.5 [degF] Taran Aguillon CNP Work Phone: [facility] 02-08-2025 12:40-0400 Heart rate 97 /min Taran Aguillon CNP Work Phone: [facility] 02-08-2025 12:40-0400 Respiratory rate 16 /min Taran Aguillon CNP Work Phone: [facility] 02-08-2025 12:40-0400 SaO2% (BldA) [Mass fraction] 99 % Taran Aguillon CNP Work Phone: [facility] 01-22-2025 11:22-0500 Body height 172.7 cm [facility] 01-22-2025 11:22-0500 Body mass index (BMI) [Ratio] 21.13 kg/m2 [facility] [employer] [facility] 01-22-2025 11:22-0500 Body weight 63.05 kg [facility] 01-13-2025 10:10-0500 Body height 172.7 cm Janis Morrison DO Work Phone: [facility] 01-13-2025 10:10-0500 Body mass index (BMI) [Ratio] 21.32 kg/m2 Janis Morrison DO Work Phone: [facility] 01-13-2025 10:10-0500 Body weight 63.59 kg Janis Morrison DO Work Phone: [facility] 01-13-2025 10:10-0500 Diastolic blood pressure 82 mm[Hg] Janis Morrison DO Work Phone: [facility] 01-13-2025 10:10-0500 Heart rate 92 /min Janis Morrison Work Phone: [facility] 01-13-2025 10:10-0500 Systolic blood pressure 133 mm[Hg] Janis Morrison Work Phone: [facility] 01-11-2025 15:21-0500 Body temperature 97.9 [degF] Taran Aguillon CNP Work Phone: [facility] 01-11-2025 15:21-0500 Diastolic blood pressure 86 mm[Hg] Traan Aguillon CNP Work Phone: [facility] 01-11-2025 15:21-0500 Heart rate 80 /min Taran Aguillon CNP Work Phone: [facility] 01-11-2025 15:21-0500 Respiratory rate 16 /min Taran Aguillon CNP Work Phone: [facility] 01-11-2025 15:21-0500 SaO2% (BldA) [Mass fraction] 98 % Taran Aguillon CNP Work Phone: [facility] 01-11-2025 15:21-0500 Systolic blood pressure 125 mm[Hg] Taran Aguillon CNP Work Phone: [facility] 12-30-2024 09:28-0500 Body height 172.7 cm Janis Morrison DO Work Phone: [facility] 12-30-2024 09:28-0500 Body mass index (BMI) [Ratio] 21.13 kg/m2 Janis Morrison DO Work Phone: [facility] 12-30-2024 09:28-0500 Body weight 63.05 kg Janis Morrison DO Work Phone: [facility] 12-30-2024 09:28-0500 Diastolic blood pressure 64 mm[Hg] Janis Morrison DO Work Phone: [facility] 12-30-2024 09:28-0500 Heart rate 89 /min Janis Morrison DO Work Phone: [facility] 12-30-2024 09:28-0500 Systolic blood pressure 106 mm[Hg] Janis Morrison DO Work Phone: [facility] 12-25-2024 09:31-0500 Body mass index (BMI) [Ratio] 21.32 kg/m2 Brionna Rios DRY PAN OPERATOR Work Phone: [facility] 12-25-2024 09:31-0500 Body weight 63.59 kg Brionna Rios DRY PAN OPERATOR Work Phone: [facility] 12-25-2024 09:31-0500 Diastolic blood pressure 80 mm[Hg] Brionna Rios DRY PAN OPERATOR Work Phone: [facility] 12-25-2024 09:31-0500 Heart rate 80 /min Brionna Rios DRY PAN OPERATOR Work Phone: [facility] 12-25-2024 09:31-0500 Systolic blood pressure 110 mm[Hg] Brionna Rios DRY PAN OPERATOR Work Phone: [facility] 12-01-2024 16:44-0500 Body temperature 97.81 [degF] Luke Vijay DO Work Phone: [facility] 12-01-2024 16:44-0500 Diastolic blood pressure 78 mm[Hg] Luke Vijay DO Work Phone: [facility] 12-01-2024 16:44-0500 Heart rate 84 /min Luke Vijay DO Work Phone: [facility] 12-01-2024 16:44-0500 Respiratory rate 16 /min Luke Vijay DO Work Phone: [facility] 12-01-2024 16:44-0500 SaO2% (BldA) [Mass fraction] 95 % Luke Vijay DO Work Phone: [facility] 12-01-2024 16:44-0500 Systolic blood pressure 117 mm[Hg] Randell Mckenna DO Work Phone: [facility] 08-20-2024 10:50-0400 Body mass index (BMI) [Ratio] 23.11 kg/m2 Taran Swanson PA Work Phone: [facility] 08-20-2024 10:50-0400 Body weight 68.95 kg Taran Swanson PA Work Phone: [facility] 08-20-2024 10:50-0400 Diastolic blood pressure 70 mm[Hg] Taran Swanson PA Work Phone: [facility] 08-20-2024 10:50-0400 Systolic blood pressure 110 mm[Hg] Taran Bricelyn PA Work Phone: [facility] 07-09-2024 10:30-0400 Body height 172.7 cm Garfield Alex DO Work Phone: [facility] 07-09-2024 10:30-0400 Body mass index (BMI) [Ratio] 23.42 kg/m2 Garfield Alex DO Work Phone: [facility] 07-09-2024 10:30-0400 Body weight 69.85 kg Garfield Alex DO Work Phone: [facility] 07-09-2024 10:30-0400 Diastolic blood pressure 76 mm[Hg] Garfield Alex DO Work Phone: [facility] 07-09-2024 10:30-0400 Systolic blood pressure 110 mm[Hg] Garfield Alex DO Work Phone: [facility] 04-23-2024 18:51-0400 Body temperature 97.59 [degF] Mel Novak DO Work Phone: [facility] 04-23-2024 18:51-0400 Diastolic blood pressure 79 mm[Hg] Mel Novak DO Work Phone: [facility] 04-23-2024 18:51-0400 Heart rate 78 /min Mel Novak DO Work Phone: [facility] 04-23-2024 18:51-0400 Respiratory rate 16 /min Mel Novak DO Work Phone: [facility] 04-23-2024 18:51-0400 SaO2% (BldA) [Mass fraction] 98 % Mel Novak DO Work Phone: [facility] 04-23-2024 18:51-0400 Systolic blood pressure 122 mm[Hg] Mel Novak DO Work Phone: [facility] 03-10-2024 08:56-0400 Body height 170.2 cm Sherrill Spurr RESEARCH AND DEVELOPMENT TESTER Work Phone: [facility] 03-10-2024 08:56-0400 Body mass index (BMI) [Ratio] 22.71 kg/m2 Sherrill Spurr RESEARCH AND DEVELOPMENT TESTER Work Phone: [facility] 03-10-2024 08:56-0400 Body temperature 97.7 [degF] Sherrill Spurr RESEARCH AND DEVELOPMENT TESTER Work Phone: [facility] 03-10-2024 08:56-0400 Body weight 65.77 kg Sherrill Spurr RESEARCH AND DEVELOPMENT TESTER Work Phone: [facility] 03-10-2024 08:56-0400 Diastolic blood pressure 86 mm[Hg] Sherrill Spurr RESEARCH AND DEVELOPMENT TESTER Work Phone: [facility] 03-10-2024 08:56-0400 Heart rate 68 /min Sherrill Spurr RESEARCH AND DEVELOPMENT TESTER Work Phone: [facility] 03-10-2024 08:56-0400 SaO2% (BldA) [Mass fraction] 99 % Sherrill Spurr RESEARCH AND DEVELOPMENT TESTER Work Phone: [facility] 03-10-2024 08:56-0400 Systolic blood pressure 122 mm[Hg] Sherrill Spurr RESEARCH AND DEVELOPMENT TESTER Work Phone: [facility] 01-08-2024 12:50-0500 Body temperature 98.29 [degF] Paz Mitchell PA-C Work Phone: [facility] 01-08-2024 12:50-0500 Diastolic blood pressure 82 mm[Hg] Paz Mitchell PA-C Work Phone: [facility] 01-08-2024 12:50-0500 Heart rate 94 /min Paz Mitchell PA-C Work Phone: [facility] 01-08-2024 12:50-0500 SaO2% (BldA) [Mass fraction] 98 % Paz Mitchell PA-C Work Phone: [facility] 01-08-2024 12:50-0500 Systolic blood pressure 113 mm[Hg] Paz Mitchell PA-C Work Phone: [facility] 10-21-2023 15:10-0500 Body temperature 98.29 [degF] Janis Gong DO Work Phone: [facility] 10-21-2023 15:10-0500 Diastolic blood pressure 77 mm[Hg] Janis Gong DO Work Phone: [facility] 10-21-2023 15:10-0500 Heart rate 72 /min Janis Gong DO Work Phone: [facility] 10-21-2023 15:10-0500 SaO2% (BldA) [Mass fraction] 99 % Janis Gong DO Work Phone: [facility] 10-21-2023 15:10-0500 Systolic blood pressure 115 mm[Hg] Janis Gong DO Work Phone: [facility] 09-24-2023 08:52-0500 Body temperature 98.4 [degF] ELIO Montalvo Jr.-C Work Phone: [facility] 09-24-2023 08:52-0500 Diastolic blood pressure 80 mm[Hg] ELIO Montalvo Jr.-C Work Phone: [facility] 09-24-2023 08:52-0500 Heart rate 108 /min Paz Chaudhari Jr. PA-C Work Phone: [facility] 09-24-2023 08:52-0500 SaO2% (BldA) [Mass fraction] 96 % Paz Chaudhari Jr., PA-C Work Phone: [facility] 09-24-2023 08:52-0500 Systolic blood pressure 116 mm[Hg] Paz Chaudhari Jr., PA-C Work Phone: [facility] 09-19-2023 11:37-0400 Body temperature 98.6 [degF] Ellie Schulz RESEARCH AND DEVELOPMENT TESTER Work Phone: [facility] 09-19-2023 11:37-0400 Diastolic blood pressure 86 mm[Hg] Ellie Schulz RESEARCH AND DEVELOPMENT TESTER Work Phone: [facility] 09-19-2023 11:37-0400 Heart rate 78 /min Ellie Schulz RESEARCH AND DEVELOPMENT TESTER Work Phone: [facility] 09-19-2023 11:37-0400 SaO2% (BldA) [Mass fraction] 97 % Ellie Schulz RESEARCH AND DEVELOPMENT TESTER Work Phone: [facility] 09-19-2023 11:37-0400 Systolic blood pressure 126 mm[Hg] Ellie Schulz RESEARCH AND DEVELOPMENT TESTER Work Phone: [facility] 08-15-2023 09:32-0400 Body height 167.6 cm Carmenza Balbo DO Work Phone: [facility] 08-15-2023 09:32-0400 Body mass index (BMI) [Ratio] 23.86 kg/m2 Carmenza Balbo DO Work Phone: [facility] 08-15-2023 09:32-0400 Body temperature 98.29 [degF] Carmenza Balbo DO Work Phone: [facility] 08-15-2023 09:32-0400 Body weight 67.04 kg Carmenza Balbo DO Work Phone: [facility] 08-15-2023 09:32-0400 Diastolic blood pressure 86 mm[Hg] Carmenza Balbo DO Work Phone: [facility] 08-15-2023 09:32-0400 Heart rate 114 /min Carmenza Balbo DO Work Phone: [facility] 08-15-2023 09:32-0400 Systolic blood pressure 123 mm[Hg] Carmenza Sharlao DO Work Phone: [facility] 08-08-2023 14:08-0400 Body height 167.6 cm Carmenza Sharlao DO Work Phone: [facility] 08-08-2023 14:08-0400 Body mass index (BMI) [Ratio] 24.5 kg/m2 Carmenza Sharlao DO Work Phone: [facility] 08-08-2023 14:08-0400 Body temperature 98.6 [degF] Carmenza Sharlao DO Work Phone: [facility] 08-08-2023 14:08-0400 Body weight 68.86 kg Carmenza Sharlao DO Work Phone: [facility] 08-08-2023 14:08-0400 Diastolic blood pressure 78 mm[Hg] Carmenza Magdalenoo DO Work Phone: [facility] 08-08-2023 14:08-0400 Heart rate 91 /min Carmenza Sharlao DO Work Phone: [facility] 08-08-2023 14:08-0400 SaO2% (BldA) [Mass fraction] 98 % Carmenza Sharlao DO Work Phone: [facility] 08-08-2023 14:08-0400 Systolic blood pressure 111 mm[Hg] Carmenza Sharlao DO Work Phone: [facility] 07-31-2023 14:09-0400 Body temperature 98.71 [degF] Ellie Schulz RESEARCH AND DEVELOPMENT TESTER Work Phone: [facility] 07-31-2023 14:09-0400 Diastolic blood pressure 81 mm[Hg] Ellie Schulz RESEARCH AND DEVELOPMENT TESTER Work Phone: [facility] 07-31-2023 14:09-0400 Heart rate 84 /min Ellie Schulz RESEARCH AND DEVELOPMENT TESTER Work Phone: [facility] 07-31-2023 14:09-0400 SaO2% (BldA) [Mass fraction] 98 % Ellie Schulz RESEARCH AND DEVELOPMENT TESTER Work Phone: [facility] 07-31-2023 14:09-0400 Systolic blood pressure 118 mm[Hg] Ellie Schulz RESEARCH AND DEVELOPMENT TESTER Work Phone: [facility] 07-04-2023 18:54-0400 Body mass index (BMI) [Ratio] 20.53 kg/m2 Crystal Griffith DO Work Phone: [facility] 07-04-2023 18:54-0400 Body temperature 98.6 [degF] Crystal Griffith DO Work Phone: [facility] 07-04-2023 18:54-0400 Body weight 61.24 kg Crystal Griffith DO Work Phone: [facility] 07-04-2023 18:54-0400 Diastolic blood pressure 78 mm[Hg] Crystal Griffith DO Work Phone: [facility] 07-04-2023 18:54-0400 Heart rate 71 /min Crystal Griffith DO Work Phone: [facility] 07-04-2023 18:54-0400 Respiratory rate 16 /min Crystal Griffith DO Work Phone: [facility] 07-04-2023 18:54-0400 SaO2% (BldA) [Mass fraction] 98 % Crystal Griffith DO Work Phone: [facility] 07-04-2023 18:54-0400 Systolic blood pressure 112 mm[Hg] Crystal Griffith DO Work Phone: [facility] 12-24-2022 11:40-0500 Heart rate 95 /min Ellie Schulz RESEARCH AND DEVELOPMENT TESTER Work Phone: [facility] 12-24-2022 11:23-0500 Diastolic blood pressure 87 mm[Hg] Ellie Schulz RESEARCH AND DEVELOPMENT TESTER Work Phone: [facility] 12-24-2022 11:23-0500 Systolic blood pressure 137 mm[Hg] Ellie Schulz RESEARCH AND DEVELOPMENT TESTER Work Phone: [facility] 12-24-2022 11:19-0500 Body height 172.7 cm Ellie Schulz RESEARCH AND DEVELOPMENT TESTER Work Phone: [facility] 12-24-2022 11:19-0500 Body mass index (BMI) [Percentile] Per age and sex 26.18 % Ellie Schulz RESEARCH AND DEVELOPMENT TESTER Work Phone: [facility] 12-24-2022 11:19-0500 Body mass index (BMI) [Ratio] 19.77 kg/m2 Ellie Schulz RESEARCH AND DEVELOPMENT TESTER Work Phone: [facility] 12-24-2022 11:19-0500 Body temperature 98.29 [degF] Ellie Schulz RESEARCH AND DEVELOPMENT TESTER Work Phone: [facility] 12-24-2022 11:19-0500 Body weight 58.97 kg Ellie Schulz RESEARCH AND DEVELOPMENT TESTER Work Phone: [facility] 12-24-2022 11:19-0500 SaO2% (BldA) [Mass fraction] 99 % Ellie Schulz RESEARCH AND DEVELOPMENT TESTER Work Phone: [facility] 10-02-2022 14:54-0500 Body temperature 98.71 [degF] Ellie Schulz RESEARCH AND DEVELOPMENT TESTER Work Phone: [facility] 10-02-2022 14:54-0500 Diastolic blood pressure 77 mm[Hg] Ellie Schulz RESEARCH AND DEVELOPMENT TESTER Work Phone: [facility] 10-02-2022 14:54-0500 Heart rate 99 /min Ellie Schulz RESEARCH AND DEVELOPMENT TESTER Work Phone: [facility] 10-02-2022 14:54-0500 SaO2% (BldA) [Mass fraction] 98 % Ellie Schulz RESEARCH AND DEVELOPMENT TESTER Work Phone: [facility] 10-02-2022 14:54-0500 Systolic blood pressure 114 mm[Hg] Ellie Schulz RESEARCH AND DEVELOPMENT TESTER Work Phone: [facility] 07-25-2022 11:30-0400 Body height 170.2 cm Hilda Nelson PA-C Work Phone: [facility] 07-25-2022 11:30-0400 Body mass index (BMI) [Percentile] Per age and sex 47.57 % Hilda Bernens PA-C Work Phone: [facility] 07-25-2022 11:30-0400 Body mass index (BMI) [Ratio] 21.24 kg/m2 Hilda Bernens PA-C Work Phone: [facility] 07-25-2022 11:30-0400 Body temperature 98.4 [degF] Hilda Bernens PA-C Work Phone: [facility] 07-25-2022 11:30-0400 Body weight 61.5 kg Hilda Bernens PA-C Work Phone: [facility] 07-25-2022 11:30-0400 Diastolic blood pressure 78 mm[Hg] Hilda Bernens PA-C Work Phone: [facility] 07-25-2022 11:30-0400 Heart rate 94 /min Hilda Bernens PA-C Work Phone: [facility] 07-25-2022 11:30-0400 SaO2% (BldA) [Mass fraction] 99 % Hilda Bernens PA-C Work Phone: [facility] 07-25-2022 11:30-0400 Systolic blood pressure 121 mm[Hg] Hilda Bernens PA-C Work Phone: [facility] 01-17-2022 10:30-0500 Body height 172.72 cm Denae Turner Other [facility] Other 01-17-2022 10:30-0500 Body mass index (BMI) [Ratio] 19 kg/m2 Denae Turner Other [facility] Other 01-17-2022 10:30-0500 Body temperature 97.8 [degF] Denae Turner Other [facility] Other 01-17-2022 10:30-0500 Body weight 56.7 kg Denae Turner Other [facility] Other 01-17-2022 10:30-0500 Respiratory rate 18 /min Denae Turner Other [facility] Other 01-17-2022 10:30-0500 SaO2% (BldA) [Mass fraction] 99 % Denae Turner Other [facility] Other Encounters Encounter Date Encounter Type Care Provider Facility Start: 06-30-2025 End: 06-30-2025 Bamboo flowsheet Taran BALLARD Work Phone: [facility] Start: 06-30-2025 End: 06-30-2025 Bamboo flowsheet Taran BALLARD Work Phone: [facility] Start: 06-30-2025 End: 06-30-2025 Patient encounter [facility] Start: 06-30-2025 End: 06-30-2025 Periodic preventive med est patient 18-39 yrs Taran BALLARD Work Phone: [facility] Comment on above: Well woman exam with routine gynecological exam; Exposure to STD Start: 06-10-2025 End: 06-10-2025 Departed Referred Jeane Muro APRN -Lab [facility] Work Phone: Start: 06-10-2025 End: 06-10-2025 ambulatory Cyndy Giles MD Work Phone: [facility] Work Phone: Start: 06-10-2025 End: 06-10-2025 Patient encounter procedure Jeane Muro [employer] Work Phone: Start: 06-10-2025 End: 06-10-2025 ambulatory BRIONNA RIOS Not Available Start: 06-08-2025 End: 06-08-2025 Refill Cyndy Giles MD Other Phone: [facility] Comment on above: Attention deficit hy peractivity disorder (ADHD), predominantly inattentive type Start: 05-19-2025 End: 05-19-2025 Bamboo flowsheet Denae Pump DRY PAN OPERATOR Work Phone: [facility] Start: 05-19-2025 End: 05-19-2025 Bamboo flowsheet Denae Pump DRY PAN OPERATOR Work Phone: [facility] Start: 05-19-2025 End: 05-19-2025 ambulatory DENAE PUMP Not Available Start: 05-19-2025 End: 05-19-2025 Office outpatient visit 15 minutes Denae Pump DRY PAN OPERATOR Work Phone: [facility] Comment on above: Attention deficit hy peractivity disorder (ADHD), predominantly inattentive type (Primary Dx); Moderate episode of recurrent major depressive disorder (HCC); Anxiety, generalized ; Panic disorder Start: 04-26-2025 End: 04-26-2025 Refill Cyndy Giles MD Other Phone: [facility] Comment on above: Attention deficit hy peractivity disorder (ADHD), predominantly inattentive type (CMS/HCC) Start: 03-24-2025 End: 03-25-2025 Refill Domonique Torrez MA [facility] Comment on above: Attention deficit hy peractivity disorder (ADHD), predominantly inattentive type (CMS/HCC) Start: 03-15-2025 ambulatory [facility] Start: 03-02-2025 End: 03-02-2025 Office outpatient visit 15 minutes Taran Aguillon RESEARCH AND DEVELOPMENT TESTER Work Phone: [facility] [place] Comment on above: Acute bacterial conj unctivitis of left eye (Primary Dx); Upper respiratory tract infection, unspecified type Start: 03-02-2025 End: 03-02-2025 ambulatory CARMENZA RUELAS [facility] Start: 02-19-2025 End: 02-19-2025 Office outpatient visit 10 minutes [facility] Jluis Huttig [employer] APPRAISER-RESEARCH AND DEVELOPMENT TESTER Work Phone: [facility] Comment on above: Lymphadenopathy, ing uinal (Primary Dx) Start: 02-19-2025 End: 02-19-2025 ambulatory [facility] Start: 02-16-2025 End: 02-16-2025 Refill Cyndy Giles MD Work Phone: [facility] Comment on above: Attention deficit hy peractivity disorder (ADHD), predominantly inattentive type (CMS/HCC) Start: 02-10-2025 End: 04-12-2025 Follow-up encounter Taran Aguillon RESEARCH AND DEVELOPMENT TESTER Work Phone: [facility] [place] Comment on above: Urine Aerobic Cultur e Start: 02-09-2025 End: 02-09-2025 Telephone encounter Jeane Fajardo [facility] Start: 02-08-2025 End: 02-08-2025 Emergency department patient visit [facility] Start: 02-08-2025 End: 02-08-2025 Telephone encounter Cyndy Giles MD Work Phone: [facility] Start: 02-08-2025 End: 02-08-2025 Office outpatient visit 15 minutes Taran Aguillon RESEARCH AND DEVELOPMENT TESTER Work Phone: [facility] Urgent [facility] [place] Comment on above: Back pain (Primary D x) Start: 02-08-2025 End: 02-08-2025 ambulatory CARMENZA RUELAS [facility] Start: 02-02-2025 End: 02-02-2025 Evaluation and management of inpatient [place] Start: 02-02-2025 End: 02-02-2025 Evaluation and management of inpatient [facility] Start: 01-22-2025 End: 01-22-2025 ambulatory [facility] Start: 01-22-2025 End: 01-22-2025 Patient encounter procedure [facility] Pre-Admission Testing 1 [facility] - Pre Admit Start: 01-15-2025 End: 01-15-2025 Telephone encounter Cyndy Giles MD Work Phone: [facility] Comment on above: Attention deficit hy peractivity disorder (ADHD), predominantly inattentive type (CMS/HCC) Start: 01-13-2025 End: 01-13-2025 Office outpatient visit 15 minutes Janis Morrison DO Work Phone: [facility] Comment on above: Lymphadenopathy, ing uinal (Primary Dx) Start: 01-13-2025 End: 01-13-2025 ambulatory [facility] Start: 01-11-2025 End: 01-11-2025 Office outpatient visit 15 minutes Taran Miller Donell RESEARCH AND DEVELOPMENT TESTER Work Phone: [facility] [place] Comment on above: BV (bacterial vagino sis) (Primary Dx); Vaginal discharge Start: 01-11-2025 End: 01-11-2025 ambulatory TARAN MILLER [facility] Start: 12-30-2024 End: 12-30-2024 Office outpatient new 30 minutes Janis Morrison DO Work Phone: [facility] Comment on above: Lymphadenopathy, ing uinal (Primary Dx) Start: 12-30-2024 End: 12-30-2024 ambulatory [facility] Start: 12-25-2024 End: 12-25-2024 Bamboo flowsheet Brionna Rios NP Work Phone: [facility] Start: 12-25-2024 End: 12-25-2024 Bamboo flowsheet Brionna Rios DRY PAN OPERATOR Work Phone: [facility] Start: 12-25-2024 End: 12-25-2024 Telephone encounter Brionna Rios NP Work Phone: [facility] Comment on above: Results Start: 12-25-2024 End: 12-25-2024 Office outpatient visit 25 minutes Brionna Rios NP Work Phone: [facility] Comment on above: Lump in the groin (P rimary Dx); Screening for deficiency anemia; Screening for cardiovascular condition; Screening for lipid disorders; Moderate episode of recurrent major depressive disorder (CMS/HCC); Attention deficit hyperactivity disorder (ADHD), predominantly inattentive type (CMS/HCC) Start: 12-25-2024 End: 12-25-2024 ambulatory BRIONNA RIOS Not Available Start: 12-18-2024 End: 12-18-2024 ambulatory BRIONNA RIOS Not Available Start: 12-18-2024 End: 12-18-2024 Bamboo flowsheet Brionna Rios DRY PAN OPERATOR Work Phone: [facility] Start: 12-18-2024 End: 12-18-2024 Bamboo flowsheet Brionna Rios DRY PAN OPERATOR Work Phone: [facility] Start: 12-18-2024 End: 12-18-2024 Phys/qhp telephone evaluation 11-20 min Brionna Rios NP Work Phone: [facility] Comment on above: Attention deficit hy peractivity disorder (ADHD), predominantly inattentive type (CMS/HCC) Start: 12-03-2024 End: 12-03-2024 Orders Only Mel Novak DO Work Phone: [facility] [place] Comment on above: BV (bacterial vagino sis) (Primary Dx) Start: 12-01-2024 End: 12-01-2024 Office outpatient visit 15 minutes Randell Mckenna DO Work Phone: [facility] [place] Comment on above: Dysuria (Primary Dx) ; Screen for STD (sexually transmitted disease) Start: 12-01-2024 End: 12-01-2024 ambulatory RANDELL MCKENNA [facility] Start: 11-12-2024 End: 11-16-2024 Refill Cyndy Giles MD Work Phone: [facility] Comment on above: Attention deficit hy peractivity disorder (ADHD), predominantly inattentive type (CMS/HCC) Start: 11-09-2024 End: 11-09-2024 Telephone encounter Cyndy Giles MD Work Phone: [facility] Start: 09-22-2024 End: 09-22-2024 Office outpatient visit 15 minutes Brionna Rios DRY PAN OPERATOR Work Phone: [facility] Comment on above: Attention deficit hy peractivity disorder (ADHD), predominantly inattentive type (CMS/HCC) (Primary Dx); Moderate episode of recurrent major depressive disorder (CMS/HCC); Anxiety, generalized (CMS/HCC) Start: 09-22-2024 End: 09-22-2024 ambulatory BRIONNA RIOS Not Available Start: 08-20-2024 End: 08-20-2024 Bamboo flowsheet Taran BALLARD Work Phone: [facility] Start: 08-20-2024 End: 08-20-2024 Bamboo flowsheet Taran BALLARD Work Phone: [facility] Start: 08-20-2024 End: 08-20-2024 Office outpatient visit 15 minutes Brionna Rios DRY PAN OPERATOR Work Phone: [facility] Comment on above: Attention deficit hy peractivity disorder (ADHD), predominantly inattentive type (CMS/HCC) (Primary Dx); Anxiety, generalized (CMS/HCC) Start: 08-20-2024 End: 08-20-2024 ambulatory BRIONNA RIOS Not Available Start: 08-20-2024 End: 08-20-2024 Postop follow up visit related to original px Taran BALLARD Work Phone: [facility] Comment on above: Postoperative visit; S/P laparoscopic surgery Start: 08-20-2024 End: 08-20-2024 ambulatory TARAN SWANSON Not Available Start: 08-07-2024 End: 08-07-2024 Clinisync Result Encounter Generic External Data Provider [facility] External Department Unsolicited Start: 08-07-2024 End: 08-07-2024 Clinisync Result Encounter Generic External Data Provider [facility] External Department Unsolicited Start: 08-05-2024 End: 08-05-2024 Office outpatient visit 25 minutes Cyndy Giles MD Work Phone: [facility] Comment on above: Anxiety, generalized (CMS/HCC) (Primary Dx); Moderate episode of recurrent major depressive disorder (HCC) (CMS/HCC); Attention deficit hyperactivity disorder (ADHD), predominantly inattentive type (CMS/HCC); Panic disorder (CMS/HCC) Start: 08-05-2024 End: 08-05-2024 ambulatory CYNDY GILES Not Available Start: 08-03-2024 End: 08-03-2024 Telephone encounter Cyndy Giles MD Work Phone: [facility] Start: 08-01-2024 End: 08-01-2024 Emergency department patient visit [facility] Start: 07-24-2024 End: 07-24-2024 Bamboo flowsheet Brionna Rios DRY PAN OPERATOR Work Phone: [facility] Start: 07-24-2024 End: 07-24-2024 Bamboo flowsheet Brionna Rios NP Work Phone: [facility] Start: 07-24-2024 End: 07-24-2024 Telephone encounter Cyndy Giles MD Work Phone: [facility] Start: 07-24-2024 End: 07-24-2024 ambulatory BRIONNA RIOS Not Available Start: 07-09-2024 End: 07-09-2024 Bamboo flowsheet Garfield Alex DO Work Phone: [facility] Start: 07-09-2024 End: 07-09-2024 Bamboo flowsheet Garfield Alex DO Work Phone: [facility] Start: 07-09-2024 End: 07-09-2024 Office outpatient visit 15 minutes Garfield Alex DO Work Phone: [facility] Comment on above: Pelvic pain in femal e; Encounter for pre-operative examination; Bacterial infection due to mycoplasma Start: 07-09-2024 End: 07-09-2024 Preprocedural examination done Garfield Alex DO Work Phone: [facility] Start: 07-09-2024 End: 07-09-2024 ambulatory GARFIELD ALEX Not Available Start: 06-29-2024 End: 06-29-2024 ambulatory GARFIELD ALEX Not Available Start: 04-26-2024 End: 04-26-2024 Emergency department patient visit [facility] Start: 04-23-2024 End: 04-23-2024 Office outpatient visit 15 minutes Mel Novak DO Work Phone: [facility] Urgent [facility] Comment on above: Dysuria (Primary Dx) ; Possible exposure to STD Start: 04-23-2024 End: 04-23-2024 ambulatory CARMENZA RUELAS [facility] Start: 03-11-2024 End: 03-11-2024 Orders Only Ellie Schulz RESEARCH AND DEVELOPMENT TESTER Work Phone: [facility] at [facility] Comment on above: Chlamydia (Primary D x); BV (bacterial vaginosis) Start: 03-10-2024 End: 03-10-2024 Office outpatient visit 15 minutes Sherrill Saucedo RESEARCH AND DEVELOPMENT TESTER Work Phone: [facility] Care at [facility] Comment on above: Vaginal discharge (P rimary Dx); Possible exposure to STD Start: 03-10-2024 End: 03-10-2024 ambulatory SHERRILL SAUCEDO [facility] Start: 01-09-2024 Orders Only Ellie Schulz RESEARCH AND DEVELOPMENT TESTER Work Phone: [facility] Comment on above: BV (bacterial vagino sis) (Primary Dx) Start: 01-08-2024 End: 01-08-2024 Office outpatient visit 25 minutes Paz Mitchell PA-C Work Phone: [facility] Comment on above: Leukorrhea (Primary Dx); High risk sexual behavior, unspecified type Start: 10-21-2023 End: 10-21-2023 Office outpatient visit 15 minutes Janis Gong DO Work Phone: [facility] Comment on above: Sore throat (Primary Dx) Start: 10-04-2023 End: 10-04-2023 ambulatory ELIZABETH HODGES [facility] Start: 09-26-2023 End: 09-26-2023 ambulatory CARMENZA RUELAS [facility] Start: 09-24-2023 End: 09-24-2023 Office outpatient visit 15 minutes Paz Chaudhari PA-C Work Phone: [facility] Comment on above: Routine screening fo r STI (sexually transmitted infection) (Primary Dx) Start: 09-19-2023 End: 09-19-2023 Office outpatient visit 15 minutes Ellie Schulz CNP Work Phone: [facility] Comment on above: Acute cystitis with hematuria (Primary Dx); Dysuria Start: 09-05-2023 End: 09-05-2023 ambulatory CARMENZA RUELAS [facility] Start: 08-15-2023 End: 08-15-2023 ambulatory CARMENZA RUELAS [facility] Start: 08-15-2023 End: 08-15-2023 Office outpatient visit 15 minutes Carmenza Ruelas DO Work Phone: [facility] Comment on above: Pelvic pain (Primary Dx); Genital warts Start: 08-08-2023 End: 08-08-2023 ambulatory PHYSICIAN NO [place] [facility] Start: 08-08-2023 End: 08-08-2023 Office outpatient visit 25 minutes Carmenza Ruelas DO Work Phone: [facility] Care [facility] Comment on above: Pelvic pain (Primary Dx); Abnormal vaginal bleeding; Genital warts Start: 07-31-2023 End: 07-31-2023 Office outpatient visit 15 minutes Ellie Schulz CNP Work Phone: [facility] Comment on above: Vaginal bleeding (Pr imary Dx); Routine screening for STI (sexually transmitted infection) Start: 07-04-2023 End: 07-04-2023 Office outpatient visit 15 minutes Annalise Griffith DO Work Phone: [facility] [place] Comment on above: Vaginal discharge (P rimary Dx) Start: 12-24-2022 End: 12-24-2022 Office outpatient visit 15 minutes Ellie Schulz RESEARCH AND DEVELOPMENT TESTER Work Phone: [facility] Comment on above: Vomiting, unspecifie d vomiting type, unspecified whether nausea present (Primary Dx); Anxiety Start: 10-02-2022 End: 10-02-2022 Office outpatient visit 15 minutes Ellie Schulz RESEARCH AND DEVELOPMENT TESTER Work Phone: [facility] Comment on above: Upper respiratory tr act infection, unspecified type (Primary Dx) Start: 07-25-2022 End: 07-25-2022 Office outpatient new 30 minutes Hilda Nelson PA-C Work Phone: [facility] Comment on above: Acute vaginitis (Milagros cyndy Dx); Dysuria Start: 01-17-2022 End: 01-17-2022 ambulatory Denae Turner Other [place] Other Start: 01-17-2022 Office outpatient vi sit 15 minutes Denae Turner [facility] Start: 06-06-2020 End: 06-07-2020 Patient encounter procedure KATHERIN VALENTIN Facility: Procedures Date Procedure Procedure Detail Performing Clinician Start: 02-08-2025 Urnls dip stick/tabl et rgnt auto w/o microscopy Taran Aguillon RESEARCH AND DEVELOPMENT TESTER Work Phone: Start: 01-13-2025 Follow-up visit Follow-up JANIS MORRISON Start: 12-25-2024 Complete blood count with white cell differential, automated Brionna Rios DRY PAN OPERATOR Work Phone: Start: 12-25-2024 Comprehensive metabo lic panel Brionna Rios DRY PAN OPERATOR Work Phone: Start: 12-25-2024 Lipid panel Brionna Rios DRY PAN OPERATOR Work Phone: Start: 12-01-2024 Iadna savanna specie s direct probe tq Randell Mckenna DO Work Phone: Start: 12-01-2024 Urnls dip stick/tabl et rgnt auto w/o microscopy Randell Mckenna DO Work Phone: Start: 08-07-2024 ALL CBC WITH AUTO DIFF Garfield Alex DO Work Phone: Start: 04-23-2024 Urnls dip stick/tabl et rgnt auto w/o microscopy Mel Novak DO Work Phone: Start: 03-10-2024 SCAN OTHER ORDERS Sherrill Doshisolange Saucedo RESEARCH AND DEVELOPMENT TESTER Work Phone: Start: 10-21-2023 Iaadiadoo streptococ cus group a Janis Spence Beltran DO Work Phone: Start: 09-19-2023 Culture bacterial quanttative colony count urine Ellie Schulz RESEARCH AND DEVELOPMENT TESTER Work Phone: Start: 09-19-2023 Urnls dip stick/tabl et rgnt auto w/o microscopy Ellie Schulz RESEARCH AND DEVELOPMENT TESTER Work Phone: Start: 08-15-2023 Destruction of lesion J ane Morales Balbo DO Work Phone: Start: 08-08-2023 End: 08-08-2023 Urine test visual color cmprsn meths Carmenza Morales Balbo DO Work Phone: Start: 02-26-2023 Adult depression scr eening assessment Crystal Griffith DO Work Phone: Start: 07-25-2022 Urnls dip stick/tabl et rgnt auto w/o microscopy Hilda Nelson PA-C Work Phone: Plan of Treatment Date Care Activity Detail Author Start: 05-16-2026 DTaP,Tdap and Td Vac cines (7 - Td or Tdap) DTaP,Tdap and Td Vaccines (7 - Td or Tdap) [facility] Start: 05-16-2026 Tetanus vaccination Tetanus: Every [address] [facility] Start: 02-19-2026 Tobacco Screening Tobacco Screening [facility] Start: 02-02-2026 Adult BMI Screening Adult BMI Screen ing [facility] Start: 02-02-2026 Tobacco Screening Tobacco Screening [facility] Start: 01-22-2026 Adult BMI Screening Adult BMI Screen ing [facility] Start: 01-22-2026 Tobacco Screening Tobacco Screening [facility] Start: 01-13-2026 Adult BMI Screening Adult BMI Screen ing [facility] Start: 12-30-2025 Adult BMI Screening Adult BMI Screen ing [facility] Start: 12-30-2025 Tobacco Screening Tobacco Screening [facility] Start: 07-19-2025 Influenza vaccination P [facility] Start: 06-30-2025 End: 06-30-2025 Patient encounter procedure 06/30/2025 11:00 AM EDT Office Visit [facility] [address] [place] [address] Taran Swanson PA [address] [place] [address] [facility] Start: 06-10-2025 [facility] Start: 06-09-2025 History and physical examination, annual for health maintenance Wellness Visit [facility] Start: 06-08-2025 End: 06-08-2025 Clinical Support 06/08/2025 9:15 AM EDT Clinical Support [facility] [address] [place] [address] Arrived [facility] Comment on above: Arrived Start: 05-04-2025 End: 05-04-2025 Patient encounter procedure 05/04/2025 10:30 AM EDT Office Visit [facility] [address] [place] [place] [address] Brionna Rios, DRY PAN OPERATOR [address] [place] [address] [facility] Start: 04-23-2025 Screening for Chlamy didi trachomatis Chlamydia Screening [facility] Start: 03-10-2025 Screening for Chlamy didi trachomatis Chlamydia Screening [facility] Start: 02-15-2025 End: 02-15-2025 Patient encounter procedure 02/15/2025 9:00 AM EDT Office Visit [facility] [address] [place] [address] Floresita Perez, [employer] [facility] [address] [place], [place] [phone] [facility] Start: 02-02-2025 End: 02-02-2025 Admission to same day surgery center 02/02/2025 9:15 AM EDT - 02/02/2025 10:15 AM EDT Surgery [facility] [address] [place] [id number] Janis Morrison, [address] [place], [place] [id number] EXCISION LYMPH NODE INGUINAL [21246 (CPT )] [facility] Comment on above: EXCISION LYMPH NODE INGUINAL [76546 (CPT )] Start: 02-02-2025 End: 02-02-2025 Bx/exc lymph node open superficial EXCISION LYMPH NODE INGUINAL left inguinal lymphadenopathy 02/02/2025 9:15 AM EDT [facility] Start: 02-02-2025 Subsequent hospital visit by physician 02/02/2025 9:15 AM EDT Hospital Encounter [facility] [address] [place] [phone] Janis Morrison DO [address] [place], [place] [phone] [facility] Start: 01-13-2025 End: 01-13-2025 Patient encounter procedure 01/13/2025 1:45 PM EST Office Visit [facility] [address] [place] [phone] Janis Morrison DO [address] [place], [place] [phone] [facility] Start: 01-11-2025 End: 01-11-2026 Gardnerella vaginalis rRNA assay [facility] Work Phone: Comment on above: Expected: 01/11/2025 , Expires: 01/11/2026 Start: 01-08-2025 Screening for Chlamy didi trachomatis Chlamydia Screening [facility] Start: 2025 Screening for malign ant neoplasm of cervix Pap Smear [facility] Start: 12-25-2024 End: 12-25-2024 Patient encounter procedure [facility] Comment on above: Arrived Start: 12-01-2024 End: 12-01-2025 Chlamydia trachomatis rRNA assay Chlamydia/GC/Trichomonas Amplified RNA Microbiology Routine Screen for STD (sexually transmitted disease) Expected: 12/01/2024, Expires: 12/01/[address] [facility] Work Phone: Comment on above: Expected: 12/01/2024 , Expires: 12/01/2025 Start: 09-24-2024 Screening for Chlamy didi trachomatis Chlamydia Screening [facility] Start: 08-20-2024 End: 08-20-2024 Patient encounter procedure 08/20/2024 3:40 PM EDT Office Visit [facility] [address] [phone] Taran Swanson PA [address] [place] [address] [facility] Start: 08-20-2024 End: 08-20-2024 Telemedicine consultation with patient 08/20/2024 1:00 PM EDT Telemedicine [facility] [address] [place] [phone] Brionna Rios, LOLITA [address] [place] [address] [facility] Start: 08-20-2024 End: 08-20-2024 Patient encounter procedure [facility] Comment on above: Arrived Start: 08-07-2024 End: 08-07-2024 Patient encounter procedure 08/07/2024 8:00 AM EDT Procedure Visit [facility] Garfield Johnson, DO [address] [place] [address] [facility] Start: 07-31-2024 Screening for Chlamy didi trachomatis Chlamydia Screening [facility] Start: 07-24-2024 End: 07-24-2024 Patient encounter procedure 07/24/2024 10:00 AM EDT Office Visit [facility] [address] [place] [phone] Brionna Rios, DRY PAN OPERATOR [address] [place] [address] Arrived [facility] Comment on above: Arrived Start: 07-19-2024 COVID-19 Vaccine ( season) COVID-19 Vaccine ( season) [facility] Start: 07-19-2024 Influenza vaccination [facility] Start: 07-09-2024 End: 07-09-2024 Patient encounter procedure 07/09/2024 10:30 AM EDT Consult [facility] [address] [phone] Garfield Johnson, DO [address] [place] [address] Arrived [facility] Comment on above: Arrived Start: 02-27-2024 Depression screening using PHQ-9 (Patient Health Questionnaire 9) score [facility] Start: 02-02-2024 Vaccination for cheko n papillomavirus [facility] Start: 01-08-2024 End: 01-08-2025 Chlamydia trachomatis rRNA assay [facility] Comment on above: Expected: 01/08/2024 , Expires: 01/08/2025 Start: 12-27-2023 Vaccination for cheko n papillomavirus HPV Vaccines (3 - 3-dose series) [facility] Start: 09-26-2023 End: 09-26-2023 Patient encounter procedure 09/26/2023 9:00 AM EST Office Visit [facility] Care at [address] [phone] Carmenza Ruelas [address] [place] [address] [facility] at [facility] Primary [facility] Start: 09-24-2023 End: 09-24-2024 Chlamydia trachomatis rRNA assay [facility] Work Phone: Comment on above: Expected: 09/24/2023 , Expires: 09/24/2024 Start: 09-05-2023 End: 09-05-2023 Patient encounter procedure 09/05/2023 9:00 AM EDT Procedure visit [facility] at [address] [address] Carmenza Ruelas [address] [place] [address] [facility] Primary [facility] Start: 08-15-2023 End: 08-15-2023 Patient encounter procedure 08/15/2023 9:30 AM EDT Procedure visit [facility] at [address] [address] Carmenza Ruelas [address] [place] [address] [facility] Primary [facility] Start: 08-08-2023 End: 08-08-2023 Patient encounter procedure 08/08/2023 2:00 PM EDT Office Visit [facility] at [address] [address] Carmenza Ruelas, [address] [place] [address] [facility] Start: 07-31-2023 End: 07-31-2024 Chlamydia trachomatis rRNA assay [facility] Work Phone: Comment on above: Expected: 07/31/2023 , Expires: 07/31/2024 Start: 07-25-2023 Screening for Chlamy didi trachomatis Chlamydia Screening [facility] Start: 07-19-2023 COVID-19 Vaccine () COVID-19 Vaccine () [facility] Start: 07-19-2023 Influenza vaccination Sequenti al Influenza Vaccine (#1) [facility] Start: 05-17-2023 Influenza vaccination Sequenti al Influenza Vaccine (#1) [facility] Comment on above: Postponed from 07/19 (Patient Refused) Start: 2023 Pneumococcal Vaccine : Ped or At-Risk (1 of 2 - PCV) Pneumococcal Vaccine: Ped or At-Risk (1 of 2 - PCV) [facility] Start: 01-01-2023 End: 01-01-2023 Patient encounter procedure 01/01/2023 Office Visit Primary Care Shellie Price, [address] [place] [address] [facility] Start: 03-20-2022 COVID-19 Vaccine (4 - Booster for Pfizer series) COVID-19 Vaccine (4 - Booster for Pfizer series) [facility] Start: 03-20-2022 COVID-19 Vaccine (4 - Pfizer series) COVID-19 Vaccine (4 - Pfizer series) [facility] Start: 2022 Hepatitis C screening Hepatitis C Sc reening [facility] Start: 08-01-2021 Vaccination for cheko n papillomavirus HPV Vaccines (2 - 3-dose series) [facility] Start: 2019 HIV screening HIV Screening [facility] Start: 2016 Depression screening using PHQ-9 (Patient Health Questionnaire 9) score [facility] Start: 2010 Pneumococcal Vaccine : Ped or At-Risk (1 - PCV) Pneumococcal Vaccine: Ped or At-Risk (1 - PCV) [facility] Start: 2010 Pneumococcal Vaccine : Ped or At-Risk (1 of 2 - PCV) Pneumococcal Vaccine: Ped or At-Risk (1 of 2 - PCV) [facility] Start: 2007 History and physical examination, annual for health maintenance Wellness Visit [facility] Start: 2004 Screening for Chlamy didi trachomatis Chlamydia Screening [facility] Atopobium vaginae DN A [Presence] in Vaginal fluid by KELSEA with probe detection [facility] [facility] B[facility] identified in Unspecified specimen by Aerobe culture Urine culture Microbiology Routine Acute cystitis with hematuria 09/19/2023 11:56 AM EDT [facility] Work Phone: Bacteria identified in Unspecified specimen by Aerobe culture Urine Aerobic Culture Microbiology Routine Dysuria 04/23/2024 7:02 PM EDT [facility] Bacteria identified in Unspecified specimen by Aerobe culture Urine Aerobic Culture Microbiology Routine Back pain 02/08/2025 12:39 PM EDT [facility] Work Phone: Bacterial vaginosis associated bacterium 2 DNA [Presence] in Vaginal fluid by KELSEA with probe detection [facility] End: 01-13-2026 CBC panel - Blood by Automated count CBC without diff Lab Routine Lymphadenopathy, inguinal 1 Occurrences starting 01/13/2025 until 01/13/2026 [facility] Work Phone: Comment on above: 1 Occurrences starti ng 01/13/2025 until 01/13/2026 End: 03-10-2025 Chlamydia trachomatis rRNA assay Chlamydia/GC/Trichomonas Amplified RNA Microbiology Routine Vaginal discharge Possible exposure to STD 1 Occurrences starting 03/10/2024 until 03/10/[address] [facility] Comment on above: 1 Occurrences starti ng 03/10/2024 until 03/10/2025 Chlamydia trachomati s rRNA assay Chlamydia/GC/Trichomonas Amplified RNA Microbiology Routine Vaginal discharge Possible exposure to STD 03/10/2024 9:14 AM EDT [facility] End: 04-23-2025 Chlamydia trachomatis rRNA assay Chlamydia/GC/Trichomonas Amplified RNA Microbiology Routine Possible exposure to STD 1 Occurrences starting 04/23/2024 until 04/23/[address] [facility] Work Phone: Comment on above: 1 Occurrences starti ng 04/23/2024 until 04/23/2025 Chlamydia trachomati s rRNA assay Chlamydia/GC/Trichomonas Amplified RNA Microbiology Routine Possible exposure to STD 04/23/2024 6:54 PM EDT [facility] End: 07-25-2023 Gardnerella vaginalis rRNA assay Vaginitis DNA Probes Microbiology Routine Acute vaginitis 1 Occurrences starting 07/25/2022 until 07/25/2023 [facility] Work Phone: Comment on above: 1 Occurrences starti ng 07/25/2022 until 07/25/2023 Gardnerella vaginali s rRNA assay Vaginitis DNA Probes Microbiology Routine Acute vaginitis 07/25/2022 12:05 PM EDT [facility] End: 07-04-2024 Gardnerella vaginalis rRNA assay Vaginitis DNA Probes Microbiology Routine Vaginal discharge 1 Occurrences starting 07/04/2023 until 07/04/2024 [facility] Work Phone: Comment on above: 1 Occurrences starti ng 07/04/2023 until 07/04/2024 End: 01-08-2025 Gardnerella vaginalis rRNA assay Vaginitis DNA Probes Microbiology Routine Leukorrhea High risk sexual behavior, unspecified type 1 Occurrences starting 01/08/2024 until 01/08/[address] [facility] Work Phone: Comment on above: 1 Occurrences starti ng 01/08/2024 until 01/08/2025 Gardnerella vaginali s rRNA assay Vaginitis DNA Probes Microbiology Routine Leukorrhea High risk sexual behavior, unspecified type 01/08/2024 1:12 PM EST [facility] End: 03-10-2025 Gardnerella vaginalis rRNA assay Vaginitis DNA Probes Microbiology Routine Vaginal discharge 1 Occurrences starting 03/10/2024 until 03/10/2025 [facility] Work Phone: Comment on above: 1 Occurrences starti ng 03/10/2024 until 03/10/2025 Gardnerella vaginali s rRNA assay Vaginitis DNA Probes Microbiology Routine Vaginal discharge 03/10/2024 9:14 AM EDT [facility] Gardnerella vaginali s rRNA assay Vaginitis DNA Probes Microbiology Routine Dysuria 12/01/2024 5:02 PM EST [facility] Megasphaera sp type 1 DNA [Presence] in Vaginal fluid by KELSEA with probe detection [facility] End: 07-25-2023 Neisseria gonorrhoeae nucleic acid detection Chlamydia/Gonorrhoeae Amplified RNA Microbiology Routine Dysuria Acute vaginitis 1 Occurrences starting 07/25/2022 until 07/25/[address] [facility] Comment on above: 1 Occurrences starti ng 07/25/2022 until 07/25/2023 Neisseria gonorrhoea e nucleic acid detection Chlamydia/Gonorrhoeae Amplified RNA Microbiology Routine Dysuria Acute vaginitis 07/25/2022 12:05 PM EDT [facility] Neisseria gonorrhoea e nucleic acid detection [facility] Comment on above: Ordered: 07/31/2023 Neisseria gonorrhoea e nucleic acid detection Chlamydia/Gonorrhoeae Amplified RNA Microbiology Routine Routine screening for STI (sexually transmitted infection) 09/24/2023 9:06 AM EST [facility] Neisseria gonorrhoea e nucleic acid detection Chlamydia/Gonorrhoeae Amplified RNA Microbiology Routine Leukorrhea High risk sexual behavior, unspecified type 01/08/2024 1:12 PM EST [facility] Neisseria gonorrhoea e nucleic acid detection Chlamydia/Gonorrhoeae Amplified RNA Microbiology Routine Vaginal discharge Possible exposure to STD 03/10/2024 9:14 AM EDT [facility] Neisseria gonorrhoea e nucleic acid detection Chlamydia/Gonorrhoeae Amplified RNA Microbiology Routine Possible exposure to STD 04/23/2024 6:54 PM EDT [facility] Neisseria gonorrhoea e nucleic acid detection Chlamydia/Gonorrhoeae Amplified RNA Microbiology Routine Screen for STD (sexually transmitted disease) Ordered: 12/01/[address] [facility] Comment on above: Ordered: 12/01/2024 End: 08-08-2024 Transvaginal ultrasonography of pelvis US Transvaginal Imaging Routine Pelvic pain 1 Occurrences starting 08/08/2023 until 08/08/[address] [facility] Work Phone: Comment on above: 1 Occurrences starti ng 08/08/2023 until 08/08/2024 Trichomonas vaginali s Amplified RNA [facility] Comment on above: Ordered: 07/31/2023 Trichomonas vaginali s Amplified RNA Trichomonas vaginalis Amplified RNA Microbiology Routine Routine screening for STI (sexually transmitted infection) 09/24/2023 9:06 AM EST [facility] Trichomonas vaginali s Amplified RNA Trichomonas vaginalis Amplified RNA Microbiology Routine Leukorrhea High risk sexual behavior, unspecified type 01/08/2024 1:12 PM EST [facility] Trichomonas vaginali s Amplified RNA Trichomonas vaginalis Amplified RNA Microbiology Routine Vaginal discharge Possible exposure to STD 03/10/2024 9:14 AM EDT [facility] Trichomonas vaginali s Amplified RNA Trichomonas vaginalis Amplified RNA Microbiology Routine Possible exposure to STD 04/23/2024 6:54 PM EDT [facility] Trichomonas vaginali s Amplified RNA Trichomonas vaginalis Amplified RNA Microbiology Routine Screen for STD (sexually transmitted disease) Ordered: 12/01/[address] [facility] Comment on above: Ordered: 12/01/2024 End: 01-13-2026 Unlisted Procedure / Surgery Unlisted Procedure / Surgery Procedures Routine Lymphadenopathy, inguinal 1 Occurrences starting 01/13/2025 until 01/13/2026 [facility] Comment on above: 1 Occurrences starti ng 01/13/2025 until 01/13/2026 Immunizations Immunization Date Immunization Notes Care Provider Rosita bowers 06-08-2025 tuberculin skin test ; purified protein derivative solution, intradermal Taran Swanson PA Work Phone: [facility] 09-16-2024 influenza, seasonal, injectable, preservative free Brionna Rios DRY PAN OPERATOR Work Phone: [facility] 09-16-2024 influenza virus vacc ine, unspecified formulation Floresita Perez AUTOMOBILE DAMAGE FIELD APPRAISER-RESEARCH AND DEVELOPMENT TESTER Work Phone: [facility] 06-10-2024 tuberculin skin test ; purified protein derivative solution, intradermal Garfield Johnson DO Work Phone: [facility] 10-04-2023 Human Papillomavirus 9-valent vaccine Janis Gong DO Work Phone: [facility] 10-04-2023 HPV, unspecified formulation Janis Gong DO Work Phone: [facility] 11-26-2022 influenza, injectabl e, quadrivalent, preservative free Carmenza Ruelas DO Work Phone: [facility] 11-26-2022 influenza virus vacc ine, unspecified formulation Sherrill Saucedo RESEARCH AND DEVELOPMENT TESTER Work Phone: [facility] 08-22-2021 influenza, injectabl e, quadrivalent, contains preservative Carmenzaavtar Magdalenoo DO Work Phone: [facility] 07-04-2021 human papilloma viru s vaccine, quadrivalent Carmenza Sharlao DO Work Phone: [facility] 07-04-2021 meningococcal B vacc ine, recombinant, OMV, adjuvanted Carmenzaavtar Magdalenoo DO Work Phone: [facility] 07-04-2021 HPV, unspecified formulation Crystal Griffith DO Work Phone: [facility] 08-10-2020 meningococcal polysaccharide (groups A, C, Y and W-135) diphtheria toxoid conjugate vaccine (MCV4P) Carmenza Magdaleno DO Work Phone: [facility] 05-16-2016 meningococcal oligosaccharide (groups A, C, Y and W-135) diphtheria toxoid conjugate vaccine (MCV4O) Carmenza Sharlao DO Work Phone: [facility] 05-16-2016 tetanus toxoid, redu robbin diphtheria toxoid, and acellular pertussis vaccine, adsorbed Carmenzaavtar Magdaleno DO Work Phone: [facility] 04-28-2009 Diphtheria, tetanus toxoids and acellular pertussis vaccine, and poliovirus vaccine, inactivated Carmenza Sharla DO Work Phone: [facility] 04-28-2009 measles, mumps and rubella virus vaccine Carmenza Sharlao DO Work Phone: [facility] 04-28-2009 varicella virus vaccine Carmenza Balbo DO Work Phone: [facility] 04-23-2005 diphtheria, tetanus toxoids and acellular pertussis vaccine Carmenza Balbo DO Work Phone: [facility] 04-23-2005 pneumococcal conjuga te vaccine, 7 valent Carmenzaavtar Magadlenoo DO Work Phone: [facility] 04-23-2005 varicella virus vaccine Carmenza Balbo DO Work Phone: [facility] 01-10-2005 haemophilus influenz ae type b vaccine, PRP-T conjugate Carmenza Balbo DO Work Phone: [facility] 01-10-2005 measles, mumps and rubella virus vaccine Carmenza Balbo DO Work Phone: [facility] 2004 DTaP-hepatitis B and poliovirus vaccine Carmenza Balbo DO Work Phone: [facility] 2004 haemophilus influenz ae type b vaccine, PRP-T conjugate Carmenza Balbo DO Work Phone: [facility] 2004 pneumococcal conjuga te vaccine, 7 valent Carmenza Balbo DO Work Phone: [facility] 2004 DTaP-hepatitis B and poliovirus vaccine Carmenza Balbo DO Work Phone: [facility] 2004 haemophilus influenz ae type b vaccine, PRP-T conjugate Carmenza Balbo DO Work Phone: [facility] 2004 pneumococcal conjuga te vaccine, 7 valent Carmenza Balbo DO Work Phone: [facility] 2004 DTaP-hepatitis B and poliovirus vaccine Carmenza Balbo DO Work Phone: [facility] 2004 haemophilus influenz ae type b vaccine, PRP-T conjugate Carmenza Balbo DO Work Phone: [facility] 2004 pneumococcal conjuga te vaccine, 7 valent Carmenza Balbo DO Work Phone: [facility] 2004 hepatitis B vaccine, pediatric or pediatric/adolescent dosage Carmenza Balbo DO Work Phone: [facility] Payers Date Payer Category Payer Self-pay 2024 [facility] [id number] 2024 Blue Cross Blue Shie ld (Indemnity or Managed Care) - Out of State BCBS [facility] [id number] 2024 Blue Cross Blue Shie ld Managed Care - Other [id number] 2024 Unknown [id number] 2024 Unknown [id number] 2024 Private Health Insurance [employer] [id number] 2024 Managed Care (privat e) or private health insurance (indemnity), not otherwise specified [place] [employer] [id number] 2024 Unknown [id number] 2024 Worker's Compensation [id number] 2023 Private Health Insurance [id number] 2018 Unknown [id number]. 1.13.385. [id number] 2004 Unknown [id number] 2.16.840.1.581394.3.579. 2.903 2004 Unknown [id number] 2.16.840.1.542824.3.579. 2.90 2004 Unknown [id number] 2.16.840.1.158802.3.579. 2.903 2004 Unknown [id number] 2.16.840.1.970554.3.579. 2.903 2004 Unknown [id number] 2.16.840.1.935333.3.579. 2.903 2004 Unknown [id number] 2.16.840.1.923433.3.579. 2.1286 2004 Unknown [id number] 2.16.840.1.901198.3.579. 2.1285 2004 Unknown [id number] 2.16.840.1.695046.3.579. 2.1285 2004 Unknown [id number] 2.16.840.1.038549.3.579. 2.1285 2004 Unknown [id number] 2.16.840.1.570716.3.579. 2.1285 2004 Unknown [id number] 2.16.840.1.616835.3.579. 2.1285 2004 Unknown [id number] 2.16.840.1.044887.3.579. 2.1285 2004 Unknown [id number] 2.840.1.025655.3.579. 2.1285 2004 Unknown [id number] 2.16.840.1.941453.3.579. 2.1285 2004 Unknown [id number] 2.16.840.1.720267.3.579. 2. 2004 Unknown [id number] 2.840.1.009660.3.579. 2. 2004 Unknown [id number] 2.840.1.663725.3.579. 2. 2004 Unknown [id number] 2.16840.1.699781.3.579. 2.90 2004 Unknown [id number] 2.16.840.1.050688.3.579. 2. 2004 Unknown [id number] 2.16.840.1.471076.3.579. 2.90 2004 Unknown [id number] 2.16840.1.322419.3.579. 2.90 2004 Unknown [id number] 2.16.840.1.738754.3.579. 2.903 2004 Unknown [id number] 2.16.840.1.106595.3.579. 2.903 2004 Unknown [id number] 2.16.840.1.758246.3.579. 2.516 2004 Unknown [id number] 2.16.840.1.085488.3.579. 2.1258 2004 Unknown [id number] 2.16.840.1.826976.3.579. 2.1258 2004 Unknown [id number] 2.16.840.1.991932.3.579. 2.1258 2004 Unknown [id number] 2..840.1.007229.3.579. 2.1258 2004 Unknown [id number] 2.840.1.265265.3.579. 2.1258 2004 Unknown [id number] 2.16.840.1.851498.3.579. 2.1258 2004 Unknown [id number] 2.16.840.1.392890.3.579. 2.1258 2004 Unknown [id number] 2.16.840.1.967182.3.579. 2.1258 2004 Unknown [id number] 2.840.1.399849.3.579. 2.1258 2004 Unknown [id number] 2.16.840.1.245803.3.579. 2.1258 2004 Unknown [id number] 2.16.840.1.393732.3.579. 2.1258 2004 Unknown [id number] 2.16.840.1.315419.3.579. 2.1258 2004 Unknown [id number] 2.16.840.1.786305.3.579. 2.1258 1972 Unknown [id number] 2.16.840.1.587906.3.579. 2.593 1959 Unknown [id number] Unknown [id number] 2.16.840.1.695782.19 Unknown [id number] 2.16.840.1.299338.3.579. 2.531 Social History Date Type Detail Facility Unknown if ever smoked [facility] Start: 04-26-2023 End: 12-18-2024 Sex Assigned At [facility] Start: 07-25-2022 End: 06-06-2023 Tobacco smoking status MDIS Never smoked tobacco [facility] Start: 07-25-2022 End: 06-06-2023 Tobacco use and exposure Smokeless tobacco non-user [facility] Start: 07-25-2022 End: 07-31-2023 Alcohol intake Lifetime non-drinker (finding) [facility] Start: 2004 Sex Assigned At Not on file [facility] Start: 09-22-2022 End: 10-02-2022 Exposure to SARS-CoV-2 (event) Not sure [facility] Start: 04-26-2023 End: 12-18-2024 History of Social function [facility] Adult Depression Screening Assessment [address] [facility] Start: 07-25-2022 Gender identity Identifies as female gender (finding) [facility] Start: 08-08-2023 End: 05-19-2025 Alcohol intake Current drinker of alcohol (finding) [facility] Within the last year , have you been afraid of your partner or ex-partner? No [facility] Are you now , , , , never or living with a partner? Never [facility] How often to you hav e a drink containing alcohol? 2-3 time sa week [facility] How many standard drinks containing alcohol do you have on a typical day? 3 or 4 [facility] How often do you hav e 6 or more drinks on 1 occasion? Monthly [facility] How hard is it for y ou to pay for the very basics like food, housing, medical care, and heating Somewhat hard [facility] Do you feel stress - tense, restless, nervous, or anxious, or unable to sleep at night because your mind is troubled all the time - these days [OSQ] Only a little [facility] (I/We) worried wheth er (my/our) food would run out before (I/we) got money to buy more. Never true [facility] Start: 05-04-2023 Alcohol Comment caffeine: occa sional energy drink [facility] How many standard drinks containing alcohol do you have on a typical day? 1 or 2 [facility] How often do you hav e 6 or more drinks on 1 occasion? Less than monthly [facility] Do you feel stress - tense, restless, nervous, or anxious, or unable to sleep at night because your mind is troubled all the time - these days [OSQ] Rather much [facility] How often to you hav e a drink containing alcohol? Never [facility] Start: 04-26-2024 Alcohol Comment ocassional [facility] Start: 06-23-2015 Sex Female (finding) [facility] Start: 06-10-2025 [facility] Start: 2004 Sex Assigned At Female F [facility] Functional Status Date Assessment Result Facility 05-19-2025 Total score [AUDIT-C] 5 05/19/20 25 11:12 AM EDT Nhung Walker MA [facility] Clinical Notes 06-18-2013 to 06-30-2025 ELIO Monreal - 06/30/2025 11:00 AM EDT Note Date & Type Note Facility 06-30-2025 History of Presen t illness Narrative Reason for Appointment: Patient ID: Gudelia Araujo is a 20 y.o. female who presents [...] status: Every Day Substances: Nicotine, Flavoring Devices: RefQual Canalble tank Substance Use Topics Alcohol use: Yes [...] (knee OA) Other grandparent Migraines Mother's Sister taran Anxiety disorder Mother's Sister taran Depression Mother's Sister taran SURGICAL HISTORY Past Surgical History: Procedure Laterality [...] and no mass present. No cervical discharge. Breasts: Breasts are soft. Right: Normal. Left: [...] nursing note reviewed. Exam conducted with a hand straightener present. Vitals: Estimated body mass index is 19.98 kg/m as calculated from the following: Height as [...] for annual unless needed otherwise. Documented by Radha Santa MA on behalf of: ELIO Monreal documented in this encounter [facility] 06-10-2025 Evaluation note Diagnosis Onset Date Resolution Vaginal discharge acute June 102024 12:59pm [facility] Work Phone: 1(322) 457-149507-22-2025 Telephone encounter Note* Telephone Encounter - Brionna Rios NP - 06/08/2025 8:31 AM EDT [facility] reviewed, no red flags, rx [facility]. [id number] Miscellaneous Notes* Telephone Encounter - Brionna Rios NP - 06/08/2025 8:31 AM EDT [facility] reviewed, no red flags, rx sent. [id number] History of Present illness Narrative* Denae Couch NP - 05/19/2025 11:00 AM EDT Images from the original note were not included. Gudelia Araujo is a 20 y.o. female presents with chief complaint of Med Refill (Pt is here for her medication refill. Pt states medication is very helpful and she is tolerating it well. Pt's only side effect is lack of appetite. Pt sleeps well at night. ) HPI: Med Refill Pertinent negatives include no abdominal pain, arthralgias, chest pain, chills, congestion, coughing, fatigue, fever, headaches, myalgias, nausea, neck pain, rash, sore throat, vomiting or weakness. History of Present Illness The patient is a 20-year-old female who presents for a medication refill for ADHD. She reports doing well on Adderall extended release, with no side effects other than some decreasedappetite. She is working on improving her appetite by eating foods high in protein. 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 Her sleep is not affected by the medication. She takes the extended-release form of Adderall around 9:00 AM and starts to feel its effects wearing off around 5:00 or 6:00 PM, after which her appetite returns. She reports no headaches. She recently had her medication refilled. Her weight has decreased from 140 pounds to 131 pounds over the past 3 months. SUBJECTIVE: MEDICATIONS: Current Outpatient Medications Medication Instructions amphetamine-dextroamphetamine XR (Adderall XR) 20 MG 24 hr capsule 20 mg, Oral, Every morning, Do not crush or chew. hydrOXYzine HCl (ATARAX) 25 mg, Oral, Every 6 hours PRN ibuprofen 800 MG tablet Levonorgestrel (Liletta, 52 MG,) 20.1 MCG/DAY intrauterine device by Intrauterine route. ALLERGIES: No Known Allergies History: Past Medical History: Diagnosis Date Acute left otitis media Anxiety Arthritis Bacterial vaginosis Depression Epigastric abdominal pain History of migraine with aura Irregular menses MPDS (myofascial pain dysfunction syndrome) violin posture Panic disorder Periumbilical abdominal pain Pharyngitis recurrent Strep throat recurrent Swimmer's ear recurrent Syncope Tonsillitis Past Surgical History: Procedure Laterality Date ADENOIDECTOMY LAPAROSCOPY DIAGNOSTIC / BIOPSY / ASPIRATION / LYSIS 08/07/2024 LYMPH NODE DISSECTION 02/02/2025 groin TONSILLECTOMY 06/30/2013 WISDOM TOOTH EXTRACTION 04/2022 Family History Problem Relation Name Age of [...] (knee OA) Other grandparent Migraines Mother's Sister taran Anxiety disorder Mother's Sister taran Depression Mother's Sister traan Social History Socioeconomic History Marital status: Unmarried Spouse name: Not on file Number of children: Not on file Years of education: Not on file Highest education level: Not on file Occupational History Not on file Tobacco Use Smoking status: Never Smokeless tobacco: Never Vaping Use Vaping status: Every Day Substances: Nicotine, Flavoring Devices: Refillable tank Substance and Sexual Activity Alcohol use: Yes Comment: caffeine: occasional energy drink Drug use: Never Sexual activity: Not Currently Partners: Female, Male control/protection: Condom Male, I.U.D. Other Topics Concern Not on file Social History Narrative Type of community involvement: volleyball, tennis, swim Exercise: crossfit @ [employer] facility Living with: mom, dad, brother, sister Natural support system: mom, dad, friends, aunts, uncles Pets: 5 cats, 1 dog, 1 guinea pig, 2 giekos Social Drivers of Health Financial Resource Strain: Medium Risk (12/18/2024) Overall Financial Resource Strain (CARDIA) Difficulty of Paying Living Expenses: Somewhat hard Food Insecurity: No Food Insecurity (01/13/2025) Received from [facility] Hunger Screening Within the past 12 months we worried whether our food would run out before we got money to buy more.: Never True Within the past 12 months the food we bought just didn't last and we didn't have money to get more.: Never True Transportation Needs: No Transportation Needs (12/18/2024) PRAPARE - Transportation Lack of Transportation (Medical): No Lack of Transportation (Non-Medical): No Physical Activity: Sufficiently Active (12/18/2024) Exercise Vital Sign Days of Exercise per Week: 6 days Minutes of Exercise per Session: 30 min Stress: Stress Concern Present (12/18/2024) [employer] - Occupational Stress Questionnaire Feeling of Stress : Rather much Social Connections: Moderately Isolated (12/18/2024) Social Connection and Isolation Panel [NHANES] Frequency of Communication with Friends and Family: More than three times a week Frequency of Social Gatherings with Friends and Family: More than three times a week Attends [employer] Services: 1 to 4 times per year Active Member of Clubs or Organizations: No Attends Club or Organization Meetings: Patient declined Marital Status: Never Intimate Partner Violence: Not At Risk (10/09/2023) Humiliation, Afraid, Rape, and Kick questionnaire Fear of Current or Ex-Partner: No Emotionally Abused: No Physically Abused: No Sexually Abused: No Housing Stability: Low Risk (12/18/2024) Housing Stability Vital Sign Unable to Pay for Housing in the Last Year: No Number of Times Moved in the Last Year: 1 Homeless in the Last Year: No I have reviewed and reconciled the history and medication list with the patient today. REVIEW OF SYMPTOMS: Review of Systems Constitutional: Positive for appetite change (less since starting Adderall.). Negative for chills, fatigue and fever. HENT: Negative. Negative for congestion, ear discharge, ear pain, postnasal drip, rhinorrhea, sinuspressure, sinus pain, sneezing, sore throat and trouble swallowing. Eyes: Negative. Negative for visual disturbance. Respiratory: Negative for cough, shortness of breath and wheezing. Cardiovascular: Negative. Negative for chest pain, palpitations and leg swelling. Gastrointestinal: Negative. Negative for abdominal distention, abdominal pain, blood in stool, diarrhea, nausea and vomiting. Genitourinary: Negative. Negative for decreased urine volume, difficulty urinating, dysuria, flank pain, frequency, hematuria and urgency. Musculoskeletal: Negative. Negative for arthralgias, myalgias and neck pain. Skin: Negative. Negative for rash. Neurological: Negative for dizziness, tremors, weakness, light-headedness and headaches. Psychiatric/Behavioral: Negative. Negative for confusion, decreased concentration, self-injury and sleep disturbance. The patient is not nervous/anxious and is not hyperactive. Hematological: Negative. Negative for adenopathy. Does not bruise/bleed easily. Endocrine: Negative. Negative for polydipsia and polyphagia. Allergic/Immunologic: Negative for environmental allergies, food allergies and immunocompromised state. OBJECTIVE: Results 11/14/2023 9:08 AM 06/09/2024 9:59 AM 06/29/2024 9:13 AM 07/09/2024 10:30 AM 07/24/2024 10:02 AM 08/20/2024 10:50 AM 12/25/2024 9:31 AM Vitals BMI 23.65 kg/m2 23.8 kg/m2 23.57 kg/m2 23.42 kg/m2 23.54 kg/m2 23.11 kg/m2 21.32 kg/m2 BSA (m2) 1.8 m2 1.88 m2 1.84 m2 1.83 m2 1.84 m2 1.82 m2 1.75 m2 Systolic 116 118 108 110 104 110 110 Diastolic 78 78 76 76 70 70 80 Heart Rate 81 74 88 80 SpO2 100 % 99 % Resp 18 20 Height (in) 5' 7 5' 8.75 5' 8 5' 8 Weight (lb) 151 160 155 154 154.8 152 140.2 Visit Report Report Report Report Report Report Report Physical Exam Vitals and nursing note reviewed. Constitutional: General: She is not in acute distress. Appearance: Normal appearance. She is not ill-appearing, toxic-appearing or diaphoretic. HENT: Head: Normocephalic. Mouth/Throat: Mouth: Mucous membranes are moist. Cardiovascular: Rate and Rhythm: Normal rate and regular rhythm. Pulses: Normal pulses. Heart sounds: Normal heart sounds. No murmur heard. No friction rub. No gallop. Pulmonary: Effort: Pulmonary effort is normal. No respiratory distress. Breath sounds: Normal breath sounds. No wheezing, rhonchi or rales. Abdominal: General: Bowel sounds are normal. There is no distension. Palpations: Abdomen is soft. Tenderness: There is no abdominal tenderness. Musculoskeletal: General: No swelling or deformity. Normal range of motion. Cervical back: Normal range of motion and neck supple. Skin: General: Skin is warm and dry. Capillary Refill: Capillary refill takes less than 2 seconds. Findings: No bruising or erythema. Neurological: General: No focal deficit present. Mental Status: She is alert and oriented to person, place, and time. Mental status is at baseline. Motor: No weakness. Gait: Gait normal. Psychiatric: Mood and Affect: Mood normal. Behavior: Behavior normal. Thought Content: Thought content normal. Judgment: Judgment normal. Physical Exam Respiratory: Clear to auscultation, no wheezing, rales or rhonchi ASSESSMENT AND PLAN: Assessment/Plan Diagnoses and all orders for this visit: Attention deficit hyperactivity disorder (ADHD), predominantly inattentive type Managed well on Adderall, SE poor appetite. Discussed diet and foods to eat. Supplemental boost or ensure to help with caloric intake. Discussed that if her BMI drops below 19, will need to come off Adderall. PVU. Moderate episode of recurrent major depressive disorder (HCC) Improved. Anxiety, generalized Improved. Panic disorder Improved. Assessment & Plan 1. Attention Deficit Hyperactivity Disorder (ADHD). - Currently on Adderall extended release, reports doing well with no significant side effects otherthan decreased appetite. - Weight has decreased from 140 to 131 pounds since the last visit, maintaining within the normal BMI range for her height. - Advised to maintain weight above 130 pounds to avoid being underweight. - No changes to the current medication regimen are necessary at this time. 2. Weight loss. - Weight has decreased from 140 to 131 pounds since the last visit, maintaining within the normal BMI range for her height. - Advised to maintain weight above 130 pounds to avoid being underweight. - Discussed the importance of eating high-protein foods and maintaining regular physical activity. - Follow-up scheduled in 3 months to monitor weight and overall health. documented in this [facility]06-09-2025 Telephone encounter Note* Telephone Encounter - Brionna Rios NP - 04/26/2025 12:48 PM EDT OARRS reviewed, no red flags, [id number] Miscellaneous Notes* Telephone Encounter - Brionna Rios NP - 04/26/2025 12:48 PM EDT OARRS reviewed, no red flags, rx sent documented in this [facility]05-08-2025 Telephone encounter Note* Telephone Encounter - Brionna Rios NP - 03/25/2025 2:39 PM EDT OARRS reviewed, no red flags, [facility]. [id number] Miscellaneous Notes* Telephone Encounter - Brionna Rios NP - 03/25/2025 2:39 PM EDT OARRS reviewed, no red flags, rx sent. * Telephone Encounter - Domonique Torrez MA - 03/24/2025 10:39 AM EDT Pharmacy and dosage correct documented [id number] Telephone encounter Note* Telephone Encounter - Domonique Torrez MA - 03/24/2025 10:39 AM EDT Pharmacy and dosage correct [id number] Instructions* Patient Instructions* Taran Aguillon CNP - 03/02/2025 12:42 PM EDT Warm compresses to right eye. May use Motrin and or Tylenol for any fevers, chills or aches. Take medication as directed, make sure to finish antibiotic prescription. Follow up if your symptoms worsen, change or are not improved in 7-10 days. * Attachments The following attachments cannot be sent through Care Everywhere. * Conjunctivitis (Bermudian) * URI (Upper Respiratory Infection) (Bermudian) documented in this [id number] NotePATIENT NAME: Gudelia Araujo [facility] [address] [place] [address] A [facility] [id number] : 2005 DATE OF VISIT: 03/02/2025 #: [id number] PROVIDER: Taran Aguillon CNP Chief Complaint Patient presents with Conjunctivitis Left SUBJECTIVE 20 y.o. female presents Conjunctivitis (Left ) 20 year old female presents to clinic for acute symptoms that started this morning with right eye redness and eye matted shut. Pt notes that she has had runny/stuffy nose along with sinus pressure and intermittent sore throat for about a month. Pt notes then right eye redness last night with increased symptoms this morning. Pt denies any fevers, chills or body aches. Pt has taken some IBU with some mild improvement of symptoms. MEDICAL ISSUES Past Medical History: Diagnosis Date Anxiety Arthritis Depression Migraines Problem List[1] SOCIAL HISTORY Social History [2] FAMILY HISTORY Family History Problem Relation Age of Onset Depression Mother No Known Problems Father Arthritis Maternal Grandfather REVIEW OF SYSTEMS Review of Systems Constitutional: Negative for chills and fever. HENT: Positive for congestion, rhinorrhea, sinus pressure and sore throat (intermittent). Negative for ear pain and sinus pain. Eyes: Positive for discharge and redness. Negative for itching. Respiratory: Positive for cough. Musculoskeletal: Negative for arthralgias. Neurological: Positive for headaches. MEDICATIONS PRIOR TO VISIT Medications Ordered Prior to Encounter[3] ALLERGIES/INTOLERANCES Allergies[4] OBJECTIVE BP 114/76 Pulse 96 Temp 98.6 degrees F (37 degrees C) (Oral) Resp 18 SpO2 96% Physical Exam Vitals and nursing note reviewed. Constitutional: Appearance: Normal appearance. HENT: Head: Normocephalic and atraumatic. Right Ear: Tympanic membrane and ear canal normal. Left Ear: Tympanic membrane and ear canal normal. Nose: Right Sinus: No maxillary sinus tenderness or frontal sinus tenderness. Left Sinus: No maxillary sinus tenderness or frontal sinus tenderness. Mouth/Throat: Mouth: Mucous membranes are moist. Pharynx: Oropharynx is clear. Eyes: Conjunctiva/sclera: Right eye: Right conjunctiva is injected. Pupils: Pupils are equal, round, and reactive to light. Cardiovascular: Rate and Rhythm: Normal rate and regular rhythm. Heart sounds: Normal heart sounds. Pulmonary: Effort: Pulmonary effort is normal. Breath sounds: Normal breath sounds. Lymphadenopathy: Cervical: No cervical adenopathy. Neurological: Mental Status: She is alert. Psychiatric: Behavior: Behavior is cooperative. PROCEDURE Procedures Results No results found for this or any previous visit (from the past week). ASSESSMENT/PLAN (expressed as patient instructions): 1. Acute bacterial conjunctivitis of left eye trimethoprim-polymyxin b (POLYTRIM) 10,000 unit- 1 mg/mL Drop ophthalmic solution 2. Upper respiratory tract infection, unspecified type predniSONE (DELTASONE) 20 MG tablet Return if symptoms worsen or fail to improve. MDM Section ORDERS PLACED THIS VISIT No orders of the defined types were placed in this encounter. MEDICATION LIST AT END OF VISIT Current Medications[5] [1] Patient Active Problem List Diagnosis Alcohol intoxication in active alcoholic, uncomplicated (HCC) Anxiety, generalized Panic disorder Migraine with aura and without status migrainosus, not intractable Moderate episode of recurrent major depressive disorder (HCC) Dysuria Screen for STD (sexually transmitted disease) [2] Social History Socioeconomic History Marital status: Single Tobacco Use Smoking status: Never Smokeless tobacco: Never Vaping Use Vaping status: Every Day Substances: Nicotine Substance and Sexual Activity Alcohol use: Yes Alcohol/week: 5.0 standard drinks of alcohol Types: 5 Cans of beer per week Drug use: Never Sexual activity: Not Currently Partners: Female, Male control/protection: I.U.D., Condom Social Drivers of Health Financial Resource Strain: Medium Risk (12/18/2024) Received from [facility] Overall Financial Resource Strain (CARDIA) Difficulty of Paying Living Expenses: Somewhat hard Food Insecurity: No Food Insecurity (01/13/2025) Received from [facility] Hunger Screening Within the past 12 months we worried whether our food would run out before we got money to buy more.: Never True Within the past 12 months the food we bought just didn't last and we didn't have money to get more.: Never True Transportation Needs: No Transportation Needs (12/18/2024) Received from [facility] PRAPARE - Transportation Lack of Transportation (Medical): No Lack of Transportation (Non-Medical): No Physical Activity: Sufficiently Active (12/18/2024) Received from [facility] Exercise Vital Sign Days of Exercise per Week: 6 days Minutes of Exercise per (more content not included)...[facility] 03-02-2025 History of Present illness Narrative* Taran Aguillon, AMANDA - 03/02/2025 12:17 PM EDT PATIENT NAME: Gudelia Araujo [facility] [address] [place] [id number] : 2005 DATE OF VISIT: 03/02/2025 #: [id number] PROVIDER: Taran Aguillon CNP Chief Complaint Patient presents with Conjunctivitis Left SUBJECTIVE 20 y.o. female presents Conjunctivitis (Left ) 20 year old female presents to clinic for acute symptoms that started this morning with right eye redness and eye matted shut. Pt notes that she has had runny/stuffy nose along with sinus pressure and intermittent sore throat for about a month. Pt notes then right eye redness last night with increased symptoms this morning. Pt denies any fevers, chills or body aches. Pt has taken some IBU with some mild improvement of symptoms. MEDICAL ISSUES Past Medical History: Diagnosis Date Anxiety Arthritis Depression Migraines Problem List[1] SOCIAL HISTORY Social History [2] FAMILY HISTORY Family History Problem Relation Age of Onset Depression Mother No Known Problems Father Arthritis Maternal Grandfather REVIEW OF SYSTEMS Review of Systems Constitutional: Negative for chills and fever. HENT: Positive for congestion, rhinorrhea, sinus pressure and sore throat (intermittent). Negative for ear pain and sinus pain. Eyes: Positive for discharge and redness. Negative for itching. Respiratory: Positive for cough. Musculoskeletal: Negative for arthralgias. Neurological: Positive for headaches. MEDICATIONS PRIOR TO VISIT Medications Ordered Prior to Encounter[3] ALLERGIES/INTOLERANCES Allergies[4] OBJECTIVE BP 114/76 Pulse 96 Temp 98.6 F (37 C) (Oral) Resp 18 SpO2 96% Physical Exam Vitals and nursing note reviewed. Constitutional: Appearance: Normal appearance. HENT: Head: Normocephalic and atraumatic. Right Ear: Tympanic membrane and ear canal normal. Left Ear: Tympanic membrane and ear canal normal. Nose: Right Sinus: No maxillary sinus tenderness or frontal sinus tenderness. Left Sinus: No maxillary sinus tenderness or frontal sinus tenderness. Mouth/Throat: Mouth: Mucous membranes are moist. Pharynx: Oropharynx is clear. Eyes: Conjunctiva/sclera: Right eye: Right conjunctiva is injected. Pupils: Pupils are equal, round, and reactive to light. Cardiovascular: Rate and Rhythm: Normal rate and regular rhythm. Heart sounds: Normal heart sounds. Pulmonary: Effort: Pulmonary effort is normal. Breath sounds: Normal breath sounds. Lymphadenopathy: Cervical: No cervical adenopathy. Neurological: Mental Status: She is alert. Psychiatric: Behavior: Behavior is cooperative. PROCEDURE Procedures Results No results found for this or any previous visit (from the past week). ASSESSMENT/PLAN (expressed as patient instructions): 1. Acute bacterial conjunctivitis of left eye trimethoprim-polymyxin b (POLYTRIM) 10,000 unit- 1 mg/mL Drop ophthalmic solution 2. Upper respiratory tract infection, unspecified type predniSONE (DELTASONE) 20 MG tablet Return if symptoms worsen or fail to improve. MDM Section ORDERS PLACED THIS VISIT No orders of the defined types were placed in this encounter. MEDICATION LIST AT END OF VISIT Current Medications[5] [1] Patient Active Problem List Diagnosis Alcohol intoxication in active alcoholic, uncomplicated (HCC) Anxiety, generalized Panic disorder Migraine with aura and without status migrainosus, not intractable Moderate episode of recurrent major depressive disorder (HCC) Dysuria Screen for STD (sexually transmitted disease) [2] Social History Socioeconomic History Marital status: Single Tobacco Use Smoking status: Never Smokeless tobacco: Never Vaping Use Vaping status: Every Day Substances: Nicotine Substance and Sexual Activity Alcohol use: Yes Alcohol/week: 5.0 standard drinks of alcohol Types: 5 Cans of beer per week Drug use: Never Sexual activity: Not Currently Partners: Female, Male control/protection: I.U.D., Condom Social Drivers of Health Financial Resource Strain: Medium Risk (12/18/2024) Received from [facility] Overall Financial Resource Strain (CARDIA) Difficulty of Paying Living Expenses: Somewhat hard Food Insecurity: No Food Insecurity (01/13/2025) Received from [facility] Hunger Screening Within the past 12 months we worried whether our food would run out before we got money to buy more.: Never True Within the past 12 months the food we bought just didn't last and we didn't have money to get more.: Never True Transportation Needs: No Transportation Needs (12/18/2024) Received from [facility] PRAPARE - Transportation Lack of Transportation (Medical): No Lack of Transportation (Non-Medical): No Physical Activity: Sufficiently Active (12/18/2024) Received from [facility] Exercise Vital Sign Days of Exercise per Week: 6 days Minutes of Exercise per Session: 30 min Stress: Stress Concern Present (12/18/2024) Received from [facility] [employer] - Occupational Stress Questionnaire Feeling of Stress : Rather much Social Connections: Moderately Isolated (12/18/2024) Received from [facility] Social Connection and Isolation Panel [NHANES] Frequency of Communication with Friends and Family: More than three times a week Frequency of Social Gatherings with Friends and Family: More than three times a week Attends [employer] Services: 1 to 4 times per year Active Member of Clubs or Organizations: No Attends Club or Organization Meetings: Patient declined Marital Status: Never Housing Stability: Low Risk (12/18/2024) Received from [facility] Housing Stability Vital Sign Unable to Pay for Housing in the Last Year: No Number of Times Moved in the Last Year: 1 Homeless in the Last Year: No [3] Current Outpatient Medications on File Prior to Visit Medication Sig Dispense Refill dextroamphetamine-amphetamine (ADDERALL XR) 20 MG 24 hr capsule Take 1 (one) capsule (20 mg total) by mouth every morning . levonorgestreL (MIRENA) 21 mcg/24 hours (8 yrs) 52 mg IUD 1 (one) each by Intrauterine route once . venlafaxine (EFFEXOR) 75 MG tablet Take 1 (one) tablet (75 mg total) by mouth daily WITH FOOD . No current facility-administered medications on file prior to visit. [4] No Known Allergies [5] Current Outpatient Medications Medication Sig Dispense Refill dextroamphetamine-amphetamine (ADDERALL XR) 20 MG 24 hr capsule Take 1 (one) capsule (20 mg total) by mouth every morning . levonorgestreL (MIRENA) 21 mcg/24 hours (8 yrs) 52 mg IUD 1 (one) each by Intrauterine route once . venlafaxine (EFFEXOR) 75 MG tablet Take 1 (one) tablet (75 mg total) by mouth daily WITH FOOD . predniSONE (DELTASONE) 20 MG tablet 2 po daily for 3 days then 1 po daily for 3 days then 0.5 po daily for 3 days . 11 tablet 0 trimethoprim-polymyxin b (POLYTRIM) 10,000 unit- 1 mg/mL Drop ophthalmic solution Administer 1 (one) drop to both eyes every 4 (four) hours for 7 days . 10 mL 0 No current facility-administered medications for this visit. documented in this [id number] Telephone encounter Note* Telephone Encounter - Brionna Rios NP - 02/16/2025 5:04 PM EDT OARRS reviewed, no red flags, rx [facility]. [id number] Miscellaneous Notes* Telephone Encounter - Brionna Rios NP - 02/16/2025 5:04 PM EDT OARRS reviewed, no red flags, rx sent. documented in this [id number] NotePlease call pt - urine culture appears contaminated. Recommend to recollect/follow up if symptoms persist. AUTHENTICATED BY TARAN AGUILLON ON 02/10/2025 09:10:[address] [place] [address] Urgent [id number] History of Present illness Narrative* Taran Aguillon CNP - 02/10/2025 9:10 AM EDT Please call pt - urine culture appears contaminated. Recommend to recollect/follow up if symptoms persist. documented in this [id number] Miscellaneous Notes* Telephone Encounter - Jeane Fajardo CMA - 02/09/2025 1:04 PM EDT ----- Message from Dr. Janis Morrison DO sent at 02/09/2025 12:49 PM EDT ----- Please call patient and give results that everything was benign reactive hyperplasia and nothing toworry about. ThanksDr. Perera * Telephone Encounter - Jeane Fajardo CMA - 02/09/2025 1:04 PM EDT Spoke with patient regarding pathology results. Patient verbally understood with no further questions. Patient requested a note for school to return to clinicals. [facility] Telephone encounter Note* Telephone Encounter - Jeane Fajardo CMA - 02/09/2025 1:04 PM EDT ----- Message from Dr. Janis Morrison DO sent at 02/09/2025 12:49 PM EDT ----- Please call patient and give results that everything was benign reactive hyperplasia and nothing toworry about. Thanks, Dr. Perera [facility]03-25-2025 Telephone encounter Note* Telephone Encounter - Jeane Fajardo CMA - 02/09/2025 1:04 PM EDT Spoke with patient regarding pathology results. Patient verbally understood with no further questions. Patient requested a note for school to return to clinicals. [facility]03-24-2025 Instructions* Patient Instructions* Taran Aguillon CNP - 02/08/2025 8:21 PM EDT Rest, ice and elevation. May use Motrin and or Tylenol for any aches. Urine is negative in clinic. Take medication as directed. Seek emergent care if symptoms worsen or change. Follow up if your symptoms worsen, change or are not improved in 7-10 days. * Attachments The following attachments cannot be sent through Care Everywhere. * Back Pain (Bermudian) documented in this [id number] Telephone encounter Note* Telephone Encounter - Chapin Teresaavtar - 02/08/2025 1:49 PM EDT Please give Elena a call - she went to Urgent care - High PH and Protein - she was told to waut 3-4days for culture to come back but she in a lot of pain and would like to ask you what she can do . [phone] [facility] [id number] Miscellaneous Notes* Telephone Encounter - Chapin Dejesus - 02/08/2025 1:49 PM EDT Please give Elena a call - she went to Urgent care - High PH and Protein - she was told to waut 3-4days for culture to come back but she in a lot of pain and would like to ask you what she can do . [phone] documented in this encou[id number] NotePATIENT NAME: Gudelia Araujo [facility] [address] [place] [phone] : 2005 DATE OF VISIT: 02/08/2025 #: [id number] PROVIDER: Taran Aguillon CNP Chief Complaint Patient presents with Back Pain SUBJECTIVE 20 y.o. female presents Back Pain 20 year old female presents to clinic for acute symptoms of left flank pain, low back pain that started this morning. Pt notes that the pain has been intermittent. Pt notes nothing tends to make pain better or worse. Pt denies any dysuria or urinary frequency or urgency. Pt denies any hematuria. Pt reports no menstrual cycles due to IUD. Pt denies any vaginal discharge. Pt denies any injury of the back. MEDICAL ISSUES Past Medical History: Diagnosis Date Anxiety Arthritis Depression Migraines Problem List[1] SOCIAL HISTORY Social History [2] FAMILY HISTORY Family History Problem Relation Age of Onset Depression Mother No Known Problems Father Arthritis Maternal Grandfather REVIEW OF SYSTEMS Review of Systems Genitourinary: Negative for dysuria, frequency and urgency. Musculoskeletal: Positive for back pain. MEDICATIONS PRIOR TO VISIT Medications Ordered Prior to Encounter[3] ALLERGIES/INTOLERANCES Allergies[4] OBJECTIVE BP 126/86 (BP Location: Right arm) Pulse 97 Temp 97.5 degrees F (36.4 degrees C) (Oral) Resp 16 SpO2 99% Physical Exam Vitals and nursing note reviewed. Constitutional: Appearance: Normal appearance. HENT: Head: Normocephalic and atraumatic. Cardiovascular: Rate and Rhythm: Normal rate and regular rhythm. Heart sounds: Normal heart sounds. Pulmonary: Effort: Pulmonary effort is normal. Breath sounds: Normal breath sounds. Musculoskeletal: Back: Comments: Pt has some low left sided back pain, slightly tender with touch. Neurological: Mental Status: She is alert. PROCEDURE Procedures Results Recent Results (from the past week) POC Urinalysis Dipstick,Auto UC Collection Time: 02/08/25 12:41 PM Result Value Ref Range POC Color, Urine Yellow Yellow, Light Yellow, Dark Yellow Clarity, UA Slightly Cloudy (A) Clear Glucose, UA Negative Normal, Negative mg/dL Bilirubin, UA Negative Negative Ketones, UA Negative Negative mg/dL Spec Grav, UA 1.015 (A) 1.005 - 1.025 Blood, UA Negative Negative pH, UA 9.0 (A) 5.0 - 7.0 Protein, UA 30 (A) Negative mg/dL Urobilinogen, UA 0.2 <2.0, 0.2, Normal, Negative, 1.0, 2.0, <1.0 mg/dL Nitrite, UA Negative Negative Leukocyte Esterase, UA Negative Negative BMP Collection Time: 02/08/25 7:16 PM Result Value Ref Range Sodium 137 135 - 145 mmol/L Potassium 3.4 (L) 3.5 - 5.1 mmol/L Chloride 104 98 - 108 mmol/L Bicarbonate 23 21 - 32 mmol/L Anion Gap 13 10 - 20 mmol/L Glucose 103 (H) 65 - 99 mg/dL BUN 9 8 - 25 mg/dL Creatinine 0.62 0.40 - 1.10 mg/dL eGFR 130 >=60 mL/min/1.73 m2 BUN/Creatinine Ratio 14.5 10.0 - 20.0 Calcium 9.7 8.4 - 10.2 mg/dL hCG, Serum, QUALITATIVE Collection Time: 02/08/25 7:16 PM Result Value Ref Range Beta-hCG Qual Negative Negative CBC Auto Differential Collection Time: 02/08/25 7:16 PM Result Value Ref Range WBC 8.69 4.50 - 11.00 K/mcL RBC 4.79 4.00 - 5.20 M/mcL Hemoglobin 14.6 12.0 - 16.0 g/dL Hematocrit 43.3 36.0 - 46.0 % MCV 90.4 80.0 - 100.0 fL MCH 30.5 26.0 - 34.0 pg MCHC 33.7 31.0 - 37.0 g/dL Platelets 319 150 - 400 K/mcL RDW - CV 12.4 11.6 - 14.8 % MPV 9.6 9.4 - 12.4 fL Neutrophils 63.0 % Lymphocytes 23.8 % Monocytes 11.9 % Eosinophils 0.7 % Basophils 0.3 % IG Percent 0.30 % Neutrophils Abs 5.47 1.70 - 7.00 K/mcL Lymphocytes Abs 2.07 0.90 - 4.00 K/mcL Monocytes Abs 1.03 (H) 0.30 - 0.90 K/mcL Eosinophils Abs 0.06 0.00 - 0.50 K/mcL Basophils Abs 0.03 0.00 - 0.30 K/mcL IG Absolute 0.03 0.00 - 0.30 K/mcL Nucleated RBC 0.0 % Nucleated RBC Abs 0.00 0.00 - 0.00 K/mcL Urinalysis Collection Time: 02/08/25 7:24 PM Result Value Ref Range Color, Urine Denae (A) Colorless, Yellow Clarity, Urine Cloudy (A) Clear Specific [place] 1.021 1.005 - 1.025 pH, Urine 7.5 (H) 5.0 - 7.0 Protein, Urine Negative Negative mg/dL Glucose, Urine Negative Negative mg/dL Ketones, Urine Negative Negative mg/dL Bilirubin, Urine Negative Negative Urobilinogen, Urine <2.0 <2.0 mg/dL Blood, Urine Negative Negative Nitrite, Urine Negative Negative Leukocyte Esterase, Urine Trace (A) Negative WBCs, Urine 13 (H) 0 - 5 /hpf RBCs, Urine 2 0 - 3 /hpf Bacteria, Urine None Seen None Seen /hpf Squamous Epithelial 8 (H) 0 - 4 /hpf Amorphous Crystals Rare None Seen, Rare /hpf Mucus, Urine Rare None Seen, Rare /lpf ASSESSMENT/PLAN (expressed as patient instructions): 1. Back pain Urine Aerobic Culture POC Urinalysis Dipstick,Auto UC ibuprofen (ADVIL,MOTRIN) 600 MG tablet tiZANidine (ZANAFLEX) 4 MG capsule Return if symptoms worsen or fail to improve. MDM Section ORDERS PLACED THIS VISIT Orders Bette (more content not included)...[facility] [id number] History of Present illness Narrative* Taran Aguillon CNP - 02/08/2025 12:56 PM EDT Images from the original note were not included. PATIENT NAME: Gudelia Araujo [facility] [address] [facility] [id number] : 2005 DATE OF VISIT: 02/08/2025 #: [id number] PROVIDER: Taran Aguillon CNP Chief Complaint Patient presents with Back Pain SUBJECTIVE 20 y.o. female presents Back Pain 20 year old female presents to clinic for acute symptoms of left flank pain, low back pain that started this morning. Pt notes that the pain has been intermittent. Pt notes nothing tends to make painbetter or worse. Pt denies any dysuria or urinary frequency or urgency. Pt denies any hematuria. Ptreports no menstrual cycles due to IUD. Pt denies any vaginal discharge. Pt denies any injury of the back. MEDICAL ISSUES Past Medical History: Diagnosis Date Anxiety Arthritis Depression Migraines Problem List[1] SOCIAL HISTORY Social History [2] FAMILY HISTORY Family History Problem Relation Age of Onset Depression Mother No Known Problems Father Arthritis Maternal Grandfather REVIEW OF SYSTEMS Review of Systems Genitourinary: Negative for dysuria, frequency and urgency. Musculoskeletal: Positive for back pain. MEDICATIONS PRIOR TO VISIT Medications Ordered Prior to Encounter[3] ALLERGIES/INTOLERANCES Allergies[4] OBJECTIVE BP 126/86 (BP Location: Right arm) Pulse 97 Temp 97.5 F (36.4 C) (Oral) Resp 16 SpO2 99% Physical Exam Vitals and nursing note reviewed. Constitutional: Appearance: Normal appearance. HENT: Head: Normocephalic and atraumatic. Cardiovascular: Rate and Rhythm: Normal rate and regular rhythm. Heart sounds: Normal heart sounds. Pulmonary: Effort: Pulmonary effort is normal. Breath sounds: Normal breath sounds. Musculoskeletal: Back: Comments: Pt has some low left sided back pain, slightly tender with touch. Neurological: Mental Status: She is alert. PROCEDURE Procedures Results Recent Results (from the past week) POC Urinalysis Dipstick,Auto UC Collection Time: 02/08/25 12:41 PM Result Value Ref Range POC Color, Urine Yellow Yellow, Light Yellow, Dark Yellow Clarity, UA Slightly Cloudy (A) Clear Glucose, UA Negative Normal, Negative mg/dL Bilirubin, UA Negative Negative Ketones, UA Negative Negative mg/dL Spec Grav, UA 1.015 (A) 1.005 - 1.025 Blood, UA Negative Negative pH, UA 9.0 (A) 5.0 - 7.0 Protein, UA 30 (A) Negative mg/dL Urobilinogen, UA 0.2 <2.0, 0.2, Normal, Negative, 1.0, 2.0, <1.0 mg/dL Nitrite, UA Negative Negative Leukocyte Esterase, UA Negative Negative BMP Collection Time: 02/08/25 7:16 PM Result Value Ref Range Sodium 137 135 - 145 mmol/L Potassium 3.4 (L) 3.5 - 5.1 mmol/L Chloride 104 98 - 108 mmol/L Bicarbonate 23 21 - 32 mmol/L Anion Gap 13 10 - 20 mmol/L Glucose 103 (H) 65 - 99 mg/dL BUN 9 8 - 25 mg/dL Creatinine 0.62 0.40 - 1.10 mg/dL eGFR 130 >=60 mL/min/1.73 m2 BUN/Creatinine Ratio 14.5 10.0 - 20.0 Calcium 9.7 8.4 - 10.2 mg/dL hCG, Serum, QUALITATIVE Collection Time: 02/08/25 7:16 PM Result Value Ref Range Beta-hCG Qual Negative Negative CBC Auto Differential Collection Time: 02/08/25 7:16 PM Result Value Ref Range WBC 8.69 4.50 - 11.00 K/mcL RBC 4.79 4.00 - 5.20 M/mcL Hemoglobin 14.6 12.0 - 16.0 g/dL Hematocrit 43.3 36.0 - 46.0 % MCV 90.4 80.0 - 100.0 fL MCH 30.5 26.0 - 34.0 pg MCHC 33.7 31.0 - 37.0 g/dL Platelets 319 150 - 400 K/mcL RDW - CV 12.4 11.6 - 14.8 % MPV 9.6 9.4 - 12.4 fL Neutrophils 63.0 % Lymphocytes 23.8 % Monocytes 11.9 % Eosinophils 0.7 % Basophils 0.3 % IG Percent 0.30 % Neutrophils Abs 5.47 1.70 - 7.00 K/mcL Lymphocytes Abs 2.07 0.90 - 4.00 K/mcL Monocytes Abs 1.03 (H) 0.30 - 0.90 K/mcL Eosinophils Abs 0.06 0.00 - 0.50 K/mcL Basophils Abs 0.03 0.00 - 0.30 K/mcL IG Absolute 0.03 0.00 - 0.30 K/mcL Nucleated RBC 0.0 % Nucleated RBC Abs 0.00 0.00 - 0.00 K/mcL Urinalysis Collection Time: 02/08/25 7:24 PM Result Value Ref Range Color, Urine Denae (A) Colorless, Yellow Clarity, Urine Cloudy (A) Clear Specific [place] 1.021 1.005 - 1.025 pH, Urine 7.5 (H) 5.0 - 7.0 Protein, Urine Negative Negative mg/dL Glucose, Urine Negative Negative mg/dL Ketones, Urine Negative Negative mg/dL Bilirubin, Urine Negative Negative Urobilinogen, Urine <2.0 <2.0 mg/dL Blood, Urine Negative Negative Nitrite, Urine Negative Negative Leukocyte Esterase, Urine Trace (A) Negative WBCs, Urine 13 (H) 0 - 5 /hpf RBCs, Urine 2 0 - 3 /hpf Bacteria, Urine None Seen None Seen /hpf Squamous Epithelial 8 (H) 0 - 4 /hpf Amorphous Crystals Rare None Seen, Rare /hpf Mucus, Urine Rare None Seen, Rare /lpf ASSESSMENT/PLAN (expressed as patient instructions): 1. Back pain Urine Aerobic Culture POC Urinalysis Dipstick,Auto UC ibuprofen (ADVIL,MOTRIN) 600 MG tablet tiZANidine (ZANAFLEX) 4 MG capsule Return if symptoms worsen or fail to improve. MDM Section ORDERS PLACED THIS VISIT Orders Placed This Encounter Procedures Urine Aerobic Culture POC Urinalysis Dipstick,Auto UC MEDICATION LIST AT END OF VISIT Current Medications[5] [1] Patient Active Problem List Diagnosis Alcohol intoxication in active alcoholic, uncomplicated (HCC) Anxiety, generalized Panic disorder Migraine with aura and without status migrainosus, not intractable Moderate episode of recurrent major depressive disorder (HCC) Dysuria Screen for STD (sexually transmitted disease) [2] Social History Socioeconomic History Marital status: Single Tobacco Use Smoking status: Never Smokeless tobacco: Never Vaping Use Vaping status: Every Day Substances: Nicotine Substance and Sexual Activity Alcohol use: Yes Alcohol/week: 5.0 standard drinks of alcohol Types: 5 Cans of beer per week Drug use: Never Sexual activity: Not Currently Partners: Female, Male control/protection: I.U.D., Condom Social Drivers of Health Financial Resource Strain: Medium Risk (12/18/2024) Received from [facility] Overall Financial Resource Strain (CARDIA) Difficulty of Paying Living Expenses: Somewhat hard Food Insecurity: No Food Insecurity (01/13/2025) Received from [facility] Hunger Screening Within the past 12 months we worried whether our food would run out before we got money to buy more.: Never True Within the past 12 months the food we bought just didn't last and we didn't have money to get more.: Never True Transportation Needs: No Transportation Needs (12/18/2024) Received from [facility] PRAPARE - Transportation Lack of Transportation (Medical): No Lack of Transportation (Non-Medical): No Physical Activity: Sufficiently Active (12/18/2024) Received from [facility] Exercise Vital Sign Days of Exercise per Week: 6 days Minutes of Exercise per Session: 30 min Stress: Stress Concern Present (12/18/2024) Received from [facility] [employer] - Occupational Stress Questionnaire Feeling of Stress : Rather much Social Connections: Moderately Isolated (12/18/2024) Received from [facility] Social Connection and Isolation Panel [NHANES] Frequency of Communication with Friends and Family: More than three times a week Frequency of Social Gatherings with Friends and Family: More than three times a week Attends Roman [employer] Services: 1 to 4 times per year Active Member of Clubs or Organizations: No Attends Club or Organization Meetings: Patient declined Marital Status: Never Housing Stability: Low Risk (12/18/2024) Received from [facility] Housing Stability Vital Sign Unable to Pay for Housing in the Last Year: No Number of Times Moved in the Last Year: 1 Homeless in the Last Year: No [3] No current facility-administered medications on file prior to visit. Current Outpatient Medications on File Prior to Visit Medication Sig Dispense Refill levonorgestreL (MIRENA) 21 mcg/24 hours (8 yrs) 52 mg IUD 1 (one) each by Intrauterine route once . venlafaxine (EFFEXOR) 75 MG tablet Take 1 (one) tablet (75 mg total) by mouth daily WITH FOOD . [4] No Known Allergies [5] No current facility-administered medications for this visit. Current Outpatient Medications Medication Sig Dispense Refill ibuprofen (ADVIL,MOTRIN) 600 MG tablet Take 1 (one) tablet (600 mg total) by mouth every 8 (eight) hours as needed for pain . 30 tablet 0 levonorgestreL (MIRENA) 21 mcg/24 hours (8 yrs) 52 mg IUD 1 (one) each by Intrauterine route once . tiZANidine (ZANAFLEX) 4 MG capsule Take 1 (one) capsule (4 mg total) by mouth 3 (three) times a dayfor 15 days . 45 capsule 0 venlafaxine (EFFEXOR) 75 MG tablet Take 1 (one) tablet (75 mg total) by mouth daily WITH FOOD . Facility-Administered Medications Ordered in Other Visits Medication Dose Route Frequency Provider Last Rate Last Admin sodium chloride (PF) (NS) flush 5 mL 5 mL Intravenous PRN Yessy Galaviz CNP And sodium chloride 0.9% (NS) 0-150 mL/hr Intravenous PRN Yessy Galaviz CNP documented in this [id number] History of Present illness Narrative* Floresita Perez, SOUMYA-AMANDA - 02/19/2025 10:30 AM EDT Images from the original note were not included. Subjective Gudelia Araujo is a 20 y.o. female status post excision of left inguinal lymph node on 02/02/2025. She states she had a lot of swelling initially but this has gone down a lot. Also feels 1 suture sticking out. Denies fever chills. Denies pain. She requested to complete this visit via video as she is in [place], [place] at [facility]. Objective There were no vitals filed for this visit. Physical Exam Constitutional: General: She is not in acute distress. Appearance: Normal appearance. She is not ill-appearing. HENT: Head: Normocephalic and atraumatic. Eyes: Pupils: Pupils are equal, round, and reactive to light. Pulmonary: Effort: Pulmonary effort is normal. No respiratory distress. Musculoskeletal: General: Normal range of motion. Cervical back: Normal range of motion. Skin: Comments: Left inguinal incision with no signs of infection. Neurological: Mental Status: She is alert and oriented to person, place, and time. Mental status is at baseline. 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 No malignancy identified. Comment: Special stains for acid-fast bacilli and fungi are performed with appropriate controls andare negative for microorganisms. Assessment Gudelia Araujo is a 20 y.o.female postop excision of left inguinal lymph node. Plan May trim suture or leave it be and it will dissolve on its own. Ice as needed. Avoid shaving until incision fully healed. Final pathology discussed. Follow up as needed. Lymphadenopathy, inguinal [R59.0] RAFI CHAVEZ [facility] This note was created with the assistance of a speech recognition program. While intending to generate a timely document that accurately reflects the content of the visit, no guarantee can be provided that every grammatical or spelling mistake has been or will be identified or corrected. Thank you for your understanding. Video Visit via Real-time Synchronous Audiovisual Provider Location: [address] [address] Patient Location: Other Video Visit Consent Statement: I discussed risks, benefits, and alternatives of a real-time synchronous audiovisual consultation with the patient (and any accompanying persons) including the risks that the patient's personal health details and medical records will be discussed over real-time, synchronous, interactive video/audio/telecommunication technology, the visit will not be recorded withoutthe express consent of both the provider and the patient, and that there are some limitations compared to [id number] evaluations. The patient consented to the presence of additional virtual and/or in-person participants. We elected to proceed. RAFI Chavez 02/19/25 1025 documented in this encounterKindred HealthcareAQS [id number] Instructions* Patient Instructions* Indy Warren RN - 01/22/2025 11:15 AM EST Preoperative Education Checklist- General Surgery date: 02/02/25 Surgery time: 915a Arrival time: 715a 1. Bring a photo ID and your insurance card with you the day of surgery. You will check in at the main lobby of the [facility]- registration desk is straight ahead as soon as you walk in. Tell them you are here for surgery. 2. If you have a Living Will/Durable Power of [employer] that is not on file here, please bring a copy the day of surgery. 3. Please shower/bathe the night before surgery with the provided soap or wipes. Do not shower the morning of surgery- you will do use wipes when you arrive here at the hospital before getting into your surgical gown. Do not shave the area of your procedure for 2 days prior to your surgery. 4. NO powder, lotion, perfume/cologne, aftershave, make-up, deodorant, or hair products after you have bathed. 5. NO nail south korean/acrylic on at least one finger. If you are having a hand, wrist or foot surgery then all nail south korean and artificial/acrylic nails must be removed from that hand or foot. 6. Avoid ALL Aspirin and non-steroidal anti-inflammatory drugs and certain vitamins (Ibuprofen, Advil, Aleve, Excedrin, Meloxicam, Celebrex, fish/krill oil, etc.) for 7 days prior to surgery as instructed by your surgeon and/or your prescribing doctor. Tylenol IS ALLOWED. If you are on Ticlid, Xarelto, Eliquis, Pradaxa, Plavix or Coumadin, please check with your prescribing doctor for instructions for when to stop them. 7. If you use an inhaler, continue to use it routinely. 8. Nothing to eat or drink (not even water, gum, mints, or hard candy!) AFTER midnight prior to your surgery. 9. Take only medications that you are instructed to on the morning of surgery with a TINY SIP OF WATER. 10. Choose a responsible adult that will be able to drive you home when you are discharged from your hospital stay for your surgery and can stay with you in your home for 24 hours after your procedure. You must NOT drive any vehicle or operate any machinery for 24 hours after surgery. 11. When you dress for your appointment, please wear loose fitting clothing that is appropriate to accommodate your surgical area procedure. BRING WITH YOU ANY DEVICES YOU MAY NEED: MT hose, ice machine, sling/swath, brace or special shoe, oversized zip-up or button up shirt, CPAP machine if staying overnight. 12. Do NOT wear jewelry, watches, or any piercings or metal for surgery- leave these valuables and money at home. 13. Do NOT wear contact lenses for surgery- glasses are okay if needed. 14. The anesthesiologist will talk with you the day of surgery and will ask you to sign a Consent Form. 15. Refrain from smoking or any type of tobacco use for at least 8 hours and marijuana for 24 hoursprior to arrival for your surgery. 16. If a GREEN BLOOD band is given to you, please bring it with you for the day of surgery. 17. Notify your surgeon if you develop any illness before your surgery. 18. If you are staying overnight, please DO NOT BRING your home medications with you. 19. If you have any questions prior to surgery, please call the Preadmission Testing office at [phone], Mon.-Fri. 7 a.m.-3 p.m. Leave a voicemail if needed. Pre-Surgery Instructions: Medication Instructions amphetamine-dextroamphetamine XR (ADDERALL XR) 20 mg 24 hr capsule Stop taking 0 days prior to procedure hydrOXYzine (ATARAX) 25 mg tablet Stop taking 0 days prior to procedure levonorgestreL (LILETTA) 20.4 mcg/24 hr (8 yrs) 52 mg intrauterine device IUD Check with prescribing doctor for instructions How to Avoid an Infection after Your Surgery Your doctor will give you specific instructions, but remember: -ALWAYS wash hands before caring for your incision. -No picking, scratching, or rubbing your incision. -No creams, lotion, powder, rubbing alcohol or hydrogen peroxide on the incision (can harm the tissue and slow healing). -Your doctor will give you specific instructions for what type of dressing you will need and how often it will need changed for infection purposes. -No tight clothing on incision. -Do not allow anyone to touch your incision unless they are cleaning, checking, or redressing it (be sure they wash their hands first). -No contact of your incision with pets; avoid sleeping with pets. -Take full course of antibiotic if prescribed for you after surgery- do not stop unless directed alyson your physician. You may also be given an antibiotic prior to your surgery to help prevent surgical site infections. -Eat a healthy and varied diet including proteins, fruits, and vegetables to help promote wound healing and keep blood sugars under control if you are diabetic. -Smoking slows the healing process by decreasing the amount of oxygen in your blood that is needed for tissue healing. Try to avoid or stop smoking if possible. LOOK at your incision each morning and each night to check the progress of healing. Some soreness, numbness, itching and/or mild bruising around the incision is normal. Call your doctor if you noticeany of the following: -Increased redness or hardening around the incision area. -Increased pain at the incision site. -Incision feels hot to the touch. -Swelling or pulling apart of the incision edges. -Yellow or green drainage or foul odor coming from the incision. -Bleeding from the incision (apply pressure as needed). -Fever higher than 101 degrees Fahrenheit for more than 4 hours. SHOWERING: Your doctor will give you specific instructions, but remember: -Be careful getting into and out of the shower. -Showers should be quick (5 minutes or less). -Use a clean washcloth to gently wash your incision with soap and water and pat the area dry with aclean towel. -No re-using wash cloths or towels; get a fresh one to clean your incision. -Do not soak in the bathtub, go swimming or use a hot tub (Jacuzzi), or perform activities where your incision is submerged in water or exposed to any fluids or substances until instructed by your doctor. -If your have the sticky strips (steri-strips) over the incision, it is OK to shower with them. Do not remove them. Let them fall off on their own. If you have a question, call your doctor s office. Go to the follow-up appointment with your doctor. documented in this encounterMemorial Health System02-28-2025 Telephone encounter Note* Telephone Encounter - Brionna Rios NP - 01/15/2025 4:42 PM EST OARRS reviewed, no red flags, rx sent. [facility] [id number] Miscellaneous Notes* Telephone Encounter - Brionna Rios NP - 01/15/2025 4:42 PM EST OARRS reviewed, no red flags, rx sent. * Telephone Encounter - Chapin Dejesus - 01/15/2025 12:30 PM EST Needs sent to [facility] - ty documented in this [id number] Telephone encounter Note* Telephone Encounter - Chapin Dejesus - 01/15/2025 12:30 PM EST Needs sent to [facility] - ty [facility] [id number] Telephone encounter Note* [facility]/15/[facility] 11:09 AM EST Gudelia called asking for a Telephone appt for Adderall refill - Is this ok to schedule? Elena- [phone] [facility] [id number] Miscellaneous Notes* Telephone Encounter - Chapin Dejesus - 01/15/2025 11:09 AM EST Gudelia called asking for a Telephone appt for Adderall refill - Is this ok to schedule? Elena- [phone] documented in this encounterCox [id number] History of Present illness Narrative* Janis Morrison, - 01/13/2025 10:15 AM EST Images from the original note were not included. [facility] [address] [place] [address] Progress NOTE CHIEF COMPLAINT Chief Complaint Patient presents with Follow-up Follow up from 12/30/24, enlarged lymph node Gudelia Conner Araujo is a 20 y.o. female who presents with her mother with complaints of left inguinal adenopathy which has not regressed since our last visit. She completed the prescription for Augmentin and is now on metronidazole for bacterial vaginosis. Denies any fevers or chills. She does have a tattoo lateral to the left groin which has been there for some years. MEDICATION Current Outpatient Medications: amphetamine-dextroamphetamine XR (ADDERALL XR) 20 mg 24 hr capsule, Take 1 capsule (20 mg total) bymouth every morning., Disp: , Rfl: hydrOXYzine (ATARAX) 25 mg tablet, Take 1 tablet (25 mg total) by mouth every 6 (six) hours as needed., Disp: , Rfl: levonorgestreL (LILETTA) 20.4 mcg/24 hr (8 yrs) 52 mg intrauterine device IUD, 1 each by intrauterine route., Disp: , Rfl: metroNIDAZOLE (FLAGYL) 500 mg tablet, Take 1 tablet (500 mg total) by mouth in the morning and at bedtime., Disp: , Rfl: ALLERGY No Known Allergies MEDICAL HISTORY Past Medical History: Diagnosis Date ADHD (attention deficit hyperactivity disorder) July 2024 Anxiety 2020 Depression 2018 Eczema Migraine SURGICAL HISTORY Past Surgical History: Procedure Laterality Date ADENOIDECTOMY COLONOSCOPY May 2024 TONSILLECTOMY SOCIAL HISTORY Social History Socioeconomic History Marital status: Single Spouse name: Not on file Number of children: Not on file Years of education: Not on file Highest education level: Not on file Occupational History Not on file Tobacco Use Smoking status: Never Smokeless tobacco: Never Vaping Use Vaping status: Every Day Substances: Nicotine Devices: Refillable tank Substance and Sexual Activity Alcohol use: Yes Alcohol/week: 4.0 standard drinks of alcohol Types: 4 Cans of beer per week Comment: ocassional Drug use: Never Sexual activity: Yes Partners: Female, Male control/protection: Condom, I.U.D. Other Topics Concern Not on file Social History Narrative Not on file Social Drivers of Health Financial Resource Strain: Medium Risk (12/18/2024) Received from [facility] Overall Financial Resource Strain (CARDIA) Difficulty of Paying Living Expenses: Somewhat hard Food Insecurity: No Food Insecurity (01/13/2025) Hunger Screening Food Insecurity - Worry: Never True Food Insecurity - Inability: Never True Transportation Needs: No Transportation Needs (12/18/2024) Received from [facility] PRAPARE - Transportation Lack of Transportation (Medical): No Lack of Transportation (Non-Medical): No Physical Activity: Sufficiently Active (12/18/2024) Received from [facility] Exercise Vital Sign Days of Exercise per Week: 6 days Minutes of Exercise per Session: 30 min Stress: Stress Concern Present (12/18/2024) Received from [facility] [employer] - Occupational Stress Questionnaire Feeling of Stress : Rather much Social Connections: Moderately Isolated (12/18/2024) Received from [facility] Social Connection and Isolation Panel [NHANES] Frequency of Communication with Friends and Family: More than three times a week Frequency of Social Gatherings with Friends and Family: More than three times a week Attends Roman Catholic Services: 1 to 4 times per year Active Member of Clubs or Organizations: No Attends Club or Organization Meetings: Patient declined Marital Status: Never Interpersonal Safety: Not At Risk (10/09/2023) Received from [facility] Humiliation, Afraid, Rape, and Kick questionnaire Fear of Current or Ex-Partner: No Emotionally Abused: No Physically Abused: No Sexually Abused: No Housing Instability: Low Risk (12/18/2024) Received from [facility] Housing Stability Vital Sign Unable to Pay for Housing in the Last Year: No Number of Times Moved in the Last Year: 1 Homeless in the Last Year: No FAMILY HISTORY Family History Problem Relation Age of Onset No Known Problems Mother Diabetes Father REVIEW OF SYSTEMS: Constitutional: Denies fevers, denies recent illnesses. Rest review of systems negative except as above. PHYSICAL EXAM Constitutional: She is oriented to person, place, and time. Vital signs are normal. She appears well-developed and well-nourished. HEENT: Head: Normocephalic and atraumatic. Eyes: Conjunctivae, EOM and lids are normal. Neck: Trachea normal. Neck supple. No thyroid mass present. Cardiovascular: Normal rate and regular rhythm. Pulmonary/Chest: Effort normal and breath sounds normal. Left inguinal region: Accompanied by hand straightener [place] medical student; there is a palpable 1-1.5 cm lymph node in the medial left groin which is freely movable and tender to palpation. Neurological: She is alert and oriented to person, place, and time. Skin: Skin is warm, dry and intact. Psychiatric: She has a normal mood and affect. Her speech is normal and behavior is normal. Cognition and memory are normal. IMPRESSION Left inguinal lymphadenopathy rule out infection, reactive, cancer ASSESSMENT & PLAN Excision of left inguinal lymph node under anesthesia. Risks benefits alternatives to procedure mayinclude infection bleeding scar formation pain seroma formation. She understood all the above and wished to proceed. Evaluation included: Preparing to see the patient (e.g., review of tests) Obtaining and/or reviewing separately obtained history Performing a medically appropriate examination and/or evaluation Counseling and educating the patient/family/caregiver Referring and communicating with other health manager medicare Lymphadenopathy, inguinal [R59.0] Janis Morrison DO This note was created with the assistance of a speech recognition program. While intending to generate a timely document that accurately reflects the content of the visit, no guarantee can be provided that every grammatical or spelling mistake has been or will be identified or corrected. Thank you for your understanding. documented in this encounterMemorial Health System02-25-2025 NotePlease call pt - vaginal swab shows BV. Make sure pt takes medication as directed. Recommend to follow up with Medical Receptionist for ongoing or recurrent symptoms. AUTHENTICATED BY TARAN AGUILLON, ON 01/12/2025 11:47:02[facility] [id number] Instructions* Patient Instructions* Taran Aguillon, RESEARCH AND DEVELOPMENT TESTER - 01/11/2025 3:52 PM EST Will send for vaginal swab, will start pt on treatment for BV based of history of symptoms. Will notify pt of results of testing. Recommend for pt to follow up for additional symptoms/concerns. * Attachments The following attachments cannot be sent through Care Everywhere. * Bacterial Vaginosis (Bermudian) documented in this [id number] NotePATIENT NAME: Gudelia Araujo [facility] [address] [facility] [address] : 2005 DATE OF VISIT: 01/11/2025 SS#: [id number] PROVIDER: Taran Aguillon CNP Chief Complaint Patient presents with Vaginal Discharge Groin Swelling SUBJECTIVE 20 y.o. female presents Vaginal Discharge and Groin Swelling 20 year old female presents to clinic for acute symptoms that started today with vaginal discahrge - clear to yellow in color along with vaginal odor. Pt notes history of recurrent BV. Pt denies any vaginal irritation or itching. Pt denies any concerns for sti. Pt notes that she has had an enlarged lymph node for about 6 weeks, pt has completed US and is recommended to have biopsy completed. MEDICAL ISSUES Past Medical History: Diagnosis Date Anxiety Arthritis Depression Migraines Patient Active Problem List Diagnosis Alcohol intoxication in active alcoholic, uncomplicated (HCC) Anxiety, generalized Panic disorder Migraine with aura and without status migrainosus, not intractable Moderate episode of recurrent major depressive disorder (HCC) Dysuria Screen for STD (sexually transmitted disease) SOCIAL HISTORY Social History Socioeconomic History Marital status: Single Tobacco Use Smoking status: Never Smokeless tobacco: Never Vaping Use Vaping status: Every Day Substances: Nicotine Substance and Sexual Activity Alcohol use: Yes Alcohol/week: 5.0 standard drinks of alcohol Types: 5 Cans of beer per week Drug use: Never Sexual activity: Not Currently Partners: Female, Male control/protection: I.U.D., Condom Social Drivers of Health Financial Resource Strain: Medium Risk (12/18/2024) Received from [facility] Overall Financial Resource Strain (CARDIA) Difficulty of Paying Living Expenses: Somewhat hard Food Insecurity: No Food Insecurity (12/30/2024) Received from [facility] Hunger Screening Within the past 12 months we worried whether our food would run out before we got money to buy more.: Never True Within the past 12 months the food we bought just didn't last and we didn't have money to get more.: Never True Transportation Needs: No Transportation Needs (12/18/2024) Received from [facility] PRAPARE - Transportation Lack of Transportation (Medical): No Lack of Transportation (Non-Medical): No Physical Activity: Sufficiently Active (12/18/2024) Received from [facility] Exercise Vital Sign Days of Exercise per Week: 6 days Minutes of Exercise per Session: 30 min Stress: Stress Concern Present (12/18/2024) Received from [facility] [employer] - Occupational Stress Questionnaire Feeling of Stress : Rather much Social Connections: Moderately Isolated (12/18/2024) Received from [facility] Social Connection and Isolation Panel [NHANES] Frequency of Communication with Friends and Family: More than three times a week Frequency of Social Gatherings with Friends and Family: More than three times a week Attends Roman Catholic Services: 1 to 4 times per year Active Member of Clubs or Organizations: No Attends Club or Organization Meetings: Patient declined Marital Status: Never Housing Stability: Low Risk (12/18/2024) Received from [facility] Housing Stability Vital Sign Unable to Pay for Housing in the Last Year: No Number of Times Moved in the Last Year: 1 Homeless in the Last Year: No FAMILY HISTORY Family History Problem Relation Age of Onset Depression Mother No Known Problems Father Arthritis Maternal Grandfather REVIEW OF SYSTEMS Review of Systems Genitourinary: Positive for vaginal discharge. Negative for dysuria, frequency and urgency. MEDICATIONS PRIOR TO VISIT Current Outpatient Medications [...] visit. ALLERGIES/INTOLERANCES No Known Allergies OBJECTIVE BP 125/86 Pulse 80 Temp 97.9 degrees F (36.6 degrees C) (Oral) Resp 16 SpO2 98% Physical Exam Vitals and nursing note reviewed. Constitutional: Appearance: Normal appearance. HENT: Head: Normocephalic and atraumatic. Cardiovascular: Rate and Rhythm: Normal rate and regular rhythm. Heart sounds: Normal heart sounds. Pulmonary: Effort: Pulmonary effort is normal. Breath sounds: Normal breath sounds. Neurological: Mental Status: She is alert. PROCEDURE Procedures Results No results found for this or any previous visit (from the past week). ASSESSMENT/PLAN (expressed as patient instructions): 1. BV (bacterial vaginosis) metroNIDAZOLE (FLAGYL) 500 MG tablet 2. Vaginal discharge Vagini (more content not included)...[facility] Urgent [id number] History of Present illness Narrative* Taran Aguillon CNP - 01/11/2025 3:24 PM EST PATIENT NAME: Gudelia Araujo [facility] [address] [facility] [place] [address] : 2005 DATE OF VISIT: 01/11/2025 SS#: [id number] PROVIDER: Taran Aguillon CNP Chief Complaint Patient presents with Vaginal Discharge Groin Swelling SUBJECTIVE 20 y.o. female presents Vaginal Discharge and Groin Swelling 20 year old female presents to clinic for acute symptoms that started today with vaginal discahrge - clear to yellow in color along with vaginal odor. Pt notes history of recurrent BV. Pt denies any vaginal irritation or itching. Pt denies any concerns for sti. Pt notes that she has had an enlargedlymph node for about 6 weeks, pt has completed US and is recommended to have biopsy completed. MEDICAL ISSUES Past Medical History: Diagnosis Date Anxiety Arthritis Depression Migraines Patient Active Problem List Diagnosis Alcohol intoxication in active alcoholic, uncomplicated (HCC) Anxiety, generalized Panic disorder Migraine with aura and without status migrainosus, not intractable Moderate episode of recurrent major depressive disorder (HCC) Dysuria Screen for STD (sexually transmitted disease) SOCIAL HISTORY Social History Socioeconomic History Marital status: Single Tobacco Use Smoking status: Never Smokeless tobacco: Never Vaping Use Vaping status: Every Day Substances: Nicotine Substance and Sexual Activity Alcohol use: Yes Alcohol/week: 5.0 standard drinks of alcohol Types: 5 Cans of beer per week Drug use: Never Sexual activity: Not Currently Partners: Female, Male control/protection: I.U.D., Condom Social Drivers of Health Financial Resource Strain: Medium Risk (12/18/2024) Received from [facility] Overall Financial Resource Strain (CARDIA) Difficulty of Paying Living Expenses: Somewhat hard Food Insecurity: No Food Insecurity (12/30/2024) Received from [facility] Hunger Screening Within the past 12 months we worried whether our food would run out before we got money to buy more.: Never True Within the past 12 months the food we bought just didn't last and we didn't have money to get more.: Never True Transportation Needs: No Transportation Needs (12/18/2024) Received from [facility] PRAPARE - Transportation Lack of Transportation (Medical): No Lack of Transportation (Non-Medical): No Physical Activity: Sufficiently Active (12/18/2024) Received from [facility] Exercise Vital Sign Days of Exercise per Week: 6 days Minutes of Exercise per Session: 30 min Stress: Stress Concern Present (12/18/2024) Received from [facility] [employer] - Occupational Stress Questionnaire Feeling of Stress : Rather much Social Connections: Moderately Isolated (12/18/2024) Received from [facility] Social Connection and Isolation Panel [NHANES] Frequency of Communication with Friends and Family: More than three times a week Frequency of Social Gatherings with Friends and Family: More than three times a week Attends Roman Catholic Services: 1 to 4 times per year Active Member of Clubs or Organizations: No Attends Club or Organization Meetings: Patient declined Marital Status: Never Housing Stability: Low Risk (12/18/2024) Received from [facility] Housing Stability Vital Sign Unable to Pay for Housing in the Last Year: No Number of Times Moved in the Last Year: 1 Homeless in the Last Year: No FAMILY HISTORY Family History Problem Relation Age of Onset Depression Mother No Known Problems Father Arthritis Maternal Grandfather REVIEW OF SYSTEMS Review of Systems Genitourinary: Positive for vaginal discharge. Negative for dysuria, frequency and urgency. MEDICATIONS PRIOR TO VISIT Current Outpatient Medications [...] visit. ALLERGIES/INTOLERANCES No Known Allergies OBJECTIVE BP 125/86 Pulse 80 Temp 97.9 F (36.6 C) (Oral) Resp 16 SpO2 98% Physical Exam Vitals and nursing note reviewed. Constitutional: Appearance: Normal appearance. HENT: Head: Normocephalic and atraumatic. Cardiovascular: Rate and Rhythm: Normal rate and regular rhythm. Heart sounds: Normal heart sounds. Pulmonary: Effort: Pulmonary effort is normal. Breath sounds: Normal breath sounds. Neurological: Mental Status: She is alert. PROCEDURE Procedures Results No results found for this or any previous visit (from the past week). ASSESSMENT/PLAN (expressed as patient instructions): 1. BV (bacterial vaginosis) metroNIDAZOLE (FLAGYL) 500 MG tablet 2. Vaginal discharge Vaginitis DNA Probes Vaginitis DNA Probes Return if symptoms worsen or fail to improve. MDM Section ORDERS PLACED THIS VISIT Orders Placed This Encounter Procedures Vaginitis DNA Probes MEDICATION LIST AT END OF VISIT Current Outpatient Medications Medication Sig Dispense Refill levonorgestreL (MIRENA) 21 mcg/24 hours (8 yrs) 52 mg IUD 1 (one) each by Intrauterine route once . metroNIDAZOLE (FLAGYL) 500 MG tablet Take 1 (one) tablet (500 mg total) by mouth 2 (two) times a day with meals for 7 days . 14 tablet 0 venlafaxine (EFFEXOR) 75 MG tablet Take 1 (one) tablet (75 mg total) by mouth daily WITH FOOD . No current facility-administered medications for this visit. documented in this [id number] History of Present illness Narrative* Janis Morrison, - 12/30/2024 9:30 AM EST Images from the original note were not included. [facility] [address] [id number] CONSULT NOTE CHIEF COMPLAINT Chief Complaint Patient presents with Enlarged Lymph Node Left inguinal enlarged lymph node, referred by Brionna Rios CNP Gudelia ShahidSparkleGiulia Araujo is a 19 y.o. female who presents with her mother with complaints of a left inguinal lymph node which has been present for about a month that causes occasional pain. She has cats at home but they do not scratch her. She denies any fevers or chills or any family history oflymphoma. She denies any other lumps in her armpits around her neck. She was on antibiotics about amonth ago Cipro for a urinary tract infection. She had a sore muscle from the norovirus in her leftside and thought that might have had something to do with it. 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 She had laparoscopic surgery for a ruptured ovarian cyst in July. She denies any history of recent STDs but did have chlamydia about a year ago. She states that she has an IUD in place. 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 MEDICATION Current Outpatient Medications: amphetamine-dextroamphetamine XR (ADDERALL XR) 20 mg 24 hr capsule, Take 1 capsule (20 mg total) bymouth every morning. Max Daily Amount: 20 mg, Disp: , Rfl: hydrOXYzine (ATARAX) 25 mg tablet, Take 1 tablet (25 mg total) by mouth every 6 (six) hours as needed., Disp: , Rfl: levonorgestreL (LILETTA) 20.4 mcg/24 hr (8 yrs) 52 mg intrauterine device IUD, 1 each by intrauterine route., Disp: , Rfl: ALLERGY No Known Allergies MEDICAL HISTORY Past Medical History: Diagnosis Date ADHD (attention deficit hyperactivity disorder) July 2024 Anxiety 2020 Depression 2017 Eczema Migraine SURGICAL HISTORY Past Surgical History: Procedure Laterality Date ADENOIDECTOMY COLONOSCOPY May 2024 TONSILLECTOMY SOCIAL HISTORY Social History Socioeconomic History Marital status: Single Spouse name: Not on file Number of children: Not on file Years of education: Not on file Highest education level: Not on file Occupational History Not on file Tobacco Use Smoking status: Never Smokeless tobacco: Never Vaping Use Vaping status: Every Day Substances: Nicotine Devices: Refillable tank Substance and Sexual Activity Alcohol use: Yes Alcohol/week: 4.0 standard drinks of alcohol Types: 4 Cans of beer per week Comment: ocassional Drug use: Never Sexual activity: Yes Partners: Female, Male control/protection: Condom, I.U.D. Other Topics Concern Not on file Social History Narrative Not on file Social Drivers of Health Financial Resource Strain: Medium Risk (12/18/2024) Received from [facility] Overall Financial Resource Strain (CARDIA) Difficulty of Paying Living Expenses: Somewhat hard Food Insecurity: No Food Insecurity (12/30/2024) Hunger Screening Food Insecurity - Worry: Never True Food Insecurity - Inability: Never True Transportation Needs: No Transportation Needs (12/18/2024) Received from [facility] PRAPARE - Transportation Lack of Transportation (Medical): No Lack of Transportation (Non-Medical): No Physical Activity: Sufficiently Active (12/18/2024) Received from [facility] Exercise Vital Sign Days of Exercise per Week: 6 days Minutes of Exercise per Session: 30 min Stress: Stress Concern Present (12/18/2024) Received from [facility] [employer] - Occupational Stress Questionnaire Feeling of Stress : Rather much Social Connections: Moderately Isolated (12/18/2024) Received from [facility] Social Connection and Isolation Panel [NHANES] Frequency of Communication with Friends and Family: More than three times a week Frequency of Social Gatherings with Friends and Family: More than three times a week Attends Roman Catholic Services: 1 to 4 times per year Active Member of Clubs or Organizations: No Attends Club or Organization Meetings: Patient declined Marital Status: Never Interpersonal Safety: Not At Risk (10/09/2023) Received from [facility] Humiliation, Afraid, Rape, and Kick questionnaire Fear of Current or Ex-Partner: No Emotionally Abused: No Physically Abused: No Sexually Abused: No Housing Instability: Low Risk (12/18/2024) Received from [facility] Housing Stability Vital Sign Unable to Pay for Housing in the Last Year: No Number of Times Moved in the Last Year: 1 Homeless in the Last Year: No FAMILY HISTORY Family History Problem Relation Age of Onset No Known Problems Mother Diabetes Father REVIEW OF SYSTEMS: Constitutional: Denies fevers, denies recent illnesses. Rest review of systems negative except as above. PHYSICAL EXAM Constitutional: She is oriented to person, place, and time. Vital signs are normal. She appears well-developed and well-nourished. HEENT: Head: Normocephalic and atraumatic. Eyes: Conjunctivae, EOM and lids are normal. Neck: Trachea normal. Neck supple. No thyroid mass present. No cervical adenopathy noted. Cardiovascular: Normal rate and regular rhythm. Pulmonary/Chest: Effort normal and breath sounds normal. Abdominal: Soft. Normal appearance. She exhibits no distension and no mass. There is no hepatosplenomegaly or splenomegaly. There is negative Ceja's sign. No hernia. Musculoskeletal: Normal range of motion. Lymphadenopathy: She has no cervical adenopathy. Right: No inguinal and no supraclavicular adenopathy present. Left: Positive 1 cm lymph node in the left groin medially tender to palpation and no supraclavicular adenopathy present. Neurological: She is alert and oriented to person, place, and time. Skin: Skin is warm, dry and intact. Psychiatric: She has a normal mood and affect. Her speech is normal and behavior is normal. Cognition and memory are normal. IMPRESSION Left inguinal lymphadenopathy 1-1.5 cm medially rule out infectious versus other etiology ASSESSMENT & PLAN Offered patient to Augmentin b.i.d. for 10 days in case it worse cat scratch disease and for lymph node biopsy and she has opted for the antibiotic treatment 1st. She is to return to the office in 2 weeks for recheck. If the lymph node is still palpable in 2 weeks and I would recommend excision of the lymph node to rule out infectious versus reactive versus lymphoma. She and her mother understoodall the above. I removed her mother's gallbladder 13 or 14 years ago. Evaluation included: Preparing to see the patient (e.g., review of tests) Obtaining and/or reviewing separately obtained history Performing a medically appropriate examination and/or evaluation Counseling and educating the patient/family/caregiver Referring and communicating with other health manager medicare No primary diagnosis found. Janis Morrison DO This note was created with the assistance of a speech recognition program. While intending to generate a timely document that accurately reflects the content of the visit, no guarantee can be provided that every grammatical or spelling mistake has been or will be identified or corrected. Thank you for your understanding. documented in this encounterMem[facility] System02-07-2025 Telephone encounter Note* Telephone Encounter - Brionna Rios NP - 12/25/2024 12:19 PM EST Discussed US report with patient showing There is an enlarged lymph node measuring 3.2 x 1.3 cm. There is cortical thickening at 8 mm. Recommend seeing general surgeon for follow up incase needle aspiration is warranted. Patient is agreeable. Advised her to let us know if they do not hear from their office in 1 week. PVU. Referral sent to Dr. Morrison. [facility] [id number] Miscellaneous Notes* Telephone Encounter - Brionna Rios NP - 12/25/2024 12:19 PM EST Discussed US report with patient showing There is an enlarged lymph node measuring 3.2 x 1.3 cm. There is cortical thickening at 8 mm. Recommend seeing general surgeon for follow up incase needle aspiration is warranted. Patient is agreeable. Advised her to let us know if they do not hear from their office in 1 week. PVU. Referral sent to Dr. Morrison. documented in this [id number] History of Present illness Narrative* Brionna Rios NP - 12/25/2024 9:30 AM EST Images from the original note were not included. uGdelia Araujo is a 19 y.o. female presents with chief complaint of Mass (Left groin x3 weeks, painat first but no pain now) HPI: HPI Patient is doing better with increased dose of adderall. She is able to concentrate better and focus. Had norovirus over her Aurelia break and lost weight. Doing better now. She reports about 3 weeks ago, noticed golf ball size lump to left groin. Hurt a first, but not anymore per patient. Feels like a sore muscle. She has been using heat. Denies feeling any other areas of lymph node swelling. No recent illness. No fever. Denies infection, redness, warmth or drainage. SUBJECTIVE: MEDICATIONS: Current Outpatient Medications Medication Instructions amphetamine-dextroamphetamine XR (Adderall XR) 20 MG 24 hr capsule 20 mg, Oral, Every morning, Do not crush or chew. hydrOXYzine HCl (ATARAX) 25 mg, Oral, Every 6 hours PRN ibuprofen 800 MG tablet Levonorgestrel (Liletta, 52 MG,) 20.1 MCG/DAY intrauterine device by Intrauterine route. ALLERGIES: No Known Allergies History: Past Medical History: Diagnosis Date Acute left otitis media Anxiety Arthritis Bacterial vaginosis Depression (CMS/HCC) Epigastric abdominal pain History of migraine with aura Irregular menses MPDS (myofascial pain dysfunction syndrome) violin posture Panic disorder (CMS/HCC) Periumbilical abdominal pain Pharyngitis recurrent Strep throat recurrent Swimmer's ear recurrent Syncope Tonsillitis Past Surgical History: Procedure Laterality Date ADENOIDECTOMY LAPAROSCOPY DIAGNOSTIC / BIOPSY / ASPIRATION / LYSIS 08/07/2024 TONSILLECTOMY 06/30/2013 WISDOM TOOTH EXTRACTION 04/2022 Family History Problem Relation Name Age of [...] (knee OA) Other grandparent Migraines Mother's Sister taran Anxiety disorder Mother's Sister taran Depression Mother's Sister taran Social History Socioeconomic History Marital status: Unmarried Spouse name: Not on file Number of children: Not on file Years of education: Not on file Highest education level: Not on file Occupational History Not on file Tobacco Use Smoking status: Never Smokeless tobacco: Never Vaping Use Vaping status: Every Day Substances: Nicotine Devices: Refillable tank Substance and Sexual Activity Alcohol use: Yes Comment: caffeine: occasional energy drink Drug use: Never Sexual activity: Not Currently Partners: Female, Male control/protection: Condom Male, I.U.D. Other Topics Concern Not on file Social History Narrative Type of community involvement: volleyball, tennis, swim Exercise: crossfit @ [employer] [facility] Living with: mom, dad, brother, sister Natural support system: mom, dad, friends, aunts, uncles Pets: 5 cats, 1 dog, 1 guinea pig, 2 giekos Social Drivers of Health Financial Resource Strain: Medium Risk (12/18/2024) Overall Financial Resource Strain (CARDIA) Difficulty of Paying Living Expenses: Somewhat hard Food Insecurity: No Food Insecurity (12/18/2024) Hunger Vital Sign Worried About Running Out of Food in the Last Year: Never true Ran Out of Food in the Last Year: Never true Transportation Needs: No Transportation Needs (12/18/2024) PRAPARE - Transportation Lack of Transportation (Medical): No Lack of Transportation (Non-Medical): No Physical Activity: Sufficiently Active (12/18/2024) Exercise Vital Sign Days of Exercise per Week: 6 days Minutes of Exercise per Session: 30 min Stress: Stress Concern Present (12/18/2024) [employer] - Occupational Stress Questionnaire Feeling of Stress : Rather much Social Connections: Moderately Isolated (12/18/2024) Social Connection and Isolation Panel [NHANES] Frequency of Communication with Friends and Family: More than three times a week Frequency of Social Gatherings with Friends and Family: More than three times a week Attends Roman [employer] Services: 1 to 4 times per year Active Member of Clubs or Organizations: No Attends Club or Organization Meetings: Patient declined Marital Status: Never Intimate Partner Violence: Not At Risk (10/09/2023) Humiliation, Afraid, Rape, and Kick questionnaire Fear of Current or Ex-Partner: No Emotionally Abused: No Physically Abused: No Sexually Abused: No Housing Stability: Low Risk (12/18/2024) Housing Stability Vital Sign Unable to Pay for Housing in the Last Year: No Number of Times Moved in the Last Year: 1 Homeless in the Last Year: No I have reviewed and reconciled the history and medication list with the patient today. REVIEW OF SYMPTOMS: Review of Systems Constitutional: Negative for activity change, appetite change and fatigue. HENT: Negative. Respiratory: Negative for cough, shortness of breath and wheezing. Cardiovascular: Negative for chest pain and palpitations. Gastrointestinal: Negative for abdominal pain, diarrhea and nausea. Genitourinary: Negative. Musculoskeletal: Negative. Skin: Negative for color change, rash and wound. Lump to left groin Psychiatric/Behavioral: Negative. OBJECTIVE: 11/14/2023 9:08 AM 06/09/2024 9:59 AM 06/29/2024 9:13 AM 07/09/2024 10:30 AM 07/24/2024 10:02 AM 08/20/2024 10:50 AM 12/25/2024 9:31 AM Vitals BMI 23.65 kg/m2 23.8 kg/m2 23.57 kg/m2 23.42 kg/m2 23.54 kg/m2 23.11 kg/m2 21.32 kg/m2 BSA (m2) 1.8 m2 1.88 m2 1.84 m2 1.83 m2 1.84 m2 1.82 m2 1.75 m2 Systolic 116 118 108 110 104 110 110 Diastolic 78 78 76 76 70 70 80 Heart Rate 81 74 88 80 SpO2 100 % 99 % Resp 18 20 Height (in) 5' 7 5' 8.75 5' 8 5' 8 Weight (lb) 151 160 155 154 154.8 152 140.2 Visit Report Report Report Report Report Report Report Physical Exam Vitals reviewed. Constitutional: General: She is not in acute distress. Appearance: Normal appearance. Cardiovascular: Rate and Rhythm: Normal rate and regular rhythm. Heart sounds: No murmur heard. Pulmonary: Effort: Pulmonary effort is normal. No respiratory distress. Breath sounds: Normal breath sounds. No wheezing or rhonchi. Abdominal: General: Bowel sounds are normal. There is no distension. Palpations: Abdomen is soft. Tenderness: There is no abdominal tenderness. Musculoskeletal: Right lower leg: No edema. Left lower leg: No edema. Lymphadenopathy: Head: Right side of head: No submandibular or posterior auricular adenopathy. Left side of head: No submandibular or posterior auricular adenopathy. Cervical: No cervical adenopathy. Right cervical: No superficial, deep or posterior cervical adenopathy. Left cervical: No superficial, deep or posterior cervical adenopathy. Upper Body: Right upper body: No supraclavicular, axillary or pectoral adenopathy. Left upper body: No supraclavicular, axillary or pectoral adenopathy. Lower Body: No right inguinal adenopathy. Left inguinal adenopathy (1inch x 1 inch firm, moveable lump with tenerness during exam) present. Skin: General: Skin is warm and dry. Findings: No rash. Neurological: Mental Status: She is alert. Psychiatric: Mood and Affect: Mood normal. Behavior: Behavior normal. Thought Content: Thought content normal. Judgment: Judgment normal. ASSESSMENT AND PLAN: Assessment/Plan Diagnoses and all orders for this visit: Lump in the groin - US Soft Tissue Palpable Mass; Future -Will get US and labs today. Screening for deficiency anemia - CBC and differential; Future Screening for cardiovascular condition - Comprehensive metabolic panel; Future Screening for lipid disorders - Lipid panel; Future Moderate episode of recurrent major depressive disorder (CMS/HCC) -Stable. Attention deficit hyperactivity disorder (ADHD), predominantly inattentive type (CMS/HCC) -Doing better with increased dose. 30 minutes spent reviewing chart, assessing patient and documenting. Follow up if symptoms worsen or fail to improve. documented in this encounterCox [id number] History of Present illness Narrative* Brionna Rios NP - 12/18/2024 2:00 PM EST Images from the original note were not included. Gudelia Araujo is a 19 y.o. female presents with chief complaint of discuss medication HPI: HPI Patient presents via telephone visit to discuss adderall. She admits she feels like it's not working as much. She feels like it's wearing off quicker. She has classes in mornings and feels good but when she leaves class she has decreased energy, causing issues with studying. She has difficulty focusing at the library often. Has difficulty paying attention in class. Starting clinicals in 2 weeks and looking forward to this. SUBJECTIVE: MEDICATIONS: Current Outpatient Medications Medication Instructions amphetamine-dextroamphetamine XR (Adderall XR) 20 MG 24 hr capsule 20 mg, Oral, Every morning, Do not crush or chew. hydrOXYzine HCl (ATARAX) 25 mg, Oral, Every 6 hours PRN ibuprofen 800 MG tablet Levonorgestrel (Liletta, 52 MG,) 20.1 MCG/DAY intrauterine device Intrauterine ALLERGIES: No Known Allergies History: Past Medical History: Diagnosis Date Acute left otitis media Anxiety Arthritis Bacterial vaginosis Depression (CMS/HCC) Epigastric abdominal pain History of migraine with aura Irregular menses MPDS (myofascial pain dysfunction syndrome) violin posture Panic disorder (CMS/HCC) Periumbilical abdominal pain Pharyngitis recurrent Strep throat recurrent Swimmer's ear recurrent Syncope Tonsillitis Past Surgical History: Procedure Laterality Date ADENOIDECTOMY LAPAROSCOPY DIAGNOSTIC / BIOPSY / ASPIRATION / LYSIS 08/07/2024 TONSILLECTOMY 06/30/2013 WISDOM TOOTH EXTRACTION 04/2022 Family History Problem Relation Name Age of [...] (knee OA) Other grandparent Migraines Mother's Sister taran Anxiety disorder Mother's Sister taran Depression Mother's Sister taran Social History Socioeconomic History Marital status: Unmarried Spouse name: Not on file Number of children: Not on file Years of education: Not on file Highest education level: Not on file Occupational History Not on file Tobacco Use Smoking status: Never Smokeless tobacco: Never Vaping Use Vaping status: Every Day Substances: Nicotine Devices: Refillable tank Substance and Sexual Activity Alcohol use: Yes Comment: caffeine: occasional energy drink Drug use: Never Sexual activity: Yes Partners: Female, Male control/protection: Condom Male, I.U.D. Other Topics Concern Not on file Social History Narrative Type of community involvement: volleyball, tennis, swim Exercise: crossfit @ [employer] [facility] Living with: mom, dad, brother, sister Natural support system: mom, dad, friends, aunts, uncles Pets: 5 cats, 1 dog, 1 guinea pig, 2 giekos Social Drivers of Health Financial Resource Strain: Medium Risk (12/18/2024) Overall Financial Resource Strain (CARDIA) Difficulty of Paying Living Expenses: Somewhat hard Food Insecurity: No Food Insecurity (12/18/2024) Hunger Vital Sign Worried About Running Out of Food in the Last Year: Never true Ran Out of Food in the Last Year: Never true Transportation Needs: No Transportation Needs (12/18/2024) PRAPARE - Transportation Lack of Transportation (Medical): No Lack of Transportation (Non-Medical): No Physical Activity: Sufficiently Active (12/18/2024) Exercise Vital Sign Days of Exercise per Week: 6 days Minutes of Exercise per Session: 30 min Stress: Stress Concern Present (12/18/2024) [employer] - Occupational Stress Questionnaire Feeling of Stress : Rather much Social Connections: Moderately Isolated (12/18/2024) Social Connection and Isolation Panel [NHANES] Frequency of Communication with Friends and Family: More than three times a week Frequency of Social Gatherings with Friends and Family: More than three times a week Attends Roman [employer] Services: 1 to 4 times per year Active Member of Clubs or Organizations: No Attends Club or Organization Meetings: Patient declined Marital Status: Never Intimate Partner Violence: Not At Risk (10/09/2023) Humiliation, Afraid, Rape, and Kick questionnaire Fear of Current or Ex-Partner: No Emotionally Abused: No Physically Abused: No Sexually Abused: No Housing Stability: Low Risk (12/18/2024) Housing Stability Vital Sign Unable to Pay for Housing in the Last Year: No Number of Times Moved in the Last Year: 1 Homeless in the Last Year: No I have reviewed and reconciled the history and medication list with the patient today. REVIEW OF SYMPTOMS: Review of Systems Constitutional: Negative for activity change, appetite change and fatigue. HENT: Negative. Respiratory: Negative for cough, shortness of breath and wheezing. Cardiovascular: Negative for chest pain and palpitations. Gastrointestinal: Negative for abdominal pain, diarrhea and nausea. Genitourinary: Negative. Musculoskeletal: Negative. Skin: Negative for color change, rash and wound. Psychiatric/Behavioral: Positive for decreased concentration. OBJECTIVE: 10/09/2023 10:07 AM 11/14/2023 9:08 AM 06/09/2024 9:59 AM 06/29/2024 9:13 AM 07/09/2024 10:30 AM 07/24/2024 10:02 AM 08/20/2024 10:50 AM Vitals BMI 23.99 kg/m2 23.65 kg/m2 23.8 kg/m2 23.57 kg/m2 23.42 kg/m2 23.54 kg/m2 23.11 kg/m2 BSA (m2) 1.81 m2 1.8 m2 1.88 m2 1.84 m2 1.83 m2 1.84 m2 1.82 m2 Systolic 112 116 118 108 110 104 110 Diastolic 82 78 78 76 76 70 70 Heart Rate 94 81 74 88 SpO2 97 % 100 % 99 % Temp 96.4 F Resp 18 18 20 Height (in) 5' 7 5' 7 5' 8.75 5' 8 5' 8 Weight (lb) 153.2 151 160 155 154 154.8 152 Visit Report Report Report Report Report Report Report Physical Exam Pulmonary: Breath sounds: Normal breath sounds. Neurological: Mental Status: She is alert. Psychiatric: Mood and Affect: Mood normal. ASSESSMENT AND PLAN: Assessment/Plan Diagnoses and all orders for this visit: Attention deficit hyperactivity disorder (ADHD), predominantly inattentive type (CMS/HCC) - amphetamine-dextroamphetamine XR (Adderall XR) 20 MG 24 hr capsule; Take 1 capsule (20 mg) by mouth in the morning. Do not crush or chew.. -Discussed increasing adderall or adding immediate release in afternoon PRN. Will increase adderallXR to 20mg daily to see if this helps with concentrating and focusing. OARRS reviewed, no red flags. Follow up in 4 weeks for recheck. Patient does have office clement next week for unrelated issues. PVU. Telephone visit was done to avoid bringing patient into the office. Verbal consent completed and bill for visit was obtained by patient. Real time audio used to complete telephone appointment. 15 minutes spent discussing health and treatment plan. Follow up in about 4 weeks (around 01/15/2025) for Recheck. documented in this encounterCox [id number] Evaluation + Plan note* Assessment & Plan Note - Randell Mckenna DO - 12/01/2024 5:56 PM EST Associated Problem(s): Screen for STD (sexually transmitted disease) -Patient currently declines all symptoms but would like screening -Obtained GCCT and vaginitis probe per patients request in the office today, will send out -Will message patient based on results of testing -Counseled on protection -Provided information [id number] Evaluation + Plan note* Assessment & Plan Note - Randell Mckenna DO - 12/01/2024 5:56 PM ESTAssociated Problem(s): Dysuria -POC UA in the UC identified blood and leukocyte esterase -Ruled out pyelonephritis -Counseled on appropriate NSAID use -Provided information on urinary tract infection -Will plan to send bactrim as treatment [id number] Miscellaneous Notes* Assessment & Plan Note - Randell Mckenna DO - 12/01/2024 5:56 PM ESTAssociated Problem(s): Screen for STD (sexually transmitted disease) -Patient currently declines all symptoms but would like screening -Obtained GCCT and vaginitis probe per patients request in the office today, will send out -Will message patient based on results of testing -Counseled on protection -Provided information * Assessment & Plan Note - Randell Mckenna DO - 12/01/2024 5:56 PM EST Associated Problem(s): Dysuria -POC UA in the identified blood and leukocyte esterase -Ruled out pyelonephritis -Counseled on appropriate NSAID use -Provided information on urinary tract infection -Will plan to send bactrim as treatment documented in this [id number] NotePatient Name: [facility] Location: [place] [id number] Date Of : Date Of Visit: 2005 12/01/2024 MRN# Provider: [id number] Randell Mckenna DO Chief Complaint Patient presents with Urinary Tract Infection Sti screening Assessment & Plan Problem List Diagnosed Dysuria - Primary -POC UA in the identified blood and leukocyte esterase -Ruled out pyelonephritis -Counseled on appropriate NSAID use -Provided information on urinary tract infection -Will plan to send bactrim as treatment Relevant Medications sulfamethoxazole-trimethoprim (BACTRIM DS,SEPTRA DS) 800-160 mg per tablet Other Relevant Orders POC Urinalysis Dipstick,Auto UC (Completed) Vaginitis DNA Probes Screen for STD (sexually transmitted disease) -Patient currently declines all symptoms but would like screening -Obtained GCCT and vaginitis probe per patients request in the office today, will send out -Will message patient based on results of testing -Counseled on protection -Provided information Relevant Orders Chlamydia/GC/Trichomonas Amplified RNA Return if symptoms worsen or fail to improve. Additional Clinical Comments Discussed over the counter medications for symptomatic management and potential side effects of medications. Educated patient and/or guardian about signs and symptoms that would warrant immediate evaluation in the emergency room. Recommended that they should return to urgent care, make an appointment with their PCP, or go to the emergency room if symptoms persist or get acutely worse. Subjective 19 y.o. female presents with Urinary Tract Infection (Sti screening ) Gudelia Araujo is a 19 y.o. female who complains of frequency and urgency for 2 days. Patient denies blood in urine, nausea, and fever. Patient denies history of recurrent UTI. Patient denies history of pyelonephritis. Patient has tried taking ibuprofen. Patient denies history of antibiotic resistance. She states she is also here for an sexually transmitted infection screen. She has not been notified by a partner of a positive test but would like to screen for it. She would also like to complete testing for BV and yeast. Urinary Tract Infection Associated symptoms include frequency and urgency. Pertinent negatives include no chills, flank pain, nausea or vomiting. Review Of Systems Review of Systems Constitutional: Negative for chills, diaphoresis, fatigue and fever. HENT: Negative for sinus pain and sore throat. Eyes: Negative for pain. Respiratory: Negative for cough. Cardiovascular: Negative for chest pain. Gastrointestinal: Negative for nausea and vomiting. Genitourinary: Positive for dysuria, frequency and urgency. Negative for flank pain, genital sores, vaginal discharge and vaginal pain. Musculoskeletal: Negative for arthralgias and myalgias. Skin: Negative for wound. Neurological: Negative for weakness. Psychiatric/Behavioral: Negative for dysphoric mood. The patient is not nervous/anxious. Medical History Past Medical History: Diagnosis Date Anxiety Arthritis Depression Migraines Past Surgical History: Procedure Laterality Date ADENOIDECTOMY TONSILLECTOMY WISDOM TOOTH EXTRACTION Patient Active Problem List Diagnosis Alcohol intoxication in active alcoholic, uncomplicated (HCC) Anxiety, generalized Panic disorder Migraine with aura and without status migrainosus, not intractable Moderate episode of recurrent major depressive disorder (HCC) Dysuria Screen for STD (sexually transmitted disease) Social History Social History Tobacco Use Smoking status: Never Smokeless tobacco: Never Vaping Use Vaping status: Every Day Substances: Nicotine Substance Use Topics Alcohol use: Yes Alcohol/week: 5.0 standard drinks of alcohol Types: 5 Cans of beer per week Drug use: Never Family History Family History Problem Relation Age of Onset Depression Mother No Known Problems Father Arthritis Maternal Grandfather Objective Physical Exam BP 117/78 Pulse 84 Temp 97.8 degrees F (36.6 degrees C) (Oral) Resp 16 SpO2 95% Vision/Hearing Exam:No results found. Physical Exam Constitutional: Appearance: Normal appearance. HENT: Head: Normocephalic. Eyes: Extraocular Movements: Extraocular movements intact. Cardiovascular: Rate and Rhythm: Normal rate and regular rhythm. Heart sounds: Normal heart sounds. Pulmonary: Effort: No respiratory distress. Breath sounds: Normal breath sounds. No wheezing, rhonchi or rales. Abdominal: General: There is no distension. Palpations: Abdomen is soft. Tenderness: There is no abdominal tenderness. There is no guarding. Comments: Negative [employer]oyds bilaterally Musculoskeletal: General: Normal range of motion. Cervical back: Normal range of motion. Skin: General: Skin is warm. Neurological: General: No focal defic (more content not included)...[facility] 12-01-2024 History of Present illness Narrative* Randell Mckenna DO - 12/01/2024 4:56 PM EST Images from the original note were not included. Patient [facility]: [facility] Location: [place] [address] [address] Date Of : Date Of Visit: 2005 12/01/2024 MRN# Provider: [id number] Randell Mckenna DO Chief Complaint Patient presents with Urinary Tract Infection Sti screening Assessment & Plan Problem List Diagnosed Dysuria - Primary -POC UA in the UC identified blood and leukocyte esterase -Ruled out pyelonephritis -Counseled on appropriate NSAID use -Provided information on urinary tract infection -Will plan to send bactrim as treatment Relevant Medications sulfamethoxazole-trimethoprim (BACTRIM DS,SEPTRA DS) 800-160 mg per tablet Other Relevant Orders POC Urinalysis Dipstick,Auto UC (Completed) Vaginitis DNA Probes Screen for STD (sexually transmitted disease) -Patient currently declines all symptoms but would like screening -Obtained GCCT and vaginitis probe per patients request in the office today, will send out -Will message patient based on results of testing -Counseled on protection -Provided information Relevant Orders Chlamydia/GC/Trichomonas Amplified RNA Return if symptoms worsen or fail to improve. Additional Clinical Comments Discussed over the counter medications for symptomatic management and potential side effects of medications. Educated patient and/or guardian about signs and symptoms that would warrant immediate evaluation in the emergency room. Recommended that they should return to urgent care, make an appointment with their PCP, or go to the emergency room if symptoms persist or get acutely worse. Subjective 19 y.o. female presents with Urinary Tract Infection (Sti screening ) Gudelia Araujo is a 19 y.o. female who complains of frequency and urgency for 2 days. Patient denies blood in urine, nausea, and fever. Patient denies history of recurrent UTI. Patient denies historyof pyelonephritis. Patient has tried taking ibuprofen. Patient denies history of antibiotic resistance. She states she is also here for an sexually transmitted infection screen. She has not been notified by a partner of a positive test but would like to screen for it. She would also like to complete testing for BV and yeast. Urinary Tract Infection Associated symptoms include frequency and urgency. Pertinent negatives include no chills, flank pain, nausea or vomiting. Review Of Systems Review of Systems Constitutional: Negative for chills, diaphoresis, fatigue and fever. HENT: Negative for sinus pain and sore throat. Eyes: Negative for pain. Respiratory: Negative for cough. Cardiovascular: Negative for chest pain. Gastrointestinal: Negative for nausea and vomiting. Genitourinary: Positive for dysuria, frequency and urgency. Negative for flank pain, genital sores,vaginal discharge and vaginal pain. Musculoskeletal: Negative for arthralgias and myalgias. Skin: Negative for wound. Neurological: Negative for weakness. Psychiatric/Behavioral: Negative for dysphoric mood. The patient is not nervous/anxious. Medical History Past Medical History: Diagnosis Date Anxiety Arthritis Depression Migraines Past Surgical History: Procedure Laterality Date ADENOIDECTOMY TONSILLECTOMY WISDOM TOOTH EXTRACTION Patient Active Problem List Diagnosis Alcohol intoxication in active alcoholic, uncomplicated (HCC) Anxiety, generalized Panic disorder Migraine with aura and without status migrainosus, not intractable Moderate episode of recurrent major depressive disorder (HCC) Dysuria Screen for STD (sexually transmitted disease) Social History Social History Tobacco Use Smoking status: Never Smokeless tobacco: Never Vaping Use Vaping status: Every Day Substances: Nicotine Substance Use Topics Alcohol use: Yes Alcohol/week: 5.0 standard drinks of alcohol Types: 5 Cans of beer per week Drug use: Never Family History Family History Problem Relation Age of Onset Depression Mother No Known Problems Father Arthritis Maternal Grandfather Objective Physical Exam BP 117/78 Pulse 84 Temp 97.8 F (36.6 C) (Oral) Resp 16 SpO2 95% Vision/Hearing Exam:No results found. Physical Exam Constitutional: Appearance: Normal appearance. HENT: Head: Normocephalic. Eyes: Extraocular Movements: Extraocular movements intact. Cardiovascular: Rate and Rhythm: Normal rate and regular rhythm. Heart sounds: Normal heart sounds. Pulmonary: Effort: No respiratory distress. Breath sounds: Normal breath sounds. No wheezing, rhonchi or rales. Abdominal: General: There is no distension. Palpations: Abdomen is soft. Tenderness: There is no abdominal tenderness. There is no guarding. Comments: Negative Lloyds bilaterally Musculoskeletal: General: Normal range of motion. Cervical back: Normal range of motion. Skin: General: Skin is warm. Neurological: General: No focal deficit present. Mental Status: She is alert. Psychiatric: Mood and Affect: Mood normal. Behavior: Behavior normal. Procedure Notes Procedures Results Recent Results (from the past week) POC Urinalysis Dipstick,Auto UC Collection Time: 12/01/24 4:46 PM Result Value Ref Range POC Color, Urine Yellow Yellow, Light Yellow, Dark Yellow Clarity, UA Slightly Cloudy (A) Clear Glucose, UA Negative Normal, Negative mg/dL Bilirubin, UA Negative Negative Ketones, UA Negative Negative mg/dL Spec Grav, UA 1.020 1.005 - 1.025 Blood, UA Trace-intact (A) Negative pH, UA 6.5 5.0 - 7.0 Protein, UA Negative Negative mg/dL Urobilinogen, UA 0.2 <2.0, 0.2, Normal, Negative, 1.0, 2.0, <1.0 mg/dL Nitrite, UA Negative Negative Leukocyte Esterase, UA Trace (A) Negative No orders to display Orders Placed This Visit Orders Placed This Encounter Procedures Chlamydia/GC/Trichomonas Amplified RNA Chlamydia/Gonorrhoeae Amplified RNA Trichomonas vaginalis Amplified RNA Vaginitis DNA Probes POC Urinalysis Dipstick,Auto UC Medication List At End Of Visit Current Outpatient Medications Medication Sig Dispense Refill levonorgestreL (MIRENA) 21 mcg/24 hours (8 yrs) 52 mg IUD 1 (one) each by Intrauterine route once . sulfamethoxazole-trimethoprim (BACTRIM DS,SEPTRA DS) 800-160 mg per tablet Take 1 (one) tablet by mouth 2 (two) times a day for 5 days . 10 tablet 0 venlafaxine (EFFEXOR) 75 MG tablet Take 1 (one) tablet (75 mg total) by mouth daily WITH FOOD . No current facility-administered medications for this visit. There are no Patient Instructions on file for this visit. documented in this [id number] Telephone encounter Note* Telephone Encounter - Brionna Rios NP - 11/16/2024 11:32 AM EST OARRS reviewed, no red flags, rx sent. [id number] Miscellaneous Notes* Telephone Encounter - Brionna Rios NP - 11/16/2024 11:32 AM EST OARRS reviewed, no red flags, rx sent. * Telephone Encounter - Chapin Dejesus - 11/16/2024 11:09 AM EST Elena called regarding statis on med refill for her Adderall , asia Bond *Hinds documented in this encounterCox [id number] Telephone encounter Note* Telephone Encounter - Chapin Dejesus - 11/16/2024 11:09 AM EST Elena called regarding statis on med refill for her Adderall , ty Elvins *Hinds [id number] Telephone encounter Note* Telephone Encounter - Chapin Dejesus - 11/09/2024 4:02 PM EST To luisito benitest [id number] Miscellaneous Notes* Telephone Encounter - Chapin Dejesus - 11/09/2024 4:02 PM EST To luisito peña documented in this encounterCox [id number] History of Present illness Narrative* Brionna Rios NP - 09/22/2024 9:30 AM EST Images from the original note were not included. Gudelia Araujo is a 19 y.o. female presents with chief complaint of telemed - follow up on ADHD HPI: HPI Patient present via telemed visit to follow up on ADHD. Since increasing to 15mg daily of adderall,she does feel a difference. She is able to concentrate and focus. She feels like medication will last throughout the day. She denies having issues sleeping at night. No issues with constipation. Moodhas been stable, no increased depression or anxiety with adderall. She does not take it on Saturdays . She will take it on Sundays if she plans to do homework or study. She denies concerns. SUBJECTIVE: MEDICATIONS: Current Outpatient Medications Medication Instructions amphetamine-dextroamphetamine XR (Adderall XR) 15 MG 24 hr capsule 15 mg, Oral, Daily, Do not crushor chew. hydrOXYzine HCl (ATARAX) 25 mg, Oral, Every 6 hours PRN ibuprofen 800 MG tablet Levonorgestrel (Liletta, 52 MG,) 20.1 MCG/DAY intrauterine device Intrauterine ALLERGIES: No Known Allergies History: Past Medical History: Diagnosis Date Acute left otitis media Anxiety Arthritis Bacterial vaginosis Depression (CMS/HCC) Epigastric abdominal pain History of migraine with aura Irregular menses MPDS (myofascial pain dysfunction syndrome) violin posture Panic disorder (CMS/HCC) Periumbilical abdominal pain Pharyngitis recurrent Strep throat recurrent Swimmer's ear recurrent Syncope Tonsillitis Past Surgical History: Procedure Laterality Date ADENOIDECTOMY LAPAROSCOPY DIAGNOSTIC / BIOPSY / ASPIRATION / LYSIS 08/07/2024 TONSILLECTOMY 06/30/2013 WISDOM TOOTH EXTRACTION 04/2022 Family History Problem Relation Name Age of [...] (knee OA) Other grandparent Migraines Mother's Sister taran Anxiety disorder Mother's Sister taran Depression Mother's Sister taran Social History Socioeconomic History Marital status: Unmarried Spouse name: Not on file Number of children: Not on file Years of education: Not on file Highest education level: Not on file Occupational History Not on file Tobacco Use Smoking status: Never Smokeless tobacco: Never Vaping Use Vaping status: Every Day Substances: Nicotine Devices: Refillable tank Substance and Sexual Activity Alcohol use: Yes Comment: caffeine: occasional energy drink Drug use: Never Sexual activity: Yes Partners: Female, Male control/protection: Condom Male, I.U.D. Other Topics Concern Not on file Social History Narrative Type of community involvement: volleyball, tennis, swim Exercise: [email or web address] @ 1927 facility Living with: mom, dad, brother, sister Natural support system: mom, dad, friends, aunts, uncles Pets: 5 cats, 1 dog, 1 guinea pig, 2 giekos Social Drivers of Health Financial Resource Strain: Medium Risk (10/09/2023) Overall Financial Resource Strain (CARDIA) Difficulty of Paying Living Expenses: Somewhat hard Food Insecurity: Patient Declined (04/26/2024) Received from [facility] Hunger Screening Within the past 12 months we worried whether our food would run out before we got money to buy more.: Patient Declined Within the past 12 months the food we bought just didn't last and we didn't have money to get more.: Patient Declined Transportation Needs: No Transportation Needs (10/09/2023) PRAPARE - Transportation Lack of Transportation (Medical): No Lack of Transportation (Non-Medical): No Physical Activity: Insufficiently Active (10/09/2023) Exercise Vital Sign Days of Exercise per Week: 3 days Minutes of Exercise per Session: 20 min Stress: No Stress Concern Present (10/09/2023) [employer] - Occupational Stress Questionnaire Feeling of Stress : Only a little Social Connections: Socially Isolated (10/09/2023) Social Connection and Isolation Panel [NHANES] Frequency of Communication with Friends and Family: More than three times a week Frequency of Social Gatherings with Friends and Family: More than three times a week Attends Roman Catholic Services: Never Active Member of Clubs or Organizations: No Attends Club or Organization Meetings: Never Marital Status: Never Intimate Partner Violence: Not At Risk (10/09/2023) Humiliation, Afraid, Rape, and Kick questionnaire Fear of Current or Ex-Partner: No Emotionally Abused: No Physically Abused: No Sexually Abused: No Housing Stability: Low Risk (10/09/2023) Housing Stability Vital Sign Unable to Pay for Housing in the Last Year: No Number of Places Lived in the Last Year: 2 Unstable Housing in the Last Year: No I have reviewed and reconciled the history and medication list with the patient today. REVIEW OF SYMPTOMS: Review of Systems Constitutional: Negative for activity change, appetite change and fatigue. HENT: Negative. Respiratory: Negative for cough, shortness of breath and wheezing. Cardiovascular: Negative for chest pain and palpitations. Gastrointestinal: Negative for abdominal pain, diarrhea and nausea. Genitourinary: Negative. Musculoskeletal: Negative. Skin: Negative for color change, rash and wound. Psychiatric/Behavioral: Negative. OBJECTIVE: 10/09/2023 10:07 AM 11/14/2023 9:08 AM 06/09/2024 9:59 AM 06/29/2024 9:13 AM 07/09/2024 10:30 AM 07/24/2024 10:02 AM 08/20/2024 10:50 AM Vitals BMI 23.99 kg/m2 23.65 kg/m2 23.8 kg/m2 23.57 kg/m2 23.42 kg/m2 23.54 kg/m2 23.11 kg/m2 BSA (m2) 1.81 m2 1.8 m2 1.88 m2 1.84 m2 1.83 m2 1.84 m2 1.82 m2 Systolic 112 116 118 108 110 104 110 Diastolic 82 78 78 76 76 70 70 Heart Rate 94 81 74 88 SpO2 97 % 100 % 99 % Temp 96.4 F Resp 18 18 20 Height (in) 5' 7 5' 7 5' 8.75 5' 8 5' 8 Weight (lb) 153.2 151 160 155 154 154.8 152 Visit Report Report Report Report Report Report Report Physical Exam Constitutional: Appearance: Normal appearance. She is normal weight. She is not ill-appearing. Comments: Telemed appointment Pulmonary: Breath sounds: Normal breath sounds. Neurological: Mental Status: She is alert. Psychiatric: Mood and Affect: Mood normal. Behavior: Behavior normal. ASSESSMENT AND PLAN: Assessment/Plan Diagnoses and all orders for this visit: Attention deficit hyperactivity disorder (ADHD), predominantly inattentive type (CMS/HCC) - amphetamine-dextroamphetamine XR (Adderall XR) 15 MG 24 hr capsule; Take 1 capsule (15 mg) by mouth Daily Do not crush or chew. Moderate episode of recurrent major depressive disorder (CMS/HCC) Anxiety, generalized (CMS/HCC) -Doing great on 15mg dose. Will continue at this time. Due for refill. OARRS reviewed, no red flagsand rx sent. Discussed with patient that she needs to follow up every 3 months for med check. Patient believe she is coming home from college in December and plans to make an office visit or will do telemed if needed again. Overall, she is feeling great and denies concerns. Mood is good. Telemed visit done today. Verbal consent completed and bill for visit was obtained by patient. Realtime audio and visual used to complete telephone appointment, discussing health and treatment plan. Follow up in about 3 months (around 12/23/2024) for follow up on adhd. documented in this encounterCox [id number] History of Present illness Narrative* Brionna Rios NP - 08/20/2024 1:00 PM EDT Images from the original note were not included. Gudelia Araujo is a 19 y.o. female presents with chief complaint of follow up on ADHD HPI: HPI Patient presents via telemedicine for follow up on ADHD. She does feel better on adderall but is questioning if she could try a smaller higher dose. She does feel like her focusing is better. She hasbeen taking 10mg daily, even on weekends. She feels like she is able to concentrate in class, understand and process things better. She feels like she can read her textbook well and understand. She has taken 3 exams and 5-7 quizzes and has done well, getting B's or higher. She is sleeping well at night. She can tell when the medicine is starting to wear off. She has noticed a decreased appetite but trying to eat more for breakfast. Admits to drinking a lot of water. Denies constipation. She admits she feels like her anxiety has improved since starting adderall. She feels like her mind is not racing and she is able to focus on one thought at one time. SUBJECTIVE: MEDICATIONS: Current Outpatient Medications Medication Instructions amphetamine-dextroamphetamine XR (Adderall XR) 15 MG 24 hr capsule 15 mg, Oral, Daily, Do not crushor chew. hydrOXYzine HCl (ATARAX) 25 mg, Oral, Every 6 hours PRN ibuprofen 800 MG tablet Levonorgestrel (Liletta, 52 MG,) 20.1 MCG/DAY intrauterine device Intrauterine ALLERGIES: No Known Allergies History: Past Medical History: Diagnosis Date Acute left otitis media Anxiety Arthritis Bacterial vaginosis Depression (CMS/HCC) Epigastric abdominal pain History of migraine with aura Irregular menses MPDS (myofascial pain dysfunction syndrome) violin posture Panic disorder (CMS/HCC) Periumbilical abdominal pain Pharyngitis recurrent Strep throat recurrent Swimmer's ear recurrent Syncope Tonsillitis Past Surgical History: Procedure Laterality Date ADENOIDECTOMY LAPAROSCOPY DIAGNOSTIC / BIOPSY / ASPIRATION / LYSIS 08/07/2024 TONSILLECTOMY 06/30/2013 WISDOM TOOTH EXTRACTION 04/2022 Family History Problem Relation Name Age of [...] (knee OA) Other grandparent Migraines Mother's Sister taran Anxiety disorder Mother's Sister taran Depression Mother's Sister taran Social History Socioeconomic History Marital status: Unmarried Spouse name: Not on file Number of children: Not on file Years of education: Not on file Highest education level: Not on file Occupational History Not on file Tobacco Use Smoking status: Never Smokeless tobacco: Never Vaping Use Vaping status: Every Day Substances: Nicotine Devices: Refillable tank Substance and Sexual Activity Alcohol use: Yes Comment: caffeine: occasional energy drink Drug use: Never Sexual activity: Yes Partners: Female, Male control/protection: Condom Male, I.U.D. Other Topics Concern Not on file Social History Narrative Type of community involvement: volleyball, tennis, swim Exercise: cross[employer] @ 1927 facility Living with: mom, dad, brother, sister Natural support system: mom, dad, friends, aunts, uncles Pets: 5 cats, 1 dog, 1 guinea pig, 2 giekos Social Determinants of Health Financial Resource Strain: Medium Risk (10/09/2023) Overall Financial Resource Strain (CARDIA) Difficulty of Paying Living Expenses: Somewhat hard Food Insecurity: Patient Declined (04/26/2024) Received from [facility] Hunger Screening Within the past 12 months we worried whether our food would run out before we got money to buy more.: Patient Declined Within the past 12 months the food we bought just didn't last and we didn't have money to get more.: Patient Declined Transportation Needs: No Transportation Needs (10/09/2023) PRAPARE - Transportation Lack of Transportation (Medical): No Lack of Transportation (Non-Medical): No Physical Activity: Insufficiently Active (10/09/2023) Exercise Vital Sign Days of Exercise per Week: 3 days Minutes of Exercise per Session: 20 min Stress: No Stress Concern Present (10/09/2023) [employer] - Occupational Stress Questionnaire Feeling of Stress : Only a little Social Connections: Socially Isolated (10/09/2023) Social Connection and Isolation Panel [NHANES] Frequency of Communication with Friends and Family: More than three times a week Frequency of Social Gatherings with Friends and Family: More than three times a week Attends Roman Catholic Services: Never Active Member of Clubs or Organizations: No Attends Club or Organization Meetings: Never Marital Status: Never Intimate Partner Violence: Not At Risk (10/09/2023) Humiliation, Afraid, Rape, and Kick questionnaire Fear of Current or Ex-Partner: No Emotionally Abused: No Physically Abused: No Sexually Abused: No Housing Stability: Low Risk (10/09/2023) Housing Stability Vital Sign Unable to Pay for Housing in the Last Year: No Number of Places Lived in the Last Year: 2 Unstable Housing in the Last Year: No I have reviewed and reconciled the history and medication list with the patient today. REVIEW OF SYMPTOMS: Review of Systems Constitutional: Negative for activity change, appetite change and fatigue. HENT: Negative. Respiratory: Negative for cough, shortness of breath and wheezing. Cardiovascular: Negative for chest pain and palpitations. Gastrointestinal: Negative for abdominal pain, diarrhea and nausea. Genitourinary: Negative. Musculoskeletal: Negative. Skin: Negative for color change, rash and wound. Psychiatric/Behavioral: Negative. OBJECTIVE: 10/09/2023 10:07 AM 11/14/2023 9:08 AM 06/09/2024 9:59 AM 06/29/2024 9:13 AM 07/09/2024 10:30 AM 07/24/2024 10:02 AM 08/20/2024 10:50 AM Vitals BMI 23.99 kg/m2 23.65 kg/m2 23.8 kg/m2 23.57 kg/m2 23.42 kg/m2 23.54 kg/m2 23.11 kg/m2 BSA (m2) 1.81 m2 1.8 m2 1.88 m2 1.84 m2 1.83 m2 1.84 m2 1.82 m2 Systolic 112 116 118 108 110 104 110 Diastolic 82 78 78 76 76 70 70 Heart Rate 94 81 74 88 SpO2 97 % 100 % 99 % Temp 96.4 F Resp 18 18 20 Height (in) 5' 7 5' 7 5' 8.75 5' 8 5' 8 Weight (lb) 153.2 151 160 155 154 154.8 152 Visit Report Report Report Report Report Report Report Physical Exam Pulmonary: Effort: Pulmonary effort is normal. Breath sounds: Normal breath sounds. Neurological: Mental Status: She is alert. Psychiatric: Mood and Affect: Mood normal. Behavior: Behavior normal. ASSESSMENT AND PLAN: Assessment/Plan Diagnoses and all orders for this visit: Attention deficit hyperactivity disorder (ADHD), predominantly inattentive type (CMS/HCC) - amphetamine-dextroamphetamine XR (Adderall XR) 15 MG 24 hr capsule; Take 1 capsule (15 mg) by mouth Daily Do not crush or chew. -Will increase to 15mg daily and advised patient to let me know if she has any negative SE to medication. Otherwise will have her follow up in 4 weeks for recheck. OARRS reviewed, no red flags, rx sent. Anxiety, generalized (CMS/HCC) -Better per patient. Follow up in about 4 weeks (around 09/17/2024) for follow up on ADHD. documented in this encounterCox [id number] History of Present illness Narrative* ELIO Monreal - 08/20/2024 10:50 AM EDT Reason for Appointment: Patient ID: Gudelia Araujo is a 19 y.o. female who presents for Post-op Visit (Pt present today forpost operative visit. Pt had a Dx lap on 08/07/2024.) Patient presents today for 1 Week Post Op Follow Up appointment. MEDICATIONS Current Outpatient Medications Medication Instructions amphetamine-dextroamphetamine XR (Adderall XR) 10 MG 24 hr capsule 10 mg, Oral, Every morning, Do not crush or chew. hydrOXYzine HCl (ATARAX) 25 mg, Oral, Every 6 hours PRN ibuprofen 800 MG tablet Levonorgestrel (Liletta, 52 MG,) 20.1 MCG/DAY intrauterine device Intrauterine ALLERGIES No Known Allergies PROBLEMS Active Ambulatory Problems Diagnosis Date Noted Anxiety, generalized (CMS/HCC) 06/06/2023 Panic disorder (CMS/HCC) 06/06/2023 Breakthrough bleeding 06/06/2023 Migraine with aura and without status migrainosus, not intractable (CMS/HCC) 06/06/2023 Moderate episode of recurrent major depressive disorder (CMS/HCC) 06/06/2023 Uterine cramping 06/06/2023 BRBPR (bright red blood per rectum) 06/09/2024 Chronic UTI 06/09/2024 Passage of loose stools 06/09/2024 Unspecified temporomandibular joint disorder, unspecified side 06/09/2024 Attention deficit hyperactivity disorder (ADHD), predominantly inattentive type (CMS/HCC) 07/24/2024 Resolved Ambulatory Problems Diagnosis Date Noted Acne vulgaris 06/06/2023 Alcohol intoxication in active alcoholic, uncomplicated (CMS/HCC) 02/26/2023 Heavy periods 06/06/2023 Abnormal findings on diagnostic imaging of other abdominal regions, including retroperitoneum 06/09/2024 Candidiasis, unspecified 06/09/2024 Other specified diseases of intestine 04/29/2024 Past Medical History: Diagnosis Date Acute left otitis media Anxiety Arthritis Bacterial vaginosis Depression (CMS/HCC) Epigastric abdominal pain History of migraine with aura Irregular menses MPDS (myofascial pain dysfunction syndrome) Periumbilical abdominal pain Pharyngitis Strep throat Swimmer's ear Syncope Tonsillitis HISTORY PAST MEDICAL HISTORY SOCIAL HISTORY Past Medical History: Diagnosis Date Acute left otitis media Anxiety Arthritis Bacterial vaginosis Depression (CMS/HCC) Epigastric abdominal pain History of migraine with aura Irregular menses MPDS (myofascial pain dysfunction syndrome) violin posture Panic disorder (CMS/HCC) Periumbilical abdominal pain Pharyngitis recurrent Strep throat recurrent Swimmer's ear recurrent Syncope Tonsillitis Social History Tobacco Use Smoking status: Never Smokeless tobacco: Never Vaping Use Vaping status: Every Day Substances: Nicotine Devices: Curves tank Substance Use Topics Alcohol use: Yes [...] (knee OA) Other grandparent Migraines Mother's Sister taran Anxiety disorder Mother's Sister taran Depression Mother's Sister taran SURGICAL HISTORY Past Surgical History: Procedure Laterality Date ADENOIDECTOMY LAPAROSCOPY DIAGNOSTIC / BIOPSY / ASPIRATION / LYSIS 08/07/2024 TONSILLECTOMY 06/30/2013 WISDOM TOOTH EXTRACTION 04/2022 REVIEW OF SYSTEMS Review of Systems: Review of Systems Constitutional: Negative. HENT: Negative. Eyes: Negative. Respiratory: Negative. Cardiovascular: Negative. Gastrointestinal: Negative. Genitourinary: Negative. Musculoskeletal: Negative. Skin: Negative. Neurological: Negative. All other systems reviewed and are negative. Hematological: Negative. Endocrine: Negative. Allergic/Immunologic: Negative. OBJECTIVE Objective: Physical Exam Constitutional: Appearance: Normal appearance. She is normal weight. HENT: Head: Normocephalic. Cardiovascular: Rate and Rhythm: Normal rate. Pulses: Normal pulses. Pulmonary: Effort: Pulmonary effort is normal. Breath sounds: Normal breath sounds. Abdominal: Palpations: Abdomen is soft. Musculoskeletal: General: Normal range of motion. Neurological: General: No focal deficit present. Mental Status: She is alert and oriented to person, place, and time. Psychiatric: Mood and Affect: Mood normal. Behavior: Behavior normal. Thought Content: Thought content normal. Judgment: Judgment normal. Vitals and nursing note reviewed. Vitals: Estimated body mass index is 23.11 kg/m as calculated from the following: Height as of 07/09/24: 5' 8 . Weight as of this encounter: 152 lb. BP: 110/70 No LMP recorded. Patient has had an implant. ASSESSMENT & PLAN ICD-10-CM 1. Postoperative visit Z48.89 2. S/P laparoscopic surgery Z98.890 Post Op Follow Up: Patient presents today for a postop follow up after having a D&C Hysteroscopy performed at [facility] with Dr. Johnson. Pathology results was reviewed with the patient in great detail and all restrictions have been lifted. Follow Up: Patient is to return to the office for annual exam unless needed otherwise. Documented by ELIO Monreal on behalf of: ELIO Monreal documented in this encounterCox [id number] History of Present illness Narrative* Cyndy Giles MD - 08/05/2024 3:00 PM EDT Images from the original note were not included. Gudelia Araujo is a 19 y.o. female who agrees to a telemed visit for panic attack HPI: HPI Pt agreed to a telemed visit to discuss her anxiety panic. Pt has a history of depression, she had been on effexor thatn caused nausea. On 07/24/24 she saw Damon Rios and was diagnosed with ADHD and placed on adderall XR 10mg. Pt then developed a panic attack and went to the ED. Pt stopped her adderall and then restarted and did OK with with. Pt states she felt like it calmed her down . Pt felt short of breath and got anxious , roommate had pneumonia so that made her more anxious. 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 Pt was tachycardic on her first EKG, then normal. Chest xray was normal. Pt had blood work and urinalysis. Pt is anxious and gets panic attack and does deep breaths etc. Pt states her depression is better. Occasionally mild. Pt feels anxious daily. She does not feel that the adderrall made her anxiety worse. Pt is interested in medication for anxiety, gets anxious for exams but does well. SUBJECTIVE: MEDICATIONS: Current Outpatient Medications Medication Instructions Levonorgestrel (Liletta, 52 MG,) 20.1 MCG/DAY intrauterine device Intrauterine ALLERGIES: No Known Allergies History: Past Medical History: Diagnosis Date Acute left otitis media Anxiety Arthritis Bacterial vaginosis Depression (CMS/HCC) Epigastric abdominal pain History of migraine with aura Irregular menses MPDS (myofascial pain dysfunction syndrome) violin posture Panic disorder (CMS/HCC) Periumbilical abdominal pain Pharyngitis recurrent Strep throat recurrent Swimmer's ear recurrent Syncope Tonsillitis Past Surgical History: Procedure Laterality Date ADENOIDECTOMY TONSILLECTOMY 06/30/2013 WISDOM TOOTH EXTRACTION 04/2022 Family History Problem Relation Name Age of [...] (knee OA) Other grandparent Migraines Mother's Sister taran Anxiety disorder Mother's Sister taran Depression Mother's Sister taran Social History Socioeconomic History Marital status: Unmarried Spouse name: Not on file Number of children: Not on file Years of education: Not on file Highest education level: Not on file Occupational History Not on file Tobacco Use Smoking status: Never Smokeless tobacco: Never Vaping Use Vaping status: Every Day Substances: Nicotine Devices: Refillable tank Substance and Sexual Activity Alcohol use: Yes Comment: caffeine: occasional energy drink Drug use: Never Sexual activity: Yes Partners: Female, Male control/protection: Condom Male, I.U.D. Other Topics Concern Not on file Social History Narrative Type of community involvement: volleyball, tennis, swim Exercise: [email or web address] @ 1927 facility Living with: mom, dad, brother, sister Natural support system: mom, dad, friends, aunts, uncles Pets: 5 cats, 1 dog, 1 guinea pig, 2 giekos Social Determinants of Health Financial Resource Strain: Medium Risk (10/09/2023) Overall Financial Resource Strain (CARDIA) Difficulty of Paying Living Expenses: Somewhat hard Food Insecurity: Patient Declined (04/26/2024) Received from [facility] Hunger Screening Within the past 12 months we worried whether our food would run out before we got money to buy more.: Patient Declined Within the past 12 months the food we bought just didn't last and we didn't have money to get more.: Patient Declined Transportation Needs: No Transportation Needs (10/09/2023) PRAPARE - Transportation Lack of Transportation (Medical): No Lack of Transportation (Non-Medical): No Physical Activity: Insufficiently Active (10/09/2023) Exercise Vital Sign Days of Exercise per Week: 3 days Minutes of Exercise per Session: 20 min Stress: No Stress Concern Present (10/09/2023) [employer] - Occupational Stress Questionnaire Feeling of Stress : Only a little Social Connections: Socially Isolated (10/09/2023) Social Connection and Isolation Panel [NHANES] Frequency of Communication with Friends and Family: More than three times a week Frequency of Social Gatherings with Friends and Family: More than three times a week Attends Roman [employer] Services: Never Active Member of Clubs or Organizations: No Attends Club or Organization Meetings: Never Marital Status: Never Intimate Partner Violence: Not At Risk (10/09/2023) Humiliation, Afraid, Rape, and Kick questionnaire Fear of Current or Ex-Partner: No Emotionally Abused: No Physically Abused: No Sexually Abused: No Housing Stability: Low Risk (10/09/2023) Housing Stability Vital Sign Unable to Pay for Housing in the Last Year: No Number of Places Lived in the Last Year: 2 Unstable Housing in the Last Year: No REVIEW OF SYMPTOMS: Review of Systems Constitutional: Negative for chills, fatigue and fever. HENT: Negative for congestion and sore throat. Respiratory: Negative for cough and shortness of breath (resolved). Cardiovascular: Negative for chest pain, palpitations and leg swelling. Gastrointestinal: Negative for abdominal pain, constipation, diarrhea, nausea and vomiting. Genitourinary: Negative for difficulty urinating and dysuria. Skin: Negative. Neurological: Negative for dizziness, light-headedness and headaches. Psychiatric/Behavioral: Negative for dysphoric mood and sleep disturbance. The patient is nervous/anxious. OBJECTIVE: 08/21/2023 9:45 AM 10/09/2023 10:07 AM 11/14/2023 9:08 AM 06/09/2024 9:59 AM 06/29/2024 9:13 AM 07/09/2024 10:30 AM 07/24/2024 10:02 AM Vitals BMI 23.18 kg/m2 23.99 kg/m2 23.65 kg/m2 23.8 kg/m2 23.57 kg/m2 23.42 kg/m2 23.54 kg/m2 BSA (m2) 1.78 m2 1.81 m2 1.8 m2 1.88 m2 1.84 m2 1.83 m2 1.84 m2 Systolic 110 112 116 118 108 110 104 Diastolic 70 82 78 78 76 76 70 Heart Rate 94 81 74 88 SpO2 97 % 100 % 99 % Temp 96.4 F Resp 18 18 20 Height (in) 5' 7 5' 7 5' 7 5' 8.75 5' 8 5' 8 Weight (lb) 148 153.2 151 160 155 154 154.8 Visit Report Report Report Report Report Report Report Physical Exam Vitals and nursing note reviewed. Constitutional: General: She is not in acute distress. Appearance: She is not ill-appearing or toxic-appearing. HENT: Head: Normocephalic. Nose: Nose normal. Eyes: Comments: Good eye contact Pulmonary: Comments: Respirations appear easy Skin: Coloration: Skin is not pale. Neurological: Mental Status: She is alert and oriented to person, place, and time. Psychiatric: Behavior: Behavior normal. Thought Content: Thought content normal. Judgment: Judgment normal. Recent Results (from the past 672 hour(s)) TSH+FREE T4 Collection Time: 08/01/24 7:41 PM Result Value Ref Range TSH 1.07 0.27 - 4.20 mcIU/mL BASIC METABOLIC PANEL Collection Time: 08/01/24 7:41 PM Result Value Ref Range Sodium 141 135 - 145 mmol/L POTASSIUM, SERUM 3.7 3.5 - 5.1 mmol/L Chloride 101 98 - 108 mmol/L CO2 (Bicarbonate) 23 21 - 32 mmol/L Anion Gap 21 (H) 10 - 20 mmol/L Glucose 96 65 - 99 mg/dL BUN 6 (L) 8 - 25 mg/dL Creatinine 0.70 0.40 - 1.10 mg/dL eGFR 127 >=60 mL/min/1.73 m2 BUN/Creatinine Ratio 8.6 (L) 10.0 - 20.0 Calcium 10.0 8.4 - 10.2 mg/dL BLOOD GAS, VENOUS Collection Time: 08/01/24 7:51 PM Result Value Ref Range pH, Venous 7.44 (H) 7.32 - 7.42 pCO2, Rishi 37.3 (L) 41.0 - 51.0 mm Hg pO2, Rishi <30 25 - 40 mm Hg Base Excess 1.1 -2.0 - 2.0 HCO3, Rishi 25.1 24.0 - 28.0 mmol/L Hemoglobin 15.3 12.0 - 16.0 g/dL Hematocrit 46.9 (H) 36.0 - 46.0 % O2 Sat, Rishi 57.2 40.0 - 70.0 % FIO2 21 URINALYSIS Collection Time: 08/01/24 8:30 PM Result Value Ref Range Color, Urine Yellow Colorless, Yellow Urine Clarity Clear Clear Urine Specific [place] 1.011 1.005 - 1.025 pH, Urine 7.0 5.0 - 7.0 Protein, Urine Negative Negative mg/dL Glucose, Urine Negative Negative mg/dL Ketones, Urine Negative Negative mg/dL Urine Bilirubin Negative Negative Urobilinogen Urine <2.0 <2.0 mg/dL BLOOD, UR Small (A) Negative NITRITES, UR Negative Negative Leukocyte Esterase, Urine Negative Negative Urine WBC's 4 0 - 5 /hpf Urine RBC's 1 0 - 3 /hpf Urine Bacteria Rare (A) None Seen /hpf Urine Squamous Epithelial Cells 7 (H) 0 - 4 /hpf ASSESSMENT AND PLAN: Assessment/Plan Diagnosis Plan 1. Anxiety, generalized (CMS/HCC) hydrOXYzine HCl (Atarax) 25 MG tablet Discussed telephone service adviser medication such as wellbutrin that may help ADHD as well. Also discussed hydralazine pt states she has friends who take this 2. Moderate episode of recurrent major depressive disorder (HCC) (CMS/HCC) pt states she does not think this is an issue at this time 3. Attention deficit hyperactivity disorder (ADHD), predominantly inattentive type (CMS/HCC) Pt restarted her adderall and felt this helped her and did not cause her panic attack 4. Panic disorder (CMS/HCC) hydrOXYzine HCl (Atarax) 25 MG tablet Pt states she has had panic attacks even before adderall Pt states she has not followed up on getting counseling or mental health in [facility]. She would like to stay on her adderall and start hydralazine prn for panic attacks at this time andkeep her follow up with Damon Rios for further evaluation and treatment 30 min telemed visit agreed to by the pt. Reviewed past office notes. . ED report reviewed, Normal chest xray and labs. I will get a copy of her EKGs. documented in this [facility]09-16-2024 Telephone encounter Note* Telephone Encounter - Linn Patino LPN - 08/03/2024 1:47 PM EDT LM for pt to return call. [id number] Miscellaneous Notes* Telephone Encounter - Linn Patino LPN - 08/03/2024 1:47 PM EDT LM for pt to return call. * Telephone Encounter - Chapin Dejesus - 08/03/2024 10:13 AM EDT Mother Zehra called - Gudelia is having severe panic attacks. Started Adderall 10 mg - and now heart is racing. 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 She's over 3 hrs away- Mom asking for a call to her or Gudelia . Elena - [phone] Camelia- Zehra - [phone] documented in this [facility]09-16-2024 Telephone encounter Note* Telephone Encounter - Chapin Oleg - 08/03/2024 10:13 AM EDT Mother Zehra called - Gudelia is having severe panic attacks. Started Adderall 10 mg - and now heart is racing. 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 She's over 3 hrs away- Mom asking for a call to her or Gudelia . Elena - [phone] Mom- Zehra - [phone] [id number] Telephone encounter Note* Telephone Encounter - Domonique Lees - 07/24/2024 1:39 PM EDT Pt called and says she found a pharmacy in [place] that has her rx. [facility] phone [phone] [address] [id number] Miscellaneous Notes* Telephone Encounter - Domonique Lees - 07/24/2024 1:39 PM EDT Pt called and says she found a pharmacy in [place] that has her rx. [facility] phone [phone] [facility] [id number] documented in this encounterCox [id number] History of Present illness Narrative* Margarita Condon LPN - 07/09/2024 10:30 AM EDT Reason for Appointment: Patient ID: Gudelia Araujo is a 19 y.o. female who presents for Pre-op Visit Patient presents today for Pre Op appointment. Patient is scheduled to undergo Diagnostic Laparoscopy, possible BUCK, possible FOE, possible BSO on 08/07/[address] Johnson at [facility]. MEDICATIONS Current Outpatient Medications Medication Instructions azithromycin (Zithromax) 500 MG tablet Day 1: Take 2 tablets PO onetime dose; Day 2,3,4: Take 1 tablet daily doxycycline (VIBRAMYCIN) 100 mg, Oral, 2 times daily, Take with at least 8 ounces (large glass) of water, do not lie down for 30 minutes after doxycycline (VIBRAMYCIN) 100 mg, Oral, 2 times daily, Take with at least 8 ounces (large glass) of water, do not lie down for 30 minutes after Levonorgestrel (Liletta, 52 MG,) 20.1 MCG/DAY intrauterine device Intrauterine metroNIDAZOLE (FLAGYL) 500 mg, Oral, 2 times daily, Do not drink alcohol while taking this medication moxifloxacin (AVELOX) 400 mg, Oral, Daily, start medication AFTER completing course of Doxycycline & Azithromycin. ALLERGIES No Known Allergies PROBLEMS Active Ambulatory Problems Diagnosis Date Noted Anxiety, generalized ([facility]) 06/06/2023 Panic disorder ([facility]) 06/06/2023 Breakthrough bleeding 06/06/2023 Migraine with aura and without status migrainosus, not intractable ([facility]) 06/06/2023 Moderate episode of recurrent major depressive disorder (HCC) ([facility]) 06/06/2023 Uterine cramping 06/06/2023 BRBPR (bright red blood per rectum) 06/09/2024 Chronic UTI 06/09/2024 Passage of loose stools 06/09/2024 Unspecified temporomandibular joint disorder, unspecified side 06/09/2024 Resolved Ambulatory Problems Diagnosis Date Noted Acne vulgaris 06/06/2023 Alcohol intoxication in active alcoholic, uncomplicated ([facility]) 02/26/2023 Heavy periods 06/06/2023 Abnormal findings on diagnostic imaging of other abdominal regions, including retroperitoneum 06/09/2024 Candidiasis, unspecified 06/09/2024 Other specified diseases of intestine 04/29/2024 Past Medical History: Diagnosis Date Acute left otitis media Anxiety Arthritis Depression ([facility]) Epigastric abdominal pain History of migraine with aura MPDS (myofascial pain dysfunction syndrome) Periumbilical abdominal pain Pharyngitis Strep throat Swimmer's ear Syncope Tonsillitis HISTORY PAST MEDICAL HISTORY SOCIAL HISTORY Past Medical History: Diagnosis Date Acute left otitis media Anxiety Arthritis Depression ([facility]) Epigastric abdominal pain History of migraine with aura MPDS (myofascial pain dysfunction syndrome) violin posture Panic disorder (CMS/HCC) Periumbilical abdominal pain Pharyngitis recurrent Strep throat recurrent Swimmer's ear recurrent Syncope Tonsillitis Social History Tobacco Use Smoking status: Never Smokeless tobacco: Never Substance Use Topics Alcohol use: Yes Comment: [...] (knee OA) Other grandparent Migraines Mother's Sister taran Anxiety disorder Mother's Sister taran Depression Mother's Sister taran SURGICAL HISTORY Past Surgical History: Procedure Laterality Date ADENOIDECTOMY TONSILLECTOMY 06/30/2013 WISDOM TOOTH EXTRACTION 04/2022 REVIEW OF SYSTEMS Review of Systems: Review of Systems Constitutional: Negative. HENT: Negative. Eyes: Negative. Respiratory: Negative. Cardiovascular: Negative. Gastrointestinal: Negative. Genitourinary: Negative. Musculoskeletal: Negative. Skin: Negative. Neurological: Negative. All other systems reviewed and are negative. Hematological: Negative. Endocrine: Negative. Allergic/Immunologic: Negative. OBJECTIVE Objective: Physical Exam Constitutional: Appearance: Normal appearance. She is well-developed. Cardiovascular: Rate and Rhythm: Normal rate and regular rhythm. Pulmonary: Effort: Pulmonary effort is normal. Breath sounds: Normal breath sounds. Abdominal: General: Bowel sounds are normal. There is no distension. Palpations: Abdomen is soft. Tenderness: There is no abdominal tenderness. There is no guarding or rebound. Musculoskeletal: General: No swelling. Normal range of motion. Right lower leg: No edema. Left lower leg: No edema. Neurological: Mental Status: She is alert and oriented to person, place, and time. Skin: General: Skin is warm and dry. Psychiatric: Mood and Affect: Mood normal. Behavior: Behavior normal. Vitals and nursing note reviewed. Exam conducted with a hand straightener present. Vitals: Estimated body mass index is 23.42 kg/m as calculated from the following: Height as of this encounter: 5' 8 . Weight as of this encounter: 154 lb. BP: 110/76 No LMP recorded. Patient has had an implant. ASSESSMENT & PLAN ICD-10-CM 1. Pelvic pain in female R10.2 2. Encounter for pre-operative examination Z01.818 3. Bacterial infection due to mycoplasma A49.3 doxycycline (Vibramycin) 100 MG capsule azithromycin (Zithromax) 500 MG tablet moxifloxacin (Avelox) 400 MG tablet Pre Op: Patient is doing well but has complaints of pelvic pain. I have discussed conservative management vs. surgical management with the patient in detail and patient desires surgical management at this time. Patient will undergo Diagnostic Laparoscopy, possible BUCK, possible FOE, possible BSO on 08/07/2024. Surgical consents were signed, mmc was reviewed, and patient is to proceed to [facility] OR. Follow Up: Patient is to follow up between 1-2 weeks post operative to assess proper healing and recovery fromprocedure. Documented by Margarita Condon LPN on behalf of: Garfield Johnson DO documented in this encounterCox [id number] NoteSubjective: Patient ID: Gudelia Araujo is a 19 y.o. female. Chief Complaint: [...] future AUTHENTICATED BY MEL NOVAK, ON 04/23/2024 20:42:[facility] History of Present illness Narrative* Mel Novak, DO - 04/23/2024 8:39 PM EDT Subjective: Patient ID: Gudelia Araujo is a 19 y.o. female. Chief Complaint: [...] in the near future documented in this [id number] History of Present illness Narrative* Roslyn Hennessy LPN - 03/11/2024 3:33 PM EDT [facility] med given, no charge. Provider Viet Schulz explained medication and sti packet with condoms given. documented in this [id number] History of Present illness Narrative* Sherrill Saucedo CNP - 03/10/2024 8:59 AM EDT PATIENT NAME: Gudelia Araujo [facility] [address] [place] [id number] : 2005 DATE OF VISIT: 03/10/2024 SS#: [id number] PROVIDER: Sherrill Saucedo CNP Chief Complaint [...] The current episode started in the past 7days (3 days). The problem has been unchanged. [...] an STD. She uses an IUD for contraception.Her menstrual history has been irregular (no periods [...] Sitting, BP Cuff Size: Adult) Pulse 68 Temp97.7 F (36.5 C) (Infrared) Ht 5' 7 [...] will be provided. Suspect BV due to historyof recurrent infections. Follow up with PCP, [facility] as needed. Education provided with AVS. Patient [...] medications for this visit. documented in this [id number] History of Present illness Narrative* Paz Mitchell PA-C - 01/08/2024 12:59 PM EST PATIENT NAME: Gudelia Araujo [facility] [address] [place] [phone] : 2005 DATE OF VISIT: 01/08/2024 #: [id number] PROVIDER: Paz Mitchell PA-C Chief Complaint Patient presents with Vaginal Discharge Pt having vaginal discharge for the last wk and wants tested for BV and sti. [facility] SUBJECTIVE 19 y.o. female presents Vaginal Discharge (Pt having vaginal discharge for the last wk and wants tested for BV and sti. [facility] Pt 19 year old female that [...] no right CVA tenderness, left CVA tenderness orguarding. Skin: General: Skin is warm and dry. [...] medications for this visit. documented in this [id number] Instructions* Patient Instructions* Janis Gong, - 10/21/2023 3:41 PM EST Artificial tears (refresh or systane) What is a URI? An upper respiratory infection (URI) is a term used to describe an acute infection of the head and chest. Generally, it affects the nose, throat, airways, sinuses and/or ears. URIs are among the mostcommon diagnoses seen at [facility] How long will it last? Probably longer than you d like. Symptoms usually worsen during the first 3-5 days, followed by gradual improvement. Most URIs resolve within 10-14 days, even without treatment. Treatment Antibiotics only work on bacterial infections. Because URIs usually are caused by viruses, antibiotics are not an effective treatment. Fortunately, there are many options that help alleviate symptomswhen used as directed. Nasal congestion, post nasal dripping, or sinus pressure: Use an oral decongestant, such as pseudoephedrine or Mucinex D to reduce nasal and sinus congestion. Decongestants are available at pharmacies, including [facility], [facility] and [facility] . Decongestants should not be used by [...] warm water). Salt water can be used asoften as you like. Throat lozenges or throat [...] throat and help suppress a cough. Take carewith medications Be familiar with the individual ingredients [...] for assistance or consult with your health careprovider. Note: generic medications contain the same active [...] pain or tightness in your chest or wheezing(high pitched whistling sounds when you breath in) [...] your hands frequently and/or use a hand electronic equipment trades worker after touching your face. Cover your mouth when coughing or sneezing. Avoid sharing items like cups and lip balm. documented in this [id number] History of Present illness Narrative* Janis Gong DO - 10/21/2023 3:34 PM EST PATIENT NAME: Gudelia Araujo [facility] [address] [place] [phone] : 2005 DATE OF VISIT: 10/23/2023 #: [id number] PROVIDER: Janis Gong DO Chief Complaint Patient presents with Nasal Congestion Congestion for about a week, then 2 days ago eyes became red and throat is sore, took cold medicineand eye drops SUBJECTIVE 18 y.o. female presents [...] eye itching, congestion, headaches, sore throat, eye dischargeand eye redness. Pertinent negatives include no decreased vision, no double vision, no photophobia,no ear discharge, no ear pain, no hearing [...] medications for this visit. documented in this [id number] History of Present illness Narrative* Paz Chaudhari Jr., PA-C - 09/24/2023 8:56 AM EST PATIENT NAME: Gudelia Araujo [facility] [address] [place] [id number] : 2005 DATE OF VISIT: 09/24/2023 SS#: [id number] PROVIDER: Paz Chaudhari Jr., PA-C Chief Complaint Patient presents with Exposure to [...] Chlamydia/GC/Trichomonas Amplified RNA No follow-ups on file. LUIZ Section Is a 18-year-old female presents with [...] medications for this visit. documented in this [id number] Note* Addendum Note - Ellie Schulz CNP - 09/23/2023 8:03 AM ESTAddended by: RADHA SCHULZ on: 09/23/2023 08:03 AM Modules accepted: Orders [id number] Miscellaneous Notes* Addendum Note - Ellie Schulz CNP - 09/23/2023 8:03 AM ESTAddended by: RADHA SCHULZ on: 09/23/2023 08:03 AM Modules accepted: Orders documented in this [id number] Instructions* Patient Instructions* Ellie Schulz CNP - 09/19/2023 11:59 AM EDT Images [...] a good idea to know your test resultsand keep a list of the medicines you [...] sprays, and other feminine hygiene products that havedeodorants. After going to the bathroom, wipe from [...] Log into your personal health record on [email or web address] and enter K848 in the Education box to learn more about Urinary Tract Infection (UTI) in Women: Care Instructions. Current as of: January 15, 2023 Content Version: 13.8 [employer]. Care instructions adapted under license by your healthcare professional. If you have questions about a medical condition or this instruction, always ask your healthcare professional. [employer] disclaims any warranty or liability for your use of this information. documented in this [id number] Instructions* Patient Instructions* Ellie Schulz CNP - 09/19/2023 11:59 AM EDT Images [...] a good idea to know your test resultsand keep a list of the medicines you [...] sprays, and other feminine hygiene products that havedeodorants. After going to the bathroom, wipe from [...] Log into your personal health record on [email or web address] and enter K848 in the Education box to learn more about Urinary Tract Infection (UTI) in Women: Care Instructions. Current as of: January 15, 2023 Content Version: 13.8 [employer]. Care instructions adapted under license by your healthcare professional. If you have questions about a medical condition or this instruction, always ask your healthcare professional. [employer] disclaims any warranty or liability for your use of this information. documented in this [id number] History of Present illness Narrative* Ellie Schulz CNP - 09/19/2023 11:52 AM EDT PATIENT NAME: Gudelia Araujo [facility] [address] [place] [id number] : 2005 DATE OF VISIT: 09/19/2023 #: [id number] PROVIDER: Ellie Schulz CNP Chief Complaint Patient presents with Urinary [...] pain is described as burning. The pain isat a severity of 8/10. There has been no fever. She is Not sexually active. There is No history of p yelonephritis. Associated symptoms include flank pain, frequency and [...] medications for this visit. documented in this [id number] History of Present illness Narrative* Ellie Schulz CNP - 09/19/2023 11:52 AM EDT PATIENT NAME: Gudelia Araujo [facility] [address] [place] [phone] : 2005 DATE OF VISIT: 09/19/2023 #: [id number] PROVIDER: Ellie Schulz CNP Chief Complaint Patient presents with Urinary [...] pain is described as burning. The pain isat a severity of 8/10. There has been no fever. She is Not sexually active. There is No history of p yelonephritis. Associated symptoms include flank pain, frequency and [...] medications for this visit. documented in this [id number] History of Present illness Narrative* Carmenza Ruelas DO - 08/15/2023 10:21 AM EDTAssociated Order(s): Destruction of lesion Post-Procedure Diagnose(s): Genital [...] freeze cycles. After care was discussed with thepatient. Response to Treatment:: Procedure was tolerated well * Carmenza Ruelas DO - 08/15/2023 9:30 AM EDT [address] CARE AT [address] [phone] Date: 08/15/23 Patient ID: Gudelia Araujo is a 18 y.o.. Chief Complaint: The patient presents for Procedure (Here for cyrotherapy for genital warts, today is pt's first treatment.) HPI: Patient presents for cryo tx of genital warts. Also her insurance isn't accepted at [facility] and she continues to have the pelvic pain so she is seeing her application infrastructure engineer at home in 2 weeks. Reviewed and [...] kg/m Physical Exam Exam conducted with a hand straightener present (Aleida West DO, PGY3). Constitutional: Appearance: [...] 3x/week until cleared OR for max of 16weeks. Patient to have US ordered by home STRUCTURAL TEST ENGINEER and f/u with me as needed. Return in about 3 weeks (around 09/05/2023) for Re-check. Carmenza Ruelas DO documented in this [id number] Instructions* Patient Instructions* Carmenza Ruelas DO - 08/15/2023 10:12 AM EDT Return every 3 weeks for cryo treatment. Also offered [facility] 3x/week until cleared OR for max of 16weeks. Patient to have US ordered by home STRUCTURAL TEST ENGINEER and f/u with me as needed. documented in this [id number] Instructions* Patient Instructions* Carmenza Ruelas DO - 08/08/2023 3:23 PM [...] reduce transmission. Discussed importance of STOPPING shaving duri ng recovery/treatment until warts have resolved. documented in this [id number] History of Present illness Narrative* Carmenza Ruelas DO - 08/08/2023 2:29 PM EDT [address] CARE AT [address] [id number] Date: 08/08/23 Patient ID: Gudelia Araujo is a 18 y.o.. Chief Complaint: The [...] the injections every 2 weeks and her lastone is in 2 weeks. Discharge has been clear. Hasn't used tampons in ~2 years. The bleeding over thepast month is occasional, not daily. For few days heavy, then spotting, then hasn't bled in about aweek. Last had sex July 17 and was [...] kg/m Physical Exam Exam conducted with a hand straightener present (KT Uribe). Constitutional: Appearance: Normal appearance. [...] reduce transmission. Discussed importance of STOPPING shaving duri ng recovery/treatment until warts have resolved. Return in about 1 week (around 08/15/2023) for Follow Up. Carmenza Ruelas DO documented in this [id number] Instructions* Patient Instructions* Ellie Schulz, AMANDA - 07/31/2023 2:49 PM EDT Safer Sex: Care Instructions Overview Safer sex is a way to reduce your risk of getting a sexually transmitted infection (STI). It can also help prevent . Several products can help you practice safer sex and reduce your chance of STIs. One of the best kb condom. There are internal and external condoms. You can use a special rubber sheet (dental dam) for protection during oral sex. Disposable gloves can keep your hands from touching blood, semen, orother body fluids that can carry infections. Remember that control methods such as diaphragms, IUDs, foams, and control pills do notstop you from getting STIs. Follow-up care is a bishop part of your treatment and safety. Be sure to make and go to all appointments, and call your doctor if you are having problems. It's also a good idea to know your test resultsand keep a list of the medicines you [...] Log into your personal health record on [email or web address] and enter B608 in the Education box to learn more about Safer Sex: Care Instructions. Current as of: March 06, 2023 Content Version: 13.8 [employer] [facility]. Care instructions adapted under license by your healthcare professional. If you have questions about a medical condition or this instruction, always ask your healthcare professional. [employer] [facility] disclaims any warranty or liability for your use of this information. documented in this [id number] History of Present illness Narrative* Ellie Schulz CNP - 07/31/2023 2:38 PM EDT PATIENT NAME: Gudelia Araujo [facility] [address] [place] [address] [facility] [id number] : 2005 DATE OF VISIT: 07/31/2023 #: [id number] PROVIDER: Ellie Schulz CNP Chief Complaint Patient presents with Vaginal Bleeding Pt having a lot of vaginal bleeding for the last month and she has an IUD. She was going to wait until she went home to application infrastructure engineer but woke up today with a lot of cramping. SUBJECTIVE 18 y.o. female presents Vaginal Bleeding (Pt having a lot of vaginal bleeding for the last month and she has an IUD. She was going to wait until she went home to application infrastructure engineer but woke up today with a lot of cramping.) Had IUD inserted in 2020 at [facility] Reports intermittent vaginal bleeding started [...] discharge was normal. The vaginal bleeding is laundry routeman than menses. She has not been passing clots. She has not been passing tissue. Nothing aggravates the symptoms. She has tried nothing for the symptoms. She is sexually active. She uses an IUD for contraception. Her menstrual history has been irregular. Her past medical history issignificant for vaginosis. There is no history of [...] she reports unable to take NSAIDs as shegets injections in her jaw RTC criteria and [...] medications for this visit. documented in this [id number] History of Present illness Narrative* Annalise Griffith DO - 07/04/2023 7:05 PM EDT Gudelia Araujo 2005 Chief Complaint: Chief Complaint Patient presents [...] frequently, advised her to f/u with her application infrastructure engineer about it, may be candidate for boric acid suppositories. Return to office, FU with PCP, or report to ED for concerning symptoms, including symptoms refractory to above management in 48hr or worsening symptoms such as fever, mental status change, feeling unwell, gross hematuria, intractable nausea/vomiting/diarrhea, unable to tolerate PO intake fluids, int ractable pain, worsening flank or abdominal pain, etc. Patient verbalized understanding. RTC or F/u with PCP/STRUCTURAL TEST ENGINEER in 3-4 days if still symptomatic. Patient verbalized understanding of assessment and plan and denies any concerns stating all questions were answered at this time. There are no Patient Instructions on file for this visit. No follow-ups on file. Annalise Griffith DO documented in this [id number] History of Present illness Narrative* Ellie Schulz CNP - 12/24/2022 11:35 AM EST PATIENT NAME: Gudelia Araujo [facility] [address] [place] [id number] : 2005 DATE OF VISIT: 12/24/2022 #: [id number] PROVIDER: Ellie Schulz CNP Chief Complaint Patient presents with Emesis States woke up this AM vomiting. States missed anatomy exam and had a panic attack and now cannot calm down. States roommate is sick as well, both ate dinner at the same place ([employer], [place]). SUBJECTIVE 17 y.o. female presents Emesis (States woke up this AM vomiting. States missed anatomy exam and hada panic attack and now cannot calm down. States roommate is sick as well, both ate dinner at the same place ([employer], [place] [place] [employer]). ) Reports history of anxiety Has been taking effexor for anxiety for the past 2 months PCP in [place]- has not followed up with since starting [...] an appearance of stomach contents. There has beenno fever. Pertinent negatives include no abdominal pain, arthralgias, chest pain, chills, coughing,diarrhea, dizziness, fever, headaches, myalgias, sweats, URI or [...] 50 mcg/actuation nasal spray Instill 2 (two) spraysinto each nostril daily . 16 g 0 [...] medication Will schedule PCP follow-up here at [facility]- needs local pcp for anxiety Educated [...] medications for this visit. documented in this [id number] Instructions* Patient Instructions* Ellie Schulz CNP - 10/02/2022 3:28 PM EST Images [...] include drinking lots of fluids and taking nljh-pgc-vylvenf pain medicine. You will probably feel better [...] a good idea to know your test resultsand keep a list of the medicines you take. How can you care for yourself at home? To prevent dehydration, drink plenty of fluids. Choose water and other clear liquids until you feelbetter. If you have kidney, heart, or liver disease and have to limit fluids, talk with your doctorbefore you increase the amount of fluids you drink. Ask your doctor if you can take an imtc-kuy-gpmmvxj pain medicine, such as acetaminophen (Tylenol),ibuprofen (Advil, Motrin), or naproxen (Aleve). Be safe with medicines. Read and follow all instructions on the label. No one younger than 20 should take aspirin. It has been linked to Zechariah syndrome,a serious illness. Be careful when taking lble-reb-jzvtvch cold or flu medicines and Tylenol at the same time. Many ofthese medicines have acetaminophen, which is Tylenol. Read the labels to make sure that you are nottaking more than the recommended dose. Too much [...] to your bedroom. Follow the instructions for cleaningthe machine. Do not smoke or allow others [...] Log into your personal health record on [email or web address] and enter Q795 in the Education box to learn more about Viral Respiratory Infection: Care Instructions. Current as of: December 27, 2021 Content Version: 13.4 [facility] [facility]. Care instructions adapted under license by your healthcare professional. If you have questions about a medical condition or this instruction, always ask your healthcare professional. [facility] [facility] disclaims any warranty or liability for your use of this information. documented in this [id number] History of Present illness Narrative* Ellie Schulz CNP - 10/02/2022 3:22 PM EST PATIENT NAME: Gudelia Araujo [facility] [address] [place] [id number] : 2005 DATE OF VISIT: 10/02/2022 #: [id number] PROVIDER: Ellie Schulz CNP Chief Complaint Patient presents with Fever States fever yesterday, 101.0. Took tylenol last night and fever did subside. Has not taken any medication today. Headache Nasal Congestion Fatigue Generalized Body Aches Chills SUBJECTIVE 17 y.o. female presents Fever (States fever yesterday, 101.0. Took tylenol last night and fever didsubside. Has not taken any medication today.), Headache, Nasal Congestion, Fatigue, Generalized Body Aches, and Chills Denies any known covid exposures Did not obtain flu vaccination Fully vaccination for covid with booster Denies history of covid in the past 90 days Lives in [facility] Home covid test last night was negative [...] ear sensation, rash, sinus pain, sneezing, sore throat,swollen glands, vomiting or wheezing. She has tried [...] Sitting, BP Cuff Size: Adult) Pulse 99 Temp98.7 F (37.1 C) (Infrared) LMP (LMP Unknown) [...] 1. Upper respiratory tract infection, unspecified type ohgzvetojpkxlqj-QY-iejdEYPzsdh 60-15-400 mg Tab fluticasone propionate (FLONASE) 50 [...] prescribed. Call your doctor if you think youare having a problem with your medicine. You will get more details on the specific medicine your doctor prescribes. Take an yfrz-nup-vxnjkkf pain medicine, such as acetaminophen (Tylenol), ibuprofen (Advil, Motrin),or naproxen (Aleve), as needed for pain and [...] each nostril daily . 16 g 0 ssnfiwduuixmwkm-FC-ncqhUCTeohi 60-15-400 mg Tab Take 1 (one) tablet by mouth every 6 (six) hours for 3 days . 12 tablet 0 No current facility-administered medications for this visit. documented in this [id number] Instructions* Patient Instructions* Hilda Nelson PA-C - 07/25/2022 12:42 PM [...] a good idea to know your test resultsand keep a list of the medicines you take. How can you care for yourself at home? Take your medicines exactly as prescribed. Call your doctor if you think you are having a problem with your medicine. Ask your doctor about zmss-luk-caejssn (OTC) medicines for yeast infections. If you [...] Log into your personal health record on [email or web address] and enter F639 in the Education box to learn more about Vaginal Yeast Infection: Care Instructions. Current as of: October 09, 2021 Content Version: 13.4 [facility]. Care instructions adapted under license by your healthcare professional. If you have questions about a medical condition or this instruction, always ask your healthcare professional. [facility] disclaims any warranty or liability for your use of this information. documented in this [id number] History of Present illness Narrative* Hilda Nelson PA-C - 07/25/2022 12:40 PM EDT PATIENT NAME: Gudelia Araujo [facility] [address] [place] [phone] : 2005 DATE OF VISIT: 07/25/2022 #: [id number] PROVIDER: Hilda Nelson PA-C Chief Complaint Patient presents with Vaginal Discharge Burning with urination. States took Azo and then started to have vaginal discharge, itching, and odor. States no longer having burning with urination SUBJECTIVE 17 y.o. female presents Vaginal Discharge (Burning with urination. States took Azo and then startedto have vaginal discharge, itching, and odor. States [...] total) by mouth every 72 hours . 2tablet 0 No current facility-administered medications for this visit. documented in this [id number] Evaluation note* Encounter Date Diagnosis Assessment Notes Treatment Notes Treatment Clinical Notes Jan, Contact with and (suspected) exposure [...] Patient care instructions given in writting by [facility] Care At Home document [facility] Other 08-01-2013 History general Narrative - Reported* Type Description Date Medical History Migraines Medical History Passing out when in pain Surgical History tonsillectomy and adenoidectomy Jun 2013 [facility] Other Evaluation note* Diagnosis Acute vaginitis- Primary Unspecified vaginitis and vulvovaginitis Dysuria [facility] Diagnosis Upper respiratory tract infection, unspecified type- Primary [facility] Diagnosis Vomiting, unspecified vomiting type, unspecified [...] [facility]* Diagnosis Routine screening for STI (sexually transmitted infection)- Primary Screening examination for venereal disease [facility] Diagnosis Sore throat- Primary Acute pharyngitis [facility] Diagnosis Leukorrhea- Primary Leukorrhea, not specified as infective High risk sexual behavior, unspecified type [facility] Diagnosis BV (bacterial vaginosis)- Primary Unspecified vaginitis and vulvovaginitis [facility] Diagnosis Vaginal discharge- Primary Leukorrhea, not specified as infective Possible exposure to STD [facility] Diagnosis Chlamydia- Primary Other specified chlamydial infection, in conditions classified elsewhere and of unspecified site BV (bacterial vaginosis) Unspecified vaginitis and vulvovaginitis [facility] Diagnosis Dysuria- Primary Possible exposure to STD [facility] Diagnosis Postoperative visit S/P laparoscopic surgery Other postprocedural status documented [facility]* Diagnosis Attention deficit hyperactivity disorder (ADHD), predominantly inattentive type (CMS/HCC)- Primary Anxiety, generalized (CMS/HCC) documented in this encounter [facility]* Diagnosis Attention deficit hyperactivity disorder (ADHD), predominantly inattentive type (CMS/HCC)- Primary Moderate episode of recurrent major depressive disorder (CMS/HCC) Anxiety, generalized (CMS/HCC) documented in this encounter [facility]* Diagnosis Pelvic pain in female Unspecified symptom associated with female genital organs Encounter for pre-operative examination Bacterial infection due to mycoplasma documented in this encounter [facility]* Diagnosis Anxiety, generalized (CMS/HCC)- Primary Moderate episode of recurrent major depressive disorder (CMS/HCC) Attention deficit hyperactivity disorder (ADHD), predominantly inattentive type (CMS/HCC) Panic disorder (CMS/HCC) Panic disorder without agoraphobia [facility]* Diagnosis Attention deficit hyperactivity disorder (ADHD), predominantly inattentive type (CMS/HCC) documented [facility]* Diagnosis Dysuria- Primary Screen for STD (sexually transmitted disease) Screening examination for venereal disease [facility] Diagnosis Dysuria- Primary Screen for STD (sexually transmitted disease) Screening examination for venereal disease BV (bacterial vaginosis)- Primary Unspecified vaginitis and vulvovaginitis [facility]* Diagnosis Attention deficit hyperactivity disorder (ADHD), predominantly inattentive type (CMS/HCC) documented in this encounter [facility]* Diagnosis Enlarged lymph node- Primary Enlargement of lymph nodes documented in this encounter [facility]* Diagnosis Lump in the groin- Primary Abdominal or pelvic swelling, mass or lump, unspecified site Screening for deficiency anemia Screening for other and unspecified deficiency anemia Screening for cardiovascular condition Screening for other and unspecified cardiovascular conditions Screening for lipid disorders Moderate episode of recurrent major depressive disorder (CMS/HCC) Attention deficit hyperactivity disorder (ADHD), predominantly inattentive type (CMS/HCC) Lump in the groin Abdominal or pelvic swelling, mass or lump, unspecified site documented in this encounter [facility]* Diagnosis Lymphadenopathy, inguinal- Primary [facility] Diagnosis Dysuria- Primary Screen for STD (sexually transmitted disease) Screening examination for venereal disease BV (bacterial vaginosis)- Primary Unspecified vaginitis and vulvovaginitis Vaginal discharge Leukorrhea, not specified as infective [facility] Diagnosis Lymphadenopathy, inguinal- Primary [facility]* Diagnosis Attention deficit hyperactivity disorder (ADHD), predominantly inattentive type (CMS/HCC) documented in this encounter [facility]* Diagnosis Dysuria- Primary Screen for STD (sexually transmitted disease) Screening examination for venereal disease Back pain- Primary Unspecified backache [facility]* Diagnosis Attention deficit hyperactivity disorder (ADHD), predominantly inattentive type (CMS/HCC) documented in this encounter [facility]* Diagnosis Lymphadenopathy, inguinal- Primary [facility]* Diagnosis Dysuria- Primary Screen for STD (sexually transmitted disease) Screening examination for venereal disease Acute bacterial conjunctivitis of left eye- Primary Upper respiratory tract infection, unspecified type [facility]* Diagnosis Attention deficit hyperactivity disorder (ADHD), predominantly inattentive type- Primary Moderate episode of recurrent major depressive disorder (HCC) Anxiety, generalized Panic disorder Panic disorder without agoraphobia documented [facility]* Diagnosis Attention deficit hyperactivity disorder (ADHD), predominantly inattentive type [facility] noteNo assessment information availableAdena Pike Medical Center Work Phone: Evaluation note* Diagnosis Well woman exam with routine gynecological exam Routine gynecological examination Exposure to STD documented in this encounter [facility]* Attachments The following attachments cannot be sent through Care Everywhere. * Stress: Progressive Muscle Relaxation: General Info (Bermudian) documented in this encounterOhioHealthInstructions* Attachments The following attachments cannot be sent through Care Everywhere. * STI (Bermudian) documented in this encounterOhioHealthInstructionsNot on filedocumented in this encounterProMedica Health SystemInstructionsNot on filedocumented in this encounterProMercy [facility] SystemInstructionsNot on filedocumented in this encounterProMercy Health [facility] SystemReason for referral (narrative)No reason for referral information availableAdena Pike Medical Center Work Phone: Summary Purpose Family History Relationship Condition Age at Onset Recorded Date/T jannie father Diabetes mellitus Unknown Hypertension Unknown mother Fibromyalgia Unknown Advance Directives Latest Code Status on File Code Status Date Activated Date Inactivated Comments Full Code - Unverified 02/26/2023 2:20 AM 02/26/2023 2:3 0 PM Latest Code Status on File Code Status Date Activated Date Inactivated Comments Full Code - Unverified 02/26/2023 2:20 AM 02/26/2023 2:3 0 PM Date Activated Date Inactivated Comments 02/26/2023 2:20 AM 02/26/2023 2:30 PM Advance Directive Response Recorded Date/ Time Advance Directives No June 10 12:56pm Reason for Referral Specialty Diagnoses / Procedures Referred By Contac t Referred To Contact Obstetrics and Gynecology Diagnoses Pelvic pain Procedures US Transvaginal Carmenza Ruelas, DO [address] [place] [address] Referral ID Status Reason Start Date Expiration Date V isits Requested Visits Authorized [id number] Authorized 08/08/2023 08/07/2024 1 1 Chief Complaint and Reason for Visit Chief Complaint Admit Date check for BV June 10, 2025 12:5 9pm Reason for Visit Admit Date Vaginal discharge June 10, 2025 12:5 9pm Additional Source Comments INFORMATION SOURCE (unrecogn ized section and content) DATE CREATED AUTHOR 06/11/2020 [facility] DATE CREATED AUTHOR AUTHOR'S ORGANIZ ATION 10/06/[address] [facility] DATE CREATED AUTHOR AUTHOR'S ORGANIZ ATION 02/11/2025 [facility] DATE CREATED AUTHOR AUTHOR'S ORGANIZ ATION 02/15/2025 [facility] DATE CREATED AUTHOR AUTHOR'S ORGANIZ ATION 02/22/2025 [facility] DATE CREATED AUTHOR AUTHOR'S ORGANIZ ATION 03/04/2025 [facility] DATE CREATED AUTHOR AUTHOR'S ORGANIZ ATION 03/04/[address] [facility] DATE CREATED AUTHOR AUTHOR'S ORGANIZ ATION 03/16/2025 [facility] [place] DATE CREATED AUTHOR AUTHOR'S ORGANIZ ATION 06/11/2025 [facility] EPIC DATE CREATED AUTHOR AUTHOR'S ORGANIZ ATION 06/14/2025 [facility] REASON FOR VISIT (unrecogniz ed section and [...] dinner at the same place ([employer] [employer] [facility] Reason Comments Vaginitis Reason Comments Vaginal Bleeding Pt having a lot of v aginal bleeding for the last month and she has an IUD. 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 Reason Comments Urinary Urgency Painful urination, michelle figueroa back pain, urinary urgency for 2 days, [...] Comments Urinary Tract Infection Exposure to STD Reason Comments Post-op Visit Pt present today for post operative visit. Pt had a Dx lap on 08/07/2024. Reason Comments follow up on ADHD Reason Comments telemed - follow up on ADHD Reason Comments Pre-op Visit Reason Comments Urinary Tract Infection Sti screening Reason Comments discuss medication Reason Onset Date Comments Results 12/25/2024 Reason Comments Mass Left groin x3 weeks, pain at first but no pain now Reason Comments Enlarged Lymph Node Left inguinal enlarg ed lymph node, referred by Brionna Rios CNP Specialty Diagnoses / Procedures Referred By Reshma barrera Referred To Contact General Surgery Diagnoses Enlarged lymph node Procedures [place] OFFICE OUTPATIENT VISIT 60-74 MINS HIGH MDM [id number] (SNOMED CT) - AMB REFERRAL TO GENERAL SURGERY Brionna Rios APRN-RESEARCH AND DEVELOPMENT TESTER [address] [place] [address] Phone: tel: fax: Janis Morrison DO [address] [place] [address] Phone: tel: fax: Referral ID Status Reason Start Date Expiration Date V isits Requested Visits Authorized [id number] Pending Review 12/25/2024 06/23/2025 1 1 Reason Comments Vaginal Discharge Groin Swelling Reason Comments Follow-up Follow up from , enlarged lymph node Reason Comments Back Pain Reason Comments Follow-up POST OP - EXCISION O F LEFT INGUNAL LYMPH NODE PERFORMED BY PRINCE ON 02/02/25 F/U EUFEMIA Reason Comments Conjunctivitis Left Reason Comments Med Refill Pt is here for her m edication refill. Pt states medication is very helpful and she is tolerating it well. Pt's only side effect is lack of appetite. Pt sleeps well at night. Reason Comments Gynecologic Exam Care Teams (unrecognized sec tion and content) Publication Manager Relationship Specialty Start Date End Date No, Physician [facility] PCP - General 07/25/22 Publication Manager Relationship Specialty Start Date End Date No, Physician [facility] PCP - General 07/25/22 Publication Manager Relationship Specialty Start Date End Date No, Physician [facility] PCP - General 07/25/22 Publication Manager Relationship Specialty Start Date End Date No, Physician [facility] PCP - General 07/25/22 Publication Manager Relationship Specialty Start Date End Date No, Physician [facility] PCP - General 07/25/22 Publication Manager Relationship Specialty Start Date End Date No, Physician [facility] PCP - General 07/25/22 Publication Manager Relationship Specialty Start Date End Date No, Physician [facility] PCP - General 07/25/22 Publication Manager Relationship Specialty Start Date End Date Carmenza Ruelas DO [address] [place] [address] [place] [address] PCP - General Family Medicine 08/08/23 Publication Manager Relationship Specialty Start Date End Date Carmenza Ruelas DO [address] [place] [address] [place] [address] PCP - General Family Medicine 08/08/23 Publication Manager Relationship Specialty Start Date End Date Carmenza Ruelas DO [address] [place] [address] [place] [address] PCP - General Family Medicine 08/08/23 Publication Manager Relationship Specialty Start Date End Date Carmenza Ruelas DO [address] [place] [address] [place] [address] PCP - General Family Medicine 08/08/23 Publication Manager Relationship Specialty Start Date End Date SharlalukeTitoavtar Ramirez DO [address] [place] [address] [place] [address] PCP - General Family Medicine 08/08/23 Publication Manager Relationship Specialty Start Date End Date Carmenza Ruelas DO [address] [place] [address] [place] [address] PCP - General Family Medicine 08/08/23 Publication Manager Relationship Specialty Start Date End Date Carmenza Ruelas DO [address] [place] [address] [place] [address] PCP - General Family Medicine 08/08/23 Publication Manager Relationship Specialty Start Date End Date Carmenza Ruelas DO [address] [place] [address] [place] [address] PCP - General Family Medicine 08/08/23 Publication Manager Relationship Specialty Start Date End Date Tito Ruelasavtar Ramirez DO [address] [place] [address] [place] [address] PCP - General Family Medicine 08/08/23 Publication Manager Relationship Specialty Start Date End Date Darshana Carmenzaavtar Ramirez DO [address] [place] [address] [place] [address] PCP - General Family Medicine 08/08/23 Publication Manager Relationship Specialty Start Date End Date Cyndy Giles MD [address] [place] [address] PCP - General Family Medicine 06/17/24 Brionna Rios, DRY PAN OPERATOR [address] [place] [address] Nurse Practitioner Family Medicine 06/17/24 Publication Manager Relationship Specialty Start Date End Date Cyndy Giles MD [address] [place] [address] PCP - General Family Medicine 06/17/24 Brionna Rios NP [address] [place] [address] Nurse Practitioner Family Medicine 06/17/24 Publication Manager Relationship Specialty Start Date End Date Cyndy Giles MD [address] [place] [address] PCP - General Family Medicine 06/17/24 Brionna Rios NP [address] [place] [address] Nurse Practitioner Family Medicine 06/17/24 Publication Manager Relationship Specialty Start Date End Date Cyndy Giles MD [address] [place] [address] PCP - General Family Medicine 06/17/24 Brionna Rios NP [address] [place] [address] Nurse Practitioner Family Medicine 06/17/24 Publication Manager Relationship Specialty Start Date End Date Cyndy Giles MD [address] [place] [address] PCP - General Family Medicine 06/17/24 Brionna Rios NP [address] [place] [address] Nurse Practitioner Family Medicine 06/17/24 Publication Manager Relationship Specialty Start Date End Date Cyndy Giles MD [address] [place] [address] PCP - General Family Medicine 06/17/24 Brionna Rios, LOLITA [address] [place] [address] Nurse Practitioner Family Medicine 06/17/24 Publication Manager Relationship Specialty Start Date End Date Cyndy Giles MD [address] [place] [address] PCP - General Family Medicine 06/17/24 Brionna Rios NP [address] [place] [address] Nurse Practitioner Family Medicine 06/17/24 Publication Manager Relationship Specialty Start Date End Date Cyndy Giles MD [address] [place] [address] PCP - General Family Medicine 06/17/24 Brionna Rios NP [address] [place] [address] Nurse Practitioner Family Medicine 06/17/24 Publication Manager Relationship Specialty Start Date End Date Cyndy Giles MD [address] [place] [address] PCP - General Family Medicine 06/17/24 Brionna Rios NP [address] [facility] [place] [address] Nurse Practitioner Family Medicine 06/17/24 Publication Manager Relationship Specialty Start Date End Date Cyndy Giles MD [address] [place] [address] PCP - General Family Medicine 06/17/24 Brionna Rios NP [address] [place] [address] Nurse Practitioner Family Medicine 06/17/24 Publication Manager Relationship Specialty Start Date End Date Carmenza Ruelas DO [address] [place] [address] [place] [id number] PCP - General Family Medicine 08/08/23 Publication Manager Relationship Specialty Start Date End Date Carmenza Ruelas DO [address] [place] [address] [place] [address] PCP - General Family Medicine 08/08/23 Publication Manager Relationship Specialty Start Date End Date Cyndy Giles MD [address] [place] [address] PCP - General Family Medicine 06/17/24 Brionna Rios, DRY PAN OPERATOR [address] [place] [address] Nurse Practitioner Family Medicine 06/17/24 Publication Manager Relationship Specialty Start Date End Date Cyndy Giles MD [address] [place] [address] PCP - General Family Medicine 06/17/24 Brionna Rios, LOLITA [address] [place] [address] Nurse Practitioner Family Medicine 06/17/24 Publication Manager Relationship Specialty Start Date End Date Cyndy Giles MD [address] [facility] [place] [address] PCP - General Family Medicine 06/17/24 Brionna Rios NP [address] [facility] [place] [address] Nurse Practitioner Family Medicine 06/17/24 Publication Manager Relationship Specialty Start Date End Date Cyndy Giles MD [address] [facility] [place] [address] PCP - General Family Medicine 06/17/24 Brionna Rios, LOLITA [address] [facility] [place] [address] Nurse Practitioner Family Medicine 06/17/24 Publication Manager Relationship Specialty Start Date End Date Cyndy Giles MD [address] [facility] [place] [address] PCP - General Family Medicine 04/26/24 Publication Manager Relationship Specialty Start Date End Date Carmenza Ruelas DO [address] [place] [address] [place] [address] PCP - General Family Medicine 08/08/23 Publication Manager Relationship Specialty Start Date End Date Cyndy Giles MD [address] [facility] [place] [address] PCP - General Family Medicine 04/26/24 Publication Manager Relationship Specialty Start Date End Date Cyndy Giles MD [address] [facility] [place] [address] PCP - General Family Medicine 04/26/24 Publication Manager Relationship Specialty Start Date End Date Carmenza Ruelas [address] [place] [address] [place] [phone] PCP - General Family Medicine 08/08/23 Publication Manager Relationship Specialty Start Date End Date Cyndy Giles MD [address] [facility] [place] [address] PCP - General Family Medicine 04/26/24 Publication Manager Relationship Specialty Start Date End Date Cyndy Giles MD [address] [place] [address] PCP - General Family Medicine 06/17/24 Brionna Rios DRY PAN OPERATOR [address] [facility] [place] [address] Nurse Practitioner Family Medicine 06/17/24 Publication Manager Relationship Specialty Start Date End Date Cyndy Giles MD [address] [facility] [place] [address] PCP - General Family Medicine 04/26/24 Publication Manager Relationship Specialty Start Date End Date Darshana Carmenza Morales, DO [address] [place] [address] [place] [phone] PCP - General Family Medicine 08/08/23 Publication Manager Relationship Specialty Start Date End Date Cyndy Giles MD PCP - General Family Medicine 06/17/24 Brionna Rios, LOLITA [address] [facility] [place] [address] Nurse Practitioner Family Medicine 06/17/24 Publication Manager Relationship Specialty Start Date End Date Cyndy Giles MD PCP - General Family Medicine 06/17/24 Brionna Rios NP [address] [place] [address] Nurse Practitioner [facility] Medicine 06/17/24 Publication Manager Relationship Specialty Start Date End Date Cyndy Giles MD PCP - General Family Medicine 06/17/24 Brionna Rios NP [address] [place] [address] Nurse Practitioner [facility] Medicine 06/17/24 Publication Manager Relationship Specialty Start Date End Date Cyndy Giles MD PCP - General Family Medicine 06/17/24 Brionna Rios NP [address] [place] [address] PCP - [facility] 04/18/25 Brionna Rios NP [address] [place] [address] Nurse Practitioner [facility] Medicine 06/17/24 Team Status: Active Member Role Status Dates Cyndy Giles MD Primary Care Provider Active Team Status: Inactive Member Role Status Dates Jeane Jang APRN Attending Provider Active Start: June 10, 2025 End: June 10, 2025 Cyndy Giles MD Primary Care Provider Active Start: June 10, 2025 End: June 10, 2025 Team Status: Inactive Member Role Status Dates Jeane Jang APRN Attending Provider Active Start: June 10, 2025 End: June 10, 2025 Publication Manager Relationship Specialty Start Date End Date Cyndy Giles MD PCP - General Family Medicine 06/17/24 Brionna Rios NP [address] [place] [address] PCP - [facility] 04/18/25 Brionna Rios NP [address] [place] [address] Nurse Practitioner Family Medicine 06/17/24 Goals (unrecognized section and content) Goals may be documented in a n alternate section FOR RECORDS PERTAINING TO PATIENTS WHO ARE [...] BE BASED ON THE PRIMARY CLINICAL RECORDS. [employer] provides no warranty or guarantee of the accuracy or completeness of information in this document.
[2025-07-02 19:09] LABS: Age Gdln ACOG Testing Note (.); IGP, rfx Aptima HPV ASCU Note (.)
== END 2025-06-30 12:24 | disposition home or self-care (01) ==
LOC: LAB 12:23
PROVIDERS: Visit Provider Physician Assistant
DX: Z01.419 Encounter for gynecological examination (general) (routine) without abnormal findings (principal)
CPT/HCPCS: 88175